=== PATIENT | male | born 1960 | race Caucasian/White ===

== ENCOUNTER → 2016-10-31 | Outpatient (CLI) | payer SELFPAY ==
--- NOTE | 2016-10-31 14:14 | CT ---
EXAM DESCRIPTION: CTA Runoff CLINICAL HISTORY: 56 years, Male, PERIPHERAL VASCULAR DISEASE COMPARISON: None TECHNIQUE: CTA of the abdomen and pelvis with bilateral lower extremity runoff was performed with IV contrast including 3D reformatted images. This exam was performed according to our departmental dose-optimization program, which includes automated exposure control, adjustment of the mA and/or kV according to patient size and/or use of iterative reconstruction technique. FINDINGS: There is no abdominal aortic aneurysm or dissection. Calcified and noncalcified plaque at the origins of the celiac axis and superior mesenteric artery resulting in mild stenosis at both locations. There is some calcification at the origin of the left renal artery without definite renal artery stenosis. There are accessory renal arteries bilaterally. The inferior mesenteric artery is perfused. Calcified and noncalcified plaque results in advanced stenosis of the left common iliac artery. There is mural calcification in the right common iliac artery resulting in only mild stenosis. Calcified and noncalcified plaque in both external iliac and common femoral arteries results in moderate stenosis of the left common femoral artery with only minimal right common femoral artery stenosis. Calcified plaque in the distal right superficial femoral artery results in high-grade short segment stenosis at the level of the adductor canal. Mild atherosclerotic disease is noted in the right lower extremity abdomen below the level of the right knee without additional focal high-grade stenosis. Anterior tibial artery is perfused at the level of the right ankle. The posterior tibial artery is also likely perfused. Calcified plaque in the mid/distal left superficial femoral artery results in short segment advanced stenosis at the level of the adductor canal. There is additional calcified and noncalcified plaque in the left popliteal artery resulting in moderate to moderately advanced stenosis. The left lower extremity trifurcation vessels are unremarkable with two-vessel runoff at the level of the left ankle. Postoperative changes are noted in the left knee.. Evaluation of the colon is limited by lack of oral contrast and suboptimal distention. No colonic wall thickening or pericolonic inflammation is identified. No dilated small bowel loops. This probable diffuse fatty filtration of the liver. There are degenerative changes in the lumbar spine multiple levels. IMPRESSION: Advanced atherosclerotic disease involving the common iliac arteries bilaterally resulting in severe left common iliac artery stenosis and mild right common iliac artery stenosis. Atherosclerotic disease in both lower extremities as detailed above resulting in mild to moderate bilateral common femoral artery stenosis and moderate to moderately advanced bilateral superficial femoral artery stenosis. Electronically signed by: Dom Pride MD 10/31/2016 2:13 PM CDT Workstation: [id number]
== END | disposition home or self-care (01) ==
LOC: CT 08:17
PROVIDERS: ATTEND Family Medicine
DX: I70.201 Unspecified atherosclerosis of native arteries of extremities, right leg (principal)

== ENCOUNTER 2017-06-01 16:19 | Emergency (ER) | payer SELFPAY ==
--- NOTE | 2017-06-01 16:52 | ED.PDOC ---
History of Present Illness - General Chief Complaint: Chest Pain/HI Time Seen by Provider: 06/01/17 16:48 Source: patient Exam Limitations: no limitations Additional Information: 56 year old white with known cad sp stent supported angioplasty 5 years ago at He has not seen his policy loan calculator in several months.. 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 therefore he states he is stressed out and smokes more than he normally does H He is a chronic smoker 1ppd - History of Present Illness Timing/Duration: intermittent Location: substernal Prior Chest Pain/Cardiac Workup: cardiac cath, heart attack Improving Factors: nothing Worsening Factors: nothing Aspirin Treatment Today: provided at home Associated Symptoms: chest pain, other - anxiety Allergies/Adverse Reactions: Allergies NO KNOWN ALLERGY Allergy (Unverified 06/01/17 16:28) Home Medications: Ambulatory Orders Clopidogrel Bisulfate 75 mg PO DAILY 12/03/13 Escitalopram [Lexapro] 20 mg PO DAILY 12/03/13 Metoprolol Succinate [Metoprolol Succinate ER] 100 mg PO DAILY 12/03/13 Atorvastatin Calcium [Lipitor] 80 mg PO BEDTIME 06/01/17 Azilsartan Medoxomil-Chlorthal [Edarbyclor] 1 tab PO DAILY 06/01/17 Buspirone HCl 15 mg PO BID 06/01/17 Cilostazol 100 mg PO DAILY 06/01/17 Review of Systems - Review of Systems Constitutional: States: see HPI EENTM: States: no symptoms reported Respiratory: States: no symptoms reported Cardiology: States: see HPI Gastrointestinal/Abdominal: States: no symptoms reported Genitourinary: States: no symptoms reported Musculoskeletal: States: no symptoms reported Skin: States: no symptoms reported Neurological: States: no symptoms reported Endocrine: States: no symptoms reported Hematologic/Lymphatic: States: no symptoms reported Past Medical History (General) - Patient Medical History Hx Seizures: No Hx Stroke: No Hx Dementia: No Hx Asthma: No Hx of COPD: No Hx Cardiac Disorders: Yes - HI Hx Congestive Heart Failure: No Hx Pacemaker: No Hx Hypertension: Yes Hx Thyroid Disease: No Hx Diabetes: No Hx Gastroesophageal Reflux: No Hx Renal Disease: No Hx Cancer: No Hx of HIV: No Hx Hepatitis C: No Hx MRSA: No - Vaccination History Hx Tetanus, Diphtheria Vaccination: Yes Hx Influenza Vaccination: Yes Hx Pneumococcal Vaccination: No - Social History Hx Tobacco Use: Yes Hx Chewing Tobacco Use: No Hx Alcohol Use: Yes Hx Substance Use: No Hx Substance Use Treatment: No Hx Depression: No Hx Physical Abuse: No Hx Emotional Abuse: No Hx Suspected Abuse: No Family Medical History - Family History Father Living Status: Cause of : aneurysm Physical Exam - Physical Exam General Appearance: Alert Eyes, Ears, Nose, Throat Exam: TMs normal, pharynx normal Neck: non-tender, full range of motion, supple Respiratory: chest non-tender, lungs clear, normal breath sounds Cardiovascular/Chest: normal peripheral pulses, regular rate, rhythm, no edema, no gallop Gastrointestinal/Abdominal: normal bowel sounds, non tender, soft, no organomegaly 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, no motor/sensory deficits, alert, normal mood/affect, oriented x 3 Progress - Results/Orders Results/Orders: PT REQUESTING XANAX HE TAKES FOR ANXIETY HE GIVE ANXIOLYTIC HE REMAINED CHEST PAIN FREE MOST OF HIS STAY COUNSELED ABOUT HIS NICOTINE USE Laboratory Tests 06/01/17 16:30 WBC 7.9 RBC 3.97 L Hgb 11.3 L Hct 33.9 L MCV 85.4 MCH 28.4 MCHC 33.4 RDW 17.7 H Plt Count 331 MPV 7.1 L Absolute Neuts (auto) 5.00 Absolute Lymphs (auto) 2.00 Absolute Monos (auto) 0.50 Absolute Eos (auto) 0.30 Absolute Basos (auto) 0.10 Neutrophils % 63.6 Lymphocytes % 25.9 Monocytes % 6.0 Eosinophils % 3.5 Basophils % 1.0 PT 10.0 INR 0.880 PTT (SP) 30.4 Sodium 132 L Potassium 4.0 Chloride 95 L Carbon Dioxide 25 Anion Gap 16.0 BUN 16 Creatinine 1.60 H BUN/Creatinine Ratio 10.0 Random Glucose 97 Serum Osmolality 265.6 L Calcium 9.1 Magnesium 1.9 Creatine Kinase 68 CK-MB (CK-2) 3.0 CK-MB (CK-2) % Not Reportable Troponin I 0.02 B-Natriuretic Peptide 220.0 H* - Consult/PCP Time Called: 16:55 - NO STEMI NON PROGRESSION OF R WAVE NORMAL AXIS RATE 93 / MIN Departure - Departure Clinical Impression: Chest pain Time of Disposition: 18:52 Disposition: Discharge to Home or Self Care Condition: Good Departure Forms: ED Discharge - Pt. 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
--- NOTE | 2017-06-01 16:52 | RAD ---
EXAM DESCRIPTION: Chest,1 View CLINICAL HISTORY: 56 years Male, CHEST PAIN COMPARISON: November 13, 2015 TECHNIQUE: AP portable chest. FINDINGS: Fair expansion of the lungs is evident without consolidation, layering effusion, or large mass. Heart size and vascularity appear normal for AP technique and degree of inspiration. No gross bony, hilar, or mediastinal abnormalities are noted. Old healed right posterior lateral rib fractures are unchanged from prior study. IMPRESSION: No acute cardiopulmonary disease. Electronically signed by: Farhan Corea MD 06/01/2017 4:51 PM CDT
[2017-06-01 19:41] VITALS: BP 162/74; TEMP 98.8; O2SAT 99
== END 2017-06-01 19:20 | disposition home or self-care (01) ==
LOC: ER 16:19
DX: R07.9 Chest pain, unspecified (principal); I25.2 Old myocardial infarction; I10 Essential (primary) hypertension; F41.9 Anxiety disorder, unspecified; I25.10 Atherosclerotic heart disease of native coronary artery without angina pectoris; Z98.61 Coronary angioplasty status; F17.200 Nicotine dependence, unspecified, uncomplicated; Z79.02 Long term (current) use of antithrombotics/antiplatelets
CPT/HCPCS: 36415; 71045; 80048; 82550; 82553; 83880; 84484; 85025; 85610; 85730; 93005; 94760; J2060

== ENCOUNTER 2018-09-19 19:28 | Emergency (ER) | payer SELFPAY ==
[2018-09-19 20:09] VITALS: TEMP 98.9; O2SAT 98
--- NOTE | 2018-09-19 20:46 | RAD ---
EXAM: XR Chest, 1 View CLINICAL HISTORY: 57 years old and is Male; dyspnea TECHNIQUE: Frontal view of the chest. COMPARISON: 06/22/2018. FINDINGS: Limitations: None. Lungs: Pulmonary edema present probably superimposed on fibrotic change. Chronic obstructive changes are present. Pleural space: Unremarkable. No pneumothorax. Heart: Unremarkable. No cardiomegaly. Mediastinum: Unremarkable. Bones/joints: Old bilateral rib fractures noted. IMPRESSION: Pulmonary edema superimposed on fibrosis. Electronically signed by: Lucina Cramer MD 09/19/2018 8:44 PM CDT
--- NOTE | 2018-09-19 21:17 | ED.PDOC ---
History of Present Illness - General Chief Complaint: Respiratory Problem Stated Complaint: Dyspnea Time Seen by Provider: 09/19/18 19:57 Source: patient, RN notes reviewed, Vital Signs reviewed Exam Limitations: no limitations - History of Present Illness Initial Comments: 57 yo male c/o dyspnea on exertion x 3 days. Feels fatigued. No complaints of pain. Timing/Duration: days Severity: moderate Activities at Onset: activity Possible Cause: no prior episodes Improving Factors: rest Associated Symptoms: cough, other - weight loss Respiratory Risk Factors: no cause identified Allergies/Adverse Reactions: Allergies NO KNOWN ALLERGY Allergy (Unverified 06/01/17 16:28) Home Medications: Ambulatory Orders Clopidogrel Bisulfate 75 mg PO DAILY 12/03/13 Escitalopram [Lexapro] 20 mg PO DAILY 12/03/13 Metoprolol Succinate [Metoprolol Succinate ER] 100 mg PO DAILY 12/03/13 Atorvastatin Calcium [Lipitor] 80 mg PO BEDTIME 06/01/17 Azilsartan Medoxomil-Chlorthal [Edarbyclor] 1 tab PO DAILY 06/01/17 Buspirone HCl 15 mg PO BID 06/01/17 Cilostazol 100 mg PO DAILY 06/01/17 Review of Systems - Review of Systems Constitutional: States: see HPI, malaise EENTM: States: no symptoms reported Respiratory: States: see HPI, cough Cardiology: States: no symptoms reported Gastrointestinal/Abdominal: States: no symptoms reported Genitourinary: States: no symptoms reported Musculoskeletal: States: no symptoms reported Skin: States: no symptoms reported Neurological: States: no symptoms reported Endocrine: States: unexplained weight loss Hematologic/Lymphatic: States: easy bruising Past Medical History (General) - Patient Medical History Hx Seizures: No Hx Stroke: No Hx Dementia: No Hx Asthma: No Hx of COPD: No Hx Cardiac Disorders: No Hx Congestive Heart Failure: No Hx Pacemaker: No Hx Hypertension: Yes Hx Thyroid Disease: No Hx Diabetes: No Hx Gastroesophageal Reflux: No Hx Renal Disease: No Hx Cancer: No Hx of HIV: No Hx Hepatitis C: No Hx MRSA: No - Vaccination History Hx Tetanus, Diphtheria Vaccination: No Hx Influenza Vaccination: No Hx Pneumococcal Vaccination: No Immunizations Up to Date: Yes - Social History Hx Tobacco Use: Yes Hx Chewing Tobacco Use: No Hx Alcohol Use: Yes Hx Substance Use: No Hx Substance Use Treatment: No Hx Depression: No Hx Physical Abuse: No Hx Emotional Abuse: No Hx Suspected Abuse: No Family Medical History - Family History Father Family History: Unknown Living Status: Cause of : aneurysm Physical Exam - Physical Exam General Appearance: Alert, Comfortable, No apparent distress Eyes, Ears, Nose, Throat Exam: pale conjunctivae (R), pale conjunctivae (L) Neck: supple, normal inspection Respiratory: no respiratory distress, rales Cardiovascular/Chest: regular rate, rhythm, no edema, no gallop, no JVD, no murmur Gastrointestinal/Abdominal: non tender, soft, no organomegaly Extremity: normal range of motion, non-tender, normal inspection, no pedal edema, no calf tenderness Neurologic: no motor/sensory deficits, alert, normal mood/affect, oriented x 3 Skin Exam: normal color, warm/dry - bruising to arms Progress - Progress Progress: 09/19/18 21:18 He declines admission or transfer. I explained to him that a life threatening process has not been ruled out. He was educated on all his tests & that the differential includes heart failure, hemorrhage, abnormal clotting (PE), ACS, and cancer. He says he will follow up in [place] in the morning but will return here if any problems develop overnight. He will sign out AMA. I feel he is competent & informed to make his own decisions & have told him I do not agree with his decision. He will be provided with copies of his testing. He left prior to being given potassium. 09/19/18 21:24 - Results/Orders Results/Orders: Hgb 7.2 Plt 240 D-d 1.95 Na 121 K 2.9 CO2 18 Tr 0.04 BNP > 5000 - EKG/XRAY/CT EKG: Sinus - NSR @ 86; nml axis, LAE, nml ST segments & T waves; LVH XRAY: chest - pulmonary edema Departure - Departure Clinical Impression: Hyponatremia, Hypokalemia, Acidosis Pulmonary edema Qualifiers: Chronicity: acute Qualified Code(s): J81.0 - Acute pulmonary edema Anemia Qualifiers: Anemia type: unspecified type Qualified Code(s): D64.9 - Anemia, unspecified Time of Disposition: 21:29 Disposition: Left Against Medical Advice Condition: Serious Departure Forms: ED Discharge - Pt. Copy, Patient Portal Self Enrollment Instructions: Heart Failure, Adult (DC) Home Medications: Ambulatory Orders Clopidogrel Bisulfate 75 mg PO DAILY 12/03/13 Escitalopram [Lexapro] 20 mg PO DAILY 12/03/13 Metoprolol Succinate [Metoprolol Succinate ER] 100 mg PO DAILY 12/03/13 Atorvastatin Calcium [Lipitor] 80 mg PO BEDTIME 06/01/17 Azilsartan Medoxomil-Chlorthal [Edarbyclor] 1 tab PO DAILY 06/01/17 Buspirone HCl 15 mg PO BID 06/01/17 Cilostazol 100 mg PO DAILY 06/01/17 Additional Instructions: you MUST follow up either her or at [facility] in the morning
[2018-09-19 21:30] VITALS: BP 171/106
== END 2018-09-19 21:20 | disposition left against medical advice (07) ==
LOC: ER 19:28
DX: J81.0 Acute pulmonary edema (principal); D64.9 Anemia, unspecified; E87.1 Hypo-osmolality and hyponatremia; E87.6 Hypokalemia; E87.2 Acidosis; I10 Essential (primary) hypertension; Z53.29 Procedure and treatment not carried out because of patient's decision for other reasons; Z87.891 Personal history of nicotine dependence; Z79.899 Other long term (current) drug therapy

== ENCOUNTER 2018-09-20 00:14 | Emergency (ER) | payer SELFPAY ==
[2018-09-20] MEDS ORDERED: SODIUM CHLORIDE 0.9% 1000ML 1,000 ML IVS ONE (00:32)
[2018-09-20] MEDS ORDERED: TETANUS,DIPHTHERIA,PERTUSSIS 1 EA SYG IM ONE (00:32)
--- NOTE | 2018-09-20 01:12 | CT ---
EXAM: CT Head Without Intravenous Contrast CLINICAL HISTORY: The patient is 57 years old and is Male; syncope TECHNIQUE: Axial computed tomography images of the head/brain without intravenous contrast. Sagittal and coronal reformatted images were created and reviewed. This CT exam was performed using one or more of the following dose reduction techniques: automated exposure control, adjustment of the mA and/or kV according to patient size, and/or use of iterative reconstruction technique. COMPARISON: No relevant prior studies available. FINDINGS: BRAIN: There is diffuse cerebral atrophy present, consistent with this patient's age. There is patchy hypoattenuation of the deep white matter which is non-specific, but most likely owing to chronic small vessel ischemic change in a patient of this age group. No intracranial hemorrhage, mass effect, or midline shift is seen. There are no extra-axial fluid collections. VENTRICLES: Unremarkable. No ventriculomegaly. BONES/JOINTS: No acute fracture. SOFT TISSUES: Unremarkable. SINUSES: Unremarkable as visualized. No acute sinusitis. MASTOID AIR CELLS: Unremarkable as visualized. No mastoid effusion. IMPRESSION: Age-related atrophy and chronic white matter ischemic changes, with no evidence of an acute intracranial abnormality. Electronically signed by: Aditi Vides MD 09/20/2018 1:10 AM CDT
--- NOTE | 2018-09-20 01:13 | CT ---
CT cervical spine without contrast on 09/20/2018 CLINICAL INDICATION: Syncope, per protocol for mechanism of injury TECHNIQUE: Multiple axial images are obtained throughout the cervical spine without the administration of contrast. Sagittal and coronal reformatted images are also performed and reviewed. This exam was performed according to our departmental dose-optimization program, which includes automated exposure control, adjustment of the mA and/or kV according to patient size and/or use of iterative reconstruction technique. Total DLP is 499.34 mGy*cm. COMPARISON: None FINDINGS: Diffuse degenerative disc disease is noted throughout the cervical spine. There is mild grade 1 spondylolisthesis at C2-3 and C4-5 secondary to degenerative facet disease. Degenerative facet disease is noted worse on the left in the mid cervical spine. Reformatted images reveal otherwise normal alignment of the cervical spine. There is no prevertebral soft tissue swelling. Bilateral carotid calcifications are noted. There are no acute fracture lines. No definite disc herniation is noted. There are partially imaged right greater than left pleural effusions. Paraseptal emphysema is noted in the lung apices. There is an enlarged paratracheal lymph node on image 95 measuring 2.2 x 1.5 cm. IMPRESSION: 1. Degenerative changes with no acute fracture or acute malalignment of the cervical spine. 2. Bilateral pleural effusions. 3. Paratracheal adenopathy that could be reactive but malignant process is not excluded. Would recommend at least a complete chest CT to better evaluate or consider PET/CT. Electronically signed by: Davi Pizano 09/20/2018 1:11 AM CDT
--- NOTE | 2018-09-20 02:14 | ED.PDOC ---
History of Present Illness - General Chief Complaint: Trauma Stated Complaint: Fall Time Seen by Provider: 09/20/18 00:30 Source: patient, RN notes reviewed, Vital Signs reviewed, family Exam Limitations: no limitations - History of Present Illness Initial Comments: 57 yo male presents via EMS after a reported syncopal episode & fall at home. Says he went to the [facility], had a BM & after starting to walk out he fainted. Reports pain to the left side of his head & neck. Denies chest pain or palpitations. He doesn't know if he had any rectal bleeding. He was seen here earlier tonight for anemia, pulmonary edema & hyponatremia but left AMA. Timing/Prior Episodes: no prior history Precipitating Factors: lightheadedness Loss of Consciousness: brief (seconds) Current Symptoms: injury, loss of bladder control, loss of bowel control Allergies/Adverse Reactions: Allergies NO KNOWN ALLERGY Allergy (Unverified 06/01/17 16:28) Home Medications: Ambulatory Orders Metoprolol Succinate [Metoprolol Succinate ER] 100 mg PO DAILY 12/03/13 Buspirone HCl 15 mg PO BID 06/01/17 Citalopram Hydrobromide [Citalopram] 20 mg PO DAILY 09/20/18 Clopidogrel Bisulfate [Plavix] 75 mg PO QD 09/20/18 Lisinopril 10 mg PO DAILY 09/20/18 Review of Systems - Review of Systems Constitutional: States: weakness EENTM: States: no symptoms reported Respiratory: States: no symptoms reported Cardiology: States: no symptoms reported Gastrointestinal/Abdominal: States: see HPI. Denies: abdominal pain Genitourinary: States: no symptoms reported Musculoskeletal: States: see HPI. Denies: back pain Skin: States: other - skin tears to right forearm Neurological: States: no symptoms reported Endocrine: States: unexplained weight loss Hematologic/Lymphatic: States: easy bruising Past Medical History (General) - Patient Medical History Hx Seizures: No Hx Stroke: No Hx Dementia: No Hx Asthma: No Hx of COPD: No Hx Cardiac Disorders: No Hx Congestive Heart Failure: No Hx Pacemaker: No Hx Hypertension: Yes Hx Thyroid Disease: No Hx Diabetes: No Hx Gastroesophageal Reflux: No Hx Renal Disease: No Hx Cancer: No Hx of HIV: No Hx Hepatitis C: No Hx MRSA: No - Vaccination History Hx Tetanus, Diphtheria Vaccination: No Hx Influenza Vaccination: No Hx Pneumococcal Vaccination: No - Social History Hx Tobacco Use: Yes Cigarettes Packs Per Day: 2 Hx Chewing Tobacco Use: No Hx Alcohol Use: Yes Hx Substance Use: No Hx Substance Use Treatment: No Hx Depression: No Hx Physical Abuse: No Hx Emotional Abuse: No Hx Suspected Abuse: No Physical Exam - Physical Exam General Appearance: Alert, Comfortable, No apparent distress Eyes, Ears, Nose, Throat Exam: PERRL/EOMI, normal ENT inspection, pale conjunctivae (R), pale conjunctivae (L) Neck: limited range of motion, other - c-collar. No midline tenderness. 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 No neck pain other than chronic left lateral neck pain. 111/81. He now agrees to a transfer. His spouse requests Mushtaq No. - Results/Orders Results/Orders: Hgb 7.3 Na 121 K 2.9 Cr 1.4 Osmo 244 Occult blood neg - EKG/XRAY/CT EKG: Siva, Sinus - SB @ 56; nml axis, LAE, prolonged QT, LVH, Twi V1-2 (new) CT Ordered: Yes - head - no acute process; C-spine - pleural effusions & paratracheal LAD - Consult/PCP Time Called: 02:36 Consult/PCP: Dr. Glover Departure - Departure Clinical Impression: Neck pain, Pleural effusion, Hyponatremia, Hypokalemia, Skin tear Syncope Qualifiers: Syncope type: unspecified Qualified Code(s): R55 - Syncope and collapse Head injury Qualifiers: Encounter type: initial encounter Qualified Code(s): S09.90XA - Unspecified injury of head, initial encounter Anemia Qualifiers: Anemia type: unspecified type Qualified Code(s): D64.9 - Anemia, unspecified Disposition: Discharge to Home or Self Care Departure Forms: ED Discharge - Pt. Copy, Patient Portal Self Enrollment Instructions: DI for Trauma Referrals: Michael Conley MD [Primary Care Provider] - 1-2 Weeks Home Medications: Ambulatory Orders Metoprolol Succinate [Metoprolol Succinate ER] 100 mg PO DAILY 12/03/13 Buspirone HCl 15 mg PO BID 06/01/17 Citalopram Hydrobromide [Citalopram] 20 mg PO DAILY 09/20/18 Clopidogrel Bisulfate [Plavix] 75 mg PO QD 09/20/18 Lisinopril 10 mg PO DAILY 09/20/18 Critical Care Note - Critical Care Note Total Time (mins): 30 Transfer to Outside Facility - Transfer Information Accepting Facility: [facility] Reason for Transfer: specialized care not available
[2018-09-20] MEDS ORDERED: NEOMYCIN-BACITRACIN-POLYMYXIN 0.9 GM UD TOP ONE ×2 (02:45)
[2018-09-20] MEDS ORDERED: POTASSIUM CHLORIDE 20 MEQ TAB PO ONE (03:26)
[2018-09-20] MEDS ORDERED: FUROSEMIDE INJ 20 MG/2 ML VIAL IV ONE (03:26)
[2018-09-20] MEDS ORDERED: ACETAMINOPHEN 325 MG TAB PO ONE (03:31)
[2018-09-20] MEDS ORDERED: SODIUM CHLORIDE 0.9% 500ML 500 ML ONE (03:38)
[2018-09-20 04:26] VITALS: BP 114/69; TEMP 98; O2SAT 94
== END 2018-09-20 04:15 | disposition home or self-care (01) ==
LOC: ER 00:14
DX: R55 Syncope and collapse (principal); S09.90XA Unspecified injury of head, initial encounter; D64.9 Anemia, unspecified; J90 Pleural effusion, not elsewhere classified; E87.1 Hypo-osmolality and hyponatremia; E87.6 Hypokalemia; M54.2 Cervicalgia; S51.811A Laceration without foreign body of right forearm, initial encounter; R00.1 Bradycardia, unspecified; I10 Essential (primary) hypertension; Z87.891 Personal history of nicotine dependence; Z79.899 Other long term (current) drug therapy; W18.30XA Fall on same level, unspecified, initial encounter; Y92.009 Unspecified place in unspecified non-institutional (private) residence as the place of occurrence of the external cause
CPT/HCPCS: 70450; 72125; 80048; 82270; 82607; 82728; 82746; 83540; 84484; 85025; 85610; 85730; 86850; 86900; 86901; 86922; 90471; 90715; 93005; J1940; J7040; P9016

== ENCOUNTER 2018-11-13 18:12 | Emergency (ER) | payer SELFPAY ==
[~2018-11-13 18:12] MED LIST: WATER FOR INJ 10 ML VIAL INJ ONE
[2018-11-13] MEDS ORDERED: IPRATROPIUM/ALBUTEROL 3 ML VIAL NEB ONE (18:27)
[2018-11-13] MEDS: IPRATROPIUM/ALBUTEROL 3 ML VIAL NEB ONE ×2 (18:46→23:45)
--- NOTE | 2018-11-13 19:48 | ED.PDOC ---
History of Present Illness - General Chief Complaint: Respiratory Problem Stated Complaint: shortness of breath Time Seen by Provider: 11/13/18 18:34 Source: patient Exam Limitations: no limitations - History of Present Illness Initial Comments: DSYPNEA X 1 DAY. COMPLEX PMH LIFELONG ALCOHOLIC AND SMOKER. H/O PERICARDIAL EFFUSION. Timing/Duration: 7-24 hours Severity: moderate Activities at Onset: none Possible Cause: illness exposure, smoke exposure Improving Factors: immobilization Worsening Factors: movement Associated Symptoms: denies symptoms Respiratory Risk Factors: other - SMOKER Allergies/Adverse Reactions: Allergies NO KNOWN ALLERGY Allergy (Unverified 06/01/17 16:28) Home Medications: Ambulatory Orders Metoprolol Succinate [Metoprolol Succinate ER] 100 mg PO DAILY 12/03/13 Buspirone HCl 15 mg PO BID 06/01/17 Citalopram Hydrobromide [Citalopram] 20 mg PO DAILY 09/20/18 Clopidogrel Bisulfate [Plavix] 75 mg PO QD 09/20/18 Lisinopril 10 mg PO DAILY 09/20/18 Review of Systems - Review of Systems Constitutional: Denies: chills, diaphoresis EENTM: Denies: ear pain, nose congestion Respiratory: States: short of breath. Denies: cough, wheezing Cardiology: Denies: chest pain, palpitations Gastrointestinal/Abdominal: Denies: abdominal pain, nausea Genitourinary: Denies: dysuria, frequency, hematuria Musculoskeletal: Denies: back pain, joint pain Skin: States: no symptoms reported Neurological: Denies: numbness, pre-existing deficit, weakness Endocrine: Denies: flushing, unexplained weight gain, unexplained weight loss Hematologic/Lymphatic: Denies: easy bleeding, easy bruising All other Systems: Reviewed and Negative Past Medical History (General) - Patient Medical History Hx Seizures: No Hx Stroke: No Hx Dementia: No Hx Asthma: No Hx of COPD: No Hx Cardiac Disorders: Yes Hx Congestive Heart Failure: No Hx Pacemaker: No Hx Hypertension: Yes Hx Thyroid Disease: No Hx Diabetes: No Hx Gastroesophageal Reflux: No Hx Renal Disease: No Hx Cancer: No Hx of HIV: No Hx Hepatitis C: No Hx MRSA: No Surgical History: no surgical history - Vaccination History Hx Tetanus, Diphtheria Vaccination: No Hx Influenza Vaccination: No Hx Pneumococcal Vaccination: No - Social History Hx Tobacco Use: Yes Hx Chewing Tobacco Use: No Hx Alcohol Use: Yes Hx Substance Use: No Hx Substance Use Treatment: No Hx Depression: No Hx Physical Abuse: No Hx Emotional Abuse: No Hx Suspected Abuse: No Family Medical History - Family History Father Family History: Unknown Living Status: Cause of : aneurysm Physical Exam - Physical Exam General Appearance: Alert, No apparent distress Eyes, Ears, Nose, Throat Exam: PERRL/EOMI, normal ENT inspection, TMs normal, pharynx normal Neck: non-tender, full range of motion, supple, normal inspection Respiratory: lungs clear, normal breath sounds, no respiratory distress, no accessory muscle use Cardiovascular/Chest: normal peripheral pulses, regular rate, rhythm, no edema, no gallop, no JVD, no murmur Peripheral Pulses: radial,right: 1+, radial,left: 1+ Gastrointestinal/Abdominal: normal bowel sounds, non tender, soft, no organomegaly, no pulsatile mass Extremity: normal range of motion, non-tender, normal inspection, no pedal edema, no calf tenderness Neurologic: no motor/sensory deficits, alert, normal mood/affect, oriented x 3 Skin Exam: normal color, warm/dry Lymphatic: no adenopathy Progress - Progress Progress: 11/13/18 21:01 PT NEEDS A HIGHER LEVEL OF CARE DUE TO: BL PNE (STARTED ZOSYN). CHF (BNP 4000, lasix). HYPOXIA (SATTING 93% ON NRB, DUONEBS). ANEMIA (HGB 6.6. STARTING PRBC'S). ACUTE LIVER FAILURE (AST 2,000. ALT 1,000 - NEEDS GI/HEPATOLOGY CONSULT). ARF. NOTE: THE ABG RESULTED A VENOUS BLOOD GAS, PER R.T. AND THE RESULTS. pH IS NL AT 7.36. I CALLED [facility] FOR TRANSFER. HE IS CONTACTING HOSPITALIST AND CALLING ME BACK. 11/13/18 21:25 [facility] CALLED BACK BUT PT AND FAMILY DECIDED THEY WANT TO GO TO [facility] I SPOKE WITH [facility] TRANSFER LINE AND THE SAID WITH LFT'S THAT HIGH, THE PT NEEDS TO GO TO [facility] OR OTHER [facility]. WE WILL NOW ATTEMPT TO CONTACT [facility]. 11/13/18 22:15 WE CALLED [facility] TRANSFER LINE. THEY ARE CHECKING TO SEE IF THEY HAVE BEDS AND ARE CALLING US BACK. 11/13/18 22:[address] MULLINS FROM [facility]. THEY REFUSED TO TAKE THE PT DUE TO THE TRAVEL DISTANCE. PT IS SATTING 92% ON NRB AND IS BREATHING COMFORTABLY (NO LABORED BREATHING, NO TACHYPNEA) SO IN MY OPINION HE IS VERY SAFE FOR TRANSFER. THEY RECOMMENDED HE GO TO [facility]. NOW WE ARE CALLING [facility] FOR HOPEFUL TRANSFER. 11/13/18 22:24 11/13/18 22:[address] LAWRENCE FROM [facility]. HE REQUESTED WE GIVE 1 UNIT PRBC AND RECHECK HIS HGB TO ENSURE IT IS ABOVE 7.0. IT IS CURRENTLY 6.6 IN ER AND WAS 7.2 ON SEPTEMBER 19, 6 WKS AGO, SO IT IS A SLOW DECLINE. HE IS TOLERATING IT WELL AND HEMODYNAMICALLY STABLE WITH BP 165/87, PULSE 72, NO HYPOTENSION AND NO TACHYCARDIA, COMFORTABLE RESPIRATIONS. SO MY POINT IS THIS PATIENT NEEDS A HIGHER LEVEL OF CARE AND IS SAFE FOR TRANSFER. DELAYING 2 HRS TO TRANSFER IS ONLY DELAYING CARE AND HIS NEED FOR A HIGHER LEVEL OF CARE, WHICH IS NOT IN THE PATIENT'S BEST INTEREST. I AM CALLING THE DR BACK TO [facility] FOR THE PATIENT PER THE ABOVE. 11/13/18 23:[address] LAWRENCE AND EXPLAINED THE ABOVE. HE KINDLY EXPLAINED THE HOSPITAL POLICY THAT THEY ARE NOT ALLOWED TO ADMIT TO THE PCU UNLESS HGB IS 7.0. HE RECOMMENDED TALKING TO THE ER. DR. SACHA DYER FROM [facility] ER SAID TO START THE PRBC'S AND TRANSFER HIM. THANK YOU, DR. DYER AND [facility] FOR ACCEPTING FURTHER CARE FOR THIS PATIENT. IT TOOK 2 1/2 HRS OF CALLING HOSPITALS TO GET ACCEPTANCE FOR TRANSFER, WHICH DELAYED PATIENT CARE, SO I AM EXTRA APPRECIATIVE OF DR. DYER AND [facility] ER. THE PATIENT IS STABLE AND SAFE FOR TRANSFER. WE WILL HAVE THE PRBC ON BOARD. 11/14/18 01:00 PT WAS SATTING WELL (93%) ON NRB ALL EVENING BUT STARTED DROPPING INTO 80'S. THUS CHANGED TO BIPAP AND HOLDING AT 94%. NO LABORED BREATHING; PT IS BREATHING COMFORTABLY. NO TACHYPNEA. 11/14/18 01:02 WE ARE PREPARING TO START THE PRBC'S AND THEN WILL TRANSFER ON BIPAP. PT IS STILL IN HEMODYNAMICALLY STABLE CONDITION; NO HYPOTENSION, NO TACHYCARDIA. 11/14/18 01:10 Departure - Departure Clinical Impression: Alcohol abuse, Tobacco abuse, Hypoxia, Neutrophilic leukocytosis, Elevated LFTs, Anemia requiring transfusions, Elevated brain natriuretic peptide (BNP) level Dyspnea Qualifiers: Dyspnea type: shortness of breath Qualified Code(s): R06.02 - Shortness of breath; R06.00 - Dyspnea, unspecified; R06.01 - Orthopnea ARF (acute renal failure) Qualifiers: Acute renal failure type: unspecified Qualified Code(s): N17.9 - Acute kidney failure, unspecified Pneumonia of both lower lobes Qualifiers: Pneumonia type: due to unspecified organism Qualified Code(s): J18.1 - Lobar pneumonia, unspecified organism CHF (congestive heart failure) Qualifiers: Heart failure type: unspecified Heart failure chronicity: acute on chronic Qualified Code(s): I50.9 - Heart failure, unspecified Liver failure, acute Qualifiers: Hepatic coma status: without hepatic coma Qualified Code(s): K72.00 - Acute and subacute hepatic failure without coma Disposition: Transfer to Hospital Condition: Serious Departure Forms: ED Discharge - Pt. Copy, Patient Portal Self Enrollment Referrals: Michael Conley MD [Primary Care Provider] - 1-2 Weeks Home Medications: Ambulatory Orders Metoprolol Succinate [Metoprolol Succinate ER] 100 mg PO DAILY 12/03/13 Buspirone HCl 15 mg PO BID 06/01/17 Citalopram Hydrobromide [Citalopram] 20 mg PO DAILY 09/20/18 Clopidogrel Bisulfate [Plavix] 75 mg PO QD 09/20/18 Lisinopril 10 mg PO DAILY 09/20/18 Transfer to Outside Facility - Transfer Information Accepting Provider:: DR. SACHA DYER Accepting Facility: [facility] Reason for Transfer: specialized care not available
--- NOTE | 2018-11-13 19:57 | RAD ---
: 1960. Technique: Portable AP chest x-ray. Comparison: September 19, 2018. Clinical history: ACUTE DYSPNEA; LIFELONG SMOKER. Heart size: Enlarged heart. Lungs: Moderate bilateral mixed interstitial and alveolar infiltrates. Consistent with pneumonia or pulmonary edema. Consider CT in light of the clinical history. Pleura: No appreciable pleural effusion. No pneumothorax. Mediastinum and rolo: Unremarkable. Skeletal: There are bilateral rib fracture deformities. An underlying destructive process cannot be excluded. Degenerative changes in the shoulders. Support tubings: None. Impression: 1. Cardiomegaly. 2. Worsening bilateral pneumonia and pulmonary edema. 3. Rib fractures Electronically signed by: Daniel Roth MD 11/13/2018 7:55 PM CDT
[2018-11-13] MEDS: SODIUM CHLORIDE 0.9% (FLUSH) 10 ML SYG IV PRN (20:46)
[2018-11-13] MEDS ORDERED: SODIUM CHLORIDE 0.9% 100ML 100 ML IVPB ONE (21:10)
[2018-11-13] MEDS ORDERED: PIPERACILLIN/TAZOBACTAM 3.375 GM VIAL IVPB ONE (21:10)
[2018-11-13] MEDS: PIPERACILLIN/TAZOBACTAM 3.375 GM in SODIUM CHLORIDE 0.9% 100ML 100 ML IVPB ONE (21:12)
[2018-11-13] MEDS: FUROSEMIDE INJ 40 MG/4 ML VIAL IV ONE (23:51)
[2018-11-14] MEDS ORDERED: SODIUM CHLORIDE 0.9% 1000ML 1,000 ML ONE (00:48)
[2018-11-14 01:17] VITALS: TEMP 98.7
[2018-11-14] MEDS ORDERED: SUCCINYLCHOLINE CHLORIDE 200 MG/10 ML VIAL ONE (02:11)
[2018-11-14] MEDS: ETOMIDATE INJECTION 2 MG/ML 20ML VIAL IV ONE (02:40)
[2018-11-14] MEDS: SUCCINYLCHOLINE CHLORIDE 200 MG/10 ML VIAL IV ONE (02:40)
[2018-11-14] MEDS: MIDAZOLAM INJ 5 MG/5 ML VIAL IV ONE (02:45)
--- NOTE | 2018-11-14 02:49 | RAD ---
EXAM DESCRIPTION: Chest,1 View CLINICAL HISTORY: 58 years Male, ET tube placement COMPARISON: Chest x-ray November 13, 2018 FINDINGS: An endotracheal tube is present with its tip 5.4 cm above the krissy. Hazy opacity in both lungs is again demonstrated appearing increased. Pulmonary vascular congestion noted. Small right pleural effusion appears increased. There is a probable small left pleural effusion. No pneumothorax. Cardiac silhouette appears mildly enlarged. Mild deformity of the right posterior sixth rib again noted suggestive of remote trauma. IMPRESSION: 1. Interval increased hazy opacity throughout both lungs which may reflect pulmonary edema versus pneumonia. 2. Small right pleural effusion appears increased. Probable small left pleural effusion. 3. Pulmonary vascular congestion. Electronically signed by: Devon Oliva MD 11/14/2018 2:48 AM CDT
[2018-11-14] MEDS: VECURONIUM BROMIDE 10 MG VIAL IV ONE (02:50)
[2018-11-14 03:20] VITALS: BP 177/86; O2SAT 94
== END 2018-11-14 03:00 | disposition short-term general hospital (02) ==
LOC: ER 18:12
DX: J18.1 Lobar pneumonia, unspecified organism (principal); K72.00 Acute and subacute hepatic failure without coma; I50.9 Heart failure, unspecified; N17.9 Acute kidney failure, unspecified; F10.20 Alcohol dependence, uncomplicated; F17.200 Nicotine dependence, unspecified, uncomplicated; R79.89 Other specified abnormal findings of blood chemistry; R09.02 Hypoxemia; D72.829 Elevated white blood cell count, unspecified; D64.9 Anemia, unspecified; I51.9 Heart disease, unspecified; I11.0 Hypertensive heart disease with heart failure; Z79.899 Other long term (current) drug therapy
CPT/HCPCS: 31500; 36415; 36600; 71045; 80048; 80076; 82550; 82553; 82728; 82803; 82805; 83540; 83550; 83880; 84484; 85025; 85610; 85730; 86922; 93005; 94640; 94660; 94760; 94770; A4216; J0330; J1940; J2250; J2543; J7030; J7050; J7620

== ENCOUNTER 2019-01-21 11:45 | Inpatient (IN) | payer SELFPAY ==
--- NOTE | 2019-01-21 12:02 | HP ---
SUPERVISING PHYSICIAN: Gregg Mariscal M.D. CHIEF COMPLAINT: Increasing shortness of breath. HISTORY OF PRESENT ILLNESS: Mr. Alaniz is a 58 year-old male patient of Dr. Stoll'maral. He has a history of having some problems with pleural effusions, and some congestive heart failure, alcoholism and chronic obstructive pulmonary disease. He actually was admitted twice this year for similar symptoms, once at [place] and [facility], and then just recently this past November at [facility] where he actually presented in such a decline that he actually coded and had to be intubated. At that point he had a thoracentesis done as well. He sees Dr. Bland, sample worker, and he has had a cardiac stent placed within the last 8 years. He was seen on January [address] Stoll's office for worsening shortness of breath and he was started on some DuoNeb treatments and then sent home. He had minimal improvement and then returned back to the clinic and seen by nurse practitioner on January 19, and again was given DuoNeb treatments. He then presented to Dr. Stoll's office today in significantly worsened condition showing saturations in the 80s on room air and obvious in some mild respiratory distress. He was referred for direct admission for both possible thoracentesis and exacerbation of congestive heart failure and chronic obstructive pulmonary disease. Labs did show that he had an elevated BNP of 3230 and in the clinic was showing saturations in the 80s on room air. He has a history of chronic anemia and H&H initially on presentation was 8.2 and 26.2 respectively without a left shift. Platelet count was 402,000. I did a CT of his chest and per radiology interpretation there was note of congestive heart failure with pulmonary edema and interstitial thickening with bilateral moderate pleural effusions with compressive atelectasis of the lower lobes. The patient is now admitted for surgical evaluation for possible therapeutic thoracentesis as well as initiation of treatment for congestive heart failure exacerbation and chronic obstructive pulmonary disease exacerbation. He was admitted in stable to guarded condition. PAST MEDICAL HISTORY: 1. Hypertension. 2. Chronic obstructive pulmonary disease. 3. Congestive heart failure. Last echocardiogram showing to be in 2011. He had a preserved ejection fraction of approximately 70%. 4. Chronic alcohol abuse. 5. Chronic obstructive pulmonary disease with severe emphysema. 6. Cardiovascular disease. PAST SURGICAL HISTORY: 1. Laminectomy of the lumbar spine. 2. Left iliac arterial stent. CURRENT MEDICATIONS: ALLERGIES: NO KNOWN DRUG ALLERGIES. FAMILY HISTORY: Noncontributory. SOCIAL HISTORY: The patient is retired. Lives in [place]. He is . He has 2 children. He does drink alcohol on a very regular basis to include 2 to 3 beers a day, he says. He is an every day smoker. REVIEW OF SYSTEMS: CONSTITUTIONAL: Positive for general malaise and fatigue. Denies any fevers. HEENT: Negative for headaches, ear aches, sore throat, nasal congestion or vision changes. RESPIRATORY: As noted in History of Present Illness, positive for worsening shortness of breath with a cough. CARDIOVASCULAR: Denies any chest pains, palpitations or syncopal episodes. GASTROINTESTINAL: Denies any nausea, vomiting, diarrhea or abdominal pains. GENITOURINARY: Denies any dysuria, hematuria or polyuria. MUSCULOSKELETAL: Denies any general arthralgias or joint swelling. NEUROLOGIC: Denies any headaches, vision changes, syncopal episodes, seizures, ataxia or other neurological deficits. PHYSICAL EXAMINATION: VITAL SIGNS: On admission, showing 82 saturations on room air. Respirations are 24 to 26 and labored. Initial blood pressure 180/82. He is afebrile at 96.3 with a pulse 52 and showing 82% on nasal cannula at 5 liters, showing 94% on room air with 45% BiPAP. GENERAL: The patient appears overall unwell. He appears to be in mild distress due to respiratory compromise, but he is alert. HEENT: Tympanic membranes are clear bilaterally. Oropharynx was pink and moist without any lesions. NECK: Supple, non-tender. Full range of motion. There was note of mild jugular venous distention. CHEST: Lung sounds were coarse with some crackles throughout, more prominent on the right than the left. Diminished towards the bases. CARDIOVASCULAR: Regular rate and rhythm. Slightly irregular rate and rhythm without appreciable murmurs, gallops, or rubs. ABDOMEN: Obese but soft, non-tender. Positive bowel sounds. EXTREMITIES: He had 1+ edema bilaterally. He does have some scrotal edema. NEUROLOGIC: He is alert and oriented times three. Facial features were symmetrical. Extraocular movements are within normal limits. There is no notable nystagmus. Cranial nerves II-XII are grossly intact. SKIN: Pale but dry. No diaphoresis. LABORATORY STUDIES: CBC on admission showed white count 8,400, hemoglobin 8.2, hematocrit 26.2, platelet count 402,000. Differential showed to be without a left shift. RBC indices indicated a microcytic hypochromic presentation. Blood gases are pending. CMP shows normal electrolytes but carbon dioxide was low at 19 with anion gap of 18 and BUN 25, glucose 111, magnesium normal at 1.9. Liver functions just showed an elevated AST at 54, ALT was normal, and alkaline phosphatase was 151. Cardiac enzymes showed troponin 0.02. Again his BNP was greater than 3,000 on clinical labs. Urinalysis was pending. 12-lead EKG was pending. RADIOLOGY: CT of the chest per radiology interpretation showed congestive heart failure with pulmonary edema and interstitial lung thickening with emphysematous changes more prevalent in the upper lung jeffrey. Also was bilateral peripheral chronic lung process with honeycombing. There is note of bilateral moderate pleural effusions with compressive atelectasis on the lower lobes. There was note of a mediastinal adenopathy and possible hilar adenopathy that could indicate underlying inflammatory and neoplastic process. There was note of minimal anasarca in the chest wall and upper abdominal wall. Previous trauma fractures with deformity of the sternum and bilateral ribs. ASSESSMENT: 1. Acute on chronic exacerbation of congestive heart failure with echocardiogram pending at time of admission with last echocardiogram in 2011 showing an ejection fraction of 70%. 2. Chronic obstructive pulmonary disease exacerbation complicated by #1. 3. Chronic alcohol abuse. 4. Hypertension. 5. Peripheral vascular disease with bilateral iliac artery stenosis and stent placement on the left. 6. Chronic gastroesophageal reflux disease. PLAN: Mr. Alaniz is going to be admitted for initiation of treatment of congestive heart failure exacerbation. I will give him 80 of Lasix initially. Will followup this with 40 every 8 hours as well as daily Spironolactone. He will need to be on BiPAP. He will be on cardiac telemetry. Will have him on DVT prophylaxis per protocol. I have consulted with Dr. Greenwood in regards to the pleural effusion for possible therapeutic thoracentesis. Will need to be careful with his alcoholism and withdrawals, but he swears to me that he does not have a problem not drinking at times but will certainly look at maybe giving him some Librium as needed. He will be on a regular diet as tolerated. I would anticipate his length of stay to be at least 2 to 3 days. Until we can transition to outpatient management will continue to monitor and treat as needed. #[id number] [facility]
[2019-01-21] MEDS ORDERED: MAGNESIUM HYDROXIDE 30 ML UD PO PRN (12:43)
[2019-01-21] MEDS ORDERED: FUROSEMIDE INJ 100 MG/10 ML VIAL IV ONE (12:43)
[2019-01-21] MEDS ORDERED: NITROGLYCERIN 0.4 MG 25 EA TAB SL PRN (12:43)
[2019-01-21] MEDS ORDERED: ONDANSETRON INJ 4 MG/2 ML VIAL IV PRN (12:43)
[2019-01-21] MEDS: IV SET AND CAP CHANGE INJ INJ SCH (13:37)
--- NOTE | 2019-01-21 15:04 | CT ---
EXAM DESCRIPTION: Chest w/o Contrast : Computed Tomography. CLINICAL HISTORY: 58 years Male SOB, CHF exacerbation COMPARISON: Portable chest October 2018. TECHNIQUE: Spiral-axial scans at 5 x 5 mm intervals through the lungs and thorax without IV contrast. 2.5 x 5 mm lung algorithm axial reconstructions. Coronal and sagittal 2.0 Mm reconstructions. Total Exam DLP: 268.43 mGy-cm. This exam was performed according to our departmental dose-optimization program which includes automated exposure control, adjustment of the mA and/or kV according to patient size and/or use of iterative reconstruction technique; to reduce radiation dose to as low as reasonably achievable (ALARA). Nodule measurements under 10 mm are given as mean value of 3 axes diameters. FINDINGS: Lungs and large airways and pleural spaces: Diffuse blebs in the upper lobes with subpleural larger blebs and bulla in the upper lung jeffrey. Also thickened septa. Peripheral subpleural blebs and honeycombing lung upper more than mid lung jeffrey with pleural parenchymal scarring. Scattered peripheral groundglass infiltrates, upper and mid lung jeffrey. Bilateral moderate pleural effusions with compressive atelectasis bilateral lower lobes and fluid, with air bronchograms, and thickening in the bilateral major fissures. Mediastinum and Valentine: Evaluation limited due to lack of IV contrast 2.4 x 2.2 x 2.0 cm enlarged azygous node. 1.6 x 1.1 cm node in the AP window is the largest of several. 2.4 x 1.8 cm pretracheal node above the aortic arch. 2.3 x 2.0 cm subcarinal node. Nodes are also seen in the hilum but difficult to measure. Great vessels and Heart: Evaluation limited due to lack of IV contrast. Heart is enlarged. Pulmonary vascularity in the upper lung jeffrey is increased. Coronary artery calcifications and possible stents as well as atherosclerotic calcifications in the brachiocephalic vessels aortic arch and descending thoracic aorta. Soft tissues of neck base, axillae, and chest wall: Edema in the chest wall and upper soft tissues. Normal size lymph nodes. Upper abdomen: No fluid or free air in the included peritoneal space. Hypertrophic right kidney. Atherosclerotic calcifications aorta and major branch vessels. Osseous structures: Healing upper sternal body fracture with minimal deformity. Arthrosis right glenohumeral joint. Prior bilateral rib trauma with healing fractures. Spondylosis predominantly upper thoracic spine and cervical spine no lytic or blastic lesions. IMPRESSION: 1. Congestive heart failure with pulmonary edema and interstitial thickening. Emphysematous changes are more prevalent in the upper lung jeffrey. Also bilateral peripheral chronic lung process with honeycombing. 2. Bilateral moderate pleural effusions with compressive atelectasis on the lower lobes. 3. Mediastinal adenopathy and possible hilar adenopathy. This can indicate an underlying inflammatory or neoplastic process. 4. Minimal anasarca in the chest wall and upper abdomen wall. 5. Previous trauma and fractures with deformity of the sternum and bilateral ribs. Electronically signed by: Kedar Ceballos MD 01/21/2019 3:[address] [facility]
[2019-01-21] MEDS ORDERED: SPIRONOLACTONE 25 MG TAB PO ONE (16:07)
[2019-01-21] MEDS ORDERED: diphenhydrAMINE HCL 50 MG/ML VIAL IV ONE (16:11)
[2019-01-21] MEDS ORDERED: ACETAMINOPHEN 325 MG TAB PO ONE (16:11)
[2019-01-21] MEDS ORDERED: NITROGLYCERIN 0.4 MG/HR PATCH TOP ONE (16:15)
[2019-01-21] MEDS ORDERED: SODIUM CHLORIDE 0.9% 500ML 500 ML IVS SCH (16:30)
--- NOTE | 2019-01-21 19:29 | RAD ---
EXAM: AP CHEST RADIOGRAPH CLINICAL INDICATION: Postthoracentesis evaluation. COMPARISON: Improving diffuse bilateral pulmonary consolidations. FINDINGS: Acute appearing right lateral third and fifth rib fractures. Acute fifth sixth seventh eighth and ninth rib fractures. No pneumothorax. Cardiac size remains upper limits of normal. IMPRESSION: No pneumothorax postthoracentesis. Electronically signed by: Michael Harris MD 01/21/2019 7:27 PM [facility]
[2019-01-21] MEDS ORDERED: FUROSEMIDE INJ 40 MG/4 ML VIAL ONE (19:36)
[2019-01-21] MEDS ORDERED: ATORVASTATIN 20 MG TAB PO ONE (20:49)
[2019-01-21] MEDS ORDERED: busPIRone HCL 5 MG TAB ONE (20:50)
[2019-01-21] MEDS ORDERED: BUSPIRONE HCL 5 MG PO SCH (21:00)
[2019-01-21] MEDS ORDERED: ATORVASTATIN CALCIUM 80 MG PO SCH (21:00)
[2019-01-21] MEDS: ENOXAPARIN SODIUM 40 MG/0.4 ML SYG SUBCU SCH (21:14)
[2019-01-21] MEDS: FUROSEMIDE INJ 40 MG/4 ML VIAL IV SCH (21:14)
[2019-01-22] MEDS: FUROSEMIDE INJ 40 MG/4 ML VIAL IV SCH ×3 (05:48→21:17)
--- NOTE | 2019-01-22 07:27 | RAD ---
EXAM DESCRIPTION: Chest,2 Views CLINICAL HISTORY: CHF exacerbation, S/p throcentesis COMPARISON: January 21, 2019 FINDINGS: The cardiomediastinal silhouette is unremarkable. Bilateral interstitial opacities with tiny bilateral pleural effusions. Ill-defined airspace consolidation in the left lung base. Multiple bilateral rib fractures, likely remote. No pneumothorax or other thoracentesis-related complication. Old healed right clavicular fracture possible postoperative changes in the right AC joint. IMPRESSION: No pneumothorax or other thoracentesis-related complication. Pulmonary edema, worse in the left lung base, with tiny bilateral pleural effusions. Superimposed left basilar pneumonia should also be considered. Electronically signed by: Dom Pride MD 01/22/2019 7:25 AM [facility]
--- NOTE | 2019-01-22 08:44 | OP ---
PREOPERATIVE DIAGNOSIS: 1. Bilateral pleural effusions, right greater than left, right measuring moderate, left measuring small. POSTOPERATIVE DIAGNOSIS: 1. Bilateral pleural effusions, right greater than left, right measuring moderate, left measuring small. PROCEDURE: 1. Thoracentesis. SURGEON: Gregg Greenwood MD. ANESTHESIA: Local. INDICATION: The patient came in with shortness of breath. He is in congestive heart failure and has had pleural effusion drained before with good results. He is now on a CPAP machine. Vital signs are normal. Saturation in the 90s. Complete and informed consent was obtained understanding the risks, benefits and possible complications. PROCEDURE: The patient was placed on the side of the bed over the Delvalle stand and made comfortable. The area was cleaned. We marked between the ninth and tenth rib. It was viewed on the CAT scan for good access point. The skin was anesthetized. A standard thoracentesis tray was used. A small zeinab was made. We put local anesthesia in the rib and over the rib. We got fluid back at just about 2 cm. This was marked for entry. The thoracentesis catheter needle was then introduced. 30 mL of fluid was aspirated. The catheter was inserted and the needle removed completely. It was then hooked to the bottle and removed in all clear, yellow fluid, 1350 mL with no blood. There was a little bit of bleeding from the skin, but this stopped with some direct pressure during the thoracentesis. Once no more fluid could be had, the catheter was manipulated and no significant residual was identified. The catheter was removed. There was no bleeding from the site. A band-aid was placed. The patient tolerated the procedure well. He had a little bit of pain near the end, but otherwise did fine. The specimen was sent for standard analysis and a post procedure chest x- ray was ordered. #[id number] [facility]
[2019-01-22] MEDS: amLODIPine BESYLATE 5 MG TAB PO SCH (09:15)
[2019-01-22] MEDS: busPIRone HCL 5 MG TAB PO SCH ×2 (09:15→20:19)
[2019-01-22] MEDS: FOLIC ACID 1 MG TAB PO SCH (09:15)
[2019-01-22] MEDS: CITALOPRAM HBR 20 MG TAB PO SCH (09:15)
[2019-01-22] MEDS: CLOPIDOGREL 75 MG TAB PO SCH (09:15)
[2019-01-22] MEDS ORDERED: SODIUM CHLORIDE 0.9% 1000ML 1,000 ML ONE (19:23)
[2019-01-22] MEDS ORDERED: MULTIPLE VITAMIN 10 ML VIAL ONE (19:24)
[2019-01-22] MEDS ORDERED: THIAMINE HCL INJ 100 MG/ML VIAL ONE (19:24)
[2019-01-22] MEDS: MULTIPLE VITAMIN INJ 10 ML, THIAMINE HCL INJ 100 MG in SODIUM CHLORIDE 0.9% 1000ML 1,00... IVS SCH (19:24)
[2019-01-22] MEDS: ACETAMINOPHEN 325 MG TAB PO PRN (19:28)
[2019-01-22] MEDS: ATORVASTATIN 20 MG TAB PO SCH (20:18)
[2019-01-22] MEDS: ENOXAPARIN SODIUM 40 MG/0.4 ML SYG SUBCU SCH (20:19)
[2019-01-23] MEDS: FUROSEMIDE INJ 40 MG/4 ML VIAL IV SCH ×3 (05:30→21:46)
[2019-01-23] MEDS: CLOPIDOGREL 75 MG TAB PO SCH (08:03)
[2019-01-23] MEDS: FOLIC ACID 1 MG TAB PO SCH (08:03)
[2019-01-23] MEDS: amLODIPine BESYLATE 5 MG TAB PO SCH (08:03)
[2019-01-23] MEDS: CITALOPRAM HBR 20 MG TAB PO SCH (08:03)
[2019-01-23] MEDS: busPIRone HCL 5 MG TAB PO SCH ×2 (08:05→20:04)
--- NOTE | 2019-01-23 08:45 | PN ---
DATE: 01/22/19 SUPERVISING PHYSICIAN: Gregg Mariscal MD SUBJECTIVE: The patient is doing much better today. He had a thoracentesis done and we removed approximately 1300 cc. He is getting 2 units of blood today but his breathing is much improved. He is not as anxious. He is still utilizing BiPAP which is helping tremendously. He remains afebrile. OBJECTIVE: VITAL SIGNS: Temperature 98.4, pulse 68, blood pressure 142/77, respirations 20, oxygen saturation 98% on high flow nasal cannula, out 6.5 liters. I&O: negative balance of 2630, weight at 56.2 kg which is down from 56.6 kg on admission. He did have 1300 out from the thoracentesis yesterday and is getting 2 units of blood today. GENERAL: The patient is resting comfortably on initial exam, still on BiPAP. CHEST: Lung sounds are much improved today. He still has a little bit of coarseness and crackles on the right but nowhere near what he had on admission. Breath sounds are heard throughout all lung jeffrey and towards the bases. HEART: Regular rate and rhythm. ABDOMEN: Soft, non-tender, positive bowel sounds. EXTREMITIES: Without edema. NEUROLOGIC: He is alert and oriented x3. LABORATORY: Hemoglobin and hematocrit were down to 7 and 22.3 respectively this morning. White count 8.3. Indices were showing a microcytic/hypochromic presentation. Differential did show to be without a left shift. Chemistries showed normal electrolytes. BUN 29, creatinine 1.27. Iron workup showed iron to be at 14, TIBC at 319, iron saturation 4.3, ferritin 77. Liver functions all showing to be within normal limits. Pleural fluid evaluation is still pending. MICROBIOLOGY: Pleural fluid pending. RADIOLOGY: Repeat chest x-ray this morning per radiology interpretation showed no pneumothorax or other thoracentesis-related complication. Pulmonary edema worse on the left lung base with tiny bilateral pleural effusions. Superimposed left bibasilar pneumonia should also be considered. ASSESSMENT: 1. Acute on chronic exacerbation of congestive heart failure with echocardiogram pending at time of admission with last echocardiogram in 2011 showing an ejection fraction of 70% with patient having a thoracentesis with 1300 cc removed, showing improvement. 2. Chronic obstructive pulmonary disease secondary to #1 with no obvious signs of pneumonia or infectious process at this point. 3. Iron-deficiency anemia as noted with iron studies. Hemoglobin 7 and hematocrit 22 this morning requiring transfusion of 2 units of packed red blood cells with no obvious acute blood loss, requiring further workup as an outpatient. 4. Chronic alcohol abuse. 5. Hypertension. 6 Peripheral vascular disease with bilateral iliac artery stenosis and stent placement on the left. 7. Chronic gastroesophageal reflux disease. PLAN: Will transfuse 2 units of packed red blood cells today. Will continue the Lasix scheduled and then transition him to his regular dosing tomorrow. At this point, I still have not added any antibiotics, his white counts are normal and he has been afebrile and he has made tremendous improvement. Will reassess his labs in the morning. He will need close followup in the outpatient setting with Dr. Greenwood and Dr. Stoll given his risk factors and past medical history and findings that were still pending on the thoracentesis evaluation. Will titrate him off BiPAP from the high flow oxygen, hopefully to nasal cannula and anticipate discharge within the next 2 to 3 days. Will go ahead and order a banana bag every 24 hours with some thiamine. He is still not showing any actual signs of withdrawal symptoms from his alcohol abuse but will continue to monitor closely. Will anticipate if he continues to progress as well as he has today, that he will be discharged in the next 24 to 48 hours. Until the, we will continue to monitor and treat as needed. [id number] MTDD
[2019-01-23] MEDS: IPRATROPIUM/ALBUTEROL 3 ML VIAL NEB SCH ×3 (12:05→20:38)
--- NOTE | 2019-01-23 14:30 | PN ---
SUPERVISING PHYSICIAN: Gregg Mariscal MD DATE: 01/23/19 SUBJECTIVE: The patient states he is breathing a little bit better today. He is stating he wants to go home, however, he is still requiring hospital oxygen at this point. He has not walked in the halls as of yet. OBJECTIVE: VITAL SIGNS: Blood pressure 158/79. Heart rate 74. Respiratory rate 20. Temperature 97.1. Oxygen saturation 93%. GENERAL: Mr. Alaniz is a 58-year-old male patient who is ill in appearance, but in no active distress currently. NEUROLOGIC: Alert and oriented. LUNGS: Diminished, but otherwise clear to auscultation bilaterally. CARDIOVASCULAR: Regular rate and rhythm. Normal S1, S2. ABDOMEN: Soft. Positive bowel sounds. EXTREMITIES: Lower extremities with no edema. LABORATORY: Hemoglobin 9.5, hematocrit 28.8. ASSESSMENT: 1. Acute exacerbation of congestive heart failure, which is diastolic, improving. 2. Right sided pleural effusion status post thoracentesis with 1300 cc removed. 3. Chronic obstructive pulmonary disease exacerbation. 4. Iron-deficiency anemia status post transfusion of 2 units of packed red blood cells. 5. Chronic alcohol abuse. 6. Hypertension. 7. Peripheral vascular disease with history of bilateral iliac stents. 8. Chronic gastroesophageal reflux disease. PLAN: Clinically, the patient is stepwise improving. Today's goal is to reduce his oxygen and see how he does. I want him to ambulate in the hallway and see what kind of oxygen requirements he actually is having. He will potentially need to go home on home oxygen. I am going to start some nebulizers on him because it does not appear that he has any going at the moment. The majority of his issues are heart failure related as well as the anemia and pleural effusion. These are stepwise improving. I will recheck his labs and x-ray tomorrow. #[id number] MTDD
[2019-01-23] MEDS: ACETAMINOPHEN 325 MG TAB PO PRN (14:52)
[2019-01-23] MEDS ORDERED: THIAMINE HCL INJ 100 MG/ML VIAL ONE (19:14)
[2019-01-23] MEDS ORDERED: SODIUM CHLORIDE 0.9% 1000ML 1,000 ML ONE (19:14)
[2019-01-23] MEDS ORDERED: MULTIPLE VITAMIN 10 ML VIAL ONE (19:15)
[2019-01-23] MEDS: MULTIPLE VITAMIN INJ 10 ML, THIAMINE HCL INJ 100 MG in SODIUM CHLORIDE 0.9% 1000ML 1,00... IVS SCH (19:27)
[2019-01-23] MEDS: ENOXAPARIN SODIUM 40 MG/0.4 ML SYG SUBCU SCH (20:04)
[2019-01-23] MEDS: ATORVASTATIN 20 MG TAB PO SCH (20:04)
[2019-01-24] MEDS: FUROSEMIDE INJ 40 MG/4 ML VIAL IV SCH (05:41)
[2019-01-24] MEDS ORDERED: KCL 40 MEQ/WATER FOR INJ 100ML 40 MEQ in PREMIX BAG 1 BAG IVPB ONE (06:37)
[2019-01-24] MEDS ORDERED: POTASSIUM CHLORIDE 20 MEQ TAB PO ONE (06:38)
[2019-01-24] MEDS ORDERED: SODIUM CHLORIDE 0.9% 250ML 250 ML IVS PRN (06:47)
[2019-01-24] MEDS ORDERED: KCL 40 MEQ/WATER FOR INJ 100ML 100 ML IVPB ONE (06:49)
[2019-01-24] MEDS ORDERED: MAGNESIUM SULFATE PREMIX 2GM 2 GM in PREMIX BAG 1 BAG IVPB ONE (07:19)
[2019-01-24] MEDS: IPRATROPIUM/ALBUTEROL 3 ML VIAL NEB SCH ×4 (08:04→19:54)
[2019-01-24] MEDS: CLOPIDOGREL 75 MG TAB PO SCH (09:21)
[2019-01-24] MEDS: CITALOPRAM HBR 20 MG TAB PO SCH (09:21)
[2019-01-24] MEDS: busPIRone HCL 5 MG TAB PO SCH ×2 (09:21→20:20)
[2019-01-24] MEDS: amLODIPine BESYLATE 5 MG TAB PO SCH (09:21)
[2019-01-24] MEDS: FUROSEMIDE INJ 20 MG/2 ML VIAL IV SCH ×2 (09:32→16:54)
[2019-01-24] MEDS ORDERED: MAGNESIUM SULFATE PREMIX 2GM 50 ML IVPB ONE (09:33)
[2019-01-24] MEDS: FOLIC ACID 1 MG TAB PO SCH (09:34)
--- NOTE | 2019-01-24 10:25 | RAD ---
EXAM DESCRIPTION: XR CHEST 1 VIEW CLINICAL HISTORY: 58 years Male, flouro efusion f/u COMPARISON: 01/22/2019 Findings: Cardiomegaly. Pulmonary vascular congestion, increased. No pneumothorax. Similar small left pleural effusion. Increasing patchy multifocal bilateral airspace disease. Atherosclerotic plaque in the thoracic aorta. Chronic rib deformities. No acute osseous abnormality. IMPRESSION: Cardiomegaly with pulmonary vascular congestion. Increasing patchy multifocal bilateral airspace disease, atelectasis, pneumonia or pulmonary edema. Recommend repeat chest radiographs in six weeks. Electronically signed by: Bernard Dillard MD 01/24/2019 8:02 AM [facility]
--- NOTE | 2019-01-24 14:01 | PN ---
SUPERVISING PHYSICIAN: Gregg Mariscal MD DATE: 01/24/19 SUBJECTIVE: The patient states he feels pretty good today and wants to go home. However, to me, he looks a little bit more tachypneic than he did. No other events were reported overnight by nursing. OBJECTIVE: VITAL SIGNS: Blood pressure 167/83. Heart rate 82. Respiratory rate 24. Temperature 98.7. Oxygen saturation 93% on 3 liters via nasal cannula. GENERAL: Mr. Alaniz is a 58-year-old male patient who is ill in appearance and a little bit tachypneic. NEUROLOGIC: Alert and oriented. LUNGS: Diminished bases, but otherwise clear to auscultation bilaterally. CARDIOVASCULAR: Regular rate and rhythm. Normal S1, S2. ABDOMEN: Soft. Positive bowel sounds. EXTREMITIES: Lower extremities with no edema. LABORATORY: Labs and films were reviewed. His chest x-ray states increased pulmonary vascular congestion, however, in comparison with the previous x-ray, I do not see a whole lot of different. Labs show white count 12.6, hemoglobin 9.5, hematocrit 29.0, platelet count 269. Chemistry shows potassium 2.4, sodium 134, chloride 89, CO2 28, BUN 26, creatinine 1.38, glucose 108, calcium 8.4, magnesium 1.4. ASSESSMENT: 1. Acute exacerbation of congestive heart failure, diastolic. 2. Right sided pleural effusion status post thoracentesis with 1300 cc removed. 3. Chronic obstructive pulmonary disease exacerbation. 4. Iron-deficiency anemia status post transfusion of 2 units of packed red blood cells. 5. Chronic alcohol abuse. 6. Hypertension. 7. Peripheral vascular disease with history of bilateral iliac stents. 8. Gastroesophageal reflux disease. 9. Electrolyte imbalance. PLAN: I am going to replete his potassium and magnesium today. We did have a successful reduction in his oxygen from 7 liters to 3 liters, however, this morning he does seem a little bit tachypneic. He was able to walk in the [place] and did desaturate on room air, but then on oxygen, he did fairly well. The plan at this point is to get home oxygen for him. His hemoglobin was stable, however, I am going to replete his electrolytes and recheck those and hopefully he can go home once those are stable. I did reduce his Lasix as well given that he was on 40 mg q.8h. IV. We will monitor his status. [facility][id number] [facility]
[2019-01-24] MEDS: IV SET AND CAP CHANGE INJ INJ SCH (16:55)
[2019-01-24] MEDS: ACETAMINOPHEN 325 MG TAB PO PRN (17:06)
[2019-01-24] MEDS ORDERED: SODIUM CHLORIDE 0.9% 1000ML 1,000 ML ONE (19:58)
[2019-01-24] MEDS ORDERED: MULTIPLE VITAMIN 10 ML VIAL ONE (19:59)
[2019-01-24] MEDS ORDERED: THIAMINE HCL INJ 100 MG/ML VIAL ONE (19:59)
[2019-01-24] MEDS: MULTIPLE VITAMIN INJ 10 ML, THIAMINE HCL INJ 100 MG in SODIUM CHLORIDE 0.9% 1000ML 1,00... IVS SCH (20:02)
[2019-01-24] MEDS: ATORVASTATIN 20 MG TAB PO SCH (20:20)
[2019-01-24] MEDS: ENOXAPARIN SODIUM 40 MG/0.4 ML SYG SUBCU SCH (20:21)
[2019-01-24] MEDS: SODIUM CHLORIDE 0.9% (FLUSH) 10 ML SYG IV PRN (20:21)
[2019-01-25] MEDS ORDERED: BUMETANIDE 0.25 MG/ML VIAL IV ONE (02:12)
[2019-01-25] MEDS ORDERED: IPRATROPIUM/ALBUTEROL 3 ML VIAL NEB PRN (02:13)
[2019-01-25] MEDS ORDERED: FUROSEMIDE INJ 100 MG/10 ML VIAL IV ONE (02:24)
[2019-01-25] MEDS ORDERED: KCL 40 MEQ/WATER FOR INJ 100ML 40 MEQ in PREMIX BAG 1 BAG IVPB ONE (08:26)
[2019-01-25] MEDS ORDERED: SODIUM CHL 0.9% 50ML MIN-BAG+ 50 ML IVPB ONE ×2 (08:33→19:28)
[2019-01-25] MEDS ORDERED: CEFEPIME 2 GM VIAL ONE ×2 (08:34→19:28)
[2019-01-25] MEDS ORDERED: KCL 40 MEQ/WATER FOR INJ 100ML 100 ML IVPB ONE (08:34)
[2019-01-25] MEDS: methylPREDNISolone SODIUM SUC 40 MG/ML VIAL IV SCH ×3 (08:42→22:01)
[2019-01-25] MEDS: CEFEPIME 2 GM in SODIUM CHL 0.9% 50ML MIN-BAG+ 50 ML IVPB SCH ×2 (08:54→20:07)
[2019-01-25] MEDS: IPRATROPIUM/ALBUTEROL 3 ML VIAL NEB SCH ×4 (09:00→20:23)
[2019-01-25] MEDS: amLODIPine BESYLATE 5 MG TAB PO SCH (09:01)
[2019-01-25] MEDS: CITALOPRAM HBR 20 MG TAB PO SCH (09:01)
[2019-01-25] MEDS: busPIRone HCL 5 MG TAB PO SCH ×2 (09:01→20:07)
[2019-01-25] MEDS: FOLIC ACID 1 MG TAB PO SCH (09:02)
[2019-01-25] MEDS: CLOPIDOGREL 75 MG TAB PO SCH (09:02)
[2019-01-25] MEDS: levoFLOXacin 750MG IV 750 MG in PREMIX BAG 1 BAG IVPB SCH (09:35)
[2019-01-25] MEDS: FUROSEMIDE INJ 20 MG/2 ML VIAL IV SCH ×2 (09:47→17:14)
--- NOTE | 2019-01-25 10:45 | PN ---
SUPERVISING PHYSICIAN: Gregg Mariscal MD DATE: 01/25/19 SUBJECTIVE: The patient states he feels okay this morning, however, I was called about 2 o'clock in the morning due to the patient desaturating. His O2 saturations were in the high 70s and low 80s. He was placed on more O2 and given additional nebulizers. I did order some Lasix at that time as well. They actually had to put him on BiPAP for a short amount of time. This morning, that is off. O2 saturations are acceptable at this time. OBJECTIVE: VITAL SIGNS: Blood pressure 174/86. Heart rate 80. Respiratory rate 22. Temperature 98.2. Oxygen saturation 92% on 3 liters. GENERAL: Mr. Alaniz is a 58-year-old male patient who is a little bit tachypneic, but otherwise in no distress currently. NEUROLOGIC: Alert and oriented. LUNGS: Diminished with no active wheezing. CARDIOVASCULAR: Regular rate and rhythm. Normal S1, S2. ABDOMEN: Soft. Positive bowel sounds. EXTREMITIES: Lower extremities with no significant edema. LABORATORY: Labs reviewed this morning show white count 13.1, hemoglobin 10.0, platelet count 286. Chemistry shows low sodium at 3.0 which is improved from yesterday of 2.4. ASSESSMENT: 1. Acute exacerbation of congestive heart failure, diastolic. 2. Right sided pleural effusion status post thoracentesis with 1300 cc removed. 3. Chronic obstructive pulmonary disease exacerbation. 4. Concern for developing pneumonia. 5. Anemia status post transfusion of 2 units of packed red blood cells with a stable hemoglobin. 6. Chronic alcohol abuse. 7. Hypertension. 8. Peripheral vascular disease with history of bilateral iliac stents. 9. Gastroesophageal reflux disease. 10. Electrolyte imbalance. PLAN: Due to his decline last night and elevation of white count, I am going to go ahead and start him on antibiotics due to concern for developing pneumonia. I am also placing him on IV steroids. We will continue the current nebulizer treatments as well. I have him on 20 mg of Lasix twice a day as well. I will replete his potassium today. I will recheck his labs and x-ray tomorrow. The patient really wanted to go home today, but I told him it was really unsafe at this time. Although he is not happy about it, he agrees to stay at this time. [facility][id number] [facility]
[2019-01-25] MEDS ORDERED: SODIUM CHLORIDE 0.9% 500ML 500 ML ONE (11:04)
[2019-01-25] MEDS ORDERED: SODIUM CHLORIDE 0.9% 500ML 500 ML IVS PRN (11:06)
[2019-01-25] MEDS: ACETAMINOPHEN 325 MG TAB PO PRN (11:13)
[2019-01-25] MEDS: SODIUM CHLORIDE 0.9% (FLUSH) 10 ML SYG IV PRN (20:07)
[2019-01-25] MEDS: ENOXAPARIN SODIUM 40 MG/0.4 ML SYG SUBCU SCH (20:07)
[2019-01-25] MEDS: ATORVASTATIN 20 MG TAB PO SCH (20:07)
[2019-01-26] MEDS: methylPREDNISolone SODIUM SUC 40 MG/ML VIAL IV SCH (06:06)
[2019-01-26] MEDS ORDERED: levoFLOXacin 750MG IV 0 ML IVPB ONE (07:49)
[2019-01-26] MEDS ORDERED: CEFEPIME 2 GM VIAL ONE (07:49)
[2019-01-26] MEDS ORDERED: SODIUM CHL 0.9% 50ML MIN-BAG+ 50 ML IVPB ONE (07:49)
--- NOTE | 2019-01-26 08:08 | RAD ---
EXAM DESCRIPTION: Chest x-ray two views: CLINICAL HISTORY: Follow up on infiltrates COMPARISON: January 22, 2019, January 24, 2019 TECHNIQUE: PA and lateral views of the chest were obtained. FINDINGS: The heart is normal in size . The hilar and mediastinal structures are within normal limits. The pulmonary vascular congestion shows interval partial clearing . Generalized evidence of COPD with superimposed extensive bilateral interstitial infiltrates with relative sparing of the upper lung zones is noted. The changes are greater on the left than the right. Left pleural effusion is present. The bony structures are unremarkable. IMPRESSION: COPD. Interstitial infiltrates and left pleural effusion. Partial interval improvement in vascular congestion. Electronically signed by: Rosalba Bess MD 01/26/2019 8:07 AM [facility]
[2019-01-26] MEDS: amLODIPine BESYLATE 5 MG TAB PO SCH (08:09)
[2019-01-26] MEDS: FOLIC ACID 1 MG TAB PO SCH (08:09)
[2019-01-26] MEDS: CLOPIDOGREL 75 MG TAB PO SCH (08:09)
[2019-01-26] MEDS: CITALOPRAM HBR 20 MG TAB PO SCH (08:09)
[2019-01-26] MEDS: FUROSEMIDE INJ 20 MG/2 ML VIAL IV SCH (08:11)
[2019-01-26] MEDS: IPRATROPIUM/ALBUTEROL 3 ML VIAL NEB SCH (08:22)
[2019-01-26 08:23] VITALS: BP 179/87; TEMP 98.1
[2019-01-26] MEDS: CEFEPIME 2 GM in SODIUM CHL 0.9% 50ML MIN-BAG+ 50 ML IVPB SCH (08:26)
[2019-01-26] MEDS ORDERED: DOXYCYCLINE HYCLATE CAP 100 MG CAP PO ONE (08:39)
[2019-01-26] MEDS ORDERED: predniSONE 10 MG TAB PO ONE (08:39)
[2019-01-26 08:48] VITALS: O2SAT 91
[2019-01-26] MEDS: busPIRone HCL 5 MG TAB PO SCH (09:10)
[2019-01-26] MEDS ORDERED: PNEUMOCOCCAL VACCINE 0.5 ML INJ ONE (09:14)
[2019-01-26] MEDS: levoFLOXacin 750MG IV 750 MG in PREMIX BAG 1 BAG IVPB SCH (09:34)
--- NOTE | 2019-01-26 20:27 | DS ---
SUPERVISING PHYSICIAN: Gregg Mariscal M.D. ADMISSION DIAGNOSIS: 1. Acute on chronic exacerbation of congestive heart failure. 2. Chronic obstructive pulmonary disease exacerbation. 3. Chronic alcohol abuse. 4. Hypertension. 5. Peripheral vascular disease with bilateral iliac stents placed in the past. 6. Gastroesophageal reflux disease. DISCHARGE DIAGNOSIS: 1. Acute exacerbation of diastolic heart failure. 2. Right sided pleural effusion status post thoracentesis with 1300 mL removed. 3. Chronic obstructive pulmonary disease exacerbation. 4. Concerns for developing pneumonia. 5. Anemia status post transfusion of 2 units of packed red blood cells with a stable hemoglobin after transfusion. 6. Chronic alcohol abuse. 7. Hypertension. 8. Peripheral vascular disease with history of iliac stents. 9. Gastroesophageal reflux disease. 10. Electrolyte imbalance, resolved. HISTORY OF PRESENT ILLNESS: Mr. Alaniz is a 58 year-old male patient of Dr. Stoll's. He has a history of having some problems with pleural effusions, and some congestive heart failure, alcoholism and chronic obstructive pulmonary disease. He actually was admitted twice this year for similar symptoms, once at [place] and [facility], and then just recently this past November at [facility] where he actually presented in such a decline that he actually coded and had to be intubated. At that point he had a thoracentesis done as well. He sees Dr. Bland, date night sitter, and he has had a cardiac stent placed within the last 8 years. He was seen on January [address] Stoll's office for worsening shortness of breath and he was started on some DuoNeb treatments and then sent home. He had minimal improvement and then returned back to the clinic and seen by nurse practitioner on January 19, and again was given DuoNeb treatments. He then presented to Dr. Stoll's office today in significantly worsened condition showing saturations in the 80s on room air and obvious in some mild respiratory distress. He was referred for direct admission for both possible thoracentesis and exacerbation of congestive heart failure and chronic obstructive pulmonary disease. Labs did show that he had an elevated BNP of 3230 and in the clinic was showing saturations in the 80s on room air. He has a history of chronic anemia and H&H initially on presentation was 8.2 and 26.2 respectively without a left shift. Platelet count was 402,000. I did a CT of his chest and per radiology interpretation there was note of congestive heart failure with pulmonary edema and interstitial thickening with bilateral moderate pleural effusions with compressive atelectasis of the lower lobes. The patient was admitted for surgical evaluation for possible therapeutic thoracentesis as well as initiation of treatment for congestive heart failure exacerbation and chronic obstructive pulmonary disease exacerbation. He was admitted in stable to guarded condition. After the patient was admitted, Dr. Greenwood was consulted and did a thoracentesis and removed 1300 mL of fluid. He was placed on aggressive diuretic therapy and did have some improvement, however on January 24 the patient's white blood cell count went up and he was a little bit more short of breath at night. A chest x-ray showed a little bit of worsening in the x-ray. His white count jumped up as well. At that point I put him on empiric antibiotics and steroids. Basically overnight the patient improved once again and pretty much insisted that he go home. At this point the patient is going to require some oxygen at home and we have set that up with [facility]. The patient will be discharged home today with oxygen. I have continued his home medications which include diuretic therapies. They have also included inhalers and I have added a tapering dose of prednisone as well as doxycycline for antibiotics. I have instructed the patient to please return to the Emergency Room if he has any worsening shortness of breath and he verified that he would. He would actually do well with a pulmonology consultation as an outpatient. I would recheck his labs to ensure that he does not need any additional transfusion at some point. I would like for him to go see Dr. Stoll in the office next week. #[id number] [facility]TDD
== END 2019-01-26 10:24 | disposition home or self-care (01) | DRG 291 ==
LOC: MS 11:45
PROVIDERS: ADMIT Nurse Practitioner Family; ATTEND Nurse Practitioner
PROC: 0W9930Z Drainage of Right Pleural Cavity with Drainage Device, Percutaneous Approach (ICD-10-PCS; 2019-01-21)
PROC: 30233N1 Transfusion of Nonautologous Red Blood Cells into Peripheral Vein, Percutaneous Approach (ICD-10-PCS; principal; 2019-01-22)
DX: I11.0 Hypertensive heart disease with heart failure (principal); J18.9 Pneumonia, unspecified organism; J91.8 Pleural effusion in other conditions classified elsewhere; D50.9 Iron deficiency anemia, unspecified; J43.9 Emphysema, unspecified; I50.33 Acute on chronic diastolic (congestive) heart failure; F10.10 Alcohol abuse, uncomplicated; I73.9 Peripheral vascular disease, unspecified; K21.9 Gastro-esophageal reflux disease without esophagitis; E66.9 Obesity, unspecified; F17.210 Nicotine dependence, cigarettes, uncomplicated; Z95.820 Peripheral vascular angioplasty status with implants and grafts; Z68.20 Body mass index [BMI] 20.0-20.9, adult

== ENCOUNTER 2019-03-07 14:59 | Inpatient (IN) | payer SELFPAY ==
[2019-03-07] MEDS ORDERED: IPRATROPIUM/ALBUTEROL 3 ML VIAL NEB ONE ×3 (15:02→15:37)
[2019-03-07] MEDS ORDERED: predniSONE 20 MG TAB PO ONE (15:02)
--- NOTE | 2019-03-07 15:10 | ED.PDOC ---
History of Present Illness - General Chief Complaint: Respiratory Problem Stated Complaint: shortness of breath at home hx of copd Time Seen by Provider: 03/07/19 15:02 Source: patient, family Exam Limitations: no limitations - History of Present Illness Initial Comments: the patient is a 58-year-old male presenting to the emergency room secondary to severe shortness of breath for the last 4-5 days. He has had a mildly productive cough. He has had a sore throat. He has had significant COPD exacerbations in the past. no chest pain except with cough. No syncope. He was recently admitted for COPD exacerbation. Timing/Duration: other - 5 days Severity: moderate Improving Factors: nothing Worsening Factors: nothing Associated Symptoms: cough, shortness of breath Allergies/Adverse Reactions: Allergies NO KNOWN ALLERGY Allergy (Unverified 06/01/17 16:28) Home Medications: Ambulatory Orders Metoprolol Succinate [Metoprolol Succinate ER] 100 mg PO DAILY 12/03/13 Citalopram Hydrobromide [Citalopram] 40 mg PO DAILY 09/20/18 Albuterol Sulfate Nebs 0.63 mg INH Q4H 01/21/19 Amlodipine Besylate 10 mg PO DAILY 01/21/19 Arnuity Ellipta 50 mcg INH DAILY 01/21/19 Atorvastatin Calcium 80 mg PO BEDTIME 01/21/19 B-1 250 mg PO DAILY 01/21/19 Bumetanide 1 mg PO BID 01/21/19 Buspirone HCl 5 mg PO BID 01/21/19 Folic Acid 800 mcg PO DAILY 01/21/[address] 40 mg PO DAILY 01/21/19 Thiamine HCl 250 mg PO DAILY 01/21/19 Clopidogrel Bisulfate [Plavix] 75 mg PO QD 30 Days #30 tab 01/26/19 Doxycycline (Monohydrate) [Doxycycline Monohydrate] 100 mg PO BID 10 Days #20 cap 01/26/19 Nicotine Patch 21 mg [Habitrol Patch 21mg] 21 mg TOP DAILY 30 Days #30 patch 01/26/19 Prednisone 10 mg PO DAILY 30 Days #45 tab 01/26/19 Review of Systems - Review of Systems Constitutional: States: malaise EENTM: States: nose congestion, throat pain Respiratory: States: cough, short of breath, wheezing Cardiology: States: no symptoms reported Gastrointestinal/Abdominal: States: no symptoms reported Genitourinary: States: no symptoms reported Musculoskeletal: States: no symptoms reported Skin: States: no symptoms reported Neurological: States: no symptoms reported Endocrine: States: no symptoms reported All other Systems: No Change from Baseline Past Medical History (General) - Patient Medical History Hx Seizures: No Hx Stroke: No Hx Dementia: No Hx Asthma: Yes Hx of COPD: Yes Hx Cardiac Disorders: Yes Hx Congestive Heart Failure: Yes Hx Pacemaker: No Hx Hypertension: Yes Hx Thyroid Disease: No Hx Diabetes: No Hx Gastroesophageal Reflux: Yes Hx Renal Disease: No Hx Cancer: No Hx of HIV: No Hx Hepatitis C: Yes Hx MRSA: No - Vaccination History Hx Tetanus, Diphtheria Vaccination: Yes Hx Influenza Vaccination: Yes Hx Pneumococcal Vaccination: Yes Immunizations Up to Date: Yes - Social History Hx Tobacco Use: Yes Hx Chewing Tobacco Use: No Hx Alcohol Use: Yes Hx Substance Use: No Hx Substance Use Treatment: No Hx Depression: Yes Feels Threatened In Home Enviroment: No Feels Threatened In a Relationship: No Hx Physical Abuse: No Hx Emotional Abuse: No Hx Suspected Abuse: No Family Medical History - Family History Father Family History: Unknown Living Status: Cause of : aneurysm Physical Exam - Physical Exam General Appearance: Alert, Obvious distress Eye Exam: bilateral normal Ears, Nose, Throat: hearing grossly normal, nasal congestion, pharyngeal erythema Neck: full range of motion, supple Respiratory: respiratory distress, decreased breath sounds, accessory muscle use, rhonchi, wheezing, other - decreased breath sounds at bilateral bases. Severe respiratory distress. 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 Oxygen saturations on room air dropped as low as the 50s. This appears to be a COPD and CHF exacerbation with possible underlying pneumonia. CT scan confirmed significance of the right-sided effusion. Given the patient's distress, decision was made to perform thoracentesis. 1300 cc were removed during a significant improvement in symptoms and reduction in respi ratory distress. Oxygen requirements were greatly reduced. The patient received several breathing treatments. He also received a dose of IV Lasix. He also had Nitropaste placed secondary to market hypertension noted on making the CHF worse. The patient was also given a dose of lisinopril and an oral dose of potassium to correct her hypokalemia. Blood pressures will need to be followed. I do expect that blood pressures will improve over the next few hours once the lung jeffrey normalized. A blood culture has been done and the patient has been started on Rocephin. I'm uncertain if there is an underlying pneumonia in this patient at this time however given his current state and his history, the antibiotic will be continued until we can say otherwise. Laboratory work is otherwise reassuring for this patient at this time. Repeat chest x-ray showed no evidence of overt pneumothorax. Admit for continued management of COPD exacerbation, CHF exacerbation and uncontrolled hypertension. In the long-term blood pressures and diuretics will need to be carefully adjusted to hopefully prevent another exacerbation like this. procedure note: Risks and benefits were explained to the patient he did agree to proceed. The patient was sat upright and the lung jeffrey were marked on the right. Area was prepped and draped in a sterile fashion. A small skin incision was made after numbing with lidocaine. A pleural catheter was introduced with direct suction. Clear serous fluid was obtained. 1300 cc of fluid were removed. Patient appears to have tolerated this well. He had this procedure done not too long ago. Fluid will be sent for culture. The patient is oxygenating much better in respiratory distress is significantly less. critical care time spent excluding otherwise billable procedure is 40 minutes. - Results/Orders Results/Orders: chest x-ray shows right lower lobe infiltrate and effusion CT of the chest shows a large right-sided pleural effusion and a medium left- sided pleural effusion. Questionable associated infiltrates. Chronic COPD changes. See report for details EKG shows high voltage and anterior leads likely LVH strain pattern. Left atrial dilation. Mild right axis deviation consistent with COPD. Prolonged QT interval. Normal sinus rhythm at [address] segment or T-wave changes indicative of acute ischemia.. Laboratory Tests 03/07/19 03/07/19 03/07/19 14:49 14:49 15:33 WBC 10.9 H RBC 3.66 L Hgb 9.2 L Hct 29.0 L MCV 79.4 L MCH 25.1 L MCHC 31.7 L RDW 19.9 H Plt Count 457 H MPV 7.7 Absolute Neuts (auto) 8.40 H Absolute Lymphs (auto) 1.60 Absolute Monos (auto) 0.70 Absolute Eos (auto) 0.10 Absolute Basos (auto) 0.10 Neutrophils % 77.3 Lymphocytes % 14.6 L Monocytes % 6.5 Eosinophils % 1.1 Basophils % 0.5 Sodium 135 Potassium 3.3 L Chloride 99 L Carbon Dioxide 20 L Anion Gap 19.3 H BUN 16 Creatinine 1.26 BUN/Creatinine Ratio 12.7 Random Glucose 98 Serum Osmolality 271.3 L Lactic Acid 2.2 Calcium 9.5 Magnesium 1.7 L Total Bilirubin 0.8 AST 23 ALT 9 L Alkaline Phosphatase 114 Creatine Kinase 51 CK-MB (CK-2) 5.3 H* CK-MB (CK-2) % 10.39 H Troponin I 0.02 B-Natriuretic Peptide > 5000.0 H* Serum Total Protein 7.6 Albumin 3.5 Globulin 4.1 H Albumin/Globulin Ratio 0.9 L Departure - Departure Clinical Impression: COPD with exacerbation, Hypertensive emergency, Pleural effusion, Respiratory distress CHF exacerbation Qualifiers: Heart failure type: combined systolic and diastolic Qualified Code(s): I50.43 - Acute on chronic combined systolic (congestive) and diastolic (congestive) heart failure Disposition: Admit Patient Departure Forms: ED Discharge - Pt. Copy, Patient Portal Self Enrollment Home Medications: Ambulatory Orders Metoprolol Succinate [Metoprolol Succinate ER] 100 mg PO DAILY 12/03/13 Citalopram Hydrobromide [Citalopram] 40 mg PO DAILY 09/20/18 Albuterol Sulfate Nebs 0.63 mg INH Q4H 01/21/19 Amlodipine Besylate 10 mg PO DAILY 01/21/19 Arnuity Ellipta 50 mcg INH DAILY 01/21/19 Atorvastatin Calcium 80 mg PO BEDTIME 01/21/19 B-1 250 mg PO DAILY 01/21/19 Bumetanide 1 mg PO BID 01/21/19 Buspirone HCl 5 mg PO BID 01/21/19 Folic Acid 800 mcg PO DAILY 01/21/[address] 40 mg PO DAILY 01/21/19 Thiamine HCl 250 mg PO DAILY 01/21/19 Clopidogrel Bisulfate [Plavix] 75 mg PO QD 30 Days #30 tab 01/26/19 Doxycycline (Monohydrate) [Doxycycline Monohydrate] 100 mg PO BID 10 Days #20 cap 01/26/19 Nicotine Patch 21 mg [Habitrol Patch 21mg] 21 mg TOP DAILY 30 Days #30 patch 01/26/19 Prednisone 10 mg PO DAILY 30 Days #45 tab 01/26/19 Decision To Admit - Decistion To Admit Decision to Admit Reason: Medical Nature Decision to Admit Date: 03/07/19 Decision to Admit Time: 17:48
[2019-03-07] MEDS ORDERED: methylPREDNISolone SODIUM SUC 125 MG/2 ML VIAL IV ONE (15:27)
[2019-03-07] MEDS ORDERED: OSELTAMIVIR 75 MG CAP PO ONE (15:31)
[2019-03-07] MEDS ORDERED: cefTRIAXone SODIUM 1 GM in SODIUM CHL 0.9% 50ML MIN-BAG+ 50 ML IVPB ONE (15:31)
[2019-03-07] MEDS ORDERED: ACETYLCYSTEIN 20 % 6,000 MG/30 ML VIAL NEB ONE ×2 (15:32→16:30)
[2019-03-07] MEDS ORDERED: ALBUTEROL SULFATE 2.5 MG/3 ML VIAL NEB ONE (15:35)
--- NOTE | 2019-03-07 15:35 | RAD ---
EXAM DESCRIPTION: Chest,1 View CLINICAL HISTORY: 58 years Male, severe sob COMPARISON: Previous study January 26, 2019 TECHNIQUE: AP portable chest. FINDINGS: Heart size is large with increased pulmonary vascularity. Extensive pulmonary edema consistent with volume overload or congestive failure. Elevated right lung base could be subpulmonic pleural effusion of moderate size. Findings have worsened compared to the previous study. Asymmetric patchy consolidation in the right infrahilar region could be pneumonia or volume loss above and effusion. Lesser patchy infiltrate in the left lung base. No pulmonary mass or worrisome nodule. No pneumothorax. Bones are unremarkable. IMPRESSION: Findings most consistent with volume overload or congestive failure with extensive pulmonary edema. Moderate right pleural effusion. Electronically signed by: Lit Rhoades MD 03/07/2019 3:33 PM SUPERVISOR [employer]
[2019-03-07] MEDS ORDERED: POTASSIUM CHLORIDE ELIXIR 20 MEQ/15 ML UD PO ONE (15:51)
[2019-03-07] MEDS ORDERED: NITROGLYCERIN 2% 1 GM UD TOP ONE (15:51)
[2019-03-07] MEDS ORDERED: ALBUTEROL SULFATE INHALATION 5 MG/ML 20 ML BTTL NEB ONE (15:51)
[2019-03-07] MEDS ORDERED: SODIUM CHL 0.9% 50ML VIAL 9 ML, ALBUTEROL SULFATE NEBS 7.5 MG, IPRATROPIUM BROMIDE NEBS... NEB ONE ×3 (15:56)
[2019-03-07] MEDS ORDERED: SODIUM CHL 0.9% 50ML MIN-BAG+ 50 ML IVPB ONE (16:06)
[2019-03-07] MEDS ORDERED: cefTRIAXone SODIUM 1 GM VIAL ONE (16:06)
[2019-03-07] MEDS ORDERED: IPRATROPIUM BROMIDE NEBS 0.5 MG/2.5 ML VIAL NEB ONE (16:16)
--- NOTE | 2019-03-07 16:22 | CT ---
EXAM DESCRIPTION: Chest w/o Contrast CLINICAL HISTORY: 58 years Male, rt infiltrate vs effusion COMPARISON: CT chest without contrast dated 01/21/2019. TECHNIQUE: Contiguous thin section axial images were obtained from the supraclavicular region to below the diaphragm level without the use of intravenous contrast. Sagittal and coronal reconstructions were reviewed. This exam was performed according to our departmental dose-optimization program, which includes automated exposure control, adjustment of the mA and/or kV according to patient size and/or use of iterative reconstruction technique. FINDINGS: The visualized thyroid gland appears normal. Mediastinal lymph nodes measuring up to 1.7 cm are noted. No abnormally enlarged hilar lymphadenopathy. Bilateral axillary lymph nodes measuring up to 1 cm are noted. Trachea is midline. Severe emphysema. Moderate to large right and moderate left pleural effusion with associated airspace opacities of the bilateral lower lobes, representing atelectasis and/or pneumonia. The heart is normal in size without pericardial effusion. Moderate atherosclerotic disease of the visualized aorta and coronary arteries. The esophagus appears normal throughout its length. The visualized upper abdomen appears normal. Mild to moderate degenerative changes are identified throughout the visualized spine. Old bilateral rib fractures are noted. IMPRESSION: Moderate to large right and moderate left pleural effusion with associated airspace opacities of the bilateral lower lobes, representing atelectasis and/or pneumonia. Electronically signed by: Hilton Plata MD 03/07/2019 4:20 PM GEOPOLITICS TEACHER
[2019-03-07] MEDS ORDERED: FUROSEMIDE INJ 40 MG/4 ML VIAL IV ONE (17:03)
[2019-03-07] MEDS ORDERED: LISINOPRIL 10 MG TAB PO ONE (17:37)
--- NOTE | 2019-03-07 17:53 | RAD ---
EXAM DESCRIPTION: Chest,1 View CLINICAL HISTORY: 58 years Male, s/p thoracentesis on the right COMPARISON: None. TECHNIQUE: AP portable chest. FINDINGS: Heart size is large with increased pulmonary vascularity and extensive pulmonary infiltrates or edema. No consolidating infiltrate. No pulmonary mass or worrisome nodule. No pneumothorax after drainage of right pleural effusion. Bones are unremarkable. IMPRESSION: Interval drainage of right pleural effusion. No complicating pneumothorax. Arteriovascular congestion and diffuse pulmonary infiltrates or edema. Electronically signed by: Lit Rhoades MD 03/07/2019 5:51 PM METAL FINISH INSPECTOR
--- NOTE | 2019-03-07 19:04 | HP ---
SUPERVISING PHYSICIAN: Edu Pierce MD CHIEF COMPLAINT: Shortness of breath and extreme fatigue. HISTORY OF PRESENT ILLNESS: This is a 58-year-old male patient who came to the Emergency Room secondary to severe shortness of breath for the last 4 to 5 days, but he has felt extremely poorly the last 2 days. He has had shortness of breath as well as a mild cough. This morning, he actually could not walk to the door. He was actually headed to Dr. Stoll's office for an appointment and they had to call 911 because he could not walk and was extremely short of breath. He has a significant history of chronic obstructive pulmonary disease with frequent exacerbations as well as pleural effusions with need to be drained and he is a 1 to 2 pack per day smoker as well as he drinks alcoholic from 1 to 2 per day to about 12 per day. He also has had a sore throat. In the Emergency Room, his initial vital signs showed temperature 98.7 with heart rate 114, blood pressure 208/113, respiratory rate 30, O2 saturation 68% on room air. Shortly thereafter, he was put on a non-rebreather and came up to 80%. His lab studies showed WBC 10,900, hemoglobin 9.2, hematocrit 29. Sodium 135, potassium 3.3, chloride 99, carbon dioxide 20, BUN 16, creatinine 1.26. Lactic acid 2.2, magnesium 1.7, calcium 9.5. CK-MB 5.3, troponin 0.02, BNP greater than 5,000. Blood culture was sent down. Influenza A and B per PCR were both negative. Chest x-ray showed findings most consistent with volume overload or congestive failure with extensive pulmonary edema. He was given some Lasix as well as some Nitro-Bid ointment, a dose of Solu-Medrol as well as lisinopril. He was given multiple breathing treatments and a Mucomyst treatment and albuterol treatment. CT of the chest was done and showed a moderate to large right and moderate left pleural effusion with associated airspace opacities of the bilateral lower lobes representing atelectasis and/or pneumonia. Thoracentesis was done by the ER physician and he took approximately 1300 mL off of his right side. Shortly thereafter, his respiratory rate went down and his oxygen saturations were in the upper 80s to low 90s. He was significantly less short of breath. I was called for hospital admission. PAST MEDICAL HISTORY: 1. Hypertension. 2. Chronic obstructive pulmonary disease. 3. Congestive heart failure. His last echocardiogram was in January 2019 and showed an ejection fraction of about 60% with mild diastolic dysfunction. 4. Chronic alcohol abuse. 5. Chronic obstructive pulmonary disease with severe emphysema in a chronic smoker that continues to smoke. 6. Cardiovascular disease. PAST SURGICAL HISTORY: 1. Laminectomy of the lumbar spine. 2. Left iliac arterial stent. CURRENT MEDICATIONS: Per the EMR and awaiting verification. ALLERGIES: NO KNOWN DRUG ALLERGIES. FAMILY HISTORY: Noncontributory. SOCIAL HISTORY: The patient is retired. He lives in [place]. He is . He has 2 children. He drinks alcohol on a regular basis that ranges from 2 to 3 beers a day to 10 to 12 beers per day and he smokes approximately 1 to 2 packs of cigarettes daily. REVIEW OF SYSTEMS: GENERAL: Positive for fatigue. Negative for fever or weight changes. HEENT: Negative for sinus symptoms, ear pain, vision changes or sore throat. RESPIRATORY: As per history of present illness. CARDIAC: Negative for chest pain, palpitations or tachycardia. GASTROINTESTINAL: Negative for nausea, vomiting, diarrhea. GENITOURINARY: Negative for hematuria, dysuria or polyuria. MUSCULOSKELETAL: Negative for arthralgias, myalgias. SKIN: Negative for lesions or rashes. NEUROLOGIC: Negative for headache, dizziness or seizures. PHYSICAL EXAMINATION: VITAL SIGNS: Temperature 99.7. Heart rate 87. Blood pressure 123/65. Respiratory rate 16 to 22 breaths per minute. He is on 2 liters nasal cannula. GENERAL: This is a 58-year-old male patient who is lying in his hospital bed. He is in moderate respiratory distress. HEENT: Normocephalic, atraumatic. Pupils are equal and reactive. Oropharynx is clear. NECK: Supple without mass. RESPIRATORY: Diminished breath sounds throughout. He has accessory muscles in use. There are scattered rhonchi as well as expiratory wheezing throughout. He is in moderate respiratory distress with tachypnea. He speaks in 3 to 4 word phrases due to his shortness of breath. CHEST: There is equal rise and fall of the chest with inspiration and expiration. CARDIOVASCULAR: Regular rate and rhythm. At times, he is slightly tachycardic. GASTROINTESTINAL: Abdomen is soft, nondistended, nontender. Bowel sounds are positive. EXTREMITIES: No cyanosis, clubbing or edema. NEUROLOGIC: Awake, alert and oriented times three. Cranial nerves II-XII are grossly intact as tested. SKIN: Warm and dry. LABORATORY: Labs and films are as per history of present illness. IMPRESSION: 1. Acute on chronic exacerbation of congestive heart failure with a BNP of greater than 5000. His echocardiogram in January of 2019 showed an ejection fraction of 60% with mild diastolic dysfunction. 2. Chronic obstructive pulmonary disease with exacerbation complicated by #1. 3. Concerns for developing pneumonia with an elevated WBC and elevated heart rate as well as an elevated respiratory rate. 4. History of chronic alcohol abuse. 5. Chronic tobacco abuse. 6. Hypertension. 7. Pleural effusion. Right thoracentesis was done in the Emergency Room with 1300 mL drained. 8. Peripheral vascular disease bilateral iliac artery stenosis and stent placement on the left. 9. Gastroesophageal reflux disease. PLAN: The patient has been admitted to the hospital. The congestive heart failure guidelines have been initiated. I have given him some Lasix. We will resume his home medications as soon as they are verified. He will be on oxygen and BiPAP as needed. I have ordered lab for in the morning as well as a chest x-ray. He may need a left sided thoracentesis tomorrow and I have spoken to Dr. Boston about that. We will reevaluate in the morning after we get his testing done. I will continue him on some Solu-Medrol as well as Rocephin and azithromycin. He received some Lovenox in the Emergency Room and I will place him on SCDs for DVT prophylaxis. He is on Plavix and an aspirin and we will need to restart his Lovenox after speaking to Dr. Boston to determine if the patient needs another thoracentesis. I encouraged the patient to stop smoking as well as drinking. I have given him a nicotine patch and Restoril for sleep as well as some Ativan. He has received some potassium and magnesium supplementation. We will continue to monitor the patient closely and follow as needed. #[id number] [facility]
[2019-03-07] MEDS ORDERED: MAGNESIUM SULFATE PREMIX 2GM 2 GM in PREMIX BAG 1 BAG IVPB ONE (22:00)
[2019-03-07] MEDS ORDERED: POTASSIUM CHLORIDE 20 MEQ TAB PO ONE (22:00)
[2019-03-07] MEDS ORDERED: MORPHINE SULFATE INJ 10 MG/ML VIAL IV PRN (22:04)
[2019-03-07] MEDS ORDERED: SODIUM CHLORIDE 0.9% (FLUSH) 10 ML SYG IV PRN (22:04)
[2019-03-07] MEDS ORDERED: ONDANSETRON INJ 4 MG/2 ML VIAL IV PRN (22:04)
[2019-03-07] MEDS ORDERED: ACETAMINOPHEN 325 MG TAB PO PRN (22:04)
[2019-03-07] MEDS ORDERED: IPRATROPIUM/ALBUTEROL 3 ML VIAL INH PRN (22:04)
[2019-03-07] MEDS ORDERED: NITROGLYCERIN 0.4 MG 25 EA TAB SL PRN (22:04)
[2019-03-07] MEDS ORDERED: MAGNESIUM SULFATE PREMIX 2GM 50 ML IVPB ONE (22:26)
[2019-03-07] MEDS ORDERED: SODIUM CHLORIDE 0.9% 250ML 250 ML ONE (22:27)
[2019-03-07] MEDS ORDERED: AZITHROMYCIN IV 500 MG VIAL IVPB ONE (22:28)
[2019-03-07] MEDS ORDERED: IV SET AND CAP CHANGE INJ INJ SCH (22:30)
[2019-03-07] MEDS: NICOTINE PATCH 21 MG TD SCH (22:30)
[2019-03-07] MEDS: TEMAZEPAM 15 MG CAP PO PRN (22:44)
[2019-03-07] MEDS: AZITHROMYCIN IV 500 MG in SODIUM CHLORIDE 0.9% 250ML 250 ML IVPB SCH (23:22)
[2019-03-08] MEDS: methylPREDNISolone SODIUM SUC 40 MG/ML VIAL IV SCH ×5 (00:24→23:41)
--- NOTE | 2019-03-08 06:49 | RAD ---
EXAM: XR Chest, 2 Views CLINICAL HISTORY: The patient is 58 years old and is Male; CHF TECHNIQUE: Frontal and lateral views of the chest. COMPARISON: Chest radiograph March 07, 2019. FINDINGS: LUNGS: Interval improvement in the diffuse interstitial opacities is noted. PLEURAL SPACE: Small right pleural effusion is present. No pneumothorax. HEART: The cardiac silhouette is enlarged. MEDIASTINUM: Unremarkable. BONES/JOINTS: The bones and soft tissues are stable. IMPRESSION: Findings suggest slight interval improvement in the diffuse interstitial infiltrates. Electronically signed by: Aditi Vides MD 03/08/2019 6:47 AM [facility]
[2019-03-08] MEDS ORDERED: ACETAMINOPHEN 325 MG TAB PO ONE (06:50)
[2019-03-08] MEDS ORDERED: diphenhydrAMINE HCL 50 MG/ML VIAL IV ONE (06:50)
[2019-03-08] MEDS ORDERED: FUROSEMIDE INJ 40 MG/4 ML VIAL IV ONE (06:50)
[2019-03-08] MEDS ORDERED: SODIUM CHLORIDE 0.9% 500ML 500 ML IVS SCH (07:00)
[2019-03-08] MEDS ORDERED: diphenhydrAMINE HCL 25 MG CAP ONE (08:42)
[2019-03-08] MEDS ORDERED: ACETAMINOPHEN SUPPOSITORY 325 MG PR ONE (08:43)
[2019-03-08] MEDS ORDERED: ENOXAPARIN SODIUM 40 MG/0.4 ML SYG SUBCU SCH (09:00)
[2019-03-08] MEDS: IPRATROPIUM/ALBUTEROL 3 ML VIAL INH SCH ×4 (09:26→20:00)
[2019-03-08] MEDS ORDERED: SODIUM CHL 0.9% 50ML MIN-BAG+ 50 ML IVPB ONE (09:53)
[2019-03-08] MEDS ORDERED: cefTRIAXone SODIUM 1 GM VIAL ONE (09:55)
[2019-03-08] MEDS: THIAMINE HCL 100 MG TAB PO SCH (10:11)
[2019-03-08] MEDS: CLOPIDOGREL 75 MG TAB PO SCH (10:11)
[2019-03-08] MEDS: PANTOPRAZOLE SODIUM TAB 40 MG PO SCH (10:11)
[2019-03-08] MEDS: FOLIC ACID 1 MG TAB PO SCH (10:11)
[2019-03-08] MEDS: METOPROLOL SUCCINATE XL 50 MG TAB PO SCH (10:11)
[2019-03-08] MEDS: amLODIPine BESYLATE 5 MG TAB PO SCH (10:11)
[2019-03-08] MEDS: CITALOPRAM HBR 20 MG TAB PO SCH (10:11)
[2019-03-08] MEDS: NITROGLYCERIN 2% 1 GM UD TOP SCH ×2 (10:12→16:51)
[2019-03-08] MEDS: FUROSEMIDE INJ 40 MG/4 ML VIAL IV SCH ×2 (10:12→17:50)
[2019-03-08] MEDS: NICOTINE PATCH 21 MG TD SCH (10:12)
[2019-03-08] MEDS: busPIRone HCL 5 MG TAB PO SCH ×2 (10:12→20:46)
[2019-03-08] MEDS: ARNUITY ELLIPTA INH SCH (10:13)
[2019-03-08] MEDS: SODIUM CHLORIDE 0.9% (FLUSH) 10 ML SYG IV SCH ×2 (10:14→20:35)
[2019-03-08] MEDS: REMOVE OLD PATCH TOP SCH (10:14)
[2019-03-08] MEDS: cefTRIAXone SODIUM 1 GM in SODIUM CHL 0.9% 50ML MIN-BAG+ 50 ML IVPB SCH (10:14)
[2019-03-08] MEDS ORDERED: SODIUM CHLORIDE 0.9% 250ML 250 ML ONE ×2 (10:33→19:44)
[2019-03-08] MEDS ORDERED: AZITHROMYCIN IV 500 MG VIAL IVPB ONE (19:45)
[2019-03-08] MEDS: TEMAZEPAM 15 MG CAP PO PRN (20:47)
[2019-03-08] MEDS ORDERED: ATORVASTATIN 20 MG TAB PO SCH (21:00)
[2019-03-08] MEDS: AZITHROMYCIN IV 500 MG in SODIUM CHLORIDE 0.9% 250ML 250 ML IVPB SCH (22:41)
[2019-03-09] MEDS: methylPREDNISolone SODIUM SUC 40 MG/ML VIAL IV SCH ×2 (05:38→12:28)
[2019-03-09] MEDS: PANTOPRAZOLE SODIUM TAB 40 MG PO SCH (06:48)
[2019-03-09] MEDS: IPRATROPIUM/ALBUTEROL 3 ML VIAL INH SCH (08:27)
[2019-03-09] MEDS ORDERED: SODIUM CHL 0.9% 50ML MIN-BAG+ 50 ML IVPB ONE (08:43)
[2019-03-09] MEDS ORDERED: cefTRIAXone SODIUM 1 GM VIAL ONE (08:44)
[2019-03-09] MEDS ORDERED: BUMETANIDE TAB 2 MG TAB PO SCH (09:00)
[2019-03-09] MEDS: THIAMINE HCL 100 MG TAB PO SCH (09:08)
[2019-03-09] MEDS: cefTRIAXone SODIUM 1 GM in SODIUM CHL 0.9% 50ML MIN-BAG+ 50 ML IVPB SCH (09:08)
[2019-03-09] MEDS: METOPROLOL SUCCINATE XL 50 MG TAB PO SCH (09:08)
[2019-03-09] MEDS: NITROGLYCERIN 2% 1 GM UD TOP SCH (09:09)
[2019-03-09] MEDS: CLOPIDOGREL 75 MG TAB PO SCH (09:09)
[2019-03-09] MEDS: CITALOPRAM HBR 20 MG TAB PO SCH (09:09)
[2019-03-09] MEDS: FOLIC ACID 1 MG TAB PO SCH (09:09)
[2019-03-09] MEDS: busPIRone HCL 5 MG TAB PO SCH (09:09)
[2019-03-09] MEDS: ARNUITY ELLIPTA INH SCH (09:09)
[2019-03-09] MEDS: amLODIPine BESYLATE 5 MG TAB PO SCH (09:09)
[2019-03-09] MEDS: NICOTINE PATCH 21 MG TD SCH (09:09)
[2019-03-09] MEDS: SODIUM CHLORIDE 0.9% (FLUSH) 10 ML SYG IV SCH (09:10)
[2019-03-09] MEDS: REMOVE OLD PATCH TOP SCH (09:10)
--- NOTE | 2019-03-09 11:46 | PN ---
DATE: 03/08/19 SUPERVISING PHYSICIAN: Manpreet Pierce MD SUBJECTIVE: The patient is getting blood today. He has not had any chest pains. Notes that he does feel better since the thoracentesis. Breathing is much improved. OBJECTIVE: VITAL SIGNS: He remains afebrile. Temperature 98.1, pulse 70, blood 127/70, respirations 18, oxygen saturation 98% on room air. GENERAL: Patient resting comfortably, appears to be in no acute distress. CHEST: Lungs sounds diminished towards the basis but improved from admission. No obvious rhonchi, rales, or wheezes. HEART: Regular rate and rhythm. ABDOMEN: Soft, non-tender, positive bowel sounds. EXTREMITIES: Without edema. NEUROLOGIC: Alert and oriented x 3. LABORATORY: Hemoglobin 6.9 and hematocrit 21.4. Platelet count 308,000 with white count showing to be at baseline levels at 7,200 with continued left shift. Chemistries showed normal electrolytes today with BUN 21, creatinine 1.39, liver functions all within normal limits. MICROBIOLOGY: Blood cultures remain negative at 24 hours. Thoracic fluid is still pending at 24 hours with no growth. RADIOLOGY: Chest x-ray this morning per radiology interpretation showed findings suggestive of slight interval improvement and diffuse interstitial infiltrate. ASSESSMENT: 1. Acute decompensated heart failure requiring a right-sided thoracentesis with a BNP on admission of greater than 5000. Last echocardiogram in January showed an ejection fraction of 60% with mild diastolic dysfunction. 2. Severe anemia with a microcytic hyperchromic presentation likely due to chronic illness and continued alcohol abuse and contributing to #1 requiring transfusion of 2 units of packed red blood cells. 3. Chronic obstructive pulmonary disease with exacerbation complicated by #1. 4. Concerns for developing pneumonia with an elevated WBC and elevated heart rate as well as an elevated respiratory rate. 5. History of chronic alcohol abuse. 6. Chronic tobacco abuse. 7. Hypertension. 8. Pleural effusion. Right thoracentesis was done in the Emergency Room with 1300 mL drained. 9. Peripheral vascular disease bilateral iliac artery stenosis and stent placement on the left. 10. Gastroesophageal reflux disease. PLAN: Will continue with current plan of care at this point but will transfuse 2 units of packed red blood cells and give Lasix after the units. He will be on Rocephin for continued coverage for concerns of developing pneumonia. I did discuss the case with Dr. Meeks, his primary care physician. He wants to go ahead and increase his diuretics which include Amantadine to 2 mg b.i.d. on discharge and he has written a prescription for that. I would anticipate that he will discharge tomorrow as long as he is without complications overnight from his transfusion and is able to ambulate without any difficulty. Until the, we will continue to monitor and treat as needed. [id number] [facility]
[2019-03-09 12:33] VITALS: BP 109/64; TEMP 98.4; O2SAT 98
--- NOTE | 2019-03-18 13:57 | DS ---
SUPERVISING PHYSICIAN: Edu Pierce MD ADMISSION DIAGNOSIS: 1. Acute on chronic exacerbation of congestive heart failure with a BNP of greater than 5000. His echocardiogram in January of 2019 showed an ejection fraction of 60% with mild diastolic dysfunction. 2. Chronic obstructive pulmonary disease with exacerbation complicated by #1. 3. Concerns for developing pneumonia with an elevated WBC and elevated heart rate as well as an elevated respiratory rate. 4. History of chronic alcohol abuse. 5. Chronic tobacco abuse. 6. Hypertension. 7. Pleural effusion. Right thoracentesis was done in the Emergency Room with 1300 mL drained. 8. Peripheral vascular disease bilateral iliac artery stenosis and stent placement on the left. 9. Gastroesophageal reflux disease. DISCHARGE DIAGNOSIS: 1. Acute decompensated heart failure requiring a right-sided thoracentesis with a BNP on admission of greater than 5000, improved. Last echocardiogram in January showed an ejection fraction of 60% with mild diastolic dysfunction. 2. Severe anemia with a microcytic hyperchromic presentation likely due to chronic illness and continued alcohol abuse and contributing to #1 requiring transfusion of 2 units of packed red blood cells, stable. 3. Chronic obstructive pulmonary disease with exacerbation complicated by #1, improving. 4. History of chronic alcohol abuse. 5. Chronic tobacco abuse. 6. Hypertension. 7. Pleural effusion. Right thoracentesis was done in the Emergency Room with 1300 mL drained. 8. Peripheral vascular disease bilateral iliac artery stenosis and stent placement on the left. 9. Gastroesophageal reflux disease. REASON FOR HOSPITALIZATION: This is a 58-year-old male patient who came to the Emergency Room secondary to severe shortness of breath for the last 4 to 5 days, but he has felt extremely poorly the last 2 days. He has had shortness of breath as well as a mild cough. This morning, he actually could not walk to the door. He was actually headed to Dr. Stoll's office for an appointment and they had to call 911 because he could not walk and was extremely short of breath. He has a significant history of chronic obstructive pulmonary disease with frequent exacerbations as well as pleural effusions with need to be drained and he is a 1 to 2 pack per day smoker as well as he drinks alcoholic from 1 to 2 per day to about 12 per day. He also has had a sore throat. In the Emergency Room, his initial vital signs showed temperature 98.7 with heart rate 114, blood pressure 208/113, respiratory rate 30, O2 saturation 68% on room air. Shortly thereafter, he was put on a non-rebreather and came up to 80%. His lab studies showed WBC 10,900, hemoglobin 9.2, hematocrit 29. Sodium 135, potassium 3.3, chloride 99, carbon dioxide 20, BUN 16, creatinine 1.26. Lactic acid 2.2, magnesium 1.7, calcium 9.5. CK-MB 5.3, troponin 0.02, BNP greater than 5,000. Blood culture was sent down. Influenza A and B per PCR were both negative. Chest x-ray showed findings most consistent with volume overload or congestive failure with extensive pulmonary edema. He was given some Lasix as well as some Nitro-Bid ointment, a dose of Solu-Medrol as well as lisinopril. He was given multiple breathing treatments and a Mucomyst treatment and albuterol treatment. CT of the chest was done and showed a moderate to large right and moderate left pleural effusion with associated airspace opacities of the bilateral lower lobes representing atelectasis and/or pneumonia. Thoracentesis was done by the ER physician and he took approximately 1300 mL off of his right side. Shortly thereafter, his respiratory rate went down and his oxygen saturations were in the upper 80s to low 90s. He was significantly less short of breath. The patient was admitted in stable condition. LABORATORY: Initial hemoglobin on admission in the Emergency Room was 9.2 and hematocrit 29.0 with a white count of 10,900, platelet count 457,000. The morning after admission, his white count had normalized to 7,200, hemoglobin dropped to 6.9 and hematocrit 21.4. After 2 units of packed red blood cells and prior to discharge, his hemoglobin was 9.4 and hematocrit 29.3. Chemistries were normal on discharge. His creatinine had gone up to 1.68 with BUN 32, calcium 8.6. BNP on admission was greater than 5000. Troponin was normal at 0.02. Magnesium was low at 1.7. MICROBIOLOGY: Blood cultures remained negative after 5 days. Influenza by PCR was negative for A and B. Pleural fluid from thoracentesis, final report, showed no growth at 4 days. RADIOLOGY: Chest x-ray initially in the Emergency Room per radiologic interpretation showed findings consistent with volume overload or congestive failure or extensive pulmonary edema with moderate right pleural effusion. CT of the chest was done as well and per radiologic interpretation showed moderate to large right and moderate left pleural effusion with associated airspace opacities of the bilateral lobes representing atelectasis and/or pneumonia. Post thoracentesis prior to admission showed interval drainage of right pleural effusion, no complicating pneumothorax. There was note of arteriovascular congestion, diffuse pulmonary infiltrates or edema. Followup chest x-ray on 03/08/19 with two-view chest showed findings consistent with suggested slight interval improvement in the diffuse interstitial infiltrates. EKG showed normal sinus rhythm. HOSPITAL COURSE: Mr. Alaniz was admitted through the Emergency Room for shortness of breath related to pleural effusion. He had a thoracentesis done by Dr. Ric Eubanks in the Emergency Room. Please see his note for details. He had improvement in his symptoms and then was admitted to the Floor. The day after admission, he did show a drop in his hemoglobin and hematocrit and was then transfused 2 units of packed red blood cells. He was treated with steroids, Tamiflu and antibiotics to include Rocephin for initial concerns for pneumonia as well as given Lasix. He did show good clinical improvement and was felt on day of discharge to have clinically improved well enough to continue with outpatient management. PLAN: Mr. Alaniz was discharged on 03/09/19 with instructions to followup with Dr. Stoll as scheduled. He was again encouraged to stop smoking and drinking. He was told to resume his medications as instructed and to return to the Emergency Room as needed. Diet was to be a low salt diet. Activity to increase as tolerated. Prescriptions on discharge include: 1. Bumetanide 2 mg twice daily, no refills. That was a change from his previous medication dosage of 1 mg twice daily per Dr. Stoll's recommendation. 2. Chantix Starter Pack to assist with smoking cessation. All other medications were resumed as prior to hospitalization. CONDITION ON DISCHARGE: Stable and improved. DISPOSITION: The patient is discharged home. #[id number] [facility]
== END 2019-03-09 12:47 | disposition home or self-care (01) | DRG 291 ==
LOC: ER 14:59 → OBSVTOIN 19:03 → MS 19:03
PROVIDERS: ADMIT Nurse Practitioner Acute Care; ATTEND Nurse Practitioner Acute Care
PROC: 0W993ZZ Drainage of Right Pleural Cavity, Percutaneous Approach (ICD-10-PCS; principal; 2019-03-07)
PROC: 30233N1 Transfusion of Nonautologous Red Blood Cells into Peripheral Vein, Percutaneous Approach (ICD-10-PCS; 2019-03-08)
DX: I11.0 Hypertensive heart disease with heart failure (principal); J18.9 Pneumonia, unspecified organism; J91.8 Pleural effusion in other conditions classified elsewhere; J44.1 Chronic obstructive pulmonary disease with (acute) exacerbation; J44.0 Chronic obstructive pulmonary disease with (acute) lower respiratory infection; I50.33 Acute on chronic diastolic (congestive) heart failure; J43.9 Emphysema, unspecified; F10.10 Alcohol abuse, uncomplicated; F17.210 Nicotine dependence, cigarettes, uncomplicated; I73.9 Peripheral vascular disease, unspecified; Z95.820 Peripheral vascular angioplasty status with implants and grafts; K21.9 Gastro-esophageal reflux disease without esophagitis; D63.8 Anemia in other chronic diseases classified elsewhere; Z79.02 Long term (current) use of antithrombotics/antiplatelets; Z79.52 Long term (current) use of systemic steroids; Z79.899 Other long term (current) drug therapy

== ENCOUNTER → 2019-03-29 | Outpatient (CLI) | payer OTHER ==
--- NOTE | 2019-04-01 08:58 | US ---
EXAM DESCRIPTION: Abdomen,Complete: Ultrasound. CLINICAL HISTORY: 58 years MaleALCOHOL ABUSE UNCOMPLICATED COMPARISON: CTA abdomen and lower extremity runoff October 2014. TECHNIQUE: Transabdominal scanning: grayscale and Doppler modes. FINDINGS: Gallbladder: Slightly contracted. Wall thickness 2.8 mm. No echogenic stones or sludge. No fluid around the wall. Nontender with transducer pressure. Common bile duct: Dilated 8.9 mm. No echogenic stones in the included segments.. Liver: Heterogeneous echogenic liver. Long axis right lobe 13.2 cm. Physiologic flow in the vascular structures with normal caliber of the ducts. Smooth capsule with no ascites. Pancreas: Normal echogenicity of the included segments with no duct dilation.. Abdominal aorta: Proximal aorta caliber 2.7 cm with atherosclerotic calcification. Mid aorta and distal aorta 2.5 cm. IVC: visualized; normal caliber. Spleen normal echogenicity; long axis measurement is 8.9 cm. Left kidney: Mild increase in cortical echogenicity, but less than the liver. Normal cortical thickness but heterogeneous. 11.0 cm long axis. Slightly lobulated capsule. No echogenic stones or hydronephrosis. Right kidney: 7.8 cm Long axis. Increased cortical echogenicity more than the liver. Mid renal cortical thickness 11 cm. Lobulated capsule. No echogenic stones or hydronephrosis.. IMPRESSION: 1. Steatosis of the liver with physiologic vascularity. No enlargement. Smooth capsule with no ascites. Intrahepatic ducts not dilated. 2. Gallbladder unremarkable. Common bile duct dilated. No echogenic stones in the included segments. Pancreas unremarkable and pancreatic duct not visualized. Consider MRCP evaluation of the extrahepatic ductal system. 3. Right kidney atrophy and medical renal disease. No atrophy of the left kidney but minimal disease in the left kidney. 4. 2.7 cm abdominal aortic (proximal) aneurysm suspected. Recommend follow-up every 5 years. Reference: J Am Jazmin Radiol 2013;10:789-794. Electronically signed by: Kedar Ceballos MD 04/01/2019 8:56 AM [facility]
== END ==
LOC: US 08:21
PROVIDERS: ATTEND Family Medicine
DX: F10.10 Alcohol abuse, uncomplicated (principal); K70.0 Alcoholic fatty liver; N26.1 Atrophy of kidney (terminal); N28.9 Disorder of kidney and ureter, unspecified

== ENCOUNTER 2019-05-24 12:11 | Inpatient (IN) | payer SELFPAY ==
[2019-05-24] MEDS ORDERED: FUROSEMIDE INJ 40 MG/4 ML VIAL IV ONE (12:21)
[2019-05-24] MEDS ORDERED: IPRATROPIUM/ALBUTEROL 3 ML VIAL NEB ONE ×2 (12:21→12:22)
[2019-05-24] MEDS ORDERED: methylPREDNISolone SODIUM SUC 125 MG/2 ML VIAL IV ONE (12:23)
--- NOTE | 2019-05-24 12:39 | RAD ---
EXAM DESCRIPTION: Chest,1 View CLINICAL HISTORY: 58 years Male, severe sob COMPARISON: Radiographs the chest dated 03/08/2019. TECHNIQUE: AP radiograph of the chest was obtained. FINDINGS: Trachea is midline.The cardiomediastinal silhouette is moderately enlarged in size. Bilateral pulmonary vascular congestion. Bilateral pleural effusions with associated airspace opacities in the bilateral lower lobes, representing atelectasis and/or pulmonary edema. IMPRESSION: Enlarged cardiac silhouette with pulmonary vascular congestion. Bilateral pleural effusions with associated airspace opacities in the bilateral lower lobes, representing atelectasis and/or pulmonary edema. Electronically signed by: Uzma Carrillo MD 05/24/2019 12:37 PM [employer]
[2019-05-24] MEDS ORDERED: cefTRIAXone SODIUM 1 GM in SODIUM CHL 0.9% 50ML MIN-BAG+ 50 ML IVPB ONE (13:53)
[2019-05-24] MEDS ORDERED: AZITHROMYCIN IV 500 MG in SODIUM CHLORIDE 0.9% 250ML 250 ML IVPB ONE (13:53)
[2019-05-24] MEDS ORDERED: cefTRIAXone SODIUM 1 GM VIAL ONE (14:18)
[2019-05-24] MEDS ORDERED: SODIUM CHL 0.9% 50ML MIN-BAG+ 50 ML IVPB ONE (14:19)
--- NOTE | 2019-05-24 14:36 | RAD ---
EXAM DESCRIPTION: Chest,1 View CLINICAL HISTORY: 58 years Male, s/p thoracentesis COMPARISON: May 24, 2019 at 12:30 PM TECHNIQUE: AP portable chest. FINDINGS: Follow-up portable single view of the chest shows modest improvement in changes of are alveolar pulmonary edema and volume overload in the two hour interval since prior study. Cardiomegaly central vascular congestion with interstitial edema and small right and likely moderate left layering pleural effusion and/or alveolar edematous changes persist. Some clearing of the mid and upper lung jeffrey suggested. By history the patient has undergone thoracentesis but I am uncertain whether this is been performed on the right or left or both sides. There is no evidence of post procedure pneumothorax. The greatest improvement is right-sided in the aeration of the lung field. IMPRESSION: Improved appearance of the chest with better aeration with persistent modest changes of congestive failure or volume overload and interstitial edema likely with minimal right and some layering pleural effusion on the left. No evidence of postthoracentesis pneumothorax. Old right posterior lateral rib fractures noted. Electronically signed by: Farhan Corea MD 05/24/2019 2:35 PM [employer]
[2019-05-24] MEDS ORDERED: amLODIPine BESYLATE 5 MG TAB PO ONE (14:51)
[2019-05-24] MEDS ORDERED: METOPROLOL SUCCINATE XL 50 MG TAB PO ONE (14:51)
[2019-05-24] MEDS ORDERED: SODIUM CHLORIDE 0.9% 250ML 250 ML ONE (14:58)
[2019-05-24] MEDS ORDERED: AZITHROMYCIN IV 500 MG VIAL IVPB ONE (14:58)
[2019-05-24] MEDS ORDERED: NITROGLYCERIN 2% 1 GM UD TOP ONE (15:12)
--- NOTE | 2019-05-24 15:30 | ED.PDOC ---
History of Present Illness - General Chief Complaint: Respiratory Problem Stated Complaint: shortness of breath Time Seen by Provider: 05/24/19 12:21 Source: patient Exam Limitations: no limitations - History of Present Illness Initial Comments: The patient is a 58-year-old male presenting to the emergency room secondary to respiratory distress. The patient has been having increasing shortness of breath over the last 2 days but became severe this morning. No definite fevers. Mildly productive cough. No sore throat. No chest pain. No palpitations. He has had increased swelling of his extremities as well. He does have severe hypertension and EMS did give him a dose of labetalol. He also had a breathing treatment with EMS. Oxygen saturations on room air are around 65%. The patient is using significant accessory muscles and tripoding. He is getting drowsy. He does normally use BiPAP at night. He has had a history of recurrent significant pleural effusions that have had to be drained in the past. Oxygen saturations with a nonrebreather are 88%. Timing/Duration: unsure Severity: severe Improving Factors: medication Worsening Factors: nothing Associated Symptoms: loss of appetite, malaise, shortness of breath, weakness Allergies/Adverse Reactions: Allergies NO KNOWN ALLERGY Allergy (Unverified 06/01/17 16:28) Home Medications: Ambulatory Orders Metoprolol Succinate [Metoprolol Succinate ER] 100 mg PO DAILY 12/03/13 Citalopram Hydrobromide [Citalopram] 20 mg PO DAILY 09/20/18 Amlodipine Besylate 5 mg PO DAILY 01/21/19 Atorvastatin Calcium 80 mg PO BEDTIME 01/21/19 Buspirone HCl 10 mg PO BID 01/21/19 Folic Acid 800 mcg PO DAILY 01/21/[address] 40 mg PO BID 01/21/19 Thiamine HCl 250 mg PO DAILY 01/21/19 Clopidogrel Bisulfate [Plavix] 75 mg PO QD 30 Days #30 tab 01/26/19 Bumetanide 1 mg PO BID 05/24/19 Fluticasone Furoate-Vilanterol [Breo Ellipta] 1 inh IN DAILY 05/24/19 Ketorolac Tromethamine 10 mg PO PRN 05/24/19 Methocarbamol 500 mg PO PRN 05/24/19 Review of Systems - Review of Systems Constitutional: States: malaise, weakness - Generalized EENTM: States: no symptoms reported Respiratory: States: cough, short of breath Cardiology: States: edema Gastrointestinal/Abdominal: States: no symptoms reported Genitourinary: States: no symptoms reported Musculoskeletal: States: no symptoms reported Skin: States: no symptoms reported Neurological: States: anxiety Endocrine: States: no symptoms reported Hematologic/Lymphatic: States: no symptoms reported All other Systems: No Change from Baseline Past Medical History (General) - Patient Medical History Hx Seizures: No Hx Stroke: No Hx Dementia: No Hx Asthma: No Hx of COPD: Yes Hx Cardiac Disorders: Yes Hx Congestive Heart Failure: Yes Hx Pacemaker: No Hx Hypertension: Yes Hx Thyroid Disease: No Hx Diabetes: No Hx Gastroesophageal Reflux: Yes Hx Renal Disease: No Hx Cancer: No Hx of HIV: No Hx Hepatitis C: Yes Hx MRSA: No Surgical History: noncontributory - Vaccination History Hx Tetanus, Diphtheria Vaccination: Yes Hx Influenza Vaccination: Yes Hx Pneumococcal Vaccination: Yes - Social History Hx Tobacco Use: Yes Hx Chewing Tobacco Use: No Hx Alcohol Use: Yes Hx Substance Use: Yes Hx Substance Use Treatment: No Hx Depression: Yes Hx Physical Abuse: No Hx Emotional Abuse: No Hx Suspected Abuse: No Family Medical History - Family History Father Family History: Unknown Living Status: Cause of : aneurysm Physical Exam - Physical Exam General Appearance: Alert, Frail, Obvious distress, Ill Appearing Eye Exam: bilateral normal Ears, Nose, Throat: hearing grossly normal, normal pharynx Neck: full range of motion, supple - Significant JVD Respiratory: respiratory distress, decreased breath sounds - At bases, accessory muscle use, rales, rhonchi, wheezing Cardiovascular/Chest: normal peripheral pulses, regular rate, rhythm Peripheral Pulses: radial,right: 2+, radial,left: 2+ Gastrointestinal/Abdominal: non tender, soft Rectal Exam: deferred Back Exam: no CVA tenderness, no vertebral tenderness Extremity: normal range of motion, non-tender, normal inspection, no pedal edema, normal capillary refill Neurologic: chief engineer research II-XII nml as tested, alert, normal mood/affect - Appropriate but sleepy, oriented x 3 Skin Exam: diaphoresis Comments: Vital Signs - 24 hr 05/24/19 05/24/19 05/24/19 12:24 12:45 12:48 Temperature 96 F L Pulse Rate 74 Pulse Rate [ 73 Right Brachial] Respiratory 28 H 28 H Rate Blood Pressure 182/99 [Right Arm] O2 Sat by Pulse 69 L 68 L 94 L Oximetry 05/24/19 05/24/19 05/24/19 12:53 13:12 14:12 Temperature Pulse Rate Pulse Rate [ 80 78 Right Brachial] Respiratory 28 H 24 24 Rate Blood Pressure 195/97 191/107 [Right Arm] O2 Sat by Pulse 98 98 Oximetry Progress - Progress Progress: 05/24/19 15:32 The patient is a 58-year-old male presented emergency room secondary to respiratory distress and near failure. This appears to be due to a COPD exacerbation likely triggering his CHF exacerbation. The patient received a dose of Rocephin and azithromycin as well as a dose of IV Solu-Medrol. He received a dose of IV Lasix. He has received a dose of IV labetalol with EMS and received his daily dose of metoprolol and Norvasc here. Additionally we have placed an inch of nitroglycerin paste on his chest to help reduce blood pressures in the short-term until his oral medications have kicked in. The patient has received 3 nebulizer treatments of DuoNeb's. Additionally we did remove 900 cc of serous fluid off of his right chest cavity. This more than anything helped his clinical condition. Oxygen saturations have now corrected up to the high 90s and respiratory distress seems to be resolving. No chest pain. Admit for continued care for COPD and CHF exacerbation. At this point in time I am uncertain if there is any significant infectious oil transport driver behind the COPD component. shahzad cano [id number] Critical care time spent for respiratory distress is 40 minutes excluding otherwise billable procedures. Procedure note: Thoracentesis: Risks and benefits of been explained and patient agrees to proceed. The patient is set up right and the right posterior chest wall is prepped and draped in sterile fashion. After auscultation, needle insertion was placed allowing for the withdrawal of 900 cc of serous fluid. Patient tolerated this well. Sponge tape and Vaseline gauze were applied to the site after. Repeat chest x-ray shows a significant improvement to the right hemithorax. No evidence of pneumothorax. - Results/Orders Results/Orders: Laboratory Tests 05/24/19 05/24/19 05/24/19 12:05 12:05 12:05 WBC 10.4 RBC 3.62 L Hgb 9.6 L Hct 30.0 L MCV 82.7 MCH 26.6 L MCHC 32.1 L RDW 21.4 H Plt Count 372 MPV 7.4 Absolute Neuts (auto) 9.00 H Absolute Lymphs (auto) 0.80 L Absolute Monos (auto) 0.40 Absolute Eos (auto) 0.00 Absolute Basos (auto) 0.10 Neutrophils % 86.2 H Lymphocytes % 7.9 L Monocytes % 4.3 Eosinophils % 0.4 L Basophils % 1.2 PT 10.5 INR 1.06 PTT (SP) 27.0 Sodium 134 L Potassium 4.0 Chloride 98 L Carbon Dioxide 20 L Anion Gap 20.0 H BUN 21 H Creatinine 1.16 BUN/Creatinine Ratio 18.1 Random Glucose 109 H Serum Osmolality 271.8 L Calcium 9.6 Magnesium 1.9 Total Bilirubin 1.1 H AST 35 ALT 20 Alkaline Phosphatase 125 H Creatine Kinase 122 CK-MB (CK-2) 10.7 H* CK-MB (CK-2) % 8.77 H Troponin I 0.04 B-Natriuretic Peptide < 5000.0 H* Serum Total Protein 8.1 Albumin 3.6 Globulin 4.5 H Albumin/Globulin Ratio 0.8 L Chest x-ray shows bilateral pleural effusions along with fluid overload and possible infiltrates. EKG shows normal sinus rhythm at 75 bpm. Right axis deviation. Criteria for LVH is present. Left atrial dilation. Borderline prolonged QT interval. No definitive ST segment or T wave changes indicative of acute ischemia. Departure - Departure Clinical Impression: Respiratory distress, acute, Acute exacerbation of COPD with asthma, Pleural effusion Acute exacerbation of CHF (congestive heart failure) Qualifiers: Heart failure type: combined systolic and diastolic Qualified Code(s): I50.43 - Acute on chronic combined systolic (congestive) and diastolic (congestive) heart failure Disposition: Admit Patient Departure Forms: ED Discharge - Pt. Copy, Patient Portal Self Enrollment Referrals: Serge Stoll MD [Primary Care Provider] - 1-2 Weeks Home Medications: Ambulatory Orders Metoprolol Succinate [Metoprolol Succinate ER] 100 mg PO DAILY 12/03/13 Citalopram Hydrobromide [Citalopram] 20 mg PO DAILY 09/20/18 Amlodipine Besylate 5 mg PO DAILY 01/21/19 Atorvastatin Calcium 80 mg PO BEDTIME 01/21/19 Buspirone HCl 10 mg PO BID 01/21/19 Folic Acid 800 mcg PO DAILY 01/21/[address] 40 mg PO BID 01/21/19 Thiamine HCl 250 mg PO DAILY 01/21/19 Clopidogrel Bisulfate [Plavix] 75 mg PO QD 30 Days #30 tab 01/26/19 Bumetanide 1 mg PO BID 05/24/19 Fluticasone Furoate-Vilanterol [Breo Ellipta] 1 inh IN DAILY 05/24/19 Ketorolac Tromethamine 10 mg PO PRN 05/24/19 Methocarbamol 500 mg PO PRN 05/24/19 Decision To Admit - Decistion To Admit Decision to Admit Reason: Medical Nature Decision to Admit Date: 05/24/19 Decision to Admit Time: 15:37
--- NOTE | 2019-05-24 15:51 | HP ---
SUPERVISING PHYSICIAN: Farhan Eubanks MD CHIEF COMPLAINT: Shortness of breath and lower exacerbation swelling. HISTORY OF PRESENT ILLNESS: This is a 58-year-old male who has a significant history of congestive heart failure as well as well poor compliance. He presented to the Emergency Room with one to two days of shortness of breath. He has also had increased swelling of his lower extremities over the last 24 hours. He has no chest pain or palpitations. His blood pressure was elevated in the ambulance and they did give him some labetalol. His initial oxygen saturations on room air when the ambulance was there was in the low 60s. He was very tachypneic, using accessory muscles. His initial vital signs upon arrival to the Emergency Room showed a temperature of 96, heart rate 73, blood pressure 182/99, respiratory rate 28 with oxygen saturation of 69%. Laboratory studies were done and he had a WBC of 10,400 with hemoglobin of 9.6 and hematocrit of 30.0. He did have a left shift on differential. His sodium was 134, potassium 4, chloride 98, carbon dioxide 20, BUN 21, creatinine 1.16. His troponin was normal. His CKMB was 10.7 and BNP was greater than 5,000. His chest x-ray showed enlarged cardiac silhouette with pulmonary vascular congestion, bilateral pleural effusions with associated air-space opacity in the bilateral lower lobes that could represent atelectasis or pulmonary edema. Dr. Eubanks, Emergency Room physician, decided to do a thoracentesis since he has had to have multiple taps in the past. He drained approximately 900 mLs of pleural fluid off of his right lung. After he rudolph the pleural fluid off, his oxygen saturations were in the mid 90s on 3 to 4 liters nasal cannula. He routinely wears oxygen at 3 to 4 liters nasal cannula at home. It is to be noted that, according to his , he fell on his right side several days ago, but told her "it wasn't that bad". He received diuretics and multiple breathing treatments. He also has a history of chronic obstructive pulmonary disease and he was given some azithromycin and Rocephin as well as a dose of Solu-Medrol and I was called for admission for acute exacerbation of congestive heart failure. PAST MEDICAL HISTORY: 1. Hypertension. 2. Chronic obstructive pulmonary disease. 3. Congestive heart failure. His last echocardiogram was in January 2019 and showed an ejection fraction of 60% with mild diastolic dysfunction. 4. Chronic alcohol abuse. 5. Chronic obstructive pulmonary disease with severe emphysema in a chronic smoker that continues to smoke. 6. Cardiovascular disease. PAST SURGICAL HISTORY: 1. Laminectomy of the lumbar spine. 2. Left iliac arterial stent. CURRENT MEDICATIONS: Per the EMR and awaiting verification. ALLERGIES: NO KNOWN DRUG ALLERGIES. FAMILY HISTORY: Noncontributory. SOCIAL HISTORY: The patient is retired. He lives in [place]. He is . He has 2 children. He drinks alcohol on a regular basis that ranges from 6 to 12 beers per day and he smokes 2 packs of cigarettes daily. REVIEW OF SYSTEMS: GENERAL: Positive for fatigue. Negative for fever or weight changes. HEENT: Negative for sinus symptoms, ear pain, vision changes or sore throat. RESPIRATORY: As per history of present illness. CARDIAC: Negative for chest pain, palpitations or tachycardia. GASTROINTESTINAL: Negative for nausea, vomiting, diarrhea or constipation. GENITOURINARY: Negative for hematuria, dysuria or polyuria. MUSCULOSKELETAL: Negative for arthralgias, myalgias. SKIN: Negative for lesions or rashes. NEUROLOGIC: Negative for headache, dizziness or seizures. PHYSICAL EXAMINATION: VITAL SIGNS: Temperature 96.1. Heart rate 69. Blood pressure 170/86. Respiratory rate 16, oxygen saturation 98% on 5 liters nasal cannula. GENERAL: This is a 58-year-old male patient who is very thin. He looks to be in mild respiratory distress. HEENT: Normocephalic, atraumatic. Pupils are equal and reactive. Oropharynx is clear. NECK: Supple without mass. RESPIRATORY: Diminished breath sounds throughout especially at the bases. He does have a few scattered crackles throughout. He does get tachypneic with any exertion and he has to speak in 2 to 3-word phrases due to his shortness of breath. He is oxygen dependent. . CHEST: There is equal rise and fall of the chest with inspiration and expiration. CARDIOVASCULAR: Regular rate and rhythm. GASTROINTESTINAL: Abdomen is soft, nondistended, nontender. Bowel sounds are positive. EXTREMITIES: No cyanosis, clubbing or edema. NEUROLOGIC: Awake, alert and oriented times three. Cranial nerves II-XII are grossly intact as tested. SKIN: Warm and dry. LABORATORY: Labs and films are as per history of present illness. IMPRESSION: 1. Acute on chronic exacerbation of congestive heart failure with a BNP of greater than 5000. His echocardiogram in January of 2019 showed an ejection fraction of 60% with mild diastolic dysfunction. 2. Chronic obstructive pulmonary disease with acute exacerbation complicated by #1. 3. Concerns for developing community acquired pneumonia secondary to #2. 4. History of chronic alcohol abuse. 5. Chronic tobacco abuse. 6. Hypertension. 7. History of pleural effusion requiring multiple pleurocentesis. 8. Peripheral vascular disease. 9. Gastroesophageal reflux disease. PLAN: The patient has been admitted to the hospital. The congestive heart failure guidelines have been initiated. He is on diuretics as well as a beta brandon and an clifford inhibitor and his home medications will be restarted as soon as they are verified. I will also put him on Lovenox for DVT prophylaxis. He will also be on the sliding scale insulin protocol, giving him scheduled IV Lasix and hopefully we can transition him to his routine dose of Lasix. I have also resumed his ceftriaxone and azithromycin. At this point, I will not give him any steroids and I will monitor him closely and watch his clinical response. He may need another dose of steroids, but will hold for now. I have encouraged good pulmonary hygiene. He has very poor compliance and I have discussed his compliance and recommended any kind of assistance to help with that compliance. We have also discussed tobacco and alcohol cessation I've ordered routine labs for in the morning. He will have aggressive pulmonary hygiene. We will continue to monitor the patient closely and follow as needed. #[id number] [facility]ITALAshe[facility]
[2019-05-24] MEDS ORDERED: NITROGLYCERIN 0.4 MG 25 EA TAB SL PRN (16:40)
[2019-05-24] MEDS ORDERED: ACETAMINOPHEN 325 MG TAB PO PRN (16:40)
[2019-05-24] MEDS ORDERED: ONDANSETRON INJ 4 MG/2 ML VIAL IV PRN (16:40)
[2019-05-24] MEDS ORDERED: SODIUM CHLORIDE 0.9% (FLUSH) 10 ML SYG IV PRN (16:40)
[2019-05-24] MEDS ORDERED: IV SET AND CAP CHANGE INJ INJ SCH (17:00)
[2019-05-24] MEDS: CLOPIDOGREL 75 MG TAB PO SCH (17:50)
[2019-05-24] MEDS: FUROSEMIDE INJ 40 MG/4 ML VIAL IV SCH (17:51)
[2019-05-24] MEDS: busPIRone HCL 5 MG TAB PO SCH (20:25)
[2019-05-24] MEDS: SODIUM CHLORIDE 0.9% (FLUSH) 10 ML SYG IV SCH (20:25)
[2019-05-24] MEDS ORDERED: ENOXAPARIN SODIUM 40 MG/0.4 ML SYG SUBCU SCH (21:00)
[2019-05-24] MEDS ORDERED: ATORVASTATIN 20 MG TAB PO SCH (21:00)
[2019-05-25] MEDS ORDERED: ACETAMINOPHEN 325 MG TAB PO ONE (05:52)
[2019-05-25] MEDS ORDERED: diphenhydrAMINE HCL 50 MG/ML VIAL IV ONE ×2 (05:52→08:47)
[2019-05-25] MEDS ORDERED: FUROSEMIDE INJ 40 MG/4 ML VIAL IV ONE ×2 (05:52→12:06)
[2019-05-25] MEDS ORDERED: SODIUM CHLORIDE 0.9% 500ML 500 ML IVS SCH (06:00)
--- NOTE | 2019-05-25 07:13 | RAD ---
CHEST, TWO VIEW, XR CLINICAL HISTORY: CHF COMPARISON: 05/24/2019 TECHNIQUE: Frontal and lateral Chest. FINDINGS: There is a large right pleural effusion. Significant right middle and lower lung consolidation. Heart is enlarged. Interstitial edema persists but has improved. No pneumothorax. There is an old fracture of right rib six. Unremarkable soft tissues. IMPRESSION: 1. Increasing right middle and lower lobe consolidation. Large right pleural effusion has also increased. 2. Persistent but improving pulmonary edema. Electronically signed by: Benita Cooney DO 05/25/2019 7:12 AM [facility]
--- NOTE | 2019-05-25 07:33 | CT ---
EXAM: CT abdomen and pelvis without intravenous contrast CLINICAL DATA: 58-year-old male with GI bleed TECHNICAL DATA: Axial CT imaging of the abdomen and pelvis was performed. Sagittal and coronal reconstructed images were then performed. The CT study is performed according to ALARA (as low as reasonably achievable) or ALARA/IMAGE GENTLY, with automatic adjustment of mA and/or kV according to patient size. Performed on: 05/25/2019 at 6:53 AM Comparison: Prior CT chest performed on 03/07/2019 and CTA runoff performed on 10/31/2016. FINDINGS: Lung bases: There are bilateral pleural effusions. There is increased attenuation within the right pleural effusion concerning for a hemothorax. There is bibasilar airspace consolidation which may be due to atelectasis or pneumonia. The heart is enlarged. There is no pericardial effusion identified. Liver:The liver is normal in size and configuration. No focal hepatic abnormalities are appreciated on this unenhanced scan. Liver attenuation is within normal limits. Spleen:The spleen is normal is size, configuration and attenuation. No focal splenic abnormalities are appreciated on this unenhanced scan. Gallbladder and bile duct: The gallbladder is well distended and unremarkable. There is no biliary ductal dilatation. Pancreas: The pancreas is grossly unremarkable on this unenhanced CT study. Adrenal Glands:The adrenal glands are normal in size and configuration. Kidneys: There is right renal atrophy. The left kidney is normal in size and configuration. There are renal vascular calcifications. There is no evidence of hydronephrosis. There is no evidence of nephrolithiasis. No focal renal abnormalities are identified. Stomach:The stomach is grossly normal. There is no definite hiatal hernia. There is streak artifact on the images which may be related to breathing motion artifact Bowel:The bowel gas pattern is non specific and non obstructive. Appendix: The appendix is not clearly delineated on this examination. Free air:There is no evidence of free air. Free fluid: There is a small amount of ascites. Vasculature: The aorta measures approximately 2.7 cm in diameter. There are atherosclerotic calcifications along the periphery of the abdominal aorta and major branch vessels.. There is a left common iliac artery stent. The inferior vena cava is grossly unremarkable. Lymphadenopathy: No pathologic lymphadenopathy is identified. Bladder: The bladder is well distended and smooth in contour. Reproductive: The prostate gland is grossly within normal limits. Bones: There are remote postsurgical changes of the lumbar spine consistent with prior fusion of L5-S1. No definite hardware failure is identified. There are degenerative changes of the lumbar spine most pronounced from L3 through S1. No definite acute osseous abnormalities are seen. Soft tissues: There is infiltration of the subcutaneous soft tissues which may be due to edema. IMPRESSION: 1. Moderate bilateral pleural effusions and bibasilar airspace consolidation which may be due to atelectasis or pneumonia. There is increased density within the right pleural effusion concerning for a pneumothorax. 2. Cardiomegaly 3. Small volume of ascites within the abdomen and pelvis. 4. 2.7 cm proximal abdominal aortic aneurysm. Recommend follow-up imaging every five years. 5. Right renal atrophy. 6. There is significant streak artifact on the images likely related to breathing motion artifact. This results in degradation of image quality. 7. Remote posterior fusion of L5-S1 and degenerative changes of the lumbar spine most pronounced from L3 through S1. 8. Infiltration of the subcutaneous fat likely due to edema. 9. A GI bleed cannot be assessed on this study due to the absence of intravenous contrast. These critical findings were discussed with nurse practitioner Patience Casas on 05/25/2019 at 7:32 AM central time Electronically signed by: Elle Jones DO 05/25/2019 7:32 AM [facility]
[2019-05-25] MEDS: busPIRone HCL 5 MG TAB PO SCH (08:53)
[2019-05-25] MEDS: SODIUM CHLORIDE 0.9% (FLUSH) 10 ML SYG IV SCH (08:58)
[2019-05-25] MEDS ORDERED: THIAMINE HCL 100 MG TAB PO SCH (09:00)
[2019-05-25] MEDS ORDERED: FOLIC ACID 1 MG TAB PO SCH (09:00)
[2019-05-25] MEDS ORDERED: NON-FORMULARY MEDICATION 1 EA MIS (Fluticasone Furoate-Vilanterol [Breo Ellipta 100-25 Mcg IN SCH (09:00)
[2019-05-25] MEDS ORDERED: CITALOPRAM HBR 20 MG TAB PO SCH (09:00)
[2019-05-25] MEDS ORDERED: amLODIPine BESYLATE 5 MG TAB PO SCH (09:00)
[2019-05-25] MEDS ORDERED: METOPROLOL SUCCINATE XL 50 MG TAB PO SCH (09:00)
[2019-05-25] MEDS: CLOPIDOGREL 75 MG TAB PO SCH (09:42)
[2019-05-25] MEDS: FUROSEMIDE INJ 40 MG/4 ML VIAL IV SCH (09:42)
[2019-05-25] MEDS ORDERED: SODIUM CHLORIDE 0.9% 250ML 250 ML ONE (10:15)
[2019-05-25] MEDS ORDERED: SODIUM CHLORIDE 0.9% 250ML 250 ML IVS ONE (10:18)
[2019-05-25] MEDS ORDERED: IPRATROPIUM/ALBUTEROL 3 ML VIAL NEB ONE (11:36)
[2019-05-25] MEDS ORDERED: IPRATROPIUM/ALBUTEROL 3 ML VIAL NEB SCH (12:00)
[2019-05-25] MEDS ORDERED: LIDOCAINE 1% W/ EPINEPHRINE 20 ML VIAL INJ ONE (12:01)
[2019-05-25] MEDS ORDERED: LIDOCAINE 1% 50 ML VIAL INJ ONE (12:01)
[2019-05-25] MEDS ORDERED: cefTRIAXone SODIUM 1 GM in SODIUM CHL 0.9% 50ML MIN-BAG+ 50 ML IVPB SCH (13:00)
[2019-05-25 13:37] VITALS: BP 158/77; TEMP 97.6; O2SAT 92
--- NOTE | 2019-05-25 13:56 | CONS ---
HISTORY OF PRESENT ILLNESS: The patient is a 58 year-old male with congestive heart failure and chronic obstructive pulmonary disease who was admitted through the Emergency Room with a couple of days of shortness of breath. Apparently, they performed a thoracentesis in the Emergency Room, removing approximately 900 cc of fluid and chest x-ray this morning reveals an increase in his pleural effusion since before. He also has a heavy history of alcohol use and I have been asked to consider repeat thoracentesis for his congestive heart failure with increasing pleural effusion. PAST MEDICAL HISTORY: 1. Hypertension. 2. Chronic obstructive pulmonary disease. 3. Congestive heart failure. He continues to smoke and drink. 4. History of cardiovascular disease.. PAST SURGICAL HISTORY: 1. Left iliac arterial stent. 2. Laminectomy, lumbar spine. CURRENT MEDICATIONS: Listed on the chart. ALLERGIES: No known drug allergies. FAMILY HISTORY: Noncontributory. SOCIAL HISTORY: He lives in [place]. He is . He has probably a 40 to 50- pack history of tobacco abuse and drinks at least 6 beers a day. REVIEW OF SYSTEMS: Noncontributory but there has been no hematochezia, hematemesis or melena. PHYSICAL EXAMINATION: VITAL SIGNS: He is currently afebrile, mildly hypertensive. Respiratory rate is 18 to 20. GENERAL: He is thin, minimal respiratory distress. HEENT: Sclera nonicteric. CHEST: He has decreased breath sounds in the bases bilaterally. HEART: Regular rate and rhythm. ABDOMEN: Soft, non-tender. LABORATORY: White count 8.5000, hemoglobin down from 9.6 to 5.9 and this is without any significant rehydration. Platelet count 250,000, segmented neutrophils are 83% this morning. His chemistries reveal a potassium of 3.3, creatinine elevated at 1.45. BNP last night was greater than 5,000. Troponin was within normal limits. CKMB 10.7. Liver functions were all within normal limits. Chest x-ray as noted revealed a right pleural effusion that is not simple, possibly with some blood. IMPRESSION: 1. Congestive heart failure exacerbation with pleural effusion. 2. History of alcohol abuse. 3. Significant chronic obstructive pulmonary disease. 4. History of arteriosclerotic coronary artery disease. RECOMMENDATION: My recommendations is that we not keep the patient here. I have talked to Dr. Conley, his previous primary care physician, about his history that is long-term. Hs has been hospitalized requiring intubation on several occasions, possibly not to survive and since we do not have ultrasound for paracentesis and no GI to understand the loss of blood or to possibly evaluate the loss of blood, I recommend that this patient be referred probably to [facility] for treatment. This was discussed with the hospital service. #[id number] [facility]
[2019-05-25] MEDS ORDERED: AZITHROMYCIN IV 500 MG in SODIUM CHLORIDE 0.9% 250ML 250 ML IVPB SCH (14:00)
--- NOTE | 2019-05-28 14:43 | DS ---
SUPERVISING PHYSICIAN: Farhan Eubanks MD DISCHARGE DIAGNOSIS: 1. Acute respiratory distress with pneumothorax, possibly hemothorax. 2. Acute blood loss, gastrointestinal loss versus hemothorax. His hemoglobin yesterday was 9.6, hemoglobin today was 5.9. Currently, his second unit of packed red blood cells is infusing. 3. Acute on chronic exacerbation of congestive heart failure with a BNP of greater than 5,000 on admission. His echocardiogram in January of 2019 showed an ejection fraction of 60% with mild diastolic dysfunction. 4. Chronic obstructive pulmonary disease with acute exacerbation complicated by his congestive heart failure. 5. Concerns for developing community acquired pneumonia. 6. History of chronic alcohol abuse. 7. Chronic tobacco abuse. 8. Hypertension. 9. History of pleural effusion requiring multiple pleurocentesis. 10. Peripheral vascular disease. 11. Gastroesophageal reflux disease. HISTORY OF PRESENT ILLNESS: This is a 58-year-old male who has a significant history of congestive heart failure as well as well poor compliance. He came to the Emergency Room with one to two days of shortness of breath. He has also had increased swelling of his lower extremities over the previous 24 hours. He had no chest pain or palpitations. His blood pressure was elevated in the ambulance and they did give him some labetalol. His initial oxygen saturations on room air when the ambulance was there was in the low 60s. He was very tachypneic, using accessory muscles. His initial vital signs upon arrival to the Emergency Room showed a temperature of 96, heart rate 73, blood pressure 182/99, respiratory rate 28 with oxygen saturation of 69%. Laboratory studies were done and he had a WBC of 10,400 with hemoglobin of 9.6 and hematocrit of 30.0. He did have a left shift on differential. His sodium was 134, potassium 4, chloride 96, carbon dioxide 20, BUN 21, creatinine 1.16. His troponin was normal. His CK-MB was 10.7 and BNP was greater than 5,000. His chest x-ray showed enlarged cardiac silhouette with pulmonary vascular congestion, bilateral pleural effusions with associated airspace opacity in the bilateral lower lobes that could represent atelectasis or pulmonary edema. Dr. Eubanks, Emergency Room physician, decided to do a thoracentesis since he has had to have multiple taps in the past. He drained approximately 900 mL of pleural fluid off of his right lung. After the pleurocentesis, his oxygen saturations were in the mid 90s on 3 to 4 liters nasal cannula. He routinely wears oxygen at home at 3 to 4 liters. It is to be noted that according to his , he fell on his right side several days prior to coming to the ER. He received diuretics and multiple breathing treatments in the ER. He also has a history of chronic obstructive pulmonary disease and he was given some azithromycin and Rocephin as well as a dose of Solu-Medrol. He is also a heavy drinker as he drinks 6 to 12 beers per day and an unknown amount of hard liquor. He also smokes 2 to 3 packs of cigarettes daily and has since he was a kid. The patient was admitted to the hospital. HOSPITAL COURSE: Congestive heart failure guidelines were initiated as well as the pneumonia guidelines. He was given IV diuretics and continued on his beta brandon and STEPHANE inhibitor. He had Lovenox for DVT prophylaxis. He was also started on sliding scale insulin protocol. His other home medications were resumed. He was continued on his antibiotics and cultures were monitored. He has a history of very poor compliance. I discussed his condition with his extensively. He had p.r.n. nebulizers as well as scheduled and he had aggressive pulmonary hygiene. His vital signs remained stable except early in the morning, I was called by nursing staff and his hemoglobin had dropped to 5.9 with a hematocrit of 17.9. His chest x-ray showed 1) Increasing right middle and lower lobe consolidation with a large right pleural effusion that has also increased. 2) Persistent but improving pulmonary edema. An abdominopelvic CT was done. I was called by the radiology, Dr. Elle Jones. She gave me the findings of pneumothorax. We discussed his case and the actual results came back and said 1) Moderate bilateral pleural effusions and bibasilar airspace consolidation which may be due to atelectasis or pneumonia. There is an increased density within the right pleural effusion concerning for pneumothorax. 2) Cardiomegaly. 3) Small volume of ascites within the abdomen and pelvis. 2.7 cm proximal abdominal aortic aneurysm, recommend followup within 5 years. 4) Right renal atrophy. 5) There is a significant streak artifact on the images, likely related to breathing motion and artifact that results in degradation of image quality. 6) Remote posterior fusion of L5-S1, degenerative changes of lumbar spine most pronounced on L3 through S1. 7) Infiltration of subcutaneous fat, likely to edema. 8) GI bleed cannot be assessed on this study due to the absence of intravenous contrast. I called Dr. Boston, general surgeon, for possible placement of a chest tube and he was consulted. We discussed this case that morning and while Dr. Boston was there, his vital signs were becoming more unstable. His respiratory rate went up to the mid-20s and his O2 saturation started dropping to the low 90s and actually went to 88. Dr. Boston felt like that he was at high risk for placing a chest tube here in our facility, plus we needed to assess the bleeding. He did have 2 units of packed red blood cells that were infusing. He felt that we should transfer the patient as the patient has had a history of multiple intubations and we do not have an ultrasound for paracentesis and there is no GI to understand the blood loss. I called Dr. Arizmendi, health services information specialist and property worker in [place] at [facility]. He recommended that I call the hospitalist for transfer and that he would take the patient in consultation. I called the hospitalist at [facility] and the patient was accepted in transfer. The patient will be discharged to [facility] in fair condition. LABORATORY: WBCs remained stable at 10.4 and 8.5. Hemoglobin dropped to 5.9 and hematocrit 17.9 this morning. He did have a left shift on differential. His coagulation studies were within normal limits. Sodium slightly low this morning at 134 with potassium 3.3. BUN 26, creatinine 1.45. Serum total protein 5.6. Preliminary blood cultures showed no growth. Body fluid culture was pending. Influenza per PCR for A and B were both negative. RADIOLOGY: Reports are as per history of present illness. DISCHARGE PLAN: The patient will be discharged to [facility] in fair condition. He is to followup with Dr. Stoll when discharged from [facility]. His records, lab studies, radiology report as well as DVD from Radiology were sent with the patient as well as a list of current medications, both his home medications and hospital medications. After discharge from the hospital, he is to return to the hospital or followup with Dr. Stoll for any problems or complications. I talked to his to explain his transfer and we discussed his transfer and she was in agreement. DISCHARGE MEDICATIONS: 1. Metoprolol. 2. Citalopram. 3. BuSpar. 4. Thiamine. 5. Pantoprazole. 6. Folic acid. 7. Atorvastatin. 8. Amlodipine. 9. Plavix. 10. Methocarbamol. 11. Ketoralac. 12. Fluticasone. 13. Bumex. 14. Azithromycin. 15. Ceftriaxone. [id number]
== END 2019-05-25 13:45 | disposition short-term general hospital (02) | DRG 291 ==
LOC: ER 12:11 → OBSVTOIN 15:49 → MS 15:49
PROVIDERS: ADMIT Nurse Practitioner Acute Care; ATTEND Nurse Practitioner Acute Care
PROC: 0W993ZZ Drainage of Right Pleural Cavity, Percutaneous Approach (ICD-10-PCS; principal; 2019-05-24)
PROC: 30233N1 Transfusion of Nonautologous Red Blood Cells into Peripheral Vein, Percutaneous Approach (ICD-10-PCS; 2019-05-25)
DX: I11.0 Hypertensive heart disease with heart failure (principal); J18.9 Pneumonia, unspecified organism; J91.8 Pleural effusion in other conditions classified elsewhere; J95.811 Postprocedural pneumothorax; J43.9 Emphysema, unspecified; I50.33 Acute on chronic diastolic (congestive) heart failure; F17.210 Nicotine dependence, cigarettes, uncomplicated; Z95.820 Peripheral vascular angioplasty status with implants and grafts; I25.10 Atherosclerotic heart disease of native coronary artery without angina pectoris; F10.10 Alcohol abuse, uncomplicated; I73.9 Peripheral vascular disease, unspecified; K21.9 Gastro-esophageal reflux disease without esophagitis; Z91.19 Patient's noncompliance with other medical treatment and regimen; Z99.81 Dependence on supplemental oxygen; Y84.4 Aspiration of fluid as the cause of abnormal reaction of the patient, or of later complication, without mention of misadventure at the time of the procedure; Y92.230 Patient room in hospital as the place of occurrence of the external cause; Z79.02 Long term (current) use of antithrombotics/antiplatelets; Z79.899 Other long term (current) drug therapy

== ENCOUNTER 2019-08-18 07:28 | Emergency (ER) | payer SELFPAY ==
[2019-08-18 07:45] VITALS: TEMP 97.1; O2SAT 92
[2019-08-18] MEDS ORDERED: ONDANSETRON ODT 8 MG TAB SL ONE (07:47)
[2019-08-18] MEDS ORDERED: ACETAMINOPHEN W/COD #3 TAB 1 EA TAB PO ONE (07:47)
[2019-08-18] MEDS ORDERED: LIDOCAINE 1% W/ EPINEPHRINE 20 ML VIAL INJ ONE (08:00)
--- NOTE | 2019-08-18 08:13 | ED.PDOC ---
History of Present Illness - General Time Seen by Provider: 08/18/19 07:42 Source: patient, RN notes reviewed, Vital Signs reviewed Exam Limitations: no limitations Additional Information: 58yo M h/o COPD with reported right elbow and chest wall pain after fall last night. Reports he had fallen at about 11pm last night after tripping on a rock at his mother's front sidewalk and yard. Denies head injury or pain at other location besides right chest wall and right elbow. Noted skin tear/laceration to right elbow. Reports had a chest tube placed 15months ago for "cleaning out the lung" in [facility] and says it "hasn't healed right" and continues to cause pain. Reports plavix use. Denies other chest pain, SOB, syncope, numbness/tingling, inability to move arm/leg, or other complaints at this time. Reports tetanus is UTD. - History of Present Illness Allergies/Adverse Reactions: Allergies NO KNOWN ALLERGY Allergy (Verified 05/24/19 16:18) Home Medications: Ambulatory Orders RX: Metoprolol Succinate [Metoprolol Succinate ER] 100 mg PO DAILY 12/03/13 RX: Citalopram Hydrobromide [Citalopram] 20 mg PO DAILY 09/20/18 Amlodipine Besylate 5 mg PO DAILY 01/21/19 Atorvastatin Calcium 80 mg PO BEDTIME 01/21/19 Buspirone HCl 10 mg PO BID 01/21/19 Folic Acid 800 mcg PO DAILY 01/21/[address] 40 mg PO BID 01/21/19 Thiamine HCl 250 mg PO DAILY 01/21/19 RX: Clopidogrel Bisulfate [Plavix] 75 mg PO QD 30 Days #30 tab 01/26/19 Bumetanide 1 mg PO BID 05/24/19 RX: Fluticasone Furoate-Vilanterol [Breo Ellipta 100-25 Mcg/INH] 1 inh IN DAILY 05/24/19 RX: Ketorolac Tromethamine 10 mg PO PRN 05/24/19 RX: Methocarbamol 500 mg PO PRN 05/24/19 Review of Systems - Review of Systems Constitutional: States: no symptoms reported EENTM: States: no symptoms reported Respiratory: States: no symptoms reported Cardiology: States: other - right chest wall pain over prior chest tube site Gastrointestinal/Abdominal: States: no symptoms reported Musculoskeletal: States: joint pain Skin: States: other - skin tear right elbow Neurological: States: no symptoms reported All other Systems: Reviewed and Negative Past Medical History (General) - Patient Medical History Hx Seizures: No Hx Stroke: No Hx Dementia: No Hx Asthma: No Hx of COPD: Yes Hx Cardiac Disorders: No Hx Congestive Heart Failure: No Hx Pacemaker: No Hx Hypertension: Yes Hx Thyroid Disease: No Hx Diabetes: No Hx Gastroesophageal Reflux: No Hx Renal Disease: No Hx Cancer: No Hx of HIV: No Hx Hepatitis C: No Hx MRSA: No Surgical History: tonsillectomy, other - Vaccination History Hx Tetanus, Diphtheria Vaccination: Yes Hx Influenza Vaccination: Yes Hx Pneumococcal Vaccination: No - Social History Hx Tobacco Use: Yes Hx Chewing Tobacco Use: No Hx Alcohol Use: Yes Hx Substance Use: No Hx Substance Use Treatment: No Hx Depression: No Feels Threatened In Home Enviroment: No Feels Threatened In a Relationship: No Hx Physical Abuse: No Hx Emotional Abuse: No Hx Suspected Abuse: No - Female History Patient is a Female of Child Bearing Age (10 -59 yrs old): No Physical Exam - Physical Exam General Appearance: Alert, No apparent distress, Well Developed Head Injury: no evidence of injury ENT Exam: hearing grossly normal Cardiovascular/Respiratory: regular rate, rhythm, normal peripheral pulses, normal breath sounds, no respiratory distress Gastrointestinal/Abdominal: normal bowel sounds, non tender, soft Back Exam: normal inspection, no vertebral tenderness, other - no midline c/t/l spine pain with palpation Neurologic: veneer drier feeder II-XII nml as tested, no motor/sensory deficits Skin Exam: normal color, warm/dry Comment: RUE: 10cm skin tear right elbow with central focal, punctate appearing laceration with bleeding; FROM all joints, 2+ DP/PT pulses, intact light-touch sensation. Right chest wall: 1.5cm well-healing surgical incision with no surrounding erythema, discharge and no dehiscence noted. Small 1cm ecchymosis just superior to right nipple with no crepitus of chest wall noted. Progress - Progress Progress: 08/18/19 09:05 Patient s/p mechanical fall with pain around right chest wall at site of prior chest tube. Unclear reason for prior chest tube, though no noted pneumothorax or noted signs of acute infection today. Patient not overtly hypoxic (does have COPD), no dypsnea, no tachypnea or increased work of breathing. Reported mechanical fall only with no head injury. No focal/lateralizing deficit, and patient otherwise well appearing. C-spine clinically cleared. Patient refused labs, and denied chest pain, SOB, dizziness, weakness, syncope. 6ft distance maintained except for necessary exam. I was wearing a mask, and triage provides mask and screens for coronavirus following institutional protocol. [id number] sutures placed, and hemostasis noted. No fractures. Patient updated on foreign body arm. IS teaching provided as well. ED warnings given. Wound care instructions provided. 08/18/19 09:19 08/18/19 09:19 Procedures - Laceration/Wound Repair Right Proximal Elbow Wound's Depth, Shape: superficial Wound Explored: clean Anesthesia: Lidocaine w/ Epi Wound Repaired With: sutures Suture Size/Type: 4:0 - vicryl Number of Sutures: 3 Layer Closure?: No Sterile Dressing Applied?: Yes Progress: Tolerated well, hemostasis achieved. No immediate complications noted. Departure - Departure Clinical Impression: Fall, Chest wall pain Time of Disposition: 09:17 Disposition: Discharge to Home or Self Care Condition: Good Departure Forms: ED Discharge - Pt. Copy, Patient Portal Self Enrollment Instructions: DI for Abrasion Referrals: Serge Stoll MD [Primary Care Provider] - 1-2 Weeks Home Medications: Ambulatory Orders RX: Metoprolol Succinate [Metoprolol Succinate ER] 100 mg PO DAILY 12/03/13 RX: Citalopram Hydrobromide [Citalopram] 20 mg PO DAILY 09/20/18 Amlodipine Besylate 5 mg PO DAILY 01/21/19 Atorvastatin Calcium 80 mg PO BEDTIME 01/21/19 Buspirone HCl 10 mg PO BID 01/21/19 Folic Acid 800 mcg PO DAILY 01/21/[address] 40 mg PO BID 01/21/19 Thiamine HCl 250 mg PO DAILY 01/21/19 RX: Clopidogrel Bisulfate [Plavix] 75 mg PO QD 30 Days #30 tab 01/26/19 Bumetanide 1 mg PO BID 05/24/19 RX: Fluticasone Furoate-Vilanterol [Breo Ellipta 100-25 Mcg/INH] 1 inh IN DAILY 05/24/19 RX: Ketorolac Tromethamine 10 mg PO PRN 05/24/19 RX: Methocarbamol 500 mg PO PRN 05/24/19
--- NOTE | 2019-08-18 08:48 | RAD ---
EXAM: XR Right Forearm, 2 Views CLINICAL HISTORY: pain s/p fall TECHNIQUE: Frontal and lateral views of the right forearm. COMPARISON: No relevant prior studies available. FINDINGS: Bones/joints: Unremarkable. No acute fracture. No dislocation. Soft tissues: Metallic foreign body noted in the soft tissues adjacent to the mid shaft ulna. IMPRESSION: 1. Metallic foreign body noted in the soft tissues adjacent to the mid shaft ulna. 2. No fracture. Electronically signed by: Lucina Cramer MD 08/18/2019 8:46 AM CDT
[2019-08-18] MEDS ORDERED: NEOMYCIN-BACITRACIN-POLYMYXIN 0.9 GM UD TOP ONE (08:50)
--- NOTE | 2019-08-18 08:51 | RAD ---
EXAM: XR Chest, 2 Views CLINICAL HISTORY: pain s/p fall TECHNIQUE: Frontal and lateral views of the chest. COMPARISON: 05/25/2019. FINDINGS: Lungs: Bilateral fibrotic changes present. Superimposed acute vascular congestion cannot be excluded. Aeration of the right base is markedly improved with minimal residual linear atelectasis or scarring. Pleural space: Previously seen right pleural effusion nearly resolved. No pneumothorax. Heart: Unremarkable. No cardiomegaly. Mediastinum: Unremarkable. Bones/joints: Chronic bilateral rib deformities. IMPRESSION: 1. Fibrotic changes with possible superimposed vascular congestion. 2. Persistent but significantly improved right basilar pleural and parenchymal changes compared to 05/25/2019. Electronically signed by: Lucina Cramer MD 08/18/2019 8:50 AM CDT
--- NOTE | 2019-08-18 08:53 | RAD ---
EXAM: XR Right Elbow Complete, 3 or More Views CLINICAL HISTORY: pain s/p fall TECHNIQUE: Frontal, lateral and oblique views of the right elbow. COMPARISON: No relevant prior studies available. FINDINGS: Bones/joints: Unremarkable. No acute fracture. No dislocation. Soft tissues: Posterior soft tissue swelling and bandaging noted. IMPRESSION: There is soft tissue swelling without acute bony abnormality. Electronically signed by: Lucina Cramer MD 08/18/2019 8:51 AM CDT
--- NOTE | 2019-08-18 08:54 | RAD ---
EXAM: XR Right Humerus, 2 or More Views CLINICAL HISTORY: pain s/p fall TECHNIQUE: Frontal and lateral views of the right humerus. COMPARISON: No relevant prior studies available. FINDINGS: Bones/joints: Multiple old right rib fractures noted. Probable old fracture of the glenoid which is flattened and irregular inferiorly. No acute fracture. No dislocation. Soft tissues: Unremarkable. Vasculature: Atherosclerotic calcification present lower axilla. IMPRESSION: Chronic changes as above. No acute disease. Electronically signed by: Lucina Cramre MD 08/18/2019 8:53 AM CDT
[2019-08-18 09:14] VITALS: BP 180/94
== END 2019-08-18 09:28 | disposition home or self-care (01) ==
LOC: ER 07:28
DX: S51.011A Laceration without foreign body of right elbow, initial encounter (principal); R07.89 Other chest pain; J44.9 Chronic obstructive pulmonary disease, unspecified; I10 Essential (primary) hypertension; F17.200 Nicotine dependence, unspecified, uncomplicated; Z79.02 Long term (current) use of antithrombotics/antiplatelets; Z79.899 Other long term (current) drug therapy; W01.0XXA Fall on same level from slipping, tripping and stumbling without subsequent striking against object, initial encounter; Y92.009 Unspecified place in unspecified non-institutional (private) residence as the place of occurrence of the external cause

== ENCOUNTER 2019-08-18 17:52 | Inpatient (IN) | payer SELFPAY ==
--- NOTE | 2019-08-18 18:12 | ED.PDOC ---
History of Present Illness - General Chief Complaint: General Stated Complaint: weakness Time Seen by Provider: 08/18/19 17:56 Source: patient, RN notes reviewed, Vital Signs reviewed Additional Information: 58yo M presents for diffuse weakness. Reports was "piddling" around house and become globally weak with associated lightheadedness and SOB. Denies fever, cough, chest pain, syncope, diaphoresis, or other symptoms. Seen previously for bleeding wound to right elbow. No other complaints at this time. - History of Present Illness Allergies/Adverse Reactions: Allergies NO KNOWN ALLERGY Allergy (Verified 05/24/19 16:18) Home Medications: Ambulatory Orders Metoprolol Succinate [Metoprolol Succinate ER] 100 mg PO DAILY 12/03/13 Citalopram Hydrobromide [Citalopram] 20 mg PO DAILY 09/20/18 Amlodipine Besylate 5 mg PO DAILY 01/21/19 Atorvastatin Calcium 80 mg PO BEDTIME 01/21/19 Buspirone HCl 10 mg PO BID 01/21/19 Folic Acid 800 mcg PO DAILY 01/21/[address] 40 mg PO BID 01/21/19 Thiamine HCl 250 mg PO DAILY 01/21/19 Clopidogrel Bisulfate [Plavix] 75 mg PO QD 30 Days #30 tab 01/26/19 Bumetanide 1 mg PO BID 05/24/19 Fluticasone Furoate-Vilanterol [Breo Ellipta 100-25 Mcg/INH] 1 inh IN DAILY 05/24/19 Ketorolac Tromethamine 10 mg PO PRN 05/24/19 Methocarbamol 500 mg PO PRN 05/24/19 Review of Systems - Review of Systems Constitutional: States: weakness. Denies: chills, fever EENTM: States: no symptoms reported Respiratory: States: short of breath Cardiology: Denies: chest pain, palpitations, syncope Gastrointestinal/Abdominal: States: no symptoms reported Genitourinary: States: no symptoms reported Musculoskeletal: States: no symptoms reported Skin: States: no symptoms reported Neurological: States: no symptoms reported Endocrine: States: no symptoms reported Past Medical History (General) - Patient Medical History Hx Seizures: No Hx Stroke: No Hx Dementia: No Hx Asthma: No Hx of COPD: Yes Hx Cardiac Disorders: Yes - AL X 1 Hx Congestive Heart Failure: Yes Hx Pacemaker: No Hx Hypertension: No Hx Thyroid Disease: No Hx Diabetes: No Hx Gastroesophageal Reflux: No Hx Renal Disease: No Hx Cancer: No Hx of HIV: No Hx Hepatitis C: No Hx MRSA: No Surgical History: other - Vaccination History Hx Tetanus, Diphtheria Vaccination: Yes Hx Influenza Vaccination: Yes Hx Pneumococcal Vaccination: No - Social History Hx Tobacco Use: Yes Hx Chewing Tobacco Use: No Hx Alcohol Use: Yes Hx Substance Use: No Hx Substance Use Treatment: No Hx Depression: No Feels Threatened In Home Enviroment: No Feels Threatened In a Relationship: No Hx Physical Abuse: No Hx Emotional Abuse: No Hx Suspected Abuse: No - Female History Patient is a Female of Child Bearing Age (10 -59 yrs old): No Family Medical History - Family History Father Family History: Unknown Living Status: Cause of : aneurysm Physical Exam - Physical Exam General Appearance: Alert, No apparent distress, Well Developed Eye Exam: bilateral normal Ears, Nose, Throat: hearing grossly normal, normal ENT inspection Neck: non-tender, full range of motion, other - no midline c-spine pain with palpation Respiratory: chest non-tender, normal breath sounds, no respiratory distress, no accessory muscle use Cardiovascular/Chest: normal peripheral pulses, no edema, bradycardia Peripheral Pulses: radial,right: 2+, radial,left: 2+, dorsalis pedis,right: 2+, dorsalis pedis,left: 2+ Gastrointestinal/Abdominal: non tender, soft, no pulsatile mass Back Exam: normal inspection, no CVA tenderness Extremity: normal range of motion, other - bandage left elbow, ecchymosis right shoulder, ecchymosis bilateral feet on top of toes; FROM all extremities including feet, toes with no pain with palpation Skin Exam: warm/dry, other - 1.5cm surgical scar right chest wall with no erythema or discharge Progress - Progress Progress: 08/18/19 18:55 Discussed transfusion risks/benefits/alternatives with patient, and he consented for transfusion. Patient and I wore masks for duration of encounter, and I maintained a distance of 6 feet except for those brief times need for physical exam. Institutional screening protocol for coronavirus performed in triage. 08/18/19 19:05 Patient seen in ED prior, refused further workup for labs at that time. Returned with global weakness, suspect anemia. No noted respiratory distress, and no chest pain at time of evaluation. No focal or lateralizing deficits and does not clinically appear CVA, ICH, or sepsis (CXR previously with fibrotic change, and no fever, AMS, hypoxia, or increased work of breathing to note acute development of pneumonia; low suspicion for acute pulmonary contusion as well). Denies any CP or SOB and no other anginal equivalency noted. Low suspicion for ACS, aortic pathology. Denied melena or hematochezia. With frequent falls and new anemia, imaging performed as well. Plan or labs, imaging, and hospital placement. 08/18/19 20:19 Spoke with hudson Seals, who reported no operative intervention. Patient ambulatory, last reported injury to pelvis was 1month ago, per patient. Spoke with Patience Casas, who plans for evaluation for hospital placement. - EKG/XRAY/CT Comments: 1804 sinus bradycardia rate 57, normal axis, normal intervals, no STEMI Departure - Departure Clinical Impression: Symptomatic anemia, Fall Time of Disposition: 20:19 Disposition: Admit Patient Home Medications: Ambulatory Orders Metoprolol Succinate [Metoprolol Succinate ER] 100 mg PO DAILY 12/03/13 Citalopram Hydrobromide [Citalopram] 20 mg PO DAILY 09/20/18 Amlodipine Besylate 5 mg PO DAILY 01/21/19 Atorvastatin Calcium 80 mg PO BEDTIME 01/21/19 Buspirone HCl 10 mg PO BID 01/21/19 Folic Acid 800 mcg PO DAILY 01/21/[address] 40 mg PO BID 01/21/19 Thiamine HCl 250 mg PO DAILY 01/21/19 Clopidogrel Bisulfate [Plavix] 75 mg PO QD 30 Days #30 tab 01/26/19 Bumetanide 1 mg PO BID 05/24/19 Fluticasone Furoate-Vilanterol [Breo Ellipta 100-25 Mcg/INH] 1 inh IN DAILY 05/24/19 Ketorolac Tromethamine 10 mg PO PRN 05/24/19 Methocarbamol 500 mg PO PRN 05/24/19 Decision To Admit - Decistion To Admit Decision to Admit Reason: Admit from ER Decision to Admit Date: 08/18/19 Decision to Admit Time: 20:19
--- NOTE | 2019-08-18 18:29 | RAD ---
EXAM DESCRIPTION: Chest,1 View CLINICAL HISTORY: 58 years Male presyncope COMPARISON: 08/18/2019, 07/25/2019 FINDINGS: Cardiac enlargement. There are patchy areas of infiltrate in the mid and lower lung jeffrey bilaterally. This appears unchanged from the earlier examination. There is been significant interval improvement when compared to examination from July 24. Suspect small effusions. IMPRESSION: Bilateral pulmonary infiltrates and small effusions Cardiac enlargement Electronically signed by: Cristiane Duran MD 08/18/2019 6:28 PM CDT
[2019-08-18] MEDS ORDERED: ACETAMINOPHEN 325 MG TAB PO ONE (18:51)
[2019-08-18] MEDS ORDERED: SODIUM CHLORIDE 0.9% 500ML 500 ML IVS ONE (18:54)
[2019-08-18] MEDS ORDERED: SODIUM CHLORIDE 0.9% 250ML 250 ML IVS ONE (18:57)
[2019-08-18] MEDS ORDERED: SODIUM CHLORIDE 0.9% 500ML 500 ML IVS SCH (19:00)
[2019-08-18] MEDS ORDERED: CEFEPIME 2 GM in SODIUM CHL 0.9% 100ML MINI-BAG 100 ML IVPB ONE (19:22)
--- NOTE | 2019-08-18 19:34 | CT ---
EXAM DESCRIPTION: Head CLINICAL HISTORY: weakness, fall COMPARISON: September 20, 2018 TECHNIQUE: Contiguous axial images of the brain were obtained without the administration of intravenous contrast.This exam was performed according to our departmental dose-optimization program, which includes automated exposure control, adjustment of the mA and/or kV according to patient size and/or use of iterative reconstruction technique. FINDINGS: There is no acute intracranial hemorrhage or mass effect. Areas of low attenuation in the periventricular and subcortical white matter are nonspecific but suggestive of small vessel disease. There is generalized atrophy. Ventricular system is within normal limits. There is adequate aguilar-white matter differentiation. There is no skull fracture. The visualized paranasal sinuses and mastoid air cells are within normal limits. There is atherosclerosis. IMPRESSION: No acute intracranial abnormalities. Electronically signed by: Randolph Bray MD 08/18/2019 7:32 PM CDT
--- NOTE | 2019-08-18 19:39 | CT ---
EXAM DESCRIPTION: Abdomen/Pelvis w/Contrast CLINICAL HISTORY: anemia and pain s/p fall COMPARISON: May 25, 2019 TECHNIQUE: Contiguous axial images of the abdomen and pelvis were obtained followed by reconstruction images. This exam was performed according to our departmental dose-optimization program, which includes automated exposure control, adjustment of the mA and/or kV according to patient size and/or use of iterative reconstruction technique. FINDINGS: Please refer to the CT of the chest dictation There is atherosclerosis. Patient is status post lumbar surgery. Calcifications within the pancreatic head could be related to prior pancreatitis event. The right kidney is atrophic. The liver, spleen, pancreas and kidneys are otherwise within normal limits. There is no hydronephrosis or renal stones. The gallbladder is unremarkable by CT criteria. Adrenal glands are within normal limits. Aorta is of normal caliber and tapering. There is no free fluid in the abdomen or pelvis. There is no bowel obstruction. There is no stranding of the mesenteric fat to suggest an inflammatory response. The appendix is within normal limits. There is no pericecal inflammation. There are subacute fractures of the right pubic rami. IMPRESSION: No acute intra-abdominal abnormality Subacute right pubic rami fractures. Electronically signed by: Randolph Bray MD 08/18/2019 7:37 PM CDT
--- NOTE | 2019-08-18 19:44 | CT ---
EXAM DESCRIPTION: Chest w/Contrast CLINICAL HISTORY: anemia and pain s/p fall COMPARISON: March 07, 2019 TECHNIQUE: Contiguous axial images of the chest were obtained from the thoracic inlet up to the upper abdomen followed by reconstruction images. This exam was performed according to our departmental dose-optimization program, which includes automated exposure control, adjustment of the mA and/or kV according to patient size and/or use of iterative reconstruction technique. FINDINGS: There is atherosclerosis. There is fluid within the superior pericardial recess. There are coronary arterial calcifications. The main pulmonary artery measures 3.6 cm in diameter compatible with pulmonary arterial hypertension. Questionable small right pleural collection versus pleural thickening. There is cardiomegaly. There are scattered emphysematous changes. Linear opacities within the periphery of the lungs could be secondary to underlying interstitial lung disease. There is an old right clavicular, old rib and old sternal fractures. The aorta is of normal contour and tapering. There is no pneumothorax. Please refer to the CT of the abdomen dictation IMPRESSION: No acute intrathoracic abnormality. Electronically signed by: Randolph Bray MD 08/18/2019 7:43 PM CDT
[2019-08-18] MEDS ORDERED: SODIUM CHLORIDE 0.9% (FLUSH) 10 ML SYG IV PRN (21:38)
[2019-08-18] MEDS ORDERED: NITROGLYCERIN 0.4 MG 25 EA TAB SL PRN (21:38)
[2019-08-18] MEDS ORDERED: ONDANSETRON INJ 4 MG/2 ML VIAL IV PRN (21:38)
[2019-08-18] MEDS ORDERED: FUROSEMIDE INJ 40 MG/4 ML VIAL IV ONE (21:45)
[2019-08-18] MEDS ORDERED: SODIUM CHLORIDE 0.9% 500ML 500 ML IVS PRN (21:57)
[2019-08-18] MEDS ORDERED: IV SET AND CAP CHANGE INJ INJ SCH (22:00)
[2019-08-19] MEDS ORDERED: cloNIDine HCL 0.1 MG TAB PO PRN (01:07)
[2019-08-19] MEDS ORDERED: PANTOPRAZOLE SODIUM IV 40 MG VIAL IV SCH (06:30)
[2019-08-19] MEDS ORDERED: NICOTINE PATCH 14 MG TD SCH (09:00)
[2019-08-19] MEDS ORDERED: FUROSEMIDE INJ 40 MG/4 ML VIAL IV SCH (09:00)
[2019-08-19] MEDS ORDERED: SODIUM CHLORIDE 0.9% (FLUSH) 10 ML SYG IV SCH (09:00)
[2019-08-19] MEDS ORDERED: METHOCARBAMOL 750 MG TAB PO PRN (11:35)
[2019-08-19] MEDS ORDERED: THIAMINE HCL 100 MG TAB PO SCH (11:45)
[2019-08-19] MEDS ORDERED: amLODIPine BESYLATE 5 MG TAB PO SCH (11:45)
[2019-08-19] MEDS ORDERED: REVEFENACIN 175 MCG IN SCH (11:45)
[2019-08-19] MEDS ORDERED: PANTOPRAZOLE SODIUM TAB 40 MG PO SCH (11:45)
[2019-08-19] MEDS ORDERED: CITALOPRAM HBR 20 MG TAB PO SCH (12:00)
[2019-08-19] MEDS ORDERED: SPIRONOLACTONE 25 MG TAB PO SCH (12:00)
[2019-08-19] MEDS ORDERED: METOPROLOL SUCCINATE XL 50 MG TAB PO SCH (12:00)
[2019-08-19] MEDS ORDERED: FOLIC ACID 1 MG TAB PO SCH (12:00)
[2019-08-19] MEDS ORDERED: CLOPIDOGREL 75 MG TAB PO SCH (12:00)
[2019-08-19] MEDS ORDERED: chlordiazePOXIDE HCL 5 MG CAP PO SCH (13:00)
--- NOTE | 2019-08-19 13:33 | SSS ---
SUPERVISING PHYSICIAN: Serge Stoll MD DATE OF ADMISSION: 08/18/19 DATE OF DISCHARGE: 08/19/19 CHIEF COMPLAINT: weakness. ADMISSION DIAGNOSIS: 1. Symptomatic anemia with no obvious source of acute loss. 2. Chronic alcoholism with associated likely pernicious anemia resulting in #1. 3. Mild congestive heart failure exacerbation secondary to #1, likely hyperdynamic exacerbation from severe anemia. Last echocardiogram was in May of 2019 showing ejection fraction of approximately 60% with grade 2 diastolic dysfunction. 4. Lactic acidosis secondary to #1, resolved with fluids and packed red blood cells. 5. Mild electrolyte imbalance to include hyponatremia, resolved with treatment. 6. Acute renal insufficiency with prerenal azotemia secondary to #1. 7. Acute alcohol intoxication with elevated ethanol alcohol level on admission. 8. Multiple falls with small laceration to the right upper extremity secondary to acute alcohol intoxication in a chronic alcoholic. 9. Hypertension with grade 2 diastolic dysfunction as noted on echocardiogram in May of 2019 with ejection fraction 60%. 10. Chronic obstructive pulmonary disease without signs of exacerbation. 11. Cardiovascular disease. DISCHARGE DIAGNOSIS: 1. Symptomatic anemia, resolved with transfusion of 2 units of packed red blood cells. 2. Chronic alcohol with associated likely pernicious anemia resulting in #1. 3. Mild congestive heart failure exacerbation secondary to #1, likely hyperdynamic exacerbation from severe anemia. Last echocardiogram was in May of 2019 showing ejection fraction of approximately 60% with grade 2 diastolic dysfunction. 4. Lactic acidosis secondary to #1, resolved with fluids and packed red blood cells. 5. Mild electrolyte imbalance to include hyponatremia, resolving with treatment. 6. Acute renal insufficiency with prerenal azotemia secondary to #1. 7. Acute alcohol intoxication with elevated ethanol alcohol level on admission. 8. Multiple falls with small laceration to the right upper extremity secondary to acute alcohol intoxication in a chronic alcoholic. 9. Hypertension with grade 2 diastolic dysfunction as noted on echocardiogram in May of 2019 with ejection fraction 60%. 10. Chronic obstructive pulmonary disease without signs of exacerbation. 11. Cardiovascular disease. 12. Chronic tobacco abuse and a current smoker. HISTORY OF PRESENT ILLNESS: Mr. Alaniz is a 58-year-old male patient who has a history of chronic alcohol abuse admitted to the Emergency Room last night with some diffuse weakness. He endorsed to the ER physician that he had been piddling around the house and he became weak with some associated lightheadedness, shortness of breath, but denies fever, cough, chest pain or actual syncopal episodes. He did have a small injury to his right elbow which was sutured in the Emergency Room. He had no other complaints of time of admission. His does note that the patient does drink chronically and falls quite often. His actual labs in the Emergency Room showed hemoglobin 6.6 and hematocrit 20.7 with platelet count 296,000. Differential was without a left shift. White count normal at 7,900. Coagulation studies were all within normal limits. Chemistries did show a mild hyponatremia with sodium 130. Liver functions all within normal limits. Troponin 0.02. BNP was greater than 5000. Lactic acid was initially elevated at 2.9. Given that he was hemodynamically stable with no obvious signs of acute loss, it was felt this was chronic anemia and was symptomatic in nature and he also had elevated alcohol level. Therefore, he was placed in observation for fluids and transfusion of 2 units of packed red blood cells and close monitoring. He was placed in observation in stable condition. PAST MEDICAL HISTORY: 1. Hypertension. 2. Chronic obstructive pulmonary disease with severe emphysema in a chronic smoker. 3. Congestive heart failure with last echocardiogram in May of 2019 showing ejection fraction of plantarflexory 60% with grade 2 diastolic dysfunction. 4. Chronic alcohol abuse. 5. Cardiovascular disease. 6. Old fractures of right pubic rami noted as noted on CT. 7. Multiple falls. PAST SURGICAL HISTORY: 1. Laminectomy of the lumbar spine. 2. Left iliac arterial stent. CURRENT MEDICATIONS: Awaiting updated list in electronic medical record for verification. ALLERGIES: NO KNOWN DRUG ALLERGIES. FAMILY HISTORY: Noncontributory. SOCIAL HISTORY: The patient is retired. He lives in [place] and is . He has two children. He drinks alcohol on a regular basis. He reports that he drinks anywhere from 6 to 12 beers a day having been drinking prior to admission. He smokes approximately 2 packs of cigarettes a day and has no intention of quitting either one of those. REVIEW OF SYSTEMS: CONSTITUTIONAL: Positive for fatigue, general malaise. Negative fevers. He notes he has gained a little bit of weight. HEENT: Negative for sinus symptoms sore throats, earaches, nasal congestion, vision changes. RESPIRATORY: Negative for shortness of breath, wheezing, coughing. CARDIOVASCULAR: Negative for chest pain, palpitations, tachycardia, peripheral edema or syncopal episodes. GASTROINTESTINAL: Negative for nausea, vomiting, diarrhea, constipation or abdominal pain, hematochezia or rectal bleeding. GENITOURINARY: Negative for dysuria, hematuria, polyuria. MUSCULOSKELETAL: Negative for arthralgias and myalgias. SKIN: Positive for recent small laceration to his elbow after a fall with sutures in place. Negative for lesions, rashes or unexplained changes. NEUROLOGIC: Negative for headaches, dizziness, seizures, syncopal episodes or other neurologic deficits. HEMATOLOGIC: Positive for chronic bruising, easy bleeding due to alcoholism. Denies an transfusion reactions. PHYSICAL EXAMINATION: VITAL SIGNS: On admission, temperature 98.1, at discharge 97.9. Pulse 63, blood pressure 173/77, respirations 16 to 18, saturation 98% on room air. GENERAL: The patient is resting comfortably and does not appear to be in any acute distress. HEENT: Tympanic membranes clear bilaterally. Oropharynx is pink, moist without any lesions. NECK: Supple, nontender with full range of motion. No jugular venous distention noted. RESPIRATORY: Lung sounds are clear throughout, just diminished towards the bases with no obvious rhonchi, wheezes or rales. CARDIOVASCULAR: Regular rate and rhythm without any appreciable murmurs, gallops, or rubs. ABDOMEN: Soft, nontender. Positive bowel sounds. EXTREMITIES: He does have a small laceration on his right elbow with other ecchymotic areas to bother upper and lower extremities. Ecchymotic areas to his feet and toes. Area of ecchymosis to the right shoulder. Bandages in place on the right arm. NEUROLOGIC: Cranial nerves II-XII are grossly intact. Facial features are symmetrical. Extraocular movements are within normal limits. There is no nystagmus noted. SKIN: Warm, pink and dry. LABORATORY: CBC showed white count 7,300. Initial hemoglobin 6.6, hematocrit 20.7, platelet count 296,000. After 2 units of packed red blood cells, hemoglobin was up to 7.7 and hematocrit 23.4. Coagulation studies showed normal PT, PTT. Chemistries on discharge showed sodium 133, potassium 4.4, BUN 19, creatinine 1.6. He did have elevated lactic acid on admission of 2.9, but this normalized after infusion of packed red blood cells and was 1.1. Calcium 7.8, but corrected for hypoalbuminemia at 2.5 to 8.2. Liver functions all within normal limits. He did have an alcohol level on admission of 84.3. MICROBIOLOGY: Blood cultures pending. RADIOLOGY: CT of the head per radiologic interpretation showed no acute intracranial abnormalities. CT of the abdomen and pelvis without contrast per radiologic interpretation showed no acute intraabdominal abnormalities. There was note of a subactue right pubic rami fracture. CT of the chest without contrast per radiologic interpretation showed no acute intrathoracic abnormalities. There was no of question of small right pleural collection versus pleural thickening. Again, no other abnormalities. Please see the reports for details. HOSPITAL COURSE: Mr. Alaniz was placed admitted for symptomatic anemia with mild hyponatremia, all contributing to recent consumption of alcohol and he is a chronic alcohol abuse patient. He was transfused 2 units of packed red blood cells overnight and did receive Lasix in between units and was showing vital signs to be stable. He showed no complications post transfusion. He was a little bit anxious, but was stable with no signs of any withdrawals. It was felt he was clinically stable enough to be continued in outpatient management. Prior to discharge, I did discuss the case with Dr. Stoll and he agreed with the plan of care at this point. PLAN: Mr. Alaniz is going to be discharged on 08/19/[address] Stoll. He is to call Dr. Stoll's office to schedule an appointment for a week after discharge as well as repeat laboratory studies. He is encouraged to not drink or smoke although he refuses to do either one of those. No new medications prescribed on discharge. He was given warnings to return to the ER for any concerning symptoms and, again, to followup with Dr. Stoll for removal of stitches. Diet was regular diet as tolerated. Activity to increase as tolerated. CONDITION ON DISCHARGE: Stable and improved. DISPOSITION: The patient was discharged to care of family members. #[id number] [facility]
[2019-08-19] MEDS ORDERED: ALBUTEROL SULFATE 2.5 MG/3 ML VIAL NEB SCH (14:00)
[2019-08-19 14:07] VITALS: BP 166/72; TEMP 97.8; O2SAT 97
[2019-08-19] MEDS ORDERED: ATORVASTATIN 20 MG TAB PO SCH (21:00)
[2019-08-19] MEDS ORDERED: SENNOSIDES 8.6 MG TAB PO SCH (21:00)
[2019-08-19] MEDS ORDERED: ENOXAPARIN SODIUM 40 MG/0.4 ML SYG SUBCU SCH (21:00)
[2019-08-20] MEDS ORDERED: NON-FORMULARY MEDICATION 1 EA MIS (Fluticasone Furoate-Vilanterol [Breo Ellipta 100-25 Mcg IN SCH (09:00)
== END 2019-08-19 14:07 | disposition home or self-care (01) | DRG 812 ==
LOC: ER 17:52 → OBSVTOIN 20:32 → MS 20:32
PROVIDERS: ADMIT Nurse Practitioner Acute Care; ATTEND Nurse Practitioner Family
PROC: 30233N1 Transfusion of Nonautologous Red Blood Cells into Peripheral Vein, Percutaneous Approach (ICD-10-PCS; principal; 2019-08-18)
PROC: BW241ZZ Computerized Tomography (CT Scan) of Chest and Abdomen using Low Osmolar Contrast (ICD-10-PCS; 2019-08-18)
PROC: BW211ZZ Computerized Tomography (CT Scan) of Abdomen and Pelvis using Low Osmolar Contrast (ICD-10-PCS; 2019-08-18)
DX: D51.0 Vitamin B12 deficiency anemia due to intrinsic factor deficiency (principal); E87.1 Hypo-osmolality and hyponatremia; I50.32 Chronic diastolic (congestive) heart failure; E87.2 Acidosis; J43.9 Emphysema, unspecified; F10.229 Alcohol dependence with intoxication, unspecified; N28.9 Disorder of kidney and ureter, unspecified; R29.6 Repeated falls; I11.0 Hypertensive heart disease with heart failure; F17.210 Nicotine dependence, cigarettes, uncomplicated; Z95.820 Peripheral vascular angioplasty status with implants and grafts; Z79.02 Long term (current) use of antithrombotics/antiplatelets; Z79.899 Other long term (current) drug therapy; I25.2 Old myocardial infarction

== ENCOUNTER 2019-09-05 21:27 | Emergency (ER) | payer SELFPAY ==
[2019-09-05 21:45] VITALS: BP 143/75; TEMP 98.1; O2SAT 96
[2019-09-05] MEDS ORDERED: SULFA/TRIMETH 800/160 (DS) TAB 1 EA TAB PO ONE (21:48)
--- NOTE | 2019-09-05 21:50 | ED.PDOC ---
History of Present Illness - General Chief Complaint: Laceration Stated Complaint: my arm wont start bleeding Time Seen by Provider: 09/05/19 21:48 Source: patient Exam Limitations: no limitations - History of Present Illness Initial Comments: The patient is a 58-year-old male presenting to the emergency room secondary to wound dehiscence and bleeding from the wound to his right forearm. The patient apparently sustained a laceration around 10 days ago. Sutures were removed.the patient was picking at the scab today when the scab came out and the wound dehisced. The wound started bleeding and he has been unable to stop bleeding. The dehisced area is about three quarters of an inch in length. The wound is irrigated with water. Estimated blood loss prior to arrival was probably 10 cc. The patient does take blood thinners. Timing/Duration: 1-3 hours Severity: mild Improving Factors: nothing Worsening Factors: nothing Associated Symptoms: denies symptoms Allergies/Adverse Reactions: Allergies NO KNOWN ALLERGY Allergy (Verified 08/18/19 21:52) Home Medications: Ambulatory Orders Metoprolol Succinate [Metoprolol Succinate ER] 100 mg PO DAILY 12/03/13 Citalopram Hydrobromide [Citalopram] 20 mg PO DAILY 09/20/18 Amlodipine Besylate 5 mg PO DAILY 01/21/19 Atorvastatin Calcium 80 mg PO BEDTIME 01/21/19 Folic Acid 1 mg PO DAILY 01/21/[address] 40 mg PO BID 01/21/19 Clopidogrel Bisulfate [Plavix] 75 mg PO QD 30 Days #30 tab 01/26/19 Methocarbamol 500 mg PO TID PRN 05/24/19 Acetamin W/Cod #3 Tab [Tylenol w/CODEINE #3] 1 ea PO Q4H PRN 08/19/19 Albuterol Sulfate Nebs [Proventil Nebs] 2.5 mg INH TID 08/19/19 Fluticasone Furoate (Inhalatio [Arnuity Ellipta] 50 mcg IN DAILY 08/19/19 Fluticasone Furoate-Vilanterol [Breo Ellipta 100-25 Mcg/INH] 1 inh IN DAILY 08/19/19 Revefenacin [Yupelri] 175 mcg IN DAILY 08/19/19 Sennosides [Cvs Senna] 8.6 mg PO BEDTIME 08/19/19 Spironolactone 25 mg PO BID 08/19/19 Thiamine HCl [Vitamin B-1] 250 mg PO DAILY 08/19/19 Sulfa/Trimeth 800/160 (Ds) Tab [Bactrim DS Tab] 1 ea PO BID #10 tab 09/05/19 Review of Systems - Review of Systems Constitutional: States: no symptoms reported EENTM: States: no symptoms reported Respiratory: States: no symptoms reported Cardiology: States: no symptoms reported Gastrointestinal/Abdominal: States: no symptoms reported Genitourinary: States: no symptoms reported Musculoskeletal: States: no symptoms reported Skin: States: see HPI Neurological: States: no symptoms reported Endocrine: States: no symptoms reported All other Systems: No Change from Baseline Past Medical History (General) - Patient Medical History Hx Seizures: No Hx Stroke: No Hx Dementia: No Hx Asthma: No Hx of COPD: Yes Hx Cardiac Disorders: Yes - OR X 1 Hx Congestive Heart Failure: Yes Hx Pacemaker: No Hx Hypertension: Yes Hx Thyroid Disease: No Hx Diabetes: No Hx Gastroesophageal Reflux: No Hx Renal Disease: No Hx Cancer: No Hx of HIV: No Hx Hepatitis C: No Hx MRSA: No - Vaccination History Hx Tetanus, Diphtheria Vaccination: Yes Hx Influenza Vaccination: Yes Hx Pneumococcal Vaccination: No - Social History Hx Tobacco Use: Yes Hx Chewing Tobacco Use: No Hx Alcohol Use: Yes Hx Substance Use: No Hx Substance Use Treatment: No Hx Depression: No Hx Physical Abuse: No Hx Emotional Abuse: No Hx Suspected Abuse: No - Female History Patient is a Female of Child Bearing Age (10 -59 yrs old): No Family Medical History - Family History Father Family History: Unknown Living Status: Cause of : aneurysm Physical Exam - Physical Exam General Appearance: Alert, Comfortable Eye Exam: bilateral normal Ears, Nose, Throat: hearing grossly normal - Chronically decreased bilaterally Respiratory: no respiratory distress, no accessory muscle use Cardiovascular/Chest: normal peripheral pulses Peripheral Pulses: radial,right: 2+, radial,left: 2+ Rectal Exam: deferred Extremity: normal range of motion, no calf tenderness, normal capillary refill Neurologic: travel ot II-XII nml as tested, alert, normal mood/affect, oriented x 3 Skin Exam: other - Wound dehiscence as above. Comments: Vital Signs - 24 hr 09/05/19 21:31 Temperature 98.1 F Pulse Rate [ 56 L monitor] Respiratory 16 Rate Blood Pressure 143/75 [Right Arm] O2 Sat by Pulse 96 Oximetry Progress - Progress Progress: 09/05/19 21:51 The patient is a 58-year-old male presented emergency room secondary to wound dehiscence of his right forearm laceration. It has been bleeding uncontrollably for the last several hours apparently. Wound was irrigated with water and 3 simple sutures of 4-0 Ethilon were used to reapproximate the tissue. This did provide for good hemostasis. The patient was given a dose of Bactrim here and will be placed on Bactrim for prophylactic purposes over the next 5 days. ER warnings are given. Sutures need to come out in 10 days. Monitor for any evidence of infection. Procedure note: Risk and benefits were explained and patient agreed to proceed. Wound was irrigated with water. 3 simple sutures of 4-0 Ethilon were used for reapproximation. Estimated blood loss since time of dehiscence is probably 10 c c. Good hemostasis obtained. [email or web address] [id number] Departure - Departure Clinical Impression: Wound dehiscence, traumatic injury repair Qualifiers: Encounter type: initial encounter Qualified Code(s): T81.33XA - Disruption of traumatic injury wound repair, initial encounter Disposition: Discharge to Home or Self Care Condition: Fair Departure Forms: ED Discharge - Pt. Copy, Patient Portal Self Enrollment Instructions: DI for Laceration Repair, DI for Laceration Repair -- Simple Diet: regular diet Activity: increase activity as tolerated Referrals: Serge Stoll MD [Primary Care Provider] - 1-2 Weeks Prescriptions: Sulfa/Trimeth 800/160 (Ds) Tab [Bactrim DS Tab] 1 ea PO BID #10 tab Home Medications: Ambulatory Orders Metoprolol Succinate [Metoprolol Succinate ER] 100 mg PO DAILY 12/03/13 Citalopram Hydrobromide [Citalopram] 20 mg PO DAILY 09/20/18 Amlodipine Besylate 5 mg PO DAILY 01/21/19 Atorvastatin Calcium 80 mg PO BEDTIME 01/21/19 Folic Acid 1 mg PO DAILY 01/21/[address] 40 mg PO BID 01/21/19 Clopidogrel Bisulfate [Plavix] 75 mg PO QD 30 Days #30 tab 01/26/19 Methocarbamol 500 mg PO TID PRN 05/24/19 Acetamin W/Cod #3 Tab [Tylenol w/CODEINE #3] 1 ea PO Q4H PRN 08/19/19 Albuterol Sulfate Nebs [Proventil Nebs] 2.5 mg INH TID 08/19/19 Fluticasone Furoate (Inhalatio [Arnuity Ellipta] 50 mcg IN DAILY 08/19/19 Fluticasone Furoate-Vilanterol [Breo Ellipta 100-25 Mcg/INH] 1 inh IN DAILY 08/19/19 Revefenacin [Yupelri] 175 mcg IN DAILY 08/19/19 Sennosides [Cvs Senna] 8.6 mg PO BEDTIME 08/19/19 Spironolactone 25 mg PO BID 08/19/19 Thiamine HCl [Vitamin B-1] 250 mg PO DAILY 08/19/19 Sulfa/Trimeth 800/160 (Ds) Tab [Bactrim DS Tab] 1 ea PO BID #10 tab 09/05/19 Additional Instructions: The patient is a 58-year-old male presented emergency room secondary to wound dehiscence of his right forearm laceration. It has been bleeding uncontrollably for the last several hours apparently. Wound was irrigated with water and 3 simple sutures of 4-0 Ethilon were used to reapproximate the tissue. This did provide for good hemostasis. The patient was given a dose of Bactrim here and will be placed on Bactrim for prophylactic purposes over the next 5 day s. ER warnings are given. Sutures need to come out in 10 days. Monitor for any evidence of infection.
== END 2019-09-05 22:01 | disposition home or self-care (01) ==
LOC: ER 21:27
DX: T81.33XA Disruption of traumatic injury wound repair, initial encounter (principal); I25.2 Old myocardial infarction; J44.9 Chronic obstructive pulmonary disease, unspecified; I11.0 Hypertensive heart disease with heart failure; I50.9 Heart failure, unspecified; Z79.02 Long term (current) use of antithrombotics/antiplatelets; F17.200 Nicotine dependence, unspecified, uncomplicated; Y92.9 Unspecified place or not applicable

== ENCOUNTER 2019-12-26 20:57 | Emergency (ER) | payer SELFPAY ==
[2019-12-26] MEDS ORDERED: SODIUM CHLORIDE 0.9% 1000ML 1,000 ML IVS ONE (21:09)
[2019-12-26] MEDS ORDERED: SODIUM CHLORIDE 0.9% (FLUSH) 10 ML SYG IV PRN (21:09)
--- NOTE | 2019-12-26 22:01 | CT ---
CT HEAD WITHOUT IV CONTRAST HISTORY: Head trauma. COMPARISON: 08/18/2019 TECHNIQUE: CT scan of the brain was performed without IV contrast. This exam was performed according to our departmental dose-optimization program, which includes automated exposure control, adjustment of the mA and/or kV according to patient size and/or use of iterative reconstruction technique. FINDINGS: There are scattered areas of hypoattenuation within the periventricular white matter, which likely represent chronic microvascular ischemia. No evidence of acute infarction, intracranial hemorrhage, extra-axial fluid collection, or midline shift. There is sinus mucosal disease in the bilateral anterior ethmoid air cells. The mastoids are clear. No depressed skull fracture. Focal soft tissue swelling and laceration overlying the left parietal scalp. IMPRESSION: 1. No acute intracranial findings. 2. Senescent changes with chronic microvascular ischemia. 3. Bilateral ethmoid sinus mucosal inflammatory disease. Electronically signed by: Delroy Castro MD 12/26/2019 9:59 PM CDT
--- NOTE | 2019-12-26 22:04 | CT ---
CT CERVICAL SPINE WITHOUT IV CONTRAST HISTORY: Neck pain. COMPARISON: 09/20/2018 TECHNIQUE: CT scan of the cervical spine was performed without IV contrast. This exam was performed according to our departmental dose-optimization program, which includes automated exposure control, adjustment of the mA and/or kV according to patient size and/or use of iterative reconstruction technique. FINDINGS: No acute cervical fracture or prevertebral soft tissue swelling is seen. There is straightening of the normal cervical lordosis, which may be due to cervical collar, muscle spasm, or patient positioning. There is moderate multilevel degenerative disc disease as well as facet DJD throughout the cervical spine. There are multilevel disc bulges but without advanced canal stenosis identified. IMPRESSION: 1. No acute fracture or subluxation of the cervical spine. 2. Moderate degenerative changes throughout the cervical spine with multilevel disc bulges. Electronically signed by: Delroy Castro MD 12/26/2019 10:02 PM CDT
--- NOTE | 2019-12-26 22:21 | CT ---
EXAM: CT Lumbar Spine Without Intravenous Contrast CLINICAL HISTORY: The patient is 59 years old and is Male; fall with pain TECHNIQUE: Axial computed tomography images of the lumbar spine without intravenous contrast. Sagittal and coronal reformatted images were created and reviewed. This CT exam was performed using one or more of the following dose reduction techniques: automated exposure control, adjustment of the mA and/or kV according to patient size, and/or use of iterative reconstruction technique. COMPARISON: No relevant prior studies available. FINDINGS: VERTEBRAE: The vertebral body heights are maintained. Mild anterolisthesis of L4 on L5 is noted. There is no acute fracture. DISCS/SPINAL CANAL/NEURAL FORAMINA: Postsurgical change of the lower lumbar spine with spinal rods and pedicle screws at L5-S1. Intervertebral disc spacer at L5-S1 is present. Bilateral pars defects at L5-S1 are noted. Intervertebral disc space narrowing and vacuum disc phenomenon at L1-L2, L3-L4, L4-L5 is noted. Osteophyte formation at multiple levels is present. Neural foraminal narrowing is noted at multiple levels secondary to disc osteophyte complexes, most prominent at L3-L4 and L4-L5. SOFT TISSUES: The soft tissues are normal. VASCULATURE: Atherosclerosis of the vasculature is present. Aneurysmal dilatation of the infrarenal aorta measuring up to 2.8 cm is noted. LUNGS: Dependent densities within the lung bases is noted. IMPRESSION: 1. Moderate spondylosis of the lumbar spine without evidence of acute fracture. 2. Scarring and atelectasis within the lung bases. 3. Aneurysmal dilatation of the infrarenal abdominal aorta. Recommend follow-up every 5 years. Electronically signed by: Aditi Vides MD 12/26/2019 10:20 PM CDT
--- NOTE | 2019-12-26 22:24 | ED.PDOC ---
History of Present Illness - General Chief Complaint: Trauma Stated Complaint: fall, ETOH Time Seen by Provider: 12/26/19 21:09 Source: patient, RN notes reviewed, Vital Signs reviewed Exam Limitations: intoxication - History of Present Illness Initial Comments: Patient is a 59-year-old white male who was brought in by EMS after police were called after the patient fell down while walking along the road. On arrival here patient complains of some neck and head pain as well as left shoulder pain. He also has some minimal low back pain. Patient smells of EtOH. Patient tiffani es any other problems. Patient states the pain is aching in nature. It is moderate in intensity. There is no radiation of the pain. It is constant.Patient is a poor historian. It appears that he is inebriated. Occurred: just prior to arrival Severity: moderate Pain Location: head, neck, back Method of Injury: fall Improving Factors: nothing Worsening Factors: nothing Loss of Consciousness: no loss of consciousness Associated Symptoms (Fall): headache, neck pain, slurred speech Allergies/Adverse Reactions: Allergies NO KNOWN ALLERGY Allergy (Verified 08/18/19 21:52) Home Medications: Ambulatory Orders Metoprolol Succinate [Metoprolol Succinate ER] 100 mg PO DAILY 12/03/13 Citalopram Hydrobromide [Citalopram] 20 mg PO DAILY 09/20/18 Amlodipine Besylate 5 mg PO DAILY 01/21/19 Atorvastatin Calcium 80 mg PO BEDTIME 01/21/19 Folic Acid 1 mg PO DAILY 01/21/[address] 40 mg PO BID 01/21/19 Clopidogrel Bisulfate [Plavix] 75 mg PO QD 30 Days #30 tab 01/26/19 Methocarbamol 500 mg PO TID PRN 05/24/19 Acetamin W/Cod #3 Tab [Tylenol w/CODEINE #3] 1 ea PO Q4H PRN 08/19/19 Albuterol Sulfate Nebs [Proventil Nebs] 2.5 mg INH TID 08/19/19 Fluticasone Furoate (Inhalatio [Arnuity Ellipta] 50 mcg IN DAILY 08/19/19 Fluticasone Furoate-Vilanterol [Breo Ellipta 100-25 Mcg/INH] 1 inh IN DAILY 08/19/19 Revefenacin [Yupelri] 175 mcg IN DAILY 08/19/19 Sennosides [Cvs Senna] 8.6 mg PO BEDTIME 08/19/19 Spironolactone 25 mg PO BID 08/19/19 Thiamine HCl [Vitamin B-1] 250 mg PO DAILY 08/19/19 Sulfa/Trimeth 800/160 (Ds) Tab [Bactrim DS Tab] 1 ea PO BID #10 tab 09/05/19 Review of Systems - Review of Systems Constitutional: States: no symptoms reported, see HPI. Denies: fever, malaise, weakness EENTM: States: no symptoms reported. Denies: eye pain, blurred vision, double vision Respiratory: States: no symptoms reported. Denies: cough, short of breath Cardiology: States: no symptoms reported. Denies: chest pain, palpitations, syncope Gastrointestinal/Abdominal: States: no symptoms reported. Denies: abdominal pain, diarrhea, nausea, vomiting Genitourinary: States: no symptoms reported. Denies: dysuria, frequency Musculoskeletal: States: see HPI, back pain, joint pain, neck pain Skin: States: no symptoms reported. Denies: change in color, rash Neurological: States: see HPI, headache. Denies: numbness, paresthesia, tingling, tremors, weakness Endocrine: States: no symptoms reported. Denies: increased hunger, increased thirst, increased urine Hematologic/Lymphatic: States: no symptoms reported All other Systems: No Change from Baseline Past Medical History (General) - Patient Medical History Hx Seizures: No Hx Stroke: No Hx Dementia: No Hx Asthma: No Hx of COPD: Yes Hx Cardiac Disorders: Yes - PA X 1 Hx Congestive Heart Failure: Yes Hx Pacemaker: No Hx Hypertension: Yes Hx Thyroid Disease: No Hx Diabetes: No Hx Gastroesophageal Reflux: No Hx Renal Disease: No Hx Cancer: No Hx of HIV: No Hx Hepatitis C: No Hx MRSA: No - Vaccination History Hx Tetanus, Diphtheria Vaccination: Yes Hx Influenza Vaccination: Yes Hx Pneumococcal Vaccination: No - Social History Hx Tobacco Use: Yes Hx Chewing Tobacco Use: No Hx Alcohol Use: Yes - chronic Hx Substance Use: No Hx Substance Use Treatment: No Hx Depression: No Hx Physical Abuse: No Hx Emotional Abuse: No Hx Suspected Abuse: No Family Medical History - Family History Father Family History: Unknown Living Status: Cause of : aneurysm Physical Exam - Physical Exam General Appearance: Alert, Anxious, Unkempt, Well Developed, Well Hydrated, Well Nourished, Other - Patient smells of EtOH Head Injury: contusions, swelling, tenderness - Posterior occiput on the left. 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 12/26/19 23:25 Radiological studies negative for fracture acutely. Patient's laboratory work shows alcohol intoxication. Plan on discharge home with his son. I discussed this plan of care with the patient and his family and they voiced understanding and agreement. Daniel Layton M.D. #[id number] - Results/Orders Results/Orders: CT HEAD WITHOUT IV CONTRAST HISTORY: Head trauma. COMPARISON: 08/18/2019 TECHNIQUE: CT scan of the brain was performed without IV contrast. This exam was performed according to our departmental dose-optimization program, which includes automated exposure control, adjustment of the mA and/or kV according to patient size and/or use of iterative reconstruction technique. FINDINGS: There are scattered areas of hypoattenuation within the periventricular white matter, which likely represent chronic microvascular ischemia. No evidence of acute infarction, intracranial hemorrhage, extra-axial fluid collection, or midline shift. There is sinus mucosal disease in the bilateral anterior ethmoid air cells. The mastoids are clear. No depressed skull fracture. Focal soft tissue swelling and laceration overlying the left parietal scalp. IMPRESSION: 1. No acute intracranial findings. 2. Senescent changes with chronic microvascular ischemia. 3. Bilateral ethmoid sinus mucosal inflammatory disease. Electronically signed by: Delroy Castro MD 12/26/2019 9:[address] CERVICAL SPINE WITHOUT IV CONTRAST HISTORY: Neck pain. COMPARISON: 09/20/2018 TECHNIQUE: CT scan of the cervical spine was performed without IV contrast. This exam was performed according to our departmental dose-optimization program, which includes automated exposure control, adjustment of the mA and/or kV according to patient size and/or use of iterative reconstruction technique. FINDINGS: No acute cervical fracture or prevertebral soft tissue swelling is seen. There is straightening of the normal cervical lordosis, which may be due to cervical collar, muscle spasm, or patient positioning. There is moderate mul tilevel degenerative disc disease as well as facet DJD throughout the cervical spine. There are multilevel disc bulges but without advanced canal stenosis identified. IMPRESSION: 1. No acute fracture or subluxation of the cervical spine. 2. Moderate degenerative changes throughout the cervical spine with multilevel disc bulges. Electronically signed by: Delroy Castro MD 12/26/2019 10:02 PM CDT EXAM DESCRIPTION: XR Chest, 1 View CLINICAL HISTORY: fall TECHNIQUE: Single frontal view of the chest is submitted. COMPARISON: Chest x-ray and chest CT dated 08/18/2019 FINDINGS: Heart: The cardiothoracic silhouette is enlarged, stable. Lungs: Hyperinflation and peripheral fibrotic changes similar to the prior. No focal consolidation. Mediastinum: Thoracic aortic atherosclerosis. Pleura: No appreciable effusion. No pneumothorax. Bones: Multiple remote bilateral rib fractures and mid right clavicular again demonstrated. No acute fracture identified. Upper abdomen: Unremarkable IMPRESSION: Multiple remote bilateral rib and right mid clavicular fractures redemonstrated. No acute injury identified. Electronically signed by: Blanche Yen MD 12/26/2019 10:22 PM CDT EXAM: CT Lumbar Spine Without Intravenous Contrast CLINICAL HISTORY: The patient is 59 years old and is Male; fall with pain TECHNIQUE: Axial computed tomography images of the lumbar spine without intravenous contrast. Sagittal and coronal reformatted images were created and reviewed. This CT exam was performed using one or more of the following dose reduction techniques: automated exposure control, adjustment of the mA and/or kV according to patient size, and/or use of iterative reconstruction technique. COMPARISON: No relevant prior studies available. FINDINGS: VERTEBRAE: The vertebral body heights are maintained. Mild anterolisthesis of L4 on L5 is noted. There is no acute fracture. DISCS/SPINAL CANAL/NEURAL FORAMINA: Postsurgical change of the lower lumbar spine with spinal rods and pedicle screws at L5-S1. Intervertebral disc spacer at L5-S1 is present. Bilateral pars defects at L5-S1 are noted. Intervertebral disc space narrowing and vacuum disc phenomenon at L1-L2, L3-L4, L4-L5 is noted. Osteophyte formation at multiple levels is present. Neural foraminal narrowing is noted at multiple levels secondary to disc osteophyte complexes, most prominent at L3-L4 and L4-L5. SOFT TISSUES: The soft tissues are normal. VASCULATURE: Atherosclerosis of the vasculature is present. Aneurysmal dilatation of the infrarenal aorta measuring up to 2.8 cm is noted. LUNGS: Dependent densities within the lung bases is noted. IMPRESSION: 1. Moderate spondylosis of the lumbar spine without evidence of acute fracture. 2. Scarring and atelectasis within the lung bases. 3. Aneurysmal dilatation of the infrarenal abdominal aorta. Recommend follow-up every 5 years. Electronically signed by: Aditi Vides MD 12/26/2019 10:20 PM 12/26/19 21:09 IV Care:Saline Lock per Protoc QSHIFT Sodium Chloride 0.9% (Flush) [Saline Flush Syringe] 10 ml IV PRN PRN 12/26/19 21:15 EKG STAT Laboratory Results - last 24 hr 12/26/19 12/26/19 12/26/19 21:46 21:46 21:46 WBC 7.4 RBC 3.16 L Hgb 8.2 L Hct 24.4 L MCV 77.3 L MCH 26.1 L MCHC 33.7 RDW 20.7 H Plt Count 295 MPV 6.2 L Absolute Neuts (auto) 4.50 Absolute Lymphs (auto) 1.80 Absolute Monos (auto) 0.30 Absolute Eos (auto) 0.70 H Absolute Basos (auto) 0.10 Neutrophils % 61.3 Lymphocytes % 23.7 Monocytes % 3.7 Eosinophils % 9.7 H Basophils % 1.6 Normal RBC Morphology Stain quality accept Sodium 132 L Potassium 3.7 Chloride 99 L Carbon Dioxide 19 L Anion Gap 17.7 BUN 21 H Creatinine 2.19 H BUN/Creatinine Ratio 9.6 L Random Glucose 92 Serum Osmolality 267.1 L Calcium 8.2 L Total Bilirubin 0.4 Direct Bilirubin < 0.1 Indirect Bilirubin 0.3 AST 17 ALT < 8 L Alkaline Phosphatase 78 Serum Total Protein 7.0 Albumin 3.0 L Lipase 173 H Ethyl Alcohol 258.50 H* EKG performed 26 December 2019 at 2118 hrs.: Normal sinus rhythm at 62 bpm, left ventricular hypertrophy with repolarization abnormalities, abnormal EKG, no comparison EKG available at this time. Vital Signs 12/26/19 12/26/19 21:09 21:59 Temperature 96.2 F L Pulse Rate [ 117 H 117 H left] Respiratory 22 22 Rate Blood Pressure 174/101 [Left Arm] O2 Sat by Pulse 90 L Oximetry Departure - Departure Clinical Impression: Dehydration, Abrasions of multiple sites Alcohol intoxication Qualifiers: Complication of substance-induced condition: uncomplicated Qualified Code(s): F10.920 - Alcohol use, unspecified with intoxication, uncomplicated Fall Qualifiers: Encounter type: initial encounter Qualified Code(s): W19.XXXA - Unspecified fall, initial encounter Head contusion Qualifiers: Encounter type: initial encounter Contusion of head detail: scalp Qualified Code(s): S00.03XA - Contusion of scalp, initial encounter Time of Disposition: 23:30 Disposition: Discharge to Home or Self Care Condition: Fair Departure Forms: ED Discharge - Pt. Copy, Patient Portal Self Enrollment Instructions: DI for Trauma, Minor Head Injury (DC), Alcohol Abuse and A lcoholism (DC) Diet: resume usual diet Activity: increase activity as tolerated Referrals: Serge Stoll MD [Primary Care Provider] - 1-5 Days Home Medications: Ambulatory Orders Metoprolol Succinate [Metoprolol Succinate ER] 100 mg PO DAILY 12/03/13 Citalopram Hydrobromide [Citalopram] 20 mg PO DAILY 09/20/18 Amlodipine Besylate 5 mg PO DAILY 01/21/19 Atorvastatin Calcium 80 mg PO BEDTIME 01/21/19 Folic Acid 1 mg PO DAILY 01/21/[address] 40 mg PO BID 01/21/19 Clopidogrel Bisulfate [Plavix] 75 mg PO QD 30 Days #30 tab 01/26/19 Methocarbamol 500 mg PO TID PRN 05/24/19 Acetamin W/Cod #3 Tab [Tylenol w/CODEINE #3] 1 ea PO Q4H PRN 08/19/19 Albuterol Sulfate Nebs [Proventil Nebs] 2.5 mg INH TID 08/19/19 Fluticasone Furoate (Inhalatio [Arnuity Ellipta] 50 mcg IN DAILY 08/19/19 Fluticasone Furoate-Vilanterol [Breo Ellipta 100-25 Mcg/INH] 1 inh IN DAILY 08/19/19 Revefenacin [Yupelri] 175 mcg IN DAILY 08/19/19 Sennosides [Cvs Senna] 8.6 mg PO BEDTIME 08/19/19 Spironolactone 25 mg PO BID 08/19/19 Thiamine HCl [Vitamin B-1] 250 mg PO DAILY 08/19/19 Sulfa/Trimeth 800/160 (Ds) Tab [Bactrim DS Tab] 1 ea PO BID #10 tab 09/05/19
[2019-12-26 23:57] VITALS: TEMP 97.1
[2019-12-26 23:59] VITALS: BP 177/106; O2SAT 94
== END 2019-12-26 23:45 | disposition home or self-care (01) ==
LOC: ER 20:57
DX: S00.03XA Contusion of scalp, initial encounter (principal); E86.0 Dehydration; F10.129 Alcohol abuse with intoxication, unspecified; T14.8XXA Other injury of unspecified body region, initial encounter; M54.2 Cervicalgia; M54.5 Low back pain; M25.512 Pain in left shoulder; J44.9 Chronic obstructive pulmonary disease, unspecified; I25.2 Old myocardial infarction; I50.9 Heart failure, unspecified; I11.0 Hypertensive heart disease with heart failure; Z87.891 Personal history of nicotine dependence; W18.30XA Fall on same level, unspecified, initial encounter; Y93.01 Activity, walking, marching and hiking; Y92.410 Unspecified street and highway as the place of occurrence of the external cause; Z79.899 Other long term (current) drug therapy
CPT/HCPCS: 36415; 70450; 71045; 72125; 72131; 80048; 80076; 80320; 83690; 85025; 87635; 93005; A4216; J7030

== ENCOUNTER 2020-02-25 07:55 | Inpatient (IN) | payer SELFPAY ==
--- NOTE | 2020-02-25 09:01 | RAD ---
EXAM DESCRIPTION: Chest,1 View CLINICAL HISTORY: sob COMPARISON: December 26, 2019 FINDINGS: The cardiac silhouette is enlarged but stable. Mediastinal contours are otherwise unremarkable. Extensive bilateral interstitial and bilateral perihilar alveolar opacities with probable small bilateral pleural effusions, all worse from December 26, 2019. The lung volumes are at the upper limits of normal range. There is no pneumothorax or acute fracture. IMPRESSION: Bilateral pulmonary edema, likely cardiogenic. Viral or other atypical infection is a less likely consideration. Electronically signed by: Dom Pride MD 02/25/2020 8:59 AM [facility]
[2020-02-25] MEDS ORDERED: methylPREDNISolone SODIUM SUC 40 MG/ML VIAL IV ONE (10:34)
[2020-02-25] MEDS ORDERED: FUROSEMIDE INJ 40 MG/4 ML VIAL IV ONE (10:46)
--- NOTE | 2020-02-25 11:04 | ED.PDOC ---
History of Present Illness - General Chief Complaint: Respiratory Problem Stated Complaint: shortness of breath1 Time Seen by Provider: 02/25/20 07:57 Source: patient, RN notes reviewed, Vital Signs reviewed, family, old records Exam Limitations: no limitations - History of Present Illness Initial Comments: 59 yo male with hx of copd and CHF comes in with acute shortness of breath x 1 day. gradual in onset. States he hasn't taken his lasix the past 3 days because he is"hard headed". Hx of ETOH abuse, tobacco abuse. Has prn oxygen at home. Denies chest pain. Denies abdominal pain/n/v/d. no black or bloody bm. no fever. Allergies/Adverse Reactions: Allergies NO KNOWN ALLERGY Allergy (Verified 02/25/20 16:01) Review of Systems - Review of Systems Constitutional: Denies: chills, fever, malaise EENTM: Denies: blurred vision, throat pain Respiratory: States: cough, orthopnea, short of breath. Denies: wheezing Cardiology: Denies: chest pain, palpitations, syncope Gastrointestinal/Abdominal: Denies: abdominal pain, diarrhea, nausea, vomiting Genitourinary: Denies: dysuria, frequency, hematuria Musculoskeletal: Denies: back pain, muscle pain Skin: Denies: rash Neurological: Denies: headache, numbness, paresthesia Endocrine: Denies: unexplained weight gain, unexplained weight loss Hematologic/Lymphatic: Denies: easy bleeding, easy bruising Past Medical History (General) - Patient Medical History Hx Seizures: No Hx Stroke: No Hx Dementia: No Hx Asthma: No Hx of COPD: Yes Hx Cardiac Disorders: Yes - OK X 1 Hx Congestive Heart Failure: Yes Hx Pacemaker: No Hx Hypertension: Yes Hx Thyroid Disease: No Hx Diabetes: No Hx Gastroesophageal Reflux: No Hx Renal Disease: No Hx Cancer: No Hx of HIV: No Hx Hepatitis C: No Hx MRSA: No - Vaccination History Hx Tetanus, Diphtheria Vaccination: Yes Hx Influenza Vaccination: Yes Hx Pneumococcal Vaccination: No - Social History Hx Tobacco Use: Yes Hx Chewing Tobacco Use: No Hx Alcohol Use: Yes - chronic Hx Substance Use: No Hx Substance Use Treatment: No Hx Depression: No Hx Physical Abuse: No Hx Emotional Abuse: No Hx Suspected Abuse: No Family Medical History - Family History Father Family History: Unknown Living Status: Cause of : aneurysm Physical Exam - Physical Exam General Appearance: Alert, Comfortable, No apparent distress, Well Developed, Well Groomed, Well Hydrated, Well Nourished Eyes, Ears, Nose, Throat Exam: PERRL/EOMI, normal ENT inspection Neck: non-tender, full range of motion, supple, normal inspection Respiratory: chest non-tender, other - tachypnea, subcostal accessory muscle use. 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 patietn orginally on Nonrebreather, due to pulmonary edema will put on bipap. Hgb low, stool guaiac negative. Due to acute CHF exacerbation will transfuse two units. Also given 80 mg IV lasix. also given solumedrol. The data reviewed when caring for this patient included: nurse notes, prior records, etc. The history and assessments from nurses notes were reviewed and considered, and the patient's home medication list was also reviewed and considered. My assessment and the results of testing completed here in the ED were discussed with the patient/family. All questions were answered, and they express understanding of my assessment and the plan. patient was transferred to the floor in stable condition. delay in dispo, waiting for bed 02/25/20 16:57 Abnormal Lab Results 02/25/20 02/25/20 02/25/20 08:12 08:12 09:50 WBC 19.7 H RBC 3.10 L Hgb 7.4 L* Hct 23.7 L MCV 76.5 L MCH 23.8 L MCHC 31.1 L RDW 20.4 H MPV 7.3 L Absolute Neuts (auto) 17.10 H Absolute Monos (auto) 1.00 H Neutrophils % 86.7 H Neutrophils % (Manual) 89.0 H Lymphocytes % 6.6 L Band Neutrophils 3.0 H Carbon Dioxide 16 L Anion Gap 20.0 H BUN 32 H Creatinine 1.66 H Random Glucose 161 H Total Bilirubin 1.2 H Alkaline Phosphatase 123 H B-Natriuretic Peptide > 5000.0 H* Serum Total Protein 8.4 H Globulin 4.8 H Albumin/Globulin Ratio 0.8 L Crossmatch See Detail - Results/Orders Results/Orders: 02/25/20 08:25 EKG .ONCE 02/25/20 09:40 Transfuse Blood Products .PRN 02/25/20 09:50 PACKED CELLS,LR Urgent TYPE AND SCREEN Urgent 02/25/20 10:34 methylPREDNISolone SODIUM SUC [SOLU-Medrol] 40 mg IV ONCE ONE 02/25/20 11:00 BLOOD CULTURE Stat 02/25/20 12:21 ED Intent to Admit Routine Laboratory Results WBC 19.7 K/mm3 (4.8-10.8) H 02/25/20 08:12 RBC 3.10 M/mm3 (4.70-6.10) L 02/25/20 08:12 Hgb 7.4 gm/dL (14.0-18.0) L* 02/25/20 08:12 Hct 23.7 % (42.0-52.0) L 02/25/20 08:12 MCV 76.5 fl (80.0-94.0) L 02/25/20 08:12 MCH 23.8 pg (27.0-31.0) L 02/25/20 08:12 MCHC 31.1 g/dL (33.0-37.0) L 02/25/20 08:12 RDW 20.4 % (11.5-14.5) H 02/25/20 08:12 Plt Count 337 K/mm3 (130-400) 02/25/20 08:12 MPV 7.3 fl (7.40-10.4) L 02/25/20 08:12 Absolute Neuts (auto) 17.10 K/uL (1.8-6.8) H 02/25/20 08:12 Absolute Lymphs (auto) 1.30 K/uL (1.0-3.4) 02/25/20 08:12 Absolute Monos (auto) 1.00 K/uL (0.2-0.8) H 02/25/20 08:12 Absolute Eos (auto) 0.20 K/uL (0.0-0.4) 02/25/20 08:12 Absolute Basos (auto) 0.10 K/uL (0.0-0.1) 02/25/20 08:12 Neutrophils % 86.7 % (42.0-78.0) H 02/25/20 08:12 Neutrophils % (Manual) 89.0 % (42.0-78.0) H 02/25/20 08:12 Lymphocytes % 6.6 % (20.0-50.0) L 02/25/20 08:12 Lymphocytes % (Manual) 3.0 % 02/25/20 08:12 Monocytes % 5.0 % (2.0-9.0) 02/25/20 08:12 Monocytes % (Manual) 5.0 % 02/25/20 08:12 Eosinophils % 1.1 % (1.0-5.0) 02/25/20 08:12 Basophils % 0.6 % (0.0-2.0) 02/25/20 08:12 Band Neutrophils 3.0 % (0-2) H 02/25/20 08:12 Nucleated RBCs 1.0 % 02/25/20 08:12 Hypochromia 1+ 02/25/20 08:12 Platelet Estimate Normal (NORMAL) 02/25/20 08:12 Polychromasia 1+ 02/25/20 08:12 Poikilocytosis 2+ 02/25/20 08:12 Anisocytosis 3+ 02/25/20 08:12 PT 10.9 SECONDS (9.0-10.9) 02/25/20 08:12 INR 1.10 (0.9-1.15) 02/25/20 08:12 PTT (SP) 25.8 SECONDS (21.8-31.6) 02/25/20 08:12 Sodium 139 mmol/L (135-145) 02/25/20 08:12 Potassium 4.0 mmol/L (3.6-5.0) 02/25/20 08:12 Chloride 107 mmol/L (101-111) 02/25/20 08:12 Carbon Dioxide 16 mmol/L (21-31) L 02/25/20 08:12 Anion Gap 20.0 (12-18) H 02/25/20 08:12 BUN 32 mg/dL (7-18) H 02/25/20 08:12 Creatinine 1.66 mg/dL (0.6-1.3) H 02/25/20 08:12 BUN/Creatinine Ratio 19.3 (10-20) 02/25/20 08:12 Random Glucose 161 mg/dL (70-105) H 02/25/20 08:12 Serum Osmolality 287.9 mOsm/L (275-295) 02/25/20 08:12 Calcium 8.9 mg/dL (8.4-10.2) 02/25/20 08:12 Total Bilirubin 1.2 mg/dL (0.2-1.0) H 02/25/20 08:12 AST 21 IU/L (10-42) 02/25/20 08:12 ALT 38 IU/L (10-60) 02/25/20 08:12 Alkaline Phosphatase 123 IU/L (42-121) H 02/25/20 08:12 Troponin I 0.03 ng/mL (0.01-0.05) 02/25/20 08:12 B-Natriuretic Peptide > 5000.0 pg/ml (0-100) H* 02/25/20 08:12 Serum Total Protein 8.4 gm/dL (6.4-8.2) H 02/25/20 08:12 Albumin 3.6 g/dl (3.2-5.5) 02/25/20 08:12 Globulin 4.8 gm/dL (2.3-3.5) H 02/25/20 08:12 Albumin/Globulin Ratio 0.8 (1.1-1.9) L 02/25/20 08:12 Stool Occult Blood Negative (NEGATIVE) 02/25/20 10:50 Ethyl Alcohol < 5.10 mg/dL (0-79) 02/25/20 11:40 Patient ABO/Rh A POSITIVE 02/25/20 09:50 Antibody Screen Negative 02/25/20 09:50 Crossmatch See Detail 02/25/20 09:50 - EKG/XRAY/CT EKG: Sinus Comments: LAD, nonspecific st changes. motion artificat noted. XRAY: chest - bilateral pulmonary edema Departure - Departure Clinical Impression: Tobacco abuse, Respiratory distress, Hypoxia, Acute exacerbation of COPD with asthma CHF exacerbation Qualifiers: Heart failure type: unspecified Qualified Code(s): I50.9 - Heart failure, unspecified Anemia Qualifiers: Anemia type: other cause Other causes of anemia: other cause, not classified Qualified Code(s): D64.89 - Other specified anemias Time of Disposition: 15:56 Disposition: Admit Patient Decision To Admit - Decistion To Admit Decision to Admit Reason: Medical Nature Decision to Admit Date: 02/25/20 Decision to Admit Time: 10:45
[2020-02-25] MEDS ORDERED: AZITHROMYCIN IV 500 MG in SODIUM CHLORIDE 0.9% 250ML 250 ML IVPB ONE (11:29)
[2020-02-25] MEDS ORDERED: cefTRIAXone SODIUM 1 GM in SODIUM CHL 0.9% 50ML MIN-BAG+ 50 ML IVPB ONE (11:29)
[2020-02-25] MEDS ORDERED: SODIUM CHLORIDE 0.9% 250ML 250 ML ONE (11:41)
--- NOTE | 2020-02-25 14:44 | HP ---
SUPERVISING PHYSICIAN: Farhan Eubanks MD CHIEF COMPLAINT: Shortness of breath, weakness. HISTORY OF PRESENT ILLNESS: This is a 59-year-old male patient who has a longstanding history of chronic obstructive pulmonary disease, ETOH abuse and tobacco abuse with congestive heart failure who came to the Emergency Room today with several days of shortness of breath and weakness, but it it is significantly worsened overnight and he came to the Emergency Room. His initial vital signs were temperature 97, heart rate 92, blood pressure 192/108, respiratory rate 32, O2 saturation 93% on non-rebreather, but he was significantly tachypneic and his oxygen saturations started decreasing. An ABG was drawn. His pCO2 was 22, pO2 56, bicarb 15.8, O2 saturation 86.5% and pH was 7.39. He was placed on non-invasive ventilation. His lab work showed WBC 19,700, hemoglobin 7.4, hematocrit 23.7. He had 3 bands and a left shift on his differential. Electrolytes were basically within normal limits, but BUN was 32, creatinine 1.66. He had an alkaline phosphatase of 123. BNP was greater than 5,000. Troponin was 0.03. Stool for occult blood was negative. Ethyl alcohol was less than 5.1. Blood cultures were drawn. His rapid COVID test was negative. Chest x-ray showed bilateral pulmonary edema, likely cardiogenic or other atypical infection most likely consideration. He was given azithromycin, Rocephin and some Lasix in the ER. He was typed and crossed for 2 units of packed red blood cells. He was started initially on the blood transfusion and admitted to the hospital in stable condition. PAST MEDICAL HISTORY: 1. Hypertension. 2. Chronic obstructive pulmonary disease. 3. Congestive heart failure. Last echocardiogram was in January of 2019 and his ejection fraction was 60% with mild diastolic dysfunction. 4. Chronic alcohol abuse. 5. Tobacco abuse. 6. Cardiovascular disease. PAST SURGICAL HISTORY: 1. Laminectomy of lumbar spine. 2. Left iliac arterial stent. OUTPATIENT MEDICATIONS: Current show only trazodone that he is taking. Most of his medications have not been taken for several months. ALLERGIES: NO KNOWN DRUG ALLERGIES. FAMILY HISTORY: Noncontributory. SOCIAL HISTORY: He is retired. He lives in [place]. He is . He has two children. He has a significant history of alcohol abuse and drank about 12+ years daily, but was in rehab about two months ago and has not had any alcohol since then. He smokes about a pack of cigarettes daily. There is no illegal drug use. REVIEW OF SYSTEMS: GENERAL: Positive for fatigue. Negative for fever or weight changes. HEENT: Negative for sinus symptoms, ear pain, vision changes or sore throat. RESPIRATORY: As per history of present illness. CARDIAC: Negative for chest pain, palpitations or tachycardia. GASTROINTESTINAL: Negative for nausea, vomiting, diarrhea, constipation. GENITOURINARY: Negative for hematuria, dysuria or polyuria. MUSCULOSKELETAL: Negative for arthralgias, myalgias. SKIN: Negative for lesions or rashes. NEUROLOGIC: Negative for headache, dizziness or seizures. PHYSICAL EXAMINATION: VITAL SIGNS: Temperature 97.8, heart rate 79, blood pressure 182/64, respiratory rate 20, O2 saturation 98% on BiPAP. GENERAL: This is a 59-year-old cachectic male lying in his hospital bed. He is in no acute distress on the BiPAP machine. HEENT: Normocephalic, atraumatic. Pupils are equal and reactive. Oropharynx is clear. NECK: Supple without mass. RESPIRATORY: Diminished breath sounds throughout with scattered expiratory wheezes and crackles throughout. GASTROINTESTINAL: Abdomen is soft, nondistended, nontender. Bowel sounds are positive. EXTREMITIES: No cyanosis, clubbing or edema. NEUROLOGIC: Awake, alert and oriented times three. LABORATORY: Labs and films are as per history of present illness. IMPRESSION: 1. Acute exacerbation of congestive heart failure with his last echocardiogram in 2019. He has an ejection fraction of 60% with mild diastolic dysfunction. His BNP on admission was greater than 5,000. 2. Hypoxic respiratory failure with pO2 of 56 and O2 saturation of 86%. 3. Symptomatic microcytic/hypochromic anemia. 4. Chronic obstructive pulmonary disease with acute exacerbation. 5. Acute on chronic renal insufficiency. Baseline creatinine is 1.1. His admitting creatinine was 1.26. 6. Leukocytosis, most likely due to an inflammatory response, but on azithromycin and ceftriaxone. 7. Chronic tobacco abuse. 8. History of ETOH abuse, but has had no ETOH in two months. 9. Poor medical compliance. He has not taken any of his medications including his Lasix and antihypertensive medications for several months. 10. Hypertensive crisis. PLAN: The patient has been admitted to the hospital. He is on the CHF guidelines. He has not been taking his medications, so I started him on an STEPHANE inhibitor and a beta brandon. He will also have some IV Lasix. I have ordered an echocardiogram for in the morning. He has a nicotine patch. I will continue him on scheduled and p.r.n. breathing treatments as well as some Solu-Medrol that I will titrate down. He will be on azithromycin and ceftriaxone with aggressive pulmonary hygiene, Lovenox for DVT prophylaxis and proton pump inhibitor for ulcer prophylaxis. He will complete his 2 unit packed red blood cell infusion and I will repeat his labs for in the morning. #[id number] [facility]
[2020-02-25] MEDS ORDERED: ONDANSETRON INJ 4 MG/2 ML VIAL IV PRN (18:38)
[2020-02-25] MEDS ORDERED: NITROGLYCERIN 0.4 MG 25 EA TAB SL PRN (18:38)
[2020-02-25] MEDS ORDERED: ALBUTEROL SULFATE 2.5 MG/3 ML VIAL NEB PRN (18:38)
[2020-02-25] MEDS ORDERED: SODIUM CHLORIDE 0.9% (FLUSH) 10 ML SYG IV PRN (18:38)
[2020-02-25] MEDS ORDERED: IV SET AND CAP CHANGE INJ INJ SCH (19:00)
[2020-02-25] MEDS: IPRATROPIUM/ALBUTEROL 3 ML VIAL INH SCH (21:30)
[2020-02-25] MEDS: METOPROLOL TARTRATE 25 MG TAB PO SCH (22:05)
[2020-02-25] MEDS: LISINOPRIL 5 MG TAB PO SCH (22:05)
[2020-02-25] MEDS: ENOXAPARIN SODIUM 30 MG/0.3 ML SYG SUBCU SCH (22:05)
[2020-02-25] MEDS: NICOTINE PATCH 14 MG TD SCH (22:05)
[2020-02-25] MEDS ORDERED: traZODone HCL 100 MG TAB PO ONE (22:17)
[2020-02-25] MEDS ORDERED: cefTRIAXone SODIUM 1 GM VIAL ONE (23:52)
[2020-02-25] MEDS ORDERED: SODIUM CHL 0.9% 50ML MIN-BAG+ 50 ML IVPB ONE (23:52)
[2020-02-25] MEDS: cefTRIAXone SODIUM 1 GM in SODIUM CHL 0.9% 50ML MIN-BAG+ 50 ML IVPB SCH (23:53)
[2020-02-25] MEDS: methylPREDNISolone SODIUM SUC 125 MG/2 ML VIAL IV SCH (23:56)
--- NOTE | 2020-02-26 07:38 | RAD ---
EXAM DESCRIPTION: Chest,2 Views CLINICAL HISTORY: CHF COMPARISON: February 25, 2020 TECHNIQUE: PA/lateral FINDINGS: Compared to prior upright portable study significant improved inspiration is present with diffuse interstitial changes persisting throughout both lungs. Central vascular congestion is less prominent with mild cardiomegaly persisting. Significant pleural effusions not apparent with a tiny amount of pleural blunting evident posteriorly and laterally at the right lung base. Resolving changes of volume overload and congestive failure suspected. An underlying interstitial diffuse infiltrate thought less likely particularly with the rapid improvement from previous day's study. Mild central congestion persists. IMPRESSION: 1. Significantly improved chest with improved inspiration and partial clearing of diffuse mixed alveolar and interstitial changes with residual interstitial vascular congestion and/or edema persisting. Some of this appearance is related to the departmental upright film technique. 2. Mild cardiomegaly and mild central congestion persists but significantly resolved from prior study. An interstitial inflammatory or infectious process thought less likely but not completely excluded. Electronically signed by: Farhan Corea MD 02/26/2020 7:36 AM [employer]
[2020-02-26] MEDS: IPRATROPIUM/ALBUTEROL 3 ML VIAL INH SCH ×4 (08:50→21:00)
[2020-02-26] MEDS ORDERED: SODIUM CHLORIDE 0.9% 250ML 250 ML ONE (09:16)
[2020-02-26] MEDS ORDERED: AZITHROMYCIN IV 500 MG VIAL IVPB ONE (09:16)
[2020-02-26] MEDS: AZITHROMYCIN IV 500 MG in SODIUM CHLORIDE 0.9% 250ML 250 ML IVPB SCH (10:37)
[2020-02-26] MEDS: FUROSEMIDE INJ 40 MG/4 ML VIAL IV SCH ×2 (10:38→17:35)
[2020-02-26] MEDS: methylPREDNISolone SODIUM SUC 125 MG/2 ML VIAL IV SCH ×2 (10:39→20:11)
[2020-02-26] MEDS: NICOTINE PATCH 14 MG TD SCH (10:40)
[2020-02-26] MEDS: LISINOPRIL 5 MG TAB PO SCH (10:40)
[2020-02-26] MEDS: METOPROLOL TARTRATE 25 MG TAB PO SCH ×2 (10:40→20:10)
--- NOTE | 2020-02-26 10:42 | CT ---
Study: CT chest, abdomen and pelvis. Indication: anemia, elev lfts, etoh abuse Technique: Venous phase CT imaging of the chest, abdomen and pelvis obtained after intravenous administration of contrast. This exam was performed according to our departmental dose-optimization program, which includes automated exposure control, adjustment of the mA and/or kV according to patient size and/or use of iterative reconstruction technique. Comparison: August 18, 2019 Findings: Pronounced atherosclerosis. Cardiomegaly. Enlarged 19 mm x 19 mm pretracheal lymph node on image 27 but difficult to evaluate due to motion degradation. Multiple remote bilateral rib fractures. Remote right scapular fracture. Moderate emphysema with superimposed mild interstitial edema. In addition there is left lower lobe basilar consolidation. Small left and tiny right pleural effusions. Gallbladder contracted. Chronic pancreatitis with numerous calcifications. Persistent dilatation of the pancreatic duct up to 9 mm. Questionable calcifications within the distal pancreatic duct versus the parenchyma of the pancreatic head. No acute inflammation of the pancreas. Spleen, adrenal glands, and kidneys demonstrate a stable appearance as does the bladder and prostate gland. Colonic diverticulosis. Stomach, small bowel, and appendix unremarkable. Small-volume free pelvic fluid. Mild perihepatic fluid. No pathologically enlarged abdominal or pelvic lymphadenopathy. Remote right obturator ring fractures. Degenerative and post surgical changes of the spine. Severe atherosclerosis. 3.1 cm abdominal aortic aneurysm. Left common iliac artery stent. Impression: Cardiomegaly mild interstitial edema. Moderate emphysema with left basilar consolidation as well as small left and tiny right pleural effusions. Enlarged 19 mm x 19 mm pretracheal lymph node which may be pathologic or reactive. Pulmonology consultation recommended. Contracted gallbladder. Chronic pancreatitis with persistent dilatation of the pancreatic duct. 3.1 cm abdominal aortic aneurysm. Follow-up abdominal aortic sonogram recommended every 3 years. Additional findings as above. Electronically signed by: Zain Sky MD 02/26/2020 10:40 AM [facility]
--- NOTE | 2020-02-26 11:11 | US ---
EXAM DESCRIPTION: Abdomen,Complete CLINICAL HISTORY: anemia, levated lfts; etoh abuse COMPARISON: Previous abdominal sonogram March 29, 2019, previous CT abdomen and pelvis February 26, 2020 TECHNIQUE: Complete abdominal ultrasound FINDINGS: Visualized portions of the pancreas are unremarkable. No peripancreatic fluid. Bowel gas obscures some areas. Ectatic abdominal aorta measuring up to 2.6 cm in diameter. On the previous study, the ectatic abdominal aorta measured 2.5 cm in March 2019. 3.17 m diameter was measured on CT abdomen and pelvis February 26, 2020. Three year imaging follow-up recommended. Normal appearance of the inferior vena cava. Liver parenchyma is homogeneous in texture with normal echogenicity. No liver mass or intrahepatic bile duct dilatation. No liver surface irregularity. Normal appearance of hepatic veins and portal vein. Gallbladder appears small and contracted with no intraluminal stones. No gallbladder wall thickening. Common bile duct is normal in caliber measuring 3.5 mm. The right kidney measures 7.8 cm in length. This is abnormally small for an adult consistent with chronic atrophy or scarring. Correlate with renal function tests. Increased renal cortical echogenicity with relatively sonolucent pyramids. Diffuse renal cortical thinning. No right renal mass, shadowing stone or cyst. There is no hydronephrosis. Spleen is normal in size. No focal splenic lesion. The left kidney measures 9.9 cm in length. Increased renal cortical echogenicity is relatively sonolucent pyramids. Correlate with renal function tests. Mild renal cortical thinning. No left renal mass, shadowing stone or cyst. There is no hydronephrosis. IMPRESSION: Atrophic right kidney with hyperechoic renal cortex bilaterally. Correlate with renal function tests. Ectatic abdominal aorta measuring up to 2.6 cm in diameter on sonography compared to 3 cm in diameter on CT earlier same day. Three year follow-up aortic imaging recommended. For management of fusiform aneurysmal abdominal aortas: <2.6 cm aorta, no follow-up is recommended. 2.6-2.9 cm aorta, recommend follow-up every 5 years for aortas meeting the criteria for AAA (>1.5 x proximal normal segment; no f/u if < 1.5 x proximal normal segment; no f/u for aortas < 2.6 cm). 3.0-3.4 cm AAA, recommend follow-up every 3 years. 3.5-3.9 cm AAA, recommend follow-up every 2 years. 4.0-4.4 cm AAA, recommend follow-up every 12 months and recommend vascular consultation. 4.5-5.4 cm AAA, recommend follow-up every 6 months and recommend vascular consultation. >5.5 cm AAA, recommend referral to vascular specialist. For management of saccular abdominal aortic aneurysms of any size, recommend vascular consultation. Note: for AAA enlargement of >0.5 cm in 6 months or >1 cm in 1 year, recommend vascular consultation. References: J Am Jazmin Radiol 2013; 10(10):789-794; J Vasc Surg. 2018; 67:2-77 Electronically signed by: Lit Rhoades MD 02/26/2020 11:10 AM [facility]
[2020-02-26] MEDS ORDERED: traZODone HCL 100 MG TAB PO ONE (19:13)
[2020-02-26] MEDS: ENOXAPARIN SODIUM 30 MG/0.3 ML SYG SUBCU SCH (20:10)
[2020-02-26] MEDS: traZODone HCL 100 MG TAB PO SCH (20:10)
[2020-02-26] MEDS: cefTRIAXone SODIUM 1 GM in SODIUM CHL 0.9% 50ML MIN-BAG+ 50 ML IVPB SCH (23:59)
--- NOTE | 2020-02-27 08:11 | RAD ---
EXAM: Chest,2 Views CLINICAL HISTORY: chf, copd COMPARISON STUDY: Chest x-ray and chest CT from February 26, 2020 TECHNICAL: Two view chest x-ray FINDINGS: The left lower lobe pulmonary opacity persists behind the heart. There is slight improvement. There are chronic changes of the right lung in a background of emphysematous disease. The heart is enlarged but unchanged. Vascular calcifications are present. IMPRESSION: 1. Slight improvement of left lower lobe consolidation. Stable background of emphysematous disease. Electronically signed by: Sachin Rahman MD 02/27/2020 8:09 AM [facility]
--- NOTE | 2020-02-27 08:13 | PN ---
SUPERVISING PHYSICIAN: Farhan Eubanks MD DATE: 02/26/20 SUBJECTIVE: The patient is sitting up in bed. He is off the BiPAP and feels much better and much less short of breath. He denies any bloody stools or bloody sputum. He has had a significant history of low hemoglobin and hematocrit. OBJECTIVE: VITAL SIGNS: Temperature 97.5, heart rate 72, blood pressure 165/81, respiratory rate 21, O2 saturation 99% on room air. RESPIRATORY: Essentially clear to auscultation bilaterally. He is somewhat diminished at the bases. CARDIAC: Regular rate and rhythm. GASTROINTESTINAL: Abdomen is soft, nondistended, nontender. Bowel sounds are positive. NEUROLOGIC: Awake, alert and oriented times three. LABORATORY: WBCs 7, hemoglobin 7.8, hematocrit 23.3. He has a left shift on differential. Electrolytes are basically within normal limits. BUN 36, creatinine 1.68. Liver function tests are within normal limits. RADIOLOGY: Chest CT shows 1) Cardiomegaly, mild interstitial edema, moderate emphysema with left basilar consolidation as well as a small left and tiny right pleural effusion and large 19 mm by 19 mm pretracheal lymph node which may be pathological reactive. Pulmonary consult is recommended. 2) Contracted gallbladder. 3) Chronic pancreatitis with persistent dilatation of the pancreatic duct. 4) 3.1 cm abdominal aortic aneurysm, followup recommended every 3 years. His abdominal ultrasound shows atrophic left kidney with hyperechoic renal cortex bilaterally. Correlate with renal function tests. Ectatic abdominal aorta measuring up to 2 cm in diameter on sonography compared to 3 cm in diameter on the CT. Three year followup recommended. Chest x-ray shows 1) Significantly improved chest with improved inspiration with partial clearing of diffuse mixed alveolar and interstitial changes with residual interstitial vascular congestion and/or edema persisting. Some of this appearance is related to the departmental upright film technique. 2) Mild cardiomegaly and mild central congestion persists but significantly resolved from prior study. An interstitial inflammatory or infectious process thought less likely but not completely excluded. All other labs and films have been reviewed via the EMR. ASSESSMENT: 1. Acute exacerbation of congestive heart failure with his last echocardiogram in 2019. He has an ejection fraction of 60% with mild diastolic dysfunction. His BNP on admission was greater than 5,000. 2. Hypoxic respiratory failure with pO2 of 56 and O2 saturation of 86%. 3. Symptomatic microcytic/hypochromic anemia. 4. Chronic obstructive pulmonary disease with acute exacerbation. 5. Acute on chronic renal insufficiency. Baseline creatinine is 1.1. His admitting creatinine was 1.26. 6. Leukocytosis, most likely due to an inflammatory response, but on azithromycin and ceftriaxone. 7. Chronic tobacco abuse. 8. History of ETOH abuse, but has had no ETOH in two months. 9. Poor medical compliance. He has not taken any of his medications including his Lasix and antihypertensive medications for several months. 10. Hypertensive crisis. PLAN: We will continue present supportive care. We will continue diuresis with IV Lasix. I will change to oral Lasix tomorrow if he continues to improve clinically. I am not quite sure where his bleeding is occurring other than from chronic disease, but he will need a renal consult at some point as well as a GI consult. He will also need pulmonary consult in regard to his CT. So far, he has had negative stool guaiacs. I will reorder lab and chest x-ray for tomorrow. He may need another 1 to 2 units of blood. #[id number] [facility]
[2020-02-27] MEDS: NICOTINE PATCH 14 MG TD SCH (08:58)
[2020-02-27] MEDS: METOPROLOL TARTRATE 25 MG TAB PO SCH ×2 (08:59→20:16)
[2020-02-27] MEDS: LISINOPRIL 5 MG TAB PO SCH (08:59)
[2020-02-27] MEDS: methylPREDNISolone SODIUM SUC 125 MG/2 ML VIAL IV SCH (08:59)
[2020-02-27] MEDS: FUROSEMIDE INJ 40 MG/4 ML VIAL IV SCH ×2 (09:01→15:49)
[2020-02-27] MEDS: AZITHROMYCIN IV 500 MG in SODIUM CHLORIDE 0.9% 250ML 250 ML IVPB SCH (09:13)
[2020-02-27] MEDS: IPRATROPIUM/ALBUTEROL 3 ML VIAL INH SCH ×4 (09:25→20:09)
[2020-02-27] MEDS ORDERED: PANTOPRAZOLE SODIUM TAB 40 MG PO ONE (18:28)
--- NOTE | 2020-02-27 19:21 | PN ---
SUPERVISING PHYSICIAN: Farhan Eubanks MD DATE: 02/27/20 SUBJECTIVE: The patient is sitting up in bed. He continues to feel much better. We discussed changing his Lasix from IV to p.o. and that he would most likely have to go home on Lasix. OBJECTIVE: VITAL SIGNS: Temperature 98, heart rate 71, blood pressure 139/62, respiratory rate 18, O2 saturation 95% on room air. RESPIRATORY: Essentially clear to auscultation bilaterally. CARDIAC: Regular rate and rhythm. NEUROLOGIC: Awake, alert and oriented times three. LABORATORY: WBCs 11,400, hemoglobin 8.5 and hemoglobin 26, He has a left shift on differential. Electrolytes are basically within normal limits with the exception calcium is slightly low at 8.3. BUN 45, creatinine 1.85. Preliminary blood cultures show no growth after 48 hours. RADIOLOGY: Chest x-ray shows slightly improvement of the left lower lobe consolidation, stable background of emphysematous disease. ASSESSMENT: 1. Acute exacerbation of chronic obstructive pulmonary disease, Echocardiogram done on this admission shows an ejection fraction of 60%. 2. Hypoxic respiratory failure with pO2 of 56 and O2 saturation of 86% requiring an IV on admission. 3. Symptomatic microcytic/hypochromic anemia. 4. Chronic obstructive pulmonary disease with acute exacerbation. 5. Acute on chronic renal insufficiency. Baseline creatinine 1.1. His admitting creatinine was 1.26. 6. Leukocytosis, most likely due to an inflammatory response, but presently on azithromycin and ceftriaxone. It is improving. 7. Chronic tobacco abuse. 8. History of ETOH abuse, but has had no ETOH in two months. 9. Poor medical compliance. He has not taken any of his medications including his Lasix and antihypertensive medications for several months. 10. Hypertensive crisis that has improved.. PLAN: We will continue present supportive care. His Lasix has been converted to p.o. His methylprednisolone has been stopped and changed to 40 mg daily. He will need to be sent home on lisinopril as well as metoprolol. I will also draw lab in the morning and make sure his H&H continue to be stable. On discharge, he will need a pulmonary consultation for recommendations of his CT scan and will also need a nephrology consultation due to his worsening kidney function. #[id number] [facility]
[2020-02-27] MEDS: ENOXAPARIN SODIUM 30 MG/0.3 ML SYG SUBCU SCH (20:16)
[2020-02-27] MEDS: traZODone HCL 100 MG TAB PO SCH (20:16)
[2020-02-27] MEDS: cefTRIAXone SODIUM 1 GM in SODIUM CHL 0.9% 50ML MIN-BAG+ 50 ML IVPB SCH (23:30)
[2020-02-28] MEDS ORDERED: PANTOPRAZOLE SODIUM TAB 40 MG PO SCH ×2 (06:30→16:30)
[2020-02-28] MEDS: METOPROLOL TARTRATE 25 MG TAB PO SCH (08:44)
[2020-02-28] MEDS: LISINOPRIL 5 MG TAB PO SCH (08:44)
[2020-02-28] MEDS: NICOTINE PATCH 14 MG TD SCH (08:44)
[2020-02-28] MEDS ORDERED: FUROSEMIDE 40 MG TAB PO SCH (09:00)
[2020-02-28] MEDS: IPRATROPIUM/ALBUTEROL 3 ML VIAL INH SCH ×2 (09:00→13:22)
[2020-02-28] MEDS ORDERED: predniSONE 20 MG TAB PO SCH (09:00)
[2020-02-28] MEDS: AZITHROMYCIN IV 500 MG in SODIUM CHLORIDE 0.9% 250ML 250 ML IVPB SCH (10:38)
[2020-02-28 13:27] VITALS: BP 136/72; TEMP 98; O2SAT 95
[2020-02-28] MEDS ORDERED: PNEUMOCOCCAL VACCINE 0.5 ML INJ IM ONE (14:56)
[2020-02-28] MEDS ORDERED: CLOPIDOGREL 75 MG TAB PO SCH (15:00)
[2020-02-28] MEDS ORDERED: ATORVASTATIN 20 MG TAB PO SCH (21:00)
[2020-02-28] MEDS ORDERED: traZODone HCL 100 MG TAB PO SCH (21:00)
[2020-02-29] MEDS ORDERED: amLODIPine BESYLATE 5 MG TAB PO SCH (09:00)
[2020-02-29] MEDS ORDERED: METOPROLOL SUCCINATE XL 100 MG TAB PO SCH (09:00)
[2020-02-29] MEDS ORDERED: CITALOPRAM HBR 20 MG TAB PO SCH (09:00)
[2020-02-29] MEDS ORDERED: THIAMINE HCL 100 MG TAB PO SCH (09:00)
[2020-02-29] MEDS ORDERED: NALTREXONE HCL 50 MG PO SCH (09:00)
[2020-02-29] MEDS ORDERED: FOLIC ACID 1 MG TAB PO SCH (09:00)
[2020-02-29] MEDS ORDERED: SPIRONOLACTONE 25 MG TAB PO SCH (09:00)
[2020-02-29] MEDS ORDERED: GABAPENTIN 300 MG CAP PO SCH (09:00)
--- NOTE | 2020-03-02 14:43 | DS ---
SUPERVISING PHYSICIAN: Farhan Eubanks MD ADMISSION DIAGNOSIS: 1. Acute exacerbation of congestive heart failure with his last echocardiogram in 2019. He has an ejection fraction of 60% with mild diastolic dysfunction. His BNP on admission was greater than 5,000. 2. Hypoxic respiratory failure with pO2 of 56 and O2 saturation of 86%. 3. Symptomatic microcytic/hypochromic anemia. 4. Chronic obstructive pulmonary disease with acute exacerbation. 5. Acute on chronic renal insufficiency. Baseline creatinine is 1.1. His admitting creatinine was 1.26. 6. Leukocytosis, most likely due to an inflammatory response, but on azithromycin and ceftriaxone. 7. Chronic tobacco abuse. 8. History of ETOH abuse, but has had no ETOH in two months. 9. Poor medical compliance. He has not taken any of his medications including his Lasix and antihypertensive medications for several months. 10. Hypertensive crisis. DISCHARGE DIAGNOSIS: 1. Acute exacerbation of chronic obstructive pulmonary disease secondary to left lower pneumonia, community acquired. 2. Hypoxic respiratory failure, secondary to #1, improved with treatment. 3. Hypertensive crisis on admission due to poor medical compliance, exacerbated by congestive heart failure in this patient with chronic obstructive pulmonary disease exacerbation with the patient responding well to treatment and blood pressures showing to be stable. 4. Symptomatic microcytic/hypochromic anemia, requiring transfusion of 2 units of packed red blood cells. 5. Acute exacerbation of congestive heart failure with kidney decompensation, likely secondary to #1 with elevated BNP and echocardiogram showing ejection fraction of 60%. 6. Acute on chronic renal insufficiency. 7. Leukocytosis, secondary to #1, resolving with treatment. 8. Chronic tobacco abuse, encouraged to stop smoking. 9. Long history of alcohol abuse, encouraged to continue abstinence from alcohol usage. 10. Poor medical compliance with medications with the patient not taking Lasix and antihypertensive. 11. Enlarged paratracheal lymph nodes on CT, requiring followup with pulmonology. REASON FOR HOSPITALIZATION: This is a 59-year-old male patient who has a longstanding history of chronic obstructive pulmonary disease, ETOH abuse and tobacco abuse with congestive heart failure who came to the Emergency Room today with several days of shortness of breath and weakness, but it it is significantly worsened overnight and he came to the Emergency Room. His initial vital signs were temperature 97, heart rate 92, blood pressure 192/108, respiratory rate 32, O2 saturation 93% on non-rebreather, but he was significantly tachypneic and his oxygen saturations started decreasing. An ABG was drawn. His pCO2 was 22, pO2 56, bicarb 15.8, O2 saturation 86.5% and pH was 7.39. He was placed on non-invasive ventilation. His lab work showed WBC 19,700, hemoglobin 7.4, hematocrit 23.7. He had 3 bands and a left shift on his differential. Electrolytes were basically within normal limits, but BUN was 32, creatinine 1.66. He had an alkaline phosphatase of 123. BNP was greater than 5,000. Troponin was 0.03. Stool for occult blood was negative. Ethyl alcohol was less than 5.1. Blood cultures were drawn. His rapid COVID test was negative. Chest x-ray showed bilateral pulmonary edema, likely cardiogenic or other atypical infection most likely consideration. He was given azithromycin, Rocephin and some Lasix in the ER. He was typed and crossed for 2 units of packed red blood cells. He was started initially on the blood transfusion and admitted to the hospital in stable condition. LABORATORY: White count on discharge 13,300, hemoglobin 9, hematocrit 28.2. H&H initially was 7.4 and 23.7. After 2 units transfusion of packed red blood cells, hemoglobin was 9 and hematocrit 28. Differential did show a left shift. He did have 3% bands on admission, resolved with treatment. Coagulation studies showed normal PT, PTT. Blood gas analysis on admission showed uncompensated respiratory failure with pCO2 22, pO2 56, pH 7.397, saturation 86% on room air I believe. Chemistries on discharge showed potassium 3.2, otherwise electrolytes were within normal limits. Creatinine 2.04, calcium 8.3. Liver functions all within normal limits. BNP on admission was greater than 5000. Troponin 0.03. He had 2 occult bloods on stool that were negative. Alcohol was negative. MICROBIOLOGY: Blood cultures negative after 5 days. COVID swab was negative. RADIOLOGY: Abdominopelvic CT which showed cardiomegaly with interstitial edema. There was some emphysema with left basilar consolidation as well as slight left and tiny right pleural effusion. There was an enlarged 19 mm by 19 mm paratracheal lymph node which may be pathologic or reactive. Recommend pulmonary consultation. Chronic pancreatitis with persistent dilation of pancreatic duct. 3.1 cm abdominal aortic aneurysm. See rest of the results for details. He had a chest CT per radiologic interpretation, again see the report for details. Final chest x-ray on discharge showed slight improvement left lower lobe consolidation. EKG showed sinus rhythm with nonspecific ST changes. Echocardiogram showed ejection fraction of 60% with a normal systolic function. HOSPITAL COURSE: Mr. Alaniz was admitted for exacerbation of congestive heart failure and chronic obstructive pulmonary disease. He was given Lasix, Solu- Medrol, antibiotics including azithromycin and Rocephin. He was put on aggressive pulmonary hygiene. He did require BiPAP for a short period of time, but was improving on his vital signs and on the day of discharge he had improved clinically well enough to continue with outpatient management. Vital signs at time of discharge showed saturation 95% on room air, blood pressure 136/72, heart rate 69, temperature 98. PLAN: Mr. Alaniz was discharged to followup with Dr. Stoll. He was to call his office on 03/02/20, and he was to resume his home medications as instructed and return to the ER as necessary if he had any concerning symptoms. He was to resume his usual diet and increase activity as tolerated. He was again encouraged to stop smoking and continue to not drink. Medications prescribed on discharge included: 1. Solu-Medrol Dosepak 4 mg daily for 6 days. 2. Cefdinir for continued treatment of underlying pneumonia 300 mg daily based on his renal function, #7, no refills. 3. Lisinopril 5 mg daily, #30. All other medications prior to hospitalization were continued. He will need followup with pulmonology to address the CT findings. Please see the CT results as well as abdominal ultrasound. CONDITION ON DISCHARGE: Stable and improved. DISPOSITION: The patient was discharged home. #[id number] MTDD
== END 2020-02-28 15:55 | disposition home or self-care (01) | DRG 291 ==
LOC: ER 07:55 → OBSVTOIN 14:43 → MS 14:43
PROVIDERS: ADMIT Nurse Practitioner Acute Care; ATTEND Nurse Practitioner Family
PROC: 30233N1 Transfusion of Nonautologous Red Blood Cells into Peripheral Vein, Percutaneous Approach (ICD-10-PCS; 2020-02-25)
PROC: BW251ZZ Computerized Tomography (CT Scan) of Chest, Abdomen and Pelvis using Low Osmolar Contrast (ICD-10-PCS; principal; 2020-02-26)
DX: I13.0 Hypertensive heart and chronic kidney disease with heart failure and stage 1 through stage 4 chronic kidney disease, or unspecified chronic kidney disease (principal); I50.33 Acute on chronic diastolic (congestive) heart failure; J18.9 Pneumonia, unspecified organism; J44.1 Chronic obstructive pulmonary disease with (acute) exacerbation; J96.91 Respiratory failure, unspecified with hypoxia; I16.9 Hypertensive crisis, unspecified; J44.0 Chronic obstructive pulmonary disease with (acute) lower respiratory infection; D50.9 Iron deficiency anemia, unspecified; N18.9 Chronic kidney disease, unspecified; F17.210 Nicotine dependence, cigarettes, uncomplicated; F10.10 Alcohol abuse, uncomplicated; Z91.14 Patient's other noncompliance with medication regimen; Z95.820 Peripheral vascular angioplasty status with implants and grafts

== ENCOUNTER 2020-03-14 08:59 | Inpatient (IN) | payer SELFPAY ==
[2020-03-14] MEDS ORDERED: SODIUM CHLORIDE 0.9% (FLUSH) 10 ML SYG IV PRN ×2 (09:09→13:47)
[2020-03-14] MEDS ORDERED: SODIUM CHLORIDE 0.9% 1000ML 1,000 ML IVS ONE (09:09)
[2020-03-14] MEDS ORDERED: ACETAMINOPHEN 325 MG TAB PO ONE (09:16)
[2020-03-14] MEDS ORDERED: cefTRIAXone SODIUM 1 GM in SODIUM CHL 0.9% 50ML MIN-BAG+ 50 ML IVPB ONE (09:26)
[2020-03-14] MEDS ORDERED: AZITHROMYCIN 250 MG TAB PO ONE (09:26)
--- NOTE | 2020-03-14 09:27 | ED.PDOC ---
History of Present Illness - General Chief Complaint: Respiratory Problem Stated Complaint: SOB, cough, N/V, shakiness Time Seen by Provider: 03/14/20 09:01 Source: patient Exam Limitations: no limitations - History of Present Illness Timing/Duration: 1-3 hours, intermittent Severity: moderate Activities at Onset: none Possible Cause: occasional episodes Improving Factors: nothing Worsening Factors: nothing Associated Symptoms: cough, fever Allergies/Adverse Reactions: Allergies NO KNOWN ALLERGY Allergy (Verified 03/14/20 09:24) Home Medications: Ambulatory Orders Albuterol Inhaler [Ventolin Hfa Inhaler] 1 puff INH PRN PRN 02/28/20 Amlodipine Besylate [Norvasc] 10 mg PO DAILY 02/28/20 Atorvastatin Calcium [Lipitor] 80 mg PO BEDTIME 02/28/20 B-1 250 mg PO DAILY 02/28/20 Citalopram Hydrobromide [Citalopram] 40 mg PO DAILY 02/28/20 Clopidogrel Bisulfate [Plavix] 75 mg PO QD 02/28/20 Folic Acid 800 mcg PO DAILY 02/28/20 Gabapentin [Neurontin] 300 mg PO DAILY 02/28/20 Hydroxyzine HCl [Hydroxyzine Hydrochloride] 50 mg PO BID PRN 02/28/20 Lisinopril [Prinivil] 5 mg PO DAILY #30 tab 02/28/20 Metoprolol Succinate [Metoprolol Succinate ER] 100 mg PO DAILY 02/28/20 Naltrexone HCl [Naltrexone Hydrochloride] 50 mg PO DAILY 02/28/20 Pantoprazole Sodium 40 mg PO BID 02/28/20 Spironolactone [Aldactone] 25 mg PO DAILY 02/28/20 Trazodone HCl [Trazodone Hydrochloride] 100 mg PO BEDTIME 02/28/20 Review of Systems - Review of Systems Constitutional: States: chills, fever EENTM: Denies: tearing, nose pain Respiratory: States: cough, short of breath Cardiology: Denies: chest pain, syncope Gastrointestinal/Abdominal: States: nausea, vomiting. Denies: abdominal pain Genitourinary: Denies: discharge, hematuria Musculoskeletal: Denies: gout, muscle pain, muscle stiffness Skin: Denies: change in color, dryness, lesions Neurological: Denies: depressed, emotional problems, pre-existing deficit, seizure Endocrine: Denies: intolerance to cold, intolerance to heat, unexplained weight gain, unexplained weight loss Hematologic/Lymphatic: Denies: anemia, easy bleeding, easy bruising Unable to Obtain Due To: condition Past Medical History (General) - Patient Medical History Hx Seizures: No Hx Stroke: No Hx Dementia: No Hx Asthma: No Hx of COPD: Yes Hx Cardiac Disorders: Yes - CO X 1 Hx Congestive Heart Failure: Yes Hx Pacemaker: No Hx Hypertension: Yes Hx Thyroid Disease: No Hx Diabetes: No Hx Gastroesophageal Reflux: No Hx Renal Disease: No Hx Cancer: No Hx of HIV: No Hx Hepatitis C: No Hx MRSA: No - Vaccination History Hx Tetanus, Diphtheria Vaccination: Yes Hx Influenza Vaccination: Yes Hx Pneumococcal Vaccination: No - Social History Hx Tobacco Use: Yes Hx Chewing Tobacco Use: No Hx Alcohol Use: Yes - chronic Hx Substance Use: No Hx Substance Use Treatment: No Hx Depression: No Hx Physical Abuse: No Hx Emotional Abuse: No Hx Suspected Abuse: No Family Medical History - Family History Father Family History: Unknown Living Status: Cause of : aneurysm Physical Exam - Physical Exam General Appearance: Alert Eyes, Ears, Nose, Throat Exam: normal ENT inspection, TMs normal, pharynx normal Neck: non-tender, full range of motion, supple, normal inspection Respiratory: chest non-tender, lungs clear, no respiratory distress, no accessory muscle use, decreased breath sounds Cardiovascular/Chest: normal peripheral pulses, regular rate, rhythm, no edema, no gallop Gastrointestinal/Abdominal: normal bowel sounds, non tender, soft Rectal Exam: normal exam, normal rectal tone Extremity: normal range of motion, non-tender, normal inspection Neurologic: filling layer up II-XII nml as tested, no motor/sensory deficits, alert, normal mood/affect, oriented x 3, abnormal cerebellar tests, other - tremor Skin Exam: normal color, warm/dry Lymphatic: no adenopathy Progress - EKG/XRAY/CT XRAY: EXAM: Chest,1 View CLINICAL INDICATION: Hypoxia COMPARISON: 02/27/2020 F Departure - Departure Clinical Impression: Sepsis, Pneumonia, Respiratory failure with hypoxia, Acute on chronic renal insufficiency, Alcohol withdrawal Disposition: Admit Patient Home Medications: Ambulatory Orders Albuterol Inhaler [Ventolin Hfa Inhaler] 1 puff INH PRN PRN 02/28/20 Amlodipine Besylate [Norvasc] 10 mg PO DAILY 02/28/20 Atorvastatin Calcium [Lipitor] 80 mg PO BEDTIME 02/28/20 B-1 250 mg PO DAILY 02/28/20 Citalopram Hydrobromide [Citalopram] 40 mg PO DAILY 02/28/20 Clopidogrel Bisulfate [Plavix] 75 mg PO QD 02/28/20 Folic Acid 800 mcg PO DAILY 02/28/20 Gabapentin [Neurontin] 300 mg PO DAILY 02/28/20 Hydroxyzine HCl [Hydroxyzine Hydrochloride] 50 mg PO BID PRN 02/28/20 Lisinopril [Prinivil] 5 mg PO DAILY #30 tab 02/28/20 Metoprolol Succinate [Metoprolol Succinate ER] 100 mg PO DAILY 02/28/20 Naltrexone HCl [Naltrexone Hydrochloride] 50 mg PO DAILY 02/28/20 Pantoprazole Sodium 40 mg PO BID 02/28/20 Spironolactone [Aldactone] 25 mg PO DAILY 02/28/20 Trazodone HCl [Trazodone Hydrochloride] 100 mg PO BEDTIME 02/28/20
--- NOTE | 2020-03-14 09:40 | RAD ---
EXAM: Chest,1 View CLINICAL INDICATION: Hypoxia COMPARISON: 02/27/2020 FINDINGS: A single view of the chest was obtained. The heart size is mildly enlarged. The pulmonary vascularity is unremarkable. There are multifocal infiltrates in the perihilar region bilaterally which appear increased from prior. There is no pneumothorax. A trace right pleural effusion is noted. IMPRESSION: Bilateral pulmonary infiltrates consistent with pneumonia which appear increased from the prior study. Electronically signed by: William Melvin MD 03/14/2020 9:38 AM FIRE EXTINGUISHER REPAIRER INSPECTOR
[2020-03-14] MEDS ORDERED: SOD POLYSTYRENE SULFONATE 15 GM/60 ML BTTL PO ONE (10:45)
[2020-03-14] MEDS ORDERED: MAGNESIUM SULFATE PREMIX 2GM 2 GM in PREMIX BAG 1 BAG IVPB ONE (11:57)
--- NOTE | 2020-03-14 12:15 | HP ---
SUPERVISING PHYSICIAN: Renny Stockton MD CHIEF COMPLAINT: Shortness of breath, cough. HISTORY OF PRESENT ILLNESS: Mr. Alaniz is a 59-year-old male patient who has a history of congestive heart failure, chronic obstructive pulmonary disease, chronic tobacco and alcohol usage. He presented to the Emergency Room this morning complaining of shortness of breath, cough, nausea and vomiting. He denied any chest pain. He was just recently in the hospital for congestive heart failure exacerbation on 02/25/20, discharged on 02/28/20. His vital signs in the Emergency Room did show he was febrile initially with temperature of 101.1, pulse 106, blood pressure 158/76, oxygen saturation 83% on room air, respirations 22, after breathing treatment and oxygen he was showing 95% on 2 liter nasal cannula at rest. Laboratory showed his white count was 18,700 with hemoglobin 9 and hematocrit 28.8. He did receive 2 units of packed red blood cells I believe on his last admission on 02/25/20 and was discharged with a hemoglobin of 9.0, hematocrit 28.7. His platelet count is normal at 358,000, differential does show a left shift with no bands. Coagulation studies shows a D-dimer of 3420, normal PT/PTT. Chemistries on admission showed creatinine 3.17, baseline creatinine around 1.1. His last echocardiogram on review of his chart showed he had an ejection fraction of 60% with a normal systolic function. The rest of his lab showed his magnesium was low at 1.0 with abnormal troponin of 0.02. Urinalysis showed 100 protein, trace of blood, otherwise within normal limits. Radiology showed he had a CT of his chest with scattered infiltrates and ground glass opacities in both lungs consistent with pneumonia, possible Covid 19. A nasal swab today was completed prior to admission and was negative for Covid and influenza as well as all other viral and bacterial targets tested. He is now going to be admitted for treatment of bilateral pneumonia. He is admitted in stable condition. PAST MEDICAL HISTORY: 1. Hypertension. 2. Chronic obstructive pulmonary disease in a current smoker. 3. Congestive heart failure with a diastolic dysfunction on last echocardiogram on admission in February 2020 shows an ejection fraction of 60 to 65%. 4. Chronic alcohol abuse. 5. Chronic tobacco abuse. 6. Cardiovascular disease. PAST SURGICAL HISTORY: 1. Laminectomy of lumbar spine. 2. Left iliac arterial stent. OUTPATIENT MEDICATIONS: 1. Trazodone 100 mg at bedtime. 2. Aldactone 20 mg daily. 3. Pantoprazole 40 mg b.i.d. 4. Naltrexone 50 mg daily. 5. Metoprolol Succinate extended release 100 mg daily. 6. Prinivil 5 mg daily. 7. Hydroxyzine 50 mg b.i.d. as needed. 8. Neurontin 300 mg daily. 9. Folic acid 800 mcg daily. 10. Plavix 75 mg daily. 11. Citalopram 40 mg daily. 12. Vitamin B1 Complex 250 mg daily. 13. Lipitor 80 mg daily. 14. Amlodipine 10 mg daily. 15. Albuterol inhaler as needed. ALLERGIES: NO KNOWN DRUG ALLERGIES. FAMILY HISTORY: Noncontributory to current admission. SOCIAL HISTORY: He is retired and lives in [place]. He is . He has two children. He has a significant history of alcohol abuse and drank 12 years on a daily basis, in rehab for two months previously prior to this admission and supposedly has not had a drink since that time. He smokes about a pack of cigarettes daily. There is no illegal drug use. REVIEW OF SYSTEMS: GENERAL: Positive for general fatigue. Negative for fever or weight changes. HEENT: Negative for ear pain, vision changes or sore throat. RESPIRATORY: As per history of present illness. Increasing shortness of breath, cough. CARDIAC: Negative for chest pain, palpitations or syncopal episodes. GASTROINTESTINAL: Negative for diarrhea, constipation, does have some mild nausea with some associated vomiting. MUSCULOSKELETAL: Negative for arthralgias, myalgias. SKIN: Negative for lesions or rashes, moles or unexplained changes. NEUROLOGIC: Negative for headache, dizziness or seizures, ataxia, paresthesias. HEMATOLOGIC: Denies unexplained bruising, bleeding or transfusion reactions. PHYSICAL EXAMINATION: VITAL SIGNS: Initially in the Emergency Room showed he was febrile with temperature 101.1, pulse 106, blood pressure 158/76, respiratory rate 22, O2 saturation 93% on room air at rest on nasal cannula. After treatment at 2 liters was showing 95% saturation. GENERAL: The patient looks to be resting comfortably and not showing to be in any acute distress. He is a little sleepy but he just got his Ativan prior to admission. HEENT: Tympanic membranes clear bilaterally. Oropharynx is pink and moist without lesions. NECK: Supple, non-tender, full range of motion, no jugular venous distention. RESPIRATORY: Lung sounds diminished throughout with no obvious wheezing or rhonchi. HEART: Regular rate and rhythm without appreciable murmurs, rubs, or gallops. GASTROINTESTINAL: Abdomen is soft, nontender. Bowel sounds are positive. RECTAL: Exam deferred as was done in the Emergency Room by physician and noted to be normal exam and normal rectal tone. EXTREMITIES: No cyanosis, clubbing or edema. NEUROLOGIC: Cranial nerves II through XII grossly intact. There are no obvious motor or sensory deficits. He is alert, a little sleepy from Ativan. Facial features were looking to be symmetrical. Extraocular movements within normal limits. No notable nystagmus. LABORATORY: Initial white count 18,700, hemoglobin 9, hematocrit 28.8, platelet count 368,000, differential shows to be with a left shift. Coagulation studies showed a normal PT/PTT, D-dimer was elevated at 3420. Chemistries showed electrolytes to be abnormal with a potassium of 5.9, calcium normal at 8.5, potassium 5.9, troponin 0.02. Liver functions were showing to be all within normal limits. Coagulation showed elevated D-dimer at 3420. Urinalysis was essentially unremarkable with 100 of protein and trace amount of blood, otherwise no microscopic. He had an alcohol level that was less than 5.1. IMPRESSION: 1. Chronic obstructive pulmonary exacerbation with bilateral pneumonia. 2. Acute renal failure with associated hyperkalemia likely due to some prerenal azotemia from underlying dehydration with osmolality showing to be elevated at 300. 3. Sepsis secondary to #1. 4. Electrolyte imbalance to include hyperkalemia and hypomagnesemia, both acute likely due to medications including Aldactone and probably some associated nausea and vomiting and underlying dehydration. 5. Chronic congestive heart failure , diastolic etiology with last echocardiogram showing 60 to 65% ejection fraction in February 2020 with no signs of current exacerbation. 6. Hypertension. 7. Chronic alcohol and tobacco abuse. PLAN: The patient is going to be admitted for treatment of bilateral pneumonia that was negative for Covid and influenza. He also has some renal failure with elevated potassium. These initiated some treatment in the Emergency Room with Rocephin and fluids along with Kayexalate. After the bolus of saline, we will continue normal saline at 80 an hour and recheck his BNP after admission at 1800. We will adjust his treatment course as dictated by his BNP. He will be on DVT prophylaxis but will utilize heparin given his current renal function and the fact that he is elevated on the D-dimer and is right at 50 kg. In regard to the hypermagnesemia, we will go ahead and replace with IV magnesium and monitor labs. He will also be on azithromycin and Rocephin for underlying treatment of his pneumonia. Will have him on Protonix and Align. He will have aggressive pulmonary hygiene. I anticipate his length of stay to be at least 2 to 3 days. Until we can transition patient to outpatient management, we will continue to monitor and treat as needed. #[id number] [facility]
--- NOTE | 2020-03-14 13:00 | CT ---
EXAM: Chest w/o Contrast CLINICAL INDICATION: Abnormal D-dimer test COMPARISON: 02/26/2020 TECHNIQUE: The CT scan was done using contiguous axial 5 mm noncontrast sections through the chest. This exam was performed according to our departmental dose-optimization program, which includes automated exposure control, adjustment of the mA and/or kV according to patient size and/or use of iterative reconstruction technique. FINDINGS: The visualized portions of the upper abdominal structures are unremarkable. There is redemonstration of an enlarged pretracheal lymph node which measures 1.7 x 2.2 cm. No other enlarged mediastinal or hilar lymph nodes are identified. There are trace bilateral pleural effusions. Extensive infiltrates and groundglass opacities are seen in both lungs most prominent in the bilateral lower lobes. These are worse than the previous study. There is no pneumothorax. Mild diffuse emphysematous changes are noted. IMPRESSION: 1. Scattered infiltrates and groundglass opacities in both lungs consistent with pneumonia including the possibility of COVID-19. Findings are worse than the previous study. 2. Trace bilateral pleural effusions. 3. Stable mildly enlarged pretracheal lymph node. Electronically signed by: William Melvin MD 03/14/2020 12:59 PM RISK COMPLIANCE MANAGER
[2020-03-14] MEDS ORDERED: ACETAMINOPHEN 325 MG TAB PO PRN (13:47)
[2020-03-14] MEDS ORDERED: ONDANSETRON INJ 4 MG/2 ML VIAL IV PRN (13:47)
[2020-03-14] MEDS ORDERED: ALBUTEROL SULFATE 2.5 MG/3 ML VIAL NEB PRN (13:47)
[2020-03-14] MEDS ORDERED: IV SET AND CAP CHANGE INJ INJ SCH (14:00)
[2020-03-14] MEDS ORDERED: MAGNESIUM SULFATE PREMIX 2GM 50 ML IVPB ONE (14:05)
[2020-03-14] MEDS ORDERED: SODIUM CHLORIDE 0.9% 1000ML 1,000 ML ONE (14:05)
[2020-03-14] MEDS: SODIUM CHLORIDE 0.9% 1000ML 1,000 ML IVS PRN (14:35)
[2020-03-14] MEDS: IPRATROPIUM/ALBUTEROL 3 ML VIAL INH SCH ×2 (18:07→20:40)
[2020-03-14] MEDS: HEPARIN SODIUM (PORCINE) 5,000 U/ML VIAL SUBCU SCH (20:52)
[2020-03-15] MEDS ORDERED: SODIUM CHLORIDE 0.9% 1000ML 1,000 ML ONE ×2 (03:17→19:34)
[2020-03-15] MEDS: SODIUM CHLORIDE 0.9% 1000ML 1,000 ML IVS PRN ×2 (03:18→17:28)
[2020-03-15] MEDS ORDERED: PANTOPRAZOLE SODIUM IV 40 MG VIAL IV SCH (06:30)
[2020-03-15] MEDS ORDERED: amLODIPine BESYLATE 5 MG TAB ONE (07:45)
[2020-03-15] MEDS ORDERED: CITALOPRAM HBR 20 MG TAB ONE (07:46)
[2020-03-15] MEDS ORDERED: AZITHROMYCIN IV 500 MG VIAL IVPB ONE (07:46)
[2020-03-15] MEDS ORDERED: FOLIC ACID 1 MG TAB ONE (07:46)
[2020-03-15] MEDS ORDERED: SODIUM CHLORIDE 0.9% 250ML 0 ML ONE (07:47)
[2020-03-15] MEDS ORDERED: cefTRIAXone SODIUM 1 GM VIAL ONE (07:47)
[2020-03-15] MEDS ORDERED: SODIUM CHL 0.9% 50ML MIN-BAG+ 50 ML IVPB ONE (07:47)
[2020-03-15] MEDS: GABAPENTIN 300 MG CAP PO SCH (08:36)
[2020-03-15] MEDS: LISINOPRIL 5 MG TAB PO SCH (08:37)
[2020-03-15] MEDS: BIFIDOBACTERIUM INFANTIS 4 MG CAP PO SCH (08:37)
[2020-03-15] MEDS: NON-FORMULARY MEDICATION 1 EA MIS (Amlodipine Besylate [Norvasc] 10 MG) PO SCH (08:37)
[2020-03-15] MEDS: NON-FORMULARY MEDICATION 1 EA MIS (Citalopram Hydrobromide [Citalopram] 40 MG) PO SCH (08:37)
[2020-03-15] MEDS: PANTOPRAZOLE SODIUM TAB 40 MG PO SCH ×2 (08:38→20:28)
[2020-03-15] MEDS: HEPARIN SODIUM (PORCINE) 5,000 U/ML VIAL SUBCU SCH ×2 (08:38→20:30)
[2020-03-15] MEDS: FOLIC ACID 800 MCG PO SCH (08:38)
[2020-03-15] MEDS: METOPROLOL SUCCINATE XL 100 MG TAB PO SCH (08:38)
[2020-03-15] MEDS: cefTRIAXone SODIUM 1 GM in SODIUM CHL 0.9% 50ML MIN-BAG+ 50 ML IVPB SCH (08:39)
[2020-03-15] MEDS: NALTREXONE HCL 50 MG PO SCH (08:39)
[2020-03-15] MEDS: AZITHROMYCIN 250 MG TAB PO SCH (08:42)
[2020-03-15] MEDS ORDERED: IPRATROPIUM/ALBUTEROL 3 ML VIAL NEB ONE ×2 (08:56→12:01)
[2020-03-15] MEDS: IPRATROPIUM/ALBUTEROL 3 ML VIAL INH SCH ×4 (08:56→20:33)
--- NOTE | 2020-03-15 09:58 | RAD ---
PROCEDURE:XR CHEST 2 VIEWS HISTORY:Pneumonia COMPARISON: March 14, 2020 FINDINGS: The heart appears unremarkable. There are stable patchy infiltrates. There are no new infiltrates. There is no evidence for effusion or pneumothorax. There are no acute bony or soft tissue abnormalities. IMPRESSION: Stable chest x-ray. Electronically signed by: Michael Cabrera MD 03/15/2020 9:56 AM TYPEWRITER MECHANIC
[2020-03-15] MEDS ORDERED: MAGNESIUM SULFATE PREMIX 2GM 2 GM in PREMIX BAG 1 BAG IVPB ONE (10:49)
[2020-03-15] MEDS ORDERED: MAGNESIUM SULFATE PREMIX 2GM 50 ML IVPB ONE (11:35)
--- NOTE | 2020-03-15 16:06 | PN ---
SUPERVISING PHYSICIAN: Renny Stockton MD DATE: 03/15/20 SUBJECTIVE: The patient is much more alert this morning. He does note that he fell yesterday at some point in his house but fell on the carpet. He has no complaints other than he is retroflexed and can be flared up. Notes that his shortness of breath is much less than prior to admission. OBJECTIVE: VITAL SIGNS: Temperature 93, pulse 81, blood pressure 176/81, respirations 18, oxygen saturation 99% on 2.5 liter nasal cannula. GENERAL: Patient looks to be resting comfortably and in no acute distress CHEST: Lung sounds were fairly clear, just a little diminished towards the bases. HEART: Regular rate and rhythm. ABDOMEN: Soft, non-tender, positive bowel sounds. EXTREMITIES: Without edema. NEUROLOGIC: He is alert and oriented x3. LABORATORY: White count down to 15,200, hemoglobin 8.5, hematocrit 26.9. RBC indices indicate a microcytic hyperchromic presentation with platelet count 263,000. Differential does show a left shift. Chemistries show normal electrolytes. Creatinine is now down to 2.58 compared to admission of 3.17, calcium 8.1, magnesium remains low at 1.2 but that has improved from 1.0. MICROBIOLOGY: Blood cultures remain negative at 24 hours. RADIOLOGY: Repeat chest x-ray this morning per radiology interpretation shows stable chest with patch infiltrates. No new infiltrates, no evidence of effusion or pneumothorax. No acute bony or soft tissue abnormalities. ASSESSMENT: 1. Chronic obstructive pulmonary exacerbation with bilateral pneumonia. 2. Acute on chronic renal failure with hyperkalemia now improving with fluids, felt to be likely due to some prerenal azotemia and dehydration. 3. Sepsis secondary to #1 showing some improvement with treatment. 4. Electrolyte imbalance with hypokalemia that is resolved, probably due to dehydration exacerbated by his Spironolactone. 5. Hypomagnesemia improving with parenteral replacement. 6. Chronic congestive heart failure , diastolic etiology with last echocardiogram showing 60 to 65% ejection fraction in February 2020 with no signs of current exacerbation. 7. Hypertension. 8. Chronic alcohol and tobacco abuse. PLAN: I will continue current treatment for bilateral pneumonia and acute renal failure. He remains on IV fluids. Will follow his BNP and monitor his clinical condition closely. He does remain on antibiotic coverage with Rocephin, azithromycin as well as Duoneb treatments. He seems to be doing well without any additional steroid coverage at this point. I resumed his home medications. He is on Heparin for his DVT prophylaxis due to his being less than 50 kg and renal function. We will continue to monitor that and change him to Lovenox as his renal function improves. Hopefully, we will be able to discharge him in the next 24-48 hours, I am anticipating probably more like 48 hours given that this is his second admission within the last 30 days. I anticipate being able to transition hopefully to oral medications at that point. Until then, we will continue to monitor and treat as needed. #[id number] MTDD
[2020-03-15] MEDS ORDERED: SODIUM CHLORIDE 0.9% 1000ML 0 ML ONE (17:26)
[2020-03-15] MEDS ORDERED: HEPARIN SODIUM (PORCINE) 5,000 U/ML VIAL ONE (19:33)
[2020-03-15] MEDS ORDERED: ATORVASTATIN 20 MG TAB PO ONE (19:34)
[2020-03-15] MEDS: traZODone HCL 100 MG TAB PO SCH (20:28)
[2020-03-15] MEDS ORDERED: NON-FORMULARY MEDICATION 1 EA MIS (Atorvastatin Calcium [Lipitor] 80 MG) PO SCH (21:00)
[2020-03-15] MEDS: BENZONATATE PERLES 100 MG CAP PO SCH (21:26)
[2020-03-16] MEDS ORDERED: IPRATROPIUM/ALBUTEROL 3 ML VIAL NEB ONE (07:27)
[2020-03-16] MEDS: IPRATROPIUM/ALBUTEROL 3 ML VIAL INH SCH ×4 (08:51→20:33)
[2020-03-16] MEDS: HEPARIN SODIUM (PORCINE) 5,000 U/ML VIAL SUBCU SCH ×2 (09:39→21:15)
[2020-03-16] MEDS: METOPROLOL SUCCINATE XL 100 MG TAB PO SCH (09:39)
[2020-03-16] MEDS: amLODIPine BESYLATE 5 MG TAB PO SCH (09:39)
[2020-03-16] MEDS: LISINOPRIL 5 MG TAB PO SCH (09:40)
[2020-03-16] MEDS: NALTREXONE HCL 50 MG PO SCH (09:40)
[2020-03-16] MEDS: BENZONATATE PERLES 100 MG CAP PO SCH ×3 (09:40→21:15)
[2020-03-16] MEDS: AZITHROMYCIN 250 MG TAB PO SCH (09:40)
[2020-03-16] MEDS: cefTRIAXone SODIUM 1 GM in SODIUM CHL 0.9% 50ML MIN-BAG+ 50 ML IVPB SCH (09:40)
[2020-03-16] MEDS: BIFIDOBACTERIUM INFANTIS 4 MG CAP PO SCH (09:40)
[2020-03-16] MEDS: GABAPENTIN 300 MG CAP PO SCH (09:40)
[2020-03-16] MEDS: CITALOPRAM HBR 20 MG TAB PO SCH (09:40)
[2020-03-16] MEDS: PANTOPRAZOLE SODIUM TAB 40 MG PO SCH ×3 (09:47→16:37)
[2020-03-16] MEDS: CLOPIDOGREL 75 MG TAB PO SCH (09:47)
[2020-03-16] MEDS: FOLIC ACID 1 MG TAB PO SCH (09:48)
[2020-03-16] MEDS: NON-FORMULARY MEDICATION 1 EA MIS (Citalopram Hydrobromide [Citalopram] 40 MG) PO SCH (13:47)
[2020-03-16] MEDS: NON-FORMULARY MEDICATION 1 EA MIS (Amlodipine Besylate [Norvasc] 10 MG) PO SCH (13:47)
[2020-03-16] MEDS: FOLIC ACID 800 MCG PO SCH (13:48)
--- NOTE | 2020-03-16 15:39 | PN ---
SUPERVISING PHYSICIAN: Edu Pierce MD DATE: 03/16/20 SUBJECTIVE: The patient has not had any major complaints overnight. He does note that he is still quite weak in his lower extremities. He has not had any nausea or vomiting. I did discuss with him that his blood dropped significantly since admission, which is where he was last time, but we will hold off on transfusion at this point until we can recheck his H&H this afternoon. OBJECTIVE: VITAL SIGNS: Stable. Temperature 98.1, pulse 70, blood pressure 146/63, saturation 94% on room air. GENERAL: Patient looks to be resting comfortably and in no acute distress CHEST: Lung sounds were fairly clear, just a little diminished towards the bases. HEART: Regular rate and rhythm. ABDOMEN: Soft, nontender, positive bowel sounds. EXTREMITIES: Without edema. NEUROLOGIC: He is alert and oriented x3. LABORATORY: White count 8,400 today. Hemoglobin 7.6, hematocrit 23.4, platelet count 223,000. Differential is without a left shift. Chemistries show normal electrolytes. Creatinine is down to 2.27, calcium 8, magnesium 1.8. MICROBIOLOGY: Blood cultures remain negative at 48 hours. Urine culture shows no growth at 48 hours. RADIOLOGY: No additional radiographic studies today. ASSESSMENT: 1. Chronic obstructive pulmonary exacerbation with bilateral pneumonia. 2. Acute on chronic renal failure with hyperkalemia now improving with fluids, felt to be likely due to some prerenal azotemia and dehydration. 3. Sepsis secondary to #1 showing some improvement with treatment. 4. Electrolyte imbalance with hypokalemia that is resolved, probably due to dehydration exacerbated by his spironolactone. 5. Microcytic/hyperchromic anemia, likely of chronic illness including acute renal failure, not requiring transfusion currently. We will continue to monitor for stability. 6. Hypomagnesemia improving with parenteral replacement. 7. Chronic congestive heart failure, diastolic etiology with last echocardiogram showing 60 to 65% ejection fraction in February 2020with no signs of current exacerbation. 8. Hypertension. 9. Chronic alcohol and tobacco abuse. PLAN: We will continue with treatment for the underlying pneumonia with Rocephin, azithromycin and DuoNeb treatments. I did saline lock him last night and encouraged fluids stable. We will repeat a BNP at 1700 as well as recheck of his H&H. I did talk to Dr. Stoll in regards to transfusion. We will see if he remains stable and then make a decision based on the next repeat H&H whether or not he will get transfusion of packed red blood cells. He remains on heparin due to his renal function for DVT prophylaxis and the fact that he is still taking less than 50 kg in weight. We will continue to monitor and treat and hopefully be able to discharge within the next 24 to 48 hours. Until then, we will continue to treat as necessary. #[id number] MTDD
[2020-03-16] MEDS ORDERED: ATORVASTATIN 20 MG TAB PO SCH (21:00)
[2020-03-16] MEDS: traZODone HCL 100 MG TAB PO SCH (21:15)
[2020-03-17] MEDS: PANTOPRAZOLE SODIUM TAB 40 MG PO SCH (06:16)
[2020-03-17] MEDS: amLODIPine BESYLATE 5 MG TAB PO SCH (08:12)
[2020-03-17] MEDS: HEPARIN SODIUM (PORCINE) 5,000 U/ML VIAL SUBCU SCH (08:13)
[2020-03-17] MEDS: METOPROLOL SUCCINATE XL 100 MG TAB PO SCH (08:13)
[2020-03-17] MEDS: BIFIDOBACTERIUM INFANTIS 4 MG CAP PO SCH (08:13)
[2020-03-17] MEDS: CITALOPRAM HBR 20 MG TAB PO SCH (08:13)
[2020-03-17] MEDS: GABAPENTIN 300 MG CAP PO SCH (08:13)
[2020-03-17] MEDS: FOLIC ACID 1 MG TAB PO SCH (08:13)
[2020-03-17] MEDS: BENZONATATE PERLES 100 MG CAP PO SCH (08:13)
[2020-03-17] MEDS: AZITHROMYCIN 250 MG TAB PO SCH (08:13)
[2020-03-17] MEDS: CLOPIDOGREL 75 MG TAB PO SCH (08:13)
[2020-03-17] MEDS: cefTRIAXone SODIUM 1 GM in SODIUM CHL 0.9% 50ML MIN-BAG+ 50 ML IVPB SCH (08:13)
[2020-03-17] MEDS: LISINOPRIL 5 MG TAB PO SCH (08:13)
[2020-03-17] MEDS: NALTREXONE HCL 50 MG PO SCH (08:14)
[2020-03-17] MEDS: IPRATROPIUM/ALBUTEROL 3 ML VIAL INH SCH (08:24)
[2020-03-17 09:07] VITALS: BP 128/60; TEMP 98.4; O2SAT 96
[2020-03-17] MEDS ORDERED: levoFLOXacin 500 MG TAB PO ONE (09:12)
--- NOTE | 2020-03-19 13:45 | DS ---
SUPERVISING PHYSICIAN: Edu Pierce MD ADMISSION DIAGNOSIS: 1. Chronic obstructive pulmonary exacerbation with bilateral pneumonia. 2. Acute renal failure with associated hyperkalemia likely due to some prerenal azotemia from underlying dehydration with osmolality showing to be elevated at 300. 3. Sepsis secondary to #1. 4. Electrolyte imbalance to include hyperkalemia and hypomagnesemia, both acute likely due to medications including Aldactone and probably some associated nausea and vomiting and underlying dehydration. 5. Chronic congestive heart failure , diastolic etiology with last echocardiogram showing 60 to 65% ejection fraction in February 2020 with no signs of current exacerbation. 6. Hypertension. 7. Chronic alcohol and tobacco abuse. DISCHARGE DIAGNOSIS: 1. Chronic obstructive pulmonary exacerbation with bilateral pneumonia. 2. Acute on chronic renal failure with hyperkalemia now improving with fluids, felt to be likely due to some prerenal azotemia and dehydration. 3. Sepsis secondary to #1 showing some improvement with treatment. 4. Electrolyte imbalance with hypokalemia that is resolved, probably due to dehydration exacerbated by his spironolactone. 5. Microcytic/hyperchromic anemia, likely of chronic illness including acute renal failure, not requiring transfusion currently. We will continue to monitor for stability. 6. Hypomagnesemia improving with parenteral replacement. 7. Chronic congestive heart failure, diastolic etiology with last echocardiogram showing 60 to 65% ejection fraction in February 2020with no signs of current exacerbation. 8. Hypertension. 9. Chronic alcohol and tobacco abuse. REASON FOR HOSPITALIZATION: Mr. Alaniz is a 59-year-old male patient who has a history of congestive heart failure, chronic obstructive pulmonary disease, chronic tobacco and alcohol usage. He presented to the Emergency Room this morning complaining of shortness of breath, cough, nausea and vomiting. He denied any chest pain. He was just recently in the hospital for congestive heart failure exacerbation on 02/25/20, discharged on 02/28/20. His vital signs in the Emergency Room did show he was febrile initially with temperature of 101.1, pulse 106, blood pressure 158/76, oxygen saturation 83% on room air, respirations 22, after breathing treatment and oxygen he was showing 95% on 2 liter nasal cannula at rest. Laboratory showed his white count was 18,700 with hemoglobin 9 and hematocrit 28.8. He did receive 2 units of packed red blood cells I believe on his last admission on 12/08/20 and was discharged with a hemoglobin of 9.0, hematocrit 28.7. His platelet count is normal at 358,000, differential does show a left shift with no bands. Coagulation studies shows a D-dimer of 3420, normal PT/PTT. Chemistries on admission showed creatinine 3.17, baseline creatinine around 1.1. His last echocardiogram on review of his chart showed he had an ejection fraction of 60% with a normal systolic function. The rest of his lab showed his magnesium was low at 1.0 with abnormal troponin of 0.02. Urinalysis showed 100 protein, trace of blood, otherwise within normal limits. Radiology showed he had a CT of his chest with scattered infiltrates and ground glass opacities in both lungs consistent with pneumonia, possible COVID 19. A nasal swab today was completed prior to admission and was negative for COVID and influenza as well as all other viral and bacterial targets tested. He is now going to be admitted for treatment of bilateral pneumonia. He is admitted in stable condition. LABORATORY: On discharge, hemoglobin was stable at 7.9, hematocrit 24.5. White count was down to 8,400, platelet count 223,000. Differential without a left shift. RBC indices indicated microcytic/hypochromic presentation. Coagulation studies showed D-dimer 3420, PT 9.6, PTT 27.0. Chemistries showed discharge creatinine down to 2.24 and stable. Liver functions within normal limits. Calcium 8.2. Magnesium normal at 1.8. Electrolytes were within normal limits. Potassium 4.5. MICROBIOLOGY: Urine cultures showed no growth at 48 hours. Blood cultures remain negative after 5 days. Respiratory panel was negative for COVID, influenza and all other bacterial and viral targets as tested. RADIOLOGY: Final chest x-ray prior to discharge showed stable patchy infiltrates, no evidence of effusions or pneumothorax. 12-lead EKG showed normal sinus rhythm without any ST or T wave changes to indicate acute ischemia. HOSPITAL COURSE: Mr. Alaniz was admitted for treatment of acute on chronic renal failure with some dehydration and underlying pneumonia. Diuretics were held and he was given fluids. His creatinine did show improvement and still shows elevation, but stable. He did drop his H&H, but stable at 7.9 with no evidence of acute loss. I did discuss the case with Dr. Stoll and he agreed that the patient was stable enough to continue with outpatient management to follow his H&H as well as his renal function. He was to continue with antibiotics for treatment of underlying pneumonia. I discuss with the patient that we will change his diuretics from spironolactone to low dose Lasix with some potassium replacement at discharge. On discharge, vital signs showed temperature 98.4, pulse 90, blood pressure 120/60, respirations 18, saturation 96% on room air. PLAN: Mr. Alaniz was discharged on 03/17/20. He is to call Dr. Stoll's office to followup within 7 days or sooner as needed. He will need followup with renal in regards to his kidney function as well as probably hematology in regards to the low H&H and his microcytic anemia which is more likely related to his chronic drinking and kidney function. He did report that he has had a weight loss in the last month. He is not sure, but this does need to be followed and addressed at discharge. No acute findings were noted on chest exam, but given his past history, he certainly needs to be followed closely. He was to increase his calorie count to prevent weight loss and to encourage fluids to prevent dehydration and take his medications as directed. He is to call Dr. Stoll's office if he has any questions or any concerning symptoms and return to the Emergency Room for examination and reevaluation. Medications prescribed on discharge include: 1. Align 4 mg daily, #30, no refills. 2. DuoNeb inhaler treatments 4 times daily as needed. 3. Potassium chloride 10 mEq daily, #30, no refills. 4. Lasix 20 mg daily, #30, no refills. 5. Levaquin 250 mg daily for 7 days. 6. Tessalon Perles 100 mg 3 times a day as needed, #50, no refills. He needs to stop his spironolactone and needs to be readdressed again at followup. CONDITION ON DISCHARGE: Stable and improving. DISPOSITION: The patient was discharged home. #[id number] MTDD
== END 2020-03-17 11:27 | disposition home or self-care (01) | DRG 871 ==
LOC: ER 08:59 → UNDOADMOB 11:54 → MS 11:54 → OBSVTOIN 12:12
PROVIDERS: ADMIT Nurse Practitioner Family; ATTEND Nurse Practitioner Family
DX: A41.9 Sepsis, unspecified organism (principal); J18.9 Pneumonia, unspecified organism; J96.91 Respiratory failure, unspecified with hypoxia; J44.1 Chronic obstructive pulmonary disease with (acute) exacerbation; N17.9 Acute kidney failure, unspecified; I50.32 Chronic diastolic (congestive) heart failure; I13.0 Hypertensive heart and chronic kidney disease with heart failure and stage 1 through stage 4 chronic kidney disease, or unspecified chronic kidney disease; J44.0 Chronic obstructive pulmonary disease with (acute) lower respiratory infection; E87.5 Hyperkalemia; E86.0 Dehydration; D63.8 Anemia in other chronic diseases classified elsewhere; E83.42 Hypomagnesemia; N18.9 Chronic kidney disease, unspecified; F10.10 Alcohol abuse, uncomplicated; F17.210 Nicotine dependence, cigarettes, uncomplicated; Z95.820 Peripheral vascular angioplasty status with implants and grafts; Z79.02 Long term (current) use of antithrombotics/antiplatelets; Z79.899 Other long term (current) drug therapy

== ENCOUNTER 2020-04-02 14:22 | Inpatient (IN) | payer SELFPAY ==
[2020-04-02] MEDS ORDERED: ONDANSETRON INJ 4 MG/2 ML VIAL IV ONE (15:18)
[2020-04-02] MEDS ORDERED: SODIUM CHLORIDE 0.9% (FLUSH) 10 ML SYG IV PRN ×2 (15:18→20:42)
[2020-04-02] MEDS ORDERED: CALCIUM GLUCONATE INJ 1 GM in SODIUM CHLORIDE 0.9% 50ML 50 ML IVPB ONE (16:11)
[2020-04-02] MEDS ORDERED: INSULIN, REG.(HUMAN) 100 U/ML VIAL IVPB ONE (16:13)
[2020-04-02] MEDS ORDERED: DEXTROSE 50% 25 GM/50 ML SYG IV ONE (16:14)
--- NOTE | 2020-04-02 16:27 | CT ---
EXAM: Abdoment/Pelvis w/o Contrast INDICATION: flank pain . COMPARISON: CT abdomen pelvis with contrast 02/26/2020, CT chest without contrast 03/14/2020 TECHNIQUE: CT of the abdomen and pelvis was performed without IV contrast. Multiple axial images and multiplanar reconstructions were generated. This exam was performed according to our departmental dose-optimization program, which includes automated exposure control, adjustment of the mA and/or kV according to patient size and/or use of iterative reconstruction technique. FINDINGS: Visualized chest: Changes of pulmonary fibrosis visualized in the lung bases. Patchy infiltrates scattered primarily in the visualized right middle lobe and in the right lower lobe, significantly improved when compared to the prior chest CT of 03/14/2020. Pleural effusions seen on the prior CT have resolved. Cardiomegaly. Liver: Unremarkable appearance of the liver. Gallbladder: Distended gallbladder. Pancreas: Sequela of chronic pancreatitis, as seen on the prior CT of 02/26/2020, including diffuse dilatation of the main pancreatic duct, stable at approximately 9 mm when compared to the prior examination. Pancreatic parenchymal calcifications. Spleen: Unremarkable appearance of the spleen. Adrenal glands: Unremarkable appearance of the adrenal glands. Kidneys, ureters, bladder: Multiple calcifications at the renal rolo bilaterally, most of which likely represent vascular calcifications. 8 mm low-density lesion in the lower pole of the right kidney, most likely a cyst (axial series 2 image 56). No hydronephrosis. No obstructing renal stones are identified. Unremarkable appearance of the visualized portions of the ureters. Note is made that evaluation of the portions of the ureters is obscured by multiple areas of streak artifact. Unremarkable appearance of the urinary bladder. Stomach and bowel: Unremarkable appearance of the stomach. Multiple fluid-filled loops of small bowel in the pelvis are prominent, but not frankly dilated. Scattered colonic diverticulosis without evidence for acute diverticulitis. The appendix is identified and appears normal. Prostate: Unremarkable appearance of the prostate gland. Peritoneum: No free fluid. No pneumoperitoneum. Lymph nodes: No lymphadenopathy. Vasculature: Severe atherosclerosis. A left common iliac stent is noted. Infrarenal abdominal aortic aneurysm measuring up to approximately 3 cm in greatest diameter (axial series 2 image 58). Bones: Osteopenia. No acute fracture is identified. Remote appearing bilateral rib fractures. Remote right superior and inferior pubic ramus fractures. Postoperative changes at the lumbosacral junction. No destructive osseous lesion. Degenerative changes in the spine and hips. Body wall: Unremarkable appearance of the body wall and remainder of the visualized soft tissues. IMPRESSION: 1. Multiple mildly prominent loops of fluid-filled small bowel are noted in the pelvis, none of which are frankly dilated. This could represent mild enteritis or localized ileus. No transition point is identified and there is no convincing evidence for high-grade mechanical bowel obstruction at this time. 2. Multiple calcifications at the renal rolo bilaterally, favored to represent vascular calcifications. Some of these could possibly represent nonobstructing renal stones. No obstructing renal or ureteral stones are identified. 3. Probable right renal cyst. 4. Distended gallbladder. If there are symptoms localized to the right upper quadrant, further evaluation can be performed with ultrasound. 5. Sequela of chronic pancreatitis with stable dilatation of the main pancreatic duct measuring up to 9 mm. 6. When compared to the prior chest CT of 03/14/2020, there has been interval resolution of pleural effusions and improvement in bilateral patchy pulmonary infiltrates. Evidence of pulmonary fibrosis is noted. 7. Infrarenal abdominal aortic aneurysm measuring up to approximately 3 cm, stable from the prior CT of 03/14/2020. Recommend follow-up every 3 years. (J Am Jazmin Radiol 2013;10 (10):789-794.) 8. Additional findings as described above. Electronically signed by: Helen Gil MD 04/02/2020 4:26 PM [employer] [employer]
[2020-04-02] MEDS ORDERED: AZITHROMYCIN 250 MG TAB PO ONE (16:42)
[2020-04-02] MEDS ORDERED: cefTRIAXone SODIUM 1 GM in SODIUM CHL 0.9% 50ML MIN-BAG+ 50 ML IVPB ONE (16:42)
[2020-04-02] MEDS ORDERED: DEXAMETHASONE INJ 10 MG/ML VIAL IV ONE (16:43)
--- NOTE | 2020-04-02 16:46 | RAD ---
EXAM DESCRIPTION: Chest,1 View CLINICAL HISTORY: Hypoxia COMPARISON: Chest radiograph dated March 15, 2020 TECHNIQUE: One view radiograph of the chest FINDINGS: Cardiac silhouette shows normal heart size. Pulmonary vascularity is within normal limits. Alveolar opacities in the right mid lung is increased compared to March 15, 2020. Alveolar opacities in the right lower lung zone is improved compared to March 15, 2020. No significant confluent infiltrates in the left lung. Mildly blunted right costophrenic angle compatible with trace right pleural effusion. There is no pneumothorax. Redemonstrated right rib fracture deformities. IMPRESSION: Redemonstrated right pulmonary infiltrates/pneumonia, worse in right mid lung and moderately improved right lower lung zone compared to March 15, 2020. Electronically signed by: Felipe Shannon MD 04/02/2020 4:45 PM [facility]
[2020-04-02] MEDS ORDERED: FUROSEMIDE INJ 20 MG/2 ML VIAL IV ONE (17:13)
--- NOTE | 2020-04-02 18:31 | ED.PDOC ---
History of Present Illness - General Chief Complaint: General Stated Complaint: Weakness Time Seen by Provider: 04/02/20 15:18 Source: patient Exam Limitations: no limitations Additional Information: The patient is a 59-year-old male that presents emergency department complaint of body aches weakness shortness of breath and coughing. States that he had a Covid vaccine 3 days ago . states that he started having symptoms three days ater - History of Present Illness Timing/Duration: other - 3 days Severity: moderate Improving Factors: nothing Worsening Factors: nothing Associated Symptoms: cough, shortness of breath, weakness Allergies/Adverse Reactions: Allergies NO KNOWN ALLERGY Allergy (Verified 04/02/20 17:57) Home Medications: Ambulatory Orders Albuterol Inhaler [Ventolin Hfa Inhaler] 1 puff INH PRN PRN 02/28/20 Amlodipine Besylate [Norvasc] 10 mg PO DAILY 02/28/20 Atorvastatin Calcium [Lipitor] 80 mg PO BEDTIME 02/28/20 B-1 250 mg PO DAILY 02/28/20 Citalopram Hydrobromide [Citalopram] 40 mg PO DAILY 02/28/20 Clopidogrel Bisulfate [Plavix] 75 mg PO QD 02/28/20 Folic Acid 800 mcg PO DAILY 02/28/20 Gabapentin [Neurontin] 300 mg PO DAILY 02/28/20 Hydroxyzine HCl [Hydroxyzine Hydrochloride] 50 mg PO BID PRN 02/28/20 Lisinopril [Prinivil] 5 mg PO DAILY #30 tab 02/28/20 Metoprolol Succinate [Metoprolol Succinate ER] 100 mg PO DAILY 02/28/20 Naltrexone HCl [Naltrexone Hydrochloride] 50 mg PO DAILY 02/28/20 Pantoprazole Sodium 40 mg PO BID 02/28/20 Trazodone HCl [Trazodone Hydrochloride] 100 mg PO BEDTIME 02/28/20 Benzonatate Perles [Tessalon Perles] 100 mg PO TID PRN #15 cap 03/17/20 Bifidobacterium Infantis [Align] 4 mg PO DAILY cap 03/17/20 Furosemide [Lasix] 20 mg PO DAILY #30 tab 03/17/20 Ipratropium/Albuterol [Duoneb] 3 ml INH RTQID vial 03/17/20 Levofloxacin [Levaquin] 250 mg PO DAILY #7 tab 03/17/20 Potassium Chloride [K-Tab] 10 meq PO DAILY #30 tab 03/17/20 Review of Systems - Review of Systems Constitutional: Denies: chills, fever EENTM: States: nose congestion. Denies: tearing, nose pain Respiratory: States: cough, short of breath. Denies: orthopnea, stridor Cardiology: Denies: chest pain, palpitations, syncope Gastrointestinal/Abdominal: Denies: abdominal pain, diarrhea, nausea Genitourinary: Denies: discharge, frequency, hematuria Musculoskeletal: Denies: back pain, gout, joint swelling, muscle pain, muscle stiffness Neurological: Denies: anxiety, depressed Endocrine: Denies: excessive sweating, flushing Hematologic/Lymphatic: Denies: anemia, easy bleeding Past Medical History (General) - Patient Medical History Hx Seizures: No Hx Stroke: No Hx Dementia: No Hx Asthma: No Hx of COPD: Yes Hx Cardiac Disorders: Yes - [place] Hx Congestive Heart Failure: Yes Hx Pacemaker: No Hx Hypertension: Yes Hx Thyroid Disease: No Hx Diabetes: No Hx Gastroesophageal Reflux: No Hx Renal Disease: No Hx Cancer: No Hx of HIV: No Hx Hepatitis C: No Hx MRSA: No Surgical History: other - Vaccination History Hx Tetanus, Diphtheria Vaccination: Yes Hx Influenza Vaccination: Yes Hx Pneumococcal Vaccination: No - Social History Hx Tobacco Use: Yes - Pack a day Hx Chewing Tobacco Use: No Hx Alcohol Use: Yes Hx Substance Use: No Hx Substance Use Treatment: No Hx Depression: No Feels Threatened In Home Enviroment: No Feels Threatened In a Relationship: No Hx Physical Abuse: No Hx Emotional Abuse: No Hx Suspected Abuse: No - Female History Patient is a Female of Child Bearing Age (10 -59 yrs old): No Patient : No - Triage Comment ED Triage Comment: The patient walked from the ER waiting room into ER room 4. He was alert and oriented times 4 and complained of general weakness and pain to his left side and his neck. He denied nausea, vomiting, diarrhea and headache. He denied chest pain and shortness of breath and his neck pain was rated a 6 on the pain scale with no radiation of pain. His left side pain was noted at a 6 on the pain scale and not made worse by taking a deep breath and he denied cough. Family Medical History - Family History Father Family History: Unknown Living Status: Cause of : aneurysm Physical Exam - Physical Exam General Appearance: Alert, Comfortable Eye Exam: bilateral normal Ears, Nose, Throat: hearing grossly normal, normal ENT inspection, normal pharynx Neck: non-tender, full range of motion, supple, normal inspection Respiratory: chest non-tender, lungs clear, normal breath sounds, no respiratory distress, no accessory muscle use, decreased breath sounds Cardiovascular/Chest: normal peripheral pulses, regular rate, rhythm, no edema, no gallop Peripheral Pulses: radial,right: 2+, radial,left: 2+ Gastrointestinal/Abdominal: normal bowel sounds, non tender, soft Back Exam: normal inspection, no CVA tenderness, no vertebral tenderness Extremity: normal range of motion, non-tender, normal inspection 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 He states that he is suppose to be wearing oxygen At home but does not wear it. Chest x-ray shows pneumonia worsened in the right upper lobe compared to chest x-ray obtained during prior admission. Covid Antigen test is negative. Started the patient on Rocephin and azithromycin and dexamethasone.. Patient has an Elevated BNP of 1940. Lasix administered. 04/02/20 18:36 Patient has a potassium of 6.5 , Creatinine is elevated at 3.1 the patient's baseline creatinine seems to run in the 2.3-2.5. nO EKG CHANGES , Treated patient with calcium gluconate, insulin and dextrose. Did not give the patient Kayexalate due to the risk of intestinal necrosis. There were no potassium binding salts in the computer 04/02/20 18:38 Patient states that he is feeling better with the patient. 04/02/20 18:43 - EKG/XRAY/CT EKG: Emma, Sinus Comments: sinus emma , Heart rate of 59 normal PA QRS intervals no ST segment elevat XRAY: chest - EXAM DESCRIPTION: Chest,1 View CLINICAL HISTORY: Hypoxia COMPARISON: Chest radiograph dated March 15, 2020 TECHNIQUE: One view radiograph of the chest FINDINGS: Cardiac silhouette shows normal heart size. Pulmonary vascularity is within normal limits. Alveolar opacities in the right mid lung CT Ordered: Yes Departure - Departure Clinical Impression: Renal failure (ARF), acute on chronic, Hyperkalemia, Pneumonia, CHF (congestive heart failure), Acute exacerbation of COPD with asthma, Respiratory failure with hypoxia Disposition: Discharge to Home or Self Care Departure Forms: ED Discharge - Pt. Copy, Patient Portal Self Enrollment Referrals: Serge Stoll MD [Primary Care Provider] - 1-2 Weeks Home Medications: Ambulatory Orders Albuterol Inhaler [Ventolin Hfa Inhaler] 1 puff INH PRN PRN 02/28/20 Amlodipine Besylate [Norvasc] 10 mg PO DAILY 02/28/20 Atorvastatin Calcium [Lipitor] 80 mg PO BEDTIME 02/28/20 B-1 250 mg PO DAILY 02/28/20 Citalopram Hydrobromide [Citalopram] 40 mg PO DAILY 02/28/20 Clopidogrel Bisulfate [Plavix] 75 mg PO QD 02/28/20 Folic Acid 800 mcg PO DAILY 02/28/20 Gabapentin [Neurontin] 300 mg PO DAILY 02/28/20 Hydroxyzine HCl [Hydroxyzine Hydrochloride] 50 mg PO BID PRN 02/28/20 Lisinopril [Prinivil] 5 mg PO DAILY #30 tab 02/28/20 Metoprolol Succinate [Metoprolol Succinate ER] 100 mg PO DAILY 02/28/20 Naltrexone HCl [Naltrexone Hydrochloride] 50 mg PO DAILY 02/28/20 Pantoprazole Sodium 40 mg PO BID 02/28/20 Trazodone HCl [Trazodone Hydrochloride] 100 mg PO BEDTIME 02/28/20 Benzonatate Perles [Tessalon Perles] 100 mg PO TID PRN #15 cap 03/17/20 Bifidobacterium Infantis [Align] 4 mg PO DAILY cap 03/17/20 Furosemide [Lasix] 20 mg PO DAILY #30 tab 03/17/20 Ipratropium/Albuterol [Duoneb] 3 ml INH RTQID vial 03/17/20 Levofloxacin [Levaquin] 250 mg PO DAILY #7 tab 03/17/20 Potassium Chloride [K-Tab] 10 meq PO DAILY #30 tab 03/17/20
[2020-04-02] MEDS ORDERED: INSULIN, REG.(HUMAN) 100 U/ML VIAL ONE (19:32)
--- NOTE | 2020-04-02 20:21 | HP ---
SUPERVISING PHYSICIAN: Farhan Eubanks MD DATE OF SERVICE: 04/03/20 CHIEF COMPLAINT: Weakness and upper respiratory symptoms. HISTORY OF PRESENT ILLNESS: This is a 59-year-old male patient who presented to the Emergency Room with complaints of body aches, weakness, shortness of breath and coughing. He had COVID vaccine about 3 days prior to coming to the ER. He also has had some weakness in his lower extremities that at times makes it difficult to walk. He does smoke one pack of cigarettes daily and he previously drank alcohol fairly heavily, but quit about 6 months ago. In the Emergency Room, his initial vital signs were temperature 99.3, heart rate 52, blood pressure 126/60, respiratory rate 14, O2 saturation 98%. His lab studies showed WBCs 18,600, hemoglobin 8.3, hematocrit 26.4. He has left shift on differential. D-dimer 2,570. Blood gas showed pCO2 33, pO2 54, bicarb 17.4, pH 7.33, O2 saturation 86.7. Sodium 133, potassium 6.5, chloride 105, carbon dioxide 16, BUN 50, creatinine 3.17. Baseline creatinine is about 1.8 to 2. Magnesium 1.2. BNP 1,940. C-reactive protein 4.2, troponin less than 0.02. He got fluids in the ER as well as azithromycin, Decadron, ceftriaxone. His chest x-ray demonstrated right pulmonary infiltrate pneumonia, worse in the right midlung and moderately improved right lower lung zone compared to February of 2020. His abdomen and pelvis CT showed 1) Multiple mildly prominent loops of fluid-filled small bowel noted in the pelvis, none of which are frankly dilated. This could represent mild enteritis or localized ileus. No transition point is identified and there is no convincing evidence of high-grade mechanical bowel obstruction at this time. 2) Multiple calcifications in the renal hilum bilaterally, favored to represent vascular calcifications. No obstructing renal or ureteral stones identified. 3) Probable right renal cyst. 4) Distended gallbladder. If there are symptoms localized to the left upper quadrant, further evaluation by ultrasound. 5) Sequelae of chronic pancreatitis with stable dilatation of the main pancreatic duct measuring up to 9 mm. 6) When compared to prior chest CT of 03/14/2020, there has been interval resolution of pleural effusion and improvement in bilateral patchy pulmonary infiltrates. Evidence of pulmonary fibrosis is noted. 7) Infrarenal abdominal aortic aneurysm measuring up to 3 cm, stable from prior CT. 8) See CT scan for further information. EKG was done. There were no changes noted. The patient was admitted to the hospital. His vital signs were stable. PAST MEDICAL HISTORY: 1. Hypertension. 2. Chronic obstructive pulmonary disease. 3. Congestive heart failure with his last echocardiogram on 02/25/20 showing ejection fraction about 60%. 4. Chronic alcohol abuse. The patient quit alcohol about 6 months ago. 5. Tobacco abuse. 6. Cardiovascular disease. PAST SURGICAL HISTORY: 1. Laminectomy of the lumbar spine. 2. Left iliac arterial stent. OUTPATIENT MEDICATIONS: Per the EMR and awaiting verification. ALLERGIES: NO KNOWN DRUG ALLERGIES. FAMILY HISTORY: Noncontributory. SOCIAL HISTORY: He is retired and lives in [place]. He is . He has two children. He has a significant history of alcohol abuse and drank for about 12 years in fairly large amounts on a daily basis, but he was in rehab in the fall and has not had any alcohol since. He continues to smoke about one pack of cigarettes daily. There is no history of illegal drug use. REVIEW OF SYSTEMS: GENERAL: The patient for fatigue. Negative for fever or weight changes. HEENT: Negative for sinus symptoms, ear pain, vision changes or sore throat. RESPIRATORY: Positive for coughing with mild shortness of breath. Negative for wheezing. CARDIAC: Negative for chest pain, palpitations or tachycardia. GASTROINTESTINAL: Positive for abdominal pain. Negative for nausea, vomiting or diarrhea. He says his abdominal pain is just diffuse in nature. GENITOURINARY: Negative for hematuria, dysuria or polyuria. MUSCULOSKELETAL: Negative for lower extremity weakness. He has a difficult time walking although he did walk into the ER from the waiting room and he is able to stand without any issues. SKIN: Negative for lesions or rashes. NEUROLOGIC: Positive for weakness, dizziness. Negative for headache or seizures. PHYSICAL EXAMINATION: VITAL SIGNS: Temperature 97.7, heart rate 64, blood pressure 111/65, respiratory rate 18, O2 99% on 2 liters nasal cannula. GENERAL: This is a 59-year-old thin male lying in his hospital bed. He is in no acute distress. HEENT: Normocephalic, atraumatic. Pupils are equal and reactive. Oropharynx is clear. NECK: Supple without mass. RESPIRATORY: Diminished breath sounds throughout with a few scattered rhonchi. CARDIOVASCULAR: Regular rate and rhythm. GASTROINTESTINAL: Abdomen is soft, nondistended. He is mildly and diffusely tender in the upper portions of his abdomen. No rebound tenderness or guarding noted. Bowel sounds are positive. EXTREMITIES: No cyanosis, clubbing or edema. NEUROLOGIC: Awake, alert and oriented times three. Cranial nerves II-XII are grossly intact as tested. SKIN: [place], warm and dry. LABORATORY: Followup labs this morning show WBC improved to 13,600 with stable hemoglobin and hematocrit of 8.3 and 26.3. His 3 AM sodium was 134, potassium improved to 5.7, carbon dioxide 17, BUN 54, creatinine 2.98. Magnesium 2.6. His 7 AM electrolytes were sodium 137, potassium 5.3, chloride 107, carbon dioxide 20, BUN 57, creatinine 3.04. His urinalysis was unremarkable. MICROBIOLOGY: Blood cultures are pending. RADIOLOGY: Chest x-ray shows diffuse interstitial and airspace opacities bilaterally, most prominently within the right midlung. IMPRESSION: 1. Sepsis due to community acquired pneumonia, predominantly in the right lung, but also mildly in the left lung. His heart rate was 94, WBCs 18,600, ABG showed hypoxia with pO2 54 and O2 saturation 86%. 2. Acute on chronic renal failure with admitting creatinine of 3.17, baseline creatinine is 1.8 to 2. 3. Hyperkalemia, most likely secondary to renal failure and has improved. 4. Lower extremity weakness as well as neck pain. 5. Anemia, microcytic/hypochromic in nature, most likely secondary to chronic renal disease. 6. Hypertension. 7. Chronic obstructive pulmonary disease with acute exacerbation. 8. Mild congestive heart failure, diastolic in etiology with no signs or symptoms of exacerbation. 9. History of chronic alcohol abuse. He has now had no alcohol in 5 to 6 months. 10. Tobacco abuse. 11. Cardiovascular disease. PLAN: The patient has been admitted to the hospital. We have initiated the pneumonia guidelines and we will continue on aggressive pulmonary hygiene, azithromycin and Rocephin. He will have aggressive pulmonary hygiene including scheduled and p.r.n. breathing treatments. At this point, I am giving him bicarb in his IV fluids and hopefully his renal function will improve. He received two doses of Kayexalate last night and he may need to receive one additional dose today. I will recheck that tomorrow. I will do a lumbar CT scan and neck CT to rule out anything pathologic due to the weakness in lower extremities and neck. We will monitor his anemia. He will need to see nephrology at discharge. There were also some complaints of abdominal pain although he presently has no complaints. I will get a sonogram of the abdomen. He may have chronic pancreatitis and I will also check his gallbladder as his clinical picture does not match his abdominal CT and we will monitor that closely. The patient has a very poor prognosis and it would probably be beneficial to discuss code status with the patient. We will continue to monitor the patient closely and treat as needed. #[id number] [facility]
[2020-04-02] MEDS ORDERED: MAGNESIUM SULFATE PREMIX 2GM 2 GM in PREMIX BAG 1 BAG IVPB ONE (20:33)
[2020-04-02] MEDS ORDERED: ALBUTEROL SULFATE 2.5 MG/3 ML VIAL NEB PRN (20:42)
[2020-04-02] MEDS ORDERED: ONDANSETRON INJ 4 MG/2 ML VIAL IV PRN (20:42)
[2020-04-02] MEDS ORDERED: SOD POLYSTYRENE SULFONATE 15 GM/60 ML BTTL PO ONE (20:48)
[2020-04-02] MEDS ORDERED: AZITHROMYCIN IV 500 MG in SODIUM CHLORIDE 0.9% 250ML 250 ML IVPB SCH (21:00)
[2020-04-02] MEDS ORDERED: MAGNESIUM SULFATE PREMIX 2GM 50 ML IVPB ONE ×2 (21:31→23:34)
[2020-04-02] MEDS ORDERED: SODIUM BICARBONATE VIAL 50 MEQ/50 ML VIAL ONE (21:31)
[2020-04-02] MEDS ORDERED: DEXTROSE 5% 1000ML 1,000 ML IVS ONE (21:31)
[2020-04-02] MEDS: SODIUM BICARBONATE VIAL 75 MEQ in DEXTROSE 5% 1000ML 1,000 ML IVS PRN (21:45)
[2020-04-02] MEDS: IV SET AND CAP CHANGE INJ INJ SCH (23:25)
[2020-04-03] MEDS ORDERED: MAGNESIUM SULFATE PREMIX 2GM 2 GM in PREMIX BAG 1 BAG IVPB ONE
[2020-04-03] MEDS ORDERED: SOD POLYSTYRENE SULFONATE 15 GM/60 ML BTTL PO ONE
--- NOTE | 2020-04-03 07:29 | RAD ---
EXAM: XR Chest, 2 Views CLINICAL HISTORY: The patient is 59 years old and is Male; Pneumonia TECHNIQUE: Frontal and lateral views of the chest. COMPARISON: Chest x-ray 04/02/2020. FINDINGS: Lungs: Diffuse interstitial and airspace opacities bilaterally, most prominently within the right mid lung. Pleural space: Unremarkable. No pneumothorax. Heart: Unremarkable. Mediastinum: Unremarkable. Bones/joints: Unremarkable. Other findings: Patient is rotated. IMPRESSION: Diffuse interstitial and airspace opacities bilaterally, most prominently within the right mid lung. Electronically signed by: Renny Cardenas MD 04/03/2020 7:27 AM [facility]
[2020-04-03] MEDS: IPRATROPIUM/ALBUTEROL 3 ML VIAL INH SCH ×4 (07:30→21:05)
[2020-04-03] MEDS ORDERED: cefTRIAXone SODIUM 1 GM VIAL ONE (08:19)
[2020-04-03] MEDS ORDERED: SODIUM CHL 0.9% 50ML MIN-BAG+ 50 ML IVPB ONE (08:19)
[2020-04-03] MEDS: HEPARIN SODIUM (PORCINE) 5,000 U/ML VIAL SUBCU SCH ×2 (09:42→20:07)
[2020-04-03] MEDS: cefTRIAXone SODIUM 1 GM in SODIUM CHL 0.9% 50ML MIN-BAG+ 50 ML IVPB SCH (09:43)
[2020-04-03] MEDS: GABAPENTIN 300 MG CAP PO SCH (12:27)
[2020-04-03] MEDS: NICOTINE PATCH 14 MG TD SCH (12:27)
[2020-04-03] MEDS: CLOPIDOGREL 75 MG TAB PO SCH (13:45)
[2020-04-03] MEDS: SODIUM BICARBONATE VIAL 75 MEQ in DEXTROSE 5% 1000ML 1,000 ML IVS PRN (14:09)
[2020-04-03] MEDS: ALPRAZolam 0.5 MG TAB PO PRN (16:04)
[2020-04-03] MEDS: AZITHROMYCIN IV 500 MG in SODIUM CHLORIDE 0.9% 250ML 250 ML IVPB SCH (18:02)
[2020-04-03] MEDS ORDERED: hydrOXYzine HCl 25 MG TAB ONE (19:04)
[2020-04-03] MEDS ORDERED: traZODone HCL 50 MG TAB ONE (19:05)
[2020-04-03] MEDS ORDERED: ATORVASTATIN 20 MG TAB PO ONE (19:05)
[2020-04-03] MEDS: ATORVASTATIN 20 MG TAB PO SCH (20:06)
[2020-04-03] MEDS: traZODone HCL 100 MG TAB PO SCH (20:23)
[2020-04-03] MEDS ORDERED: hydrOXYzine PAMOATE 25 MG CAP PO PRN (20:51)
[2020-04-03] MEDS ORDERED: hydrOXYzine PAMOATE 25 MG CAP PO SCH (21:00)
[2020-04-03] MEDS ORDERED: HYDROXYZINE PAMOATE 50 MG PO PRN (21:37)
[2020-04-04] MEDS: ALPRAZolam 0.5 MG TAB PO PRN ×2 (03:47→21:30)
[2020-04-04] MEDS ORDERED: amLODIPine BESYLATE 5 MG TAB ONE (07:57)
[2020-04-04] MEDS ORDERED: FOLIC ACID 1 MG TAB ONE (07:58)
[2020-04-04] MEDS ORDERED: cefTRIAXone SODIUM 1 GM VIAL ONE (07:58)
[2020-04-04] MEDS ORDERED: FUROSEMIDE 40 MG TAB ONE (07:58)
[2020-04-04] MEDS ORDERED: POTASSIUM CHLORIDE 10 MEQ TAB PO ONE (07:58)
[2020-04-04] MEDS ORDERED: SODIUM CHL 0.9% 50ML MIN-BAG+ 50 ML IVPB ONE (07:58)
[2020-04-04] MEDS ORDERED: CITALOPRAM HBR 20 MG TAB ONE (07:58)
[2020-04-04] MEDS ORDERED: METOPROLOL SUCCINATE XL 100 MG TAB PO ONE (07:58)
[2020-04-04] MEDS: FUROSEMIDE 40 MG TAB PO SCH (08:44)
[2020-04-04] MEDS: amLODIPine BESYLATE 5 MG TAB PO SCH (08:44)
[2020-04-04] MEDS: GABAPENTIN 300 MG CAP PO SCH (08:44)
[2020-04-04] MEDS: POTASSIUM CHLORIDE 10 MEQ TAB PO SCH (08:44)
[2020-04-04] MEDS: CITALOPRAM HBR 20 MG TAB PO SCH (08:44)
[2020-04-04] MEDS: METOPROLOL SUCCINATE XL 100 MG TAB PO SCH (08:45)
[2020-04-04] MEDS: cefTRIAXone SODIUM 1 GM in SODIUM CHL 0.9% 50ML MIN-BAG+ 50 ML IVPB SCH (08:45)
[2020-04-04] MEDS: CLOPIDOGREL 75 MG TAB PO SCH (08:45)
[2020-04-04] MEDS: NICOTINE PATCH 14 MG TD SCH (08:45)
[2020-04-04] MEDS: REMOVE OLD PATCH TOP SCH (08:45)
[2020-04-04] MEDS: HEPARIN SODIUM (PORCINE) 5,000 U/ML VIAL SUBCU SCH ×2 (08:45→21:30)
[2020-04-04] MEDS: FOLIC ACID 1 MG TAB PO SCH (08:45)
[2020-04-04] MEDS: NALTREXONE HCL 50 MG PO SCH (08:45)
--- NOTE | 2020-04-04 09:30 | RAD ---
EXAMINATION: X-ray abdomen two views. INDICATION: Possible ileus COMPARISON: None TECHNIQUE: Upright and supine views of the abdomen were obtained. FINDINGS: Lung bases: Airspace opacities of the lung bases Upright film: No pneumoperitoneum. No pathologic air-fluid levels. Bowel: No dilated small bowel. Gas and stool within the colon. Other: No abnormal calcifications. Bones: Fusion hardware in the lower lumbar spine. Moderate degenerative changes of the bilateral hips. IMPRESSION: 1. Nonobstructive bowel gas pattern. 2. No pneumoperitoneum. Electronically signed by: Bebe Villareal MD 04/04/2020 9:28 AM [facility]
--- NOTE | 2020-04-04 09:39 | CT ---
EXAMINATION: Thoracic and lumbar spine CT. INDICATION: Pain. Extremity weakness. COMPARISON: None. TECHNIQUE: Axial CT scan of the thoracic and lumbar spine was obtained without intravenous contrast. Coronal and sagittal reformats were provided. This CT exam was performed using one or more of the following dose reduction techniques: Automated exposure control, Adjustment of the mA and/or kV according to patient size, Use of iterative reconstruction technique FINDINGS: THORACIC SPINE: Very minimal dextroconvex curvature. Vertebral body heights and alignment are maintained. Mild multilevel intervertebral disc space narrowing. Paraspinal soft tissues are unremarkable. No disc protrusion or spinal stenosis LUMBAR SPINE: Vertebral Bodies: Very minimal levoconvex curvature. Transverse processes are intact. Vertebral body heights and alignment are maintained. Posterior fusion hardware at L5-S1. There are laminectomy changes at the same levels. Intervertebral disc spacer is also noted at this level. There appear to be bilateral pars defects present. Soft Tissues: Paraspinal soft tissues are unremarkable. Disc Spaces/Joints: T12-L1: No stenosis. L1-L2: Diffuse disc bulge causes no significant spinal canal stenosis. L2-L3: Diffuse disc bulge causes no significant spinal canal stenosis. L3-L4: Diffuse disc bulge causes mild spinal canal stenosis. Facet joint and ligamentum flavum hypertrophy contribute to [id number] bilateral neural foraminal narrowing. L4-L5: No stenosis. Facet joint and ligamentum flavum hypertrophy contribute to mild bilateral neural foraminal narrowing. L5-S1: No stenosis. Decompressive laminectomy is present at this level. Facet joint and ligamentum flavum hypertrophy contribute to mild bilateral neural foraminal narrowing. Sacroiliac joints: Symmetric LUNGS: Airspace opacities are present in the dependent lungs bilaterally. These are of uncertain etiology. OTHER: Extensive atheromatous changes are present throughout the aorta which is tortuous. There is a stent within the left common iliac artery. Other findings: None IMPRESSION: Postsurgical and degenerative changes of the spine as above. Electronically signed by: Bebe Villareal MD 04/04/2020 9:38 AM [facility]
--- NOTE | 2020-04-04 09:43 | CT ---
EXAMINATION: Cervical Spine. HISTORY: 59 years Male. neck and extremity weakness. . . TECHNIQUE: CT CERVICAL SPINE WITHOUT IV CONTRAST. One or more of the following dose optimizing techniques was utilized for this exam: Automated exposure control, adjustment of the mA and/or kV according to patient size, and/or use of iterative reconstruction technique. COMPARISON: 12/26/2019 FINDINGS: Prevertebral soft tissues are without swelling. No evidence of cervical fracture or vertebral compression. Multilevel degenerative changes are present at the vertebral endplates, facet joints, and uncinate joints. Anterolisthesis: C2-3 slight, C3-4 slight, C4-5 slight Retrolisthesis: C5-6 trace, C6-7 trace Disc narrowing: C2-3 severe, C3-C4 severe, C4-5 moderate to severe, C5-6 severe, C6-7 severe, C7-T1 severe, T3-4 severe Posterior vertebral endplate bone spurring: C2-3 slight, C3-C4 severe, C4-5 moderate, C5-6 severe, C6-7 moderate, C7-T1 slight, T3-4 slight Vertebral end plate, uncinate, and facet degenerative hypertrophic change is associated with osseous neural foraminal stenosis: Right neural foraminal stenosis: C2-3 slight, C3-4 moderate, C4-5 moderate, C5-6 severe, C6-C7 severe, C7-T1 moderate Left neural foraminal stenosis: C2-3 slight, C3-4 slight, C4-5 severe , C5-6 slight, C6-7 moderate, C7-T1 slight Severe calcified atherosclerotic plaque in the subclavian arteries bilaterally. There may be associated stenosis. There is nonspecific straightening of the cervical spine, with slight diffuse kyphosis once again. IMPRESSION: No acute skeletal pathology in the cervical spine Multilevel degenerative change, spondylolisthesis, disc narrowing, posterior vertebral endplate bone spurring, and bilateral neural foraminal stenosis Severe calcified atherosclerotic plaque in the subclavian arteries bilaterally may be associated stenosis Straightening of cervical lordosis may be secondary to patient posture and/or degenerative change. Differential includes cervical spasm. Electronically signed by: Salomon Florian MD 04/04/2020 9:42 AM [facility]
[2020-04-04] MEDS: IPRATROPIUM/ALBUTEROL 3 ML VIAL INH SCH ×4 (10:32→21:00)
[2020-04-04] MEDS: ACETAMINOPHEN W/COD #3 TAB 1 EA TAB PO PRN (14:58)
[2020-04-04] MEDS: AZITHROMYCIN IV 500 MG in SODIUM CHLORIDE 0.9% 250ML 250 ML IVPB SCH (16:35)
[2020-04-04] MEDS: SODIUM BICARBONATE VIAL 75 MEQ in DEXTROSE 5% 1000ML 1,000 ML IVS PRN (16:35)
--- NOTE | 2020-04-04 19:23 | PN ---
SUPERVISING PHYSICIAN: Farhan Eubanks MD DATE: 04/04/20 SUBJECTIVE: The patient notes that he is still fairly weak, he dd not want to do physical therapy today. He has no further complaints. After talking with him I regard to the complaint he has had of neck pain which there was no actual findings seen on those CTs, he does endorse that he has been taking quite bit of NSAIDs in the form of ibuprofen, anywhere from 6 to 9 tablets a day. We discussed this as partly resulting in his decline in renal followup and he is understanding that this is something he needs to stop doing. I told him we would try some Tylenol #3 for his neck pain and escalate it to his own pain management. He has had no chest pain, nausea or vomiting. OBJECTIVE: VITAL SIGNS: Temperature 97.7, pulse 77, blood pressure 110/66, respirations 20, oxygen saturation 95% on 2 liter nasal cannula. GENERAL: The patient looks to be resting comfortably, in no acute distress. He still complains of neck pain. CHEST: Lung sounds are clear to auscultation. HEART: Regular rate and rhythm. ABDOMEN: Soft, non-tender, positive bowel sounds. EXTREMITIES: Without edema. NEUROLOGICAL: Alert and oriented x 3. LABORATORY: White count is at 18,200, hemoglobin 7.1, hematocrit 22.6. RBC indices indicate a microcytic/hypochromic anemia with platelet count of 316,000. Differential does show a left shift. Coagulation studies show D-dimer is at 2570. Chemistries are showing normal electrolytes. Creatinine is down to 2.72 from admission of 317, BUN 53, calcium 8.3, magnesium normal at 2.1, liver functions all within normal limits. MICROBIOLOGY: Blood cultures negative at 48 hours. Sputum culture pending. RADIOLOGY: He had multiple x-rays this morning including cervical, lumbar and thoracic spine. No acute findings on CT of the thoracic spine. The lumbar spine showed no acute findings other than postsurgical changes and degenerative changes. Cervical spine showed no acute skeletal pathology in the cervical spine, just some multilevel degenerative changes with spondylolisthesis and posterior endplate bone spurring with severe calcified atherosclerotic plaque in the subclavian arteries bilaterally with associated stenosis. There was note of straightening in the cervical lordosis which may be secondary to patient posture and/or degenerative changes. Cannot completely rule out spasms. Abdominal x- ray showed noncontributory bowel gas pattern with no pneumoperitoneum. There was some airspace opacities in the lung bases. IMPRESSION: 1. Sepsis secondary to pneumonia bilaterally. 2. Acute on chronic renal failure exacerbation secondary to chronic NSAID usage. 3. Hyperkalemia secondary to acute renal failure, improving, now normalized. 4. Lower extremity weakness with associated deconditioning. 5. Microcytic/hypochromic anemia likely secondary to chronic renal disease. 6. Hypertension. 7. Chronic obstructive pulmonary disease with moderate exacerbation secondary to pneumonia. 8. Chronic alcohol abuse with no alcohol usage noted within the last 6 months. 10. Chronic tobacco abuse. 11. Cardiovascular disease. PLAN: We will continue with treatment of his pneumonia with aggressive pulmonary hygiene, azithromycin and Rocephin. I did discuss with him the fact that probably his renal function has been declining and due to the fact that he has not told anybody he has been taking NSAIDs for his neck pain. We did discuss probably trying some Tylenol #3 and escalating to higher doses, or [place] as needed for his neck pain. maybe trying some muscle relaxers as needed as well. He remains in bicarbonate infusion due to his renal function. We will still wait on ultrasound which will have to be done on Monday as it is not available this weekend to further evaluate his chronic pancreatitis and his gallbladder. He did discuss with me that he said his weakness, he noted that he had some kind of discoordination or ataxia intermittently last week. We will go ahead and check carotid studies as well on Monday to further rule out any questionable carotid stenosis that might be resulting in some of his weakness. Until then, we will continue to monitor and treat as needed. #[id number] [facility]
[2020-04-04] MEDS ORDERED: ALPRAZolam 0.5 MG TAB ONE (20:54)
[2020-04-04] MEDS: ATORVASTATIN 20 MG TAB PO SCH (21:29)
[2020-04-04] MEDS: traZODone HCL 100 MG TAB PO SCH (21:29)
[2020-04-05] MEDS: IPRATROPIUM/ALBUTEROL 3 ML VIAL INH SCH ×3 (09:00→16:30)
[2020-04-05] MEDS ORDERED: SODIUM CHL 0.9% 50ML MIN-BAG+ 50 ML IVPB ONE (09:19)
[2020-04-05] MEDS ORDERED: cefTRIAXone SODIUM 1 GM VIAL ONE (09:19)
[2020-04-05] MEDS: METOPROLOL SUCCINATE XL 100 MG TAB PO SCH (10:19)
[2020-04-05] MEDS: amLODIPine BESYLATE 5 MG TAB PO SCH (10:19)
[2020-04-05] MEDS: GABAPENTIN 300 MG CAP PO SCH (10:19)
[2020-04-05] MEDS: POTASSIUM CHLORIDE 10 MEQ TAB PO SCH (10:19)
[2020-04-05] MEDS: NICOTINE PATCH 14 MG TD SCH (10:19)
[2020-04-05] MEDS: CLOPIDOGREL 75 MG TAB PO SCH (10:19)
[2020-04-05] MEDS: HEPARIN SODIUM (PORCINE) 5,000 U/ML VIAL SUBCU SCH ×2 (10:19→21:06)
[2020-04-05] MEDS: CITALOPRAM HBR 20 MG TAB PO SCH (10:19)
[2020-04-05] MEDS: FUROSEMIDE 40 MG TAB PO SCH (10:19)
[2020-04-05] MEDS: FOLIC ACID 1 MG TAB PO SCH (10:19)
[2020-04-05] MEDS: cefTRIAXone SODIUM 1 GM in SODIUM CHL 0.9% 50ML MIN-BAG+ 50 ML IVPB SCH (10:20)
[2020-04-05] MEDS: NALTREXONE HCL 50 MG PO SCH (10:20)
[2020-04-05] MEDS: REMOVE OLD PATCH TOP SCH (10:20)
[2020-04-05] MEDS: SODIUM BICARBONATE VIAL 75 MEQ in DEXTROSE 5% 1000ML 1,000 ML IVS PRN (10:22)
--- NOTE | 2020-04-05 11:09 | RAD ---
TECHNIQUE: Chest,1 View Chest radiograph, AP view. HISTORY: MAIN PNA COMPARISON: Chest x-ray April 03, 2020. FINDINGS: Lungs/Pleura: Interstitial and airspace opacities in both lungs appears slightly more prominent in the right lateral perihilar region and left lung base. No pneumothorax. Slightly blunted bilateral costophrenic angle suggests small bilateral pleural effusions. Mediastinum, Valentine: Aortic calcifications. Heart: Cardiac silhouette is stable compared to prior. Bones: No suspicious osseous lesions. Soft Tissues: Unremarkable. Other: None. IMPRESSION: * Mildly worse bilateral pneumonia. * Suspect small bilateral pleural effusions. Electronically signed by: Apolinar Rushing 04/05/2020 11:07 AM [facility]
[2020-04-05] MEDS ORDERED: chlordiazePOXIDE HCL 25 MG CAP PO PRN (14:34)
[2020-04-05] MEDS: AZITHROMYCIN IV 500 MG in SODIUM CHLORIDE 0.9% 250ML 250 ML IVPB SCH (16:34)
[2020-04-05] MEDS ORDERED: chlordiazePOXIDE HCL 25 MG CAP ONE ×2 (18:08→18:15)
--- NOTE | 2020-04-05 18:09 | PN ---
SUPERVISING PHYSICIAN: Farhan Eubanks M.D. DATE: 04/05/20 SUBJECTIVE: I am not too sure he is not trying to go through some acute alcohol withdrawals, even though he denies he has been on any alcohol in the last month or so. He started having a little tremor bilaterally and is restless, nurses reporting that he has become a little bit agitated at times. No obvious signs of any alcohol withdrawals at this time other than just the mood changes and the mild tremor. I discussed will start him on some p.r.n. Librium and see if this will help and monitor closely. Otherwise he is tolerating a diet. He has not had any chest pains, nausea or vomiting. No significant shortness of breath. He just remains weak. OBJECTIVE: VITAL SIGNS: Temperature 98.6, pulse 86, blood pressure 159/70, respirations 16, satting 95% on room air. GENERAL: The patient was resting comfortably. He does have a notable tremor when he is talking to you. He talks in complete sentences. He does not seem to be agitated at time of my exam. He does note he still had some neck pain but it has actually improved with Tylenol #3. CHEST: Remains clear to auscultation. HEART: Regular rate and rhythm. ABDOMEN: Soft, non-tender. Positive bowel sounds. EXTREMITIES: Without any edema. NEUROLOGIC: He is alert and oriented times three. Cranial nerves II-XII appear to be grossly intact. Again, he does have a slight bilateral tremor of the upper extremities. SKIN: Warm, pink and dry. LABORATORY: White count is down to 12,600, hemoglobin staying stable at 7.2 and 22.5 with a microcytic hypochromic presentation. Platelet count 324,000. Differential does show a left shift but no bands. Chemistries are showing normal electrolytes. Creatinine now is down to 2.02 as compared to admission of 3.17, calcium 8.2, magnesium normalized yesterday at 2.1. Liver functions are within normal limits. RADIOLOGY: Chest x-ray this morning per radiology interpretation shows mildly worse bilateral pneumonia with expected bilateral pleural effusions. MICROBIOLOGY: Blood cultures remain negative and sputum culture is still pending. ASSESSMENT: 1. Sepsis secondary to bilateral pneumonia. 2. Chronic obstructive pulmonary disease with acute exacerbation secondary to bilateral pneumonia. 3. Acute on chronic renal failure exacerbation secondary to chronic excessive NSAID usage. 4. Hyperkalemia secondary to acute renal failure, now normalized. 5. Lower extremity weakness with some associated deconditioning and some mild tremors with concerns for possibly early ETOH withdrawal with the patient having an extensive history of alcohol abuse. 6. Microcytic/hypochromic anemia secondary to chronic illness and renal disease. 7. Hypertension showing to be stable. 8. Chronic alcohol abuse with last reported alcohol usage within the last 6 months, although the patient is possibly showing some early signs of alcohol withdrawal, although he still denies he has not been drinking since 6 months previously. 9. Chronic tobacco abuse, still smoking. 10. Cardiovascular disease. PLAN: Will continue with current treatment guidelines for underlying pneumonia bilaterally with azithromycin and Rocephin as he is showing good response to treatment. He has responded well in regards to his renal function to the bicarb infusion. Will finish that today and saline lock him, and repeat labs in the morning. In regards to the NSAID usage and renal function, again he was educated to not take NSAIDs in the near future. We tried some Tylenol #3 for his neck pain. This seems to help somewhat as he has been resting. In regards to his tremor and possible early ETOH withdrawal, will put him on some p.r.n. Librium as needed 25 mg t.i.d. and monitor closely. Will get an ultrasound tomorrow of his carotids as well as his abdomen in regards to the chronic pancreatitis and gallbladder findings on CT. He will need arrangements hopefully for some outpatient management in regards to physical therapy for his deconditioning. Will continue to work on that. Again, will check his carotid artery study tomorrow due to the findings on CT indicating some carotid stenosis. Until we can transition him to outpatient management, which I anticipate will happen tomorrow, will continue to monitor and treat as needed. #[id number] [facility]
[2020-04-05] MEDS ORDERED: ACETAMINOPHEN W/COD #3 TAB 1 EA TAB ONE (20:45)
[2020-04-05] MEDS ORDERED: ALPRAZolam 0.5 MG TAB ONE (20:46)
[2020-04-05] MEDS: traZODone HCL 100 MG TAB PO SCH (21:07)
[2020-04-05] MEDS: ACETAMINOPHEN W/COD #3 TAB 1 EA TAB PO PRN (21:07)
[2020-04-05] MEDS: ALPRAZolam 0.5 MG TAB PO PRN (21:07)
[2020-04-05] MEDS: ATORVASTATIN 20 MG TAB PO SCH (21:07)
[2020-04-05] MEDS: IV SET AND CAP CHANGE INJ INJ SCH (22:31)
[2020-04-06] MEDS ORDERED: chlordiazePOXIDE HCL 25 MG CAP PO ONE (00:07)
[2020-04-06] MEDS ORDERED: SODIUM CHL 0.9% 50ML MIN-BAG+ 50 ML IVPB ONE (07:11)
[2020-04-06] MEDS ORDERED: cefTRIAXone SODIUM 1 GM VIAL ONE (07:11)
--- NOTE | 2020-04-06 07:21 | RAD ---
EXAM: Chest Radiography COMPARISON: Chest radiograph April 05, 2020 INDICATION: MAIN PNA FINDINGS: PA and lateral views of the chest demonstrate(s) a normal cardiomediastinal silhouette. Aortic atherosclerosis is present. No pneumothorax or pleural effusion. Bibasilar groundglass opacities have mildly increased. There is a stable mildly displaced right lateral sixth rib fracture. IMPRESSION: Mild progression of multifocal pneumonia. Electronically signed by: Tarun Gottlieb MD 04/06/2020 7:20 AM [employer]
[2020-04-06] MEDS: cefTRIAXone SODIUM 1 GM in SODIUM CHL 0.9% 50ML MIN-BAG+ 50 ML IVPB SCH (10:11)
[2020-04-06] MEDS: HEPARIN SODIUM (PORCINE) 5,000 U/ML VIAL SUBCU SCH (10:11)
[2020-04-06] MEDS: NICOTINE PATCH 14 MG TD SCH (10:12)
[2020-04-06] MEDS: POTASSIUM CHLORIDE 10 MEQ TAB PO SCH (10:12)
[2020-04-06] MEDS: FUROSEMIDE 40 MG TAB PO SCH (10:12)
[2020-04-06] MEDS: FOLIC ACID 1 MG TAB PO SCH (10:13)
[2020-04-06] MEDS: CITALOPRAM HBR 20 MG TAB PO SCH (10:13)
[2020-04-06] MEDS: GABAPENTIN 300 MG CAP PO SCH (10:13)
[2020-04-06] MEDS: METOPROLOL SUCCINATE XL 100 MG TAB PO SCH (10:13)
[2020-04-06] MEDS: REMOVE OLD PATCH TOP SCH (10:14)
[2020-04-06] MEDS: CLOPIDOGREL 75 MG TAB PO SCH (10:14)
[2020-04-06] MEDS: amLODIPine BESYLATE 5 MG TAB PO SCH (10:14)
[2020-04-06] MEDS: NALTREXONE HCL 50 MG PO SCH (10:15)
[2020-04-06] MEDS: IPRATROPIUM/ALBUTEROL 3 ML VIAL INH SCH ×2 (10:36→12:00)
[2020-04-06 10:46] VITALS: BP 164/85; TEMP 98.5; O2SAT 95
--- NOTE | 2020-04-06 11:30 | US ---
EXAM DESCRIPTION: Carotid Duplex: ULTRASOUND. CLINICAL HISTORY: 59 years Male possible TIA, f/u on CT of C spine imaging COMPARISON: Ultrasound of the abdomen and chest x-ray on the same visit TECHNIQUE: Transcutaneous scanning utilizing aguilar-scale and Doppler modes to evaluate the bilateral carotid systems and vertebral arteries. Percentage of diameter of stenosis or no stenosis recorded will be based upon NASCET criteria. FINDINGS: Peak systolic/end diastolic velocities (CM-Sec) CCA Right 83/19 Left 113/28. ICA Right proximal 108/24, mid routine/16. Left proximal 136/36, mid 107/24. Vertebral Right 57/19 Left 78/17. ECA (PS Only) Right 151 left 199. ICA/CCA peak systolic velocity ratio: Right 1.3 Left 1.2 ICA/CCA end diastolic velocity ratio: Right 0.8 Left 1.3 Vertebral arteries: antegrade flow. Comments: Multiple bilateral atherosclerotic calcifications. Area and diameter stenoses less than 50% in the right CCA. 35% in the proximal left CCA. IMPRESSION: 1. Doppler evaluation of the bilateral carotid systems and vertebral arteries shows no hemodynamically significant stenoses (less than 70%). 2. Moderate amount of plaque in the carotid arteries bilaterally. Bilateral vertebral arteries showed antegrade-cephalad flow. Electronically signed by: Kedar Ceballos MD 04/06/2020 11:29 AM [employer]
--- NOTE | 2020-04-06 11:49 | US ---
EXAM DESCRIPTION: Abdomen,Complete: Ultrasound. CLINICAL HISTORY: 59 years Male abdomen pain (see CT scan) COMPARISON: CT scan of abdomen and pelvis April 02. Ultrasound of the carotid and vertebral arteries on this visit. TECHNIQUE: Transabdominal scanning: grayscale and Doppler modes. FINDINGS: Gallbladder: normal size, shape, echogenicity; no intraluminal stones or sludge. No fluid around the gallbladder. No wall thickening. 2.8 mm. Non-tender with transducer pressure. Common bile duct: caliber 7.1 - 7.4 mm is dilated. Liver: normal echogenicity; contour liver capsule smooth where seen. No fluid around the liver. Intrahepatic biliary ducts normal caliber. Doppler hepatopedal flow and normal caliber portal vein 7.7 mm.. Long axis right lobe 14.6 cm. Pancreas: Multiple echogenic calcifications. Duct dilated 5.6 and 5.7 mm head and tail and 8.3 mm in the body. Complete abdominal aorta: Normal caliber distal bifurcation segment. Proximal and mid segment 2.6 cm.. IVC: visualized and normal caliber. Right kidney: long axis measures 8.1 cm; volume 53.5 mL. Cortical echogenicity increased. Cortical thickness 8.5 mm. No echogenic stones; no hydronephrosis. 8.4 x 8.9 mm cyst lower pole. Left kidney: long axis measures 9.8 cm; volume 139.5 mL. Cortical echogenicity is heterogeneous with prominent renal pyramids, unusual for patient's stated age. Normal cortical thickness. No echogenic stones; no hydronephrosis. Spleen: Normal. No focal lesions.. 0.5 cm long axis. Other: None. IMPRESSION: 1. Atrophy in the right kidney. Heterogeneous cortex and the left kidney with prominent renal pyramids which is more usually related to more geriatric population. Cyst inferior right kidney. No echogenic stones or hydronephrosis bilaterally. 2. Possible atrophy of the pancreas with multiple calcifications and dilated duct. Common bile duct dilated. Gallbladder is unremarkable. Consider MRCP to evaluate dilation of the common bile duct and pancreatic duct. 3. Liver and gallbladder are unremarkable. No ascites. Spleen is unremarkable. 4. Proximal and mid abdominal aorta 2.6 cm. Normal caliber of the distal segment. Radiology partner's Best Practice guidelines: 2.6 cm abdominal aortic aneurysm suspected. Recommend follow-up every 5 years. Reference: J Am Jazmin Radiol 2013;10:789-794. Electronically signed by: Kedar Ceballos MD 04/06/2020 11:47 AM [facility]
[2020-04-06] MEDS ORDERED: AZITHROMYCIN 250 MG TAB PO ONE (12:10)
--- NOTE | 2020-04-15 21:59 | DS ---
SUPERVISING PHYSICIAN: Serge Stoll M.D. ADMISSION DIAGNOSIS: 1. Sepsis due to community acquired pneumonia, predominantly in the right lung, but also mildly in the left lung. His heart rate was 94, WBCs 18,600, ABG showed hypoxia with pO2 54 and O2 saturation 86%. 2. Acute on chronic renal failure with admitting creatinine of 3.17, baseline creatinine is 1.8 to 2. 3. Hyperkalemia, most likely secondary to renal failure and has improved. 4. Lower extremity weakness as well as neck pain. 5. Anemia, microcytic/hypochromic in nature, most likely secondary to chronic renal disease. 6. Hypertension. 7. Chronic obstructive pulmonary disease with acute exacerbation. 8. Mild congestive heart failure, diastolic in etiology with no signs or symptoms of exacerbation. 9. History of chronic alcohol abuse. He has now had no alcohol in 5 to 6 months. 10. Tobacco abuse. 11. Cardiovascular disease. DISCHARGE DIAGNOSIS: 1. Sepsis secondary to bilateral pneumonia. 2. Chronic obstructive pulmonary disease with acute exacerbation secondary to bilateral pneumonia. 3. Acute on chronic renal failure exacerbation secondary to chronic excessive NSAID usage. 4. Hyperkalemia secondary to acute renal failure, now normalized. 5. Lower extremity weakness with some associated deconditioning and some mild tremors with concerns for possibly early ETOH withdrawal with the patient having an extensive history of alcohol abuse. 6. Microcytic/hypochromic anemia secondary to chronic illness and renal disease. 7. Hypertension showing to be stable. 8. Chronic alcohol abuse with last reported alcohol usage within the last 6 months, although the patient is possibly showing some early signs of alcohol withdrawal, although he still denies he has not been drinking since 6 months previously. 9. Chronic tobacco abuse, still smoking. 10. Cardiovascular disease. REASON FOR HOSPITALIZATION: This is a 59-year-old male patient who presented to the Emergency Room with complaints of body aches, weakness, shortness of breath and coughing. He had COVID vaccine about 3 days prior to coming to the ER. He also has had some weakness in his lower extremities that at times makes it difficult to walk. He does smoke one pack of cigarettes daily and he previously drank alcohol fairly heavily, but quit about 6 months ago. In the Emergency Room, his initial vital signs were temperature 99.3, heart rate 52, blood pressure 126/60, respiratory rate 14, O2 saturation 98%. His lab studies showed WBCs 18,600, hemoglobin 8.3, hematocrit 26.4. He has left shift on differential. D-dimer 2,570. Blood gas showed pCO2 33, pO2 54, bicarb 17.4, pH 7.33, O2 saturation 86.7. Sodium 133, potassium 6.5, chloride 105, carbon dioxide 16, BUN 50, creatinine 3.17. Baseline creatinine is about 1.8 to 2. Magnesium 1.2. BNP 1,940. C-reactive protein 4.2, troponin less than 0.02. He got fluids in the ER as well as azithromycin, Decadron, ceftriaxone. His chest x-ray demonstrated right pulmonary infiltrate pneumonia, worse in the right midlung and moderately improved right lower lung zone compared to February of 2020. His abdomen and pelvis CT showed 1) Multiple mildly prominent loops of fluid-filled small bowel noted in the pelvis, none of which are frankly dilated. This could represent mild enteritis or localized ileus. No transition point is identified and there is no convincing evidence of high-grade mechanical bowel obstruction at this time. 2) Multiple calcifications in the renal hilum bilaterally, favored to represent vascular calcifications. No obstructing renal or ureteral stones identified. 3) Probable right renal cyst. 4) Distended gallbladder. If there are symptoms localized to the left upper quadrant, further evaluation by ultrasound. 5) Sequelae of chronic pancreatitis with stable dilatation of the main pancreatic duct measuring up to 9 mm. 6) When compared to prior chest CT of 03/14/2020, there has been interval resolution of pleural effusion and improvement in bilateral patchy pulmonary infiltrates. Evidence of pulmonary fibrosis is noted. 7) Infrarenal abdominal aortic aneurysm measuring up to 3 cm, stable from prior CT. 8) See CT scan for further information. EKG was done. There were no changes noted. The patient was admitted to the hospital. His vital signs were stable. LABORATORY STUDIES: Hemoglobin on discharge was 7.9, hemoglobin 24.4, white count showed to be 10,400. Differential showed to be without a left shift. Coagulation studies showed a D-dimer that was elevated at 2570. PT and PTT were normal. Chemistries on discharge showed normal electrolytes. Creatinine was down to 2.23, calcium 8.9. Liver functions were all within normal limits. Urinalysis did show a trace lysed blood, otherwise within normal limits. MICROBIOLOGY: Final sputum culture showed a few mixed normal respiratory julius. Blood cultures were negative after 5 days. COVID swab was negative. RADIOLOGY: Please see his radiology reports on admission. He had a CT abdomen, chest x-ray as well as cervical, lumbar and thoracic spine along with carotid artery studies and abdominal ultrasound, but no acute findings. Final chest x- ray on discharge showed mild progression of multifocal pneumonia. HOSPITAL COURSE: Mr. Alaniz was admitted for treatment of acute kidney injury as well as treatment for underlying pneumonia. He was treated with sodium bicarb IV infusion. Antibiotics included azithromycin and Rocephin. He was given aggressive pulmonary hygiene with breathing treatments. He did show good clinical improvement and response to treatment, and was felt stable enough to continue with outpatient management. Therefore he was discharged to followup with his primary care physician, Dr. Barger. Vital signs on discharge showed he was afebrile at 98.5, pulse 73, blood pressure 164/85, respirations 16, satting 95% on room air at rest. He also did have a physical therapy evaluation and found to be safe to discharge home. PLAN: Mr. Alaniz was discharged on the to followup with Dr. Barger. He was given strict instructions to not take any Ibuprofen of any form and to continue with antibiotic coverage that included Cefdinir 300 mg daily for 6 days. He again was given instructions to not take Ibuprofen. He was encouraged to stop drinking and stop smoking, and given instructions should he have any worsening symptoms to return to the Emergency Room for further evaluation. He also was given instructions that he needs to followup with Dr. Stoll if possible on the . If not able to followup with Dr. Stoll, he needs to followup with Dr. Barger. Condition on discharge was stable and improved. DISPOSITION: The patient was discharged home. #[id number] [facility]
== END 2020-04-06 14:20 | disposition home or self-care (01) | DRG 871 ==
LOC: ER 14:22 → MS 14:23 → INTOOBSV 20:20 → OBSVTOIN 20:20 → MS 20:20 → UNDOADMOB 20:20 → UNDODISIN 04-06 14:20
PROVIDERS: ADMIT Nurse Practitioner Acute Care; ATTEND Nurse Practitioner Family
DX: A41.9 Sepsis, unspecified organism (principal); J18.9 Pneumonia, unspecified organism; N17.9 Acute kidney failure, unspecified; I13.0 Hypertensive heart and chronic kidney disease with heart failure and stage 1 through stage 4 chronic kidney disease, or unspecified chronic kidney disease; J44.1 Chronic obstructive pulmonary disease with (acute) exacerbation; J44.0 Chronic obstructive pulmonary disease with (acute) lower respiratory infection; I50.32 Chronic diastolic (congestive) heart failure; N18.9 Chronic kidney disease, unspecified; E87.5 Hyperkalemia; D50.9 Iron deficiency anemia, unspecified; D63.8 Anemia in other chronic diseases classified elsewhere; F10.10 Alcohol abuse, uncomplicated; F17.210 Nicotine dependence, cigarettes, uncomplicated; Z95.820 Peripheral vascular angioplasty status with implants and grafts; R09.02 Hypoxemia; T39.395A Adverse effect of other nonsteroidal anti-inflammatory drugs [NSAID], initial encounter; Y92.9 Unspecified place or not applicable; Z79.01 Long term (current) use of anticoagulants

== ENCOUNTER 2020-04-13 18:03 | Inpatient (IN) | payer SELFPAY ==
--- NOTE | 2020-04-13 18:45 | ED.PDOC ---
History of Present Illness - General Time Seen by Provider: 04/13/20 18:40 Source: patient, RN notes reviewed, Vital Signs reviewed Exam Limitations: no limitations Additional Information: 59-year-old male patient, with history of renal disease, history of coronary disease with one previous stent presents to the ER because of generalized weakness, and neck and back pain, patient was seen here about 10 days ago he was diagnosed with pneumonia and kidney injury, patient has difficulty walking, pain started from the back of his neck all the way down history entire spine. Patient denies any major rede flags no decrease sensation in the lower back, urinary retention no incontinence no falls, fever and no change bowel movement Patient was able to transfer from the wheelchair to the bed patient was able to transfer from the wheelchair to the bed Patient is a smoker but denies any alcohol or drug - History of Present Illness Timing/Duration: constant Improving Factors: nothing Worsening Factors: nothing Associated Symptoms: denies symptoms Allergies/Adverse Reactions: Allergies NO KNOWN ALLERGY Allergy (Verified 04/02/20 17:57) Home Medications: Ambulatory Orders Albuterol Inhaler [Ventolin Hfa Inhaler] 1 puff INH PRN PRN 02/28/20 Amlodipine Besylate [Norvasc] 10 mg PO DAILY 02/28/20 Atorvastatin Calcium [Lipitor] 80 mg PO BEDTIME 02/28/20 B-1 250 mg PO DAILY 02/28/20 Citalopram Hydrobromide [Citalopram] 40 mg PO DAILY 02/28/20 Clopidogrel Bisulfate [Plavix] 75 mg PO QD 02/28/20 Gabapentin [Neurontin] 300 mg PO DAILY 02/28/20 Lisinopril [Prinivil] 5 mg PO DAILY #30 tab 02/28/20 Metoprolol Succinate [Metoprolol Succinate ER] 100 mg PO DAILY 02/28/20 Naltrexone HCl [Naltrexone Hydrochloride] 50 mg PO DAILY 02/28/20 Pantoprazole Sodium 40 mg PO BID 02/28/20 Trazodone HCl [Trazodone Hydrochloride] 50 mg PO BEDTIME 02/28/20 Furosemide [Lasix] 20 mg PO DAILY #30 tab 03/17/20 Ipratropium/Albuterol [Duoneb] 3 ml INH RTQID vial 03/17/20 Potassium Chloride [K-Tab] 10 meq PO DAILY #30 tab 03/17/20 Folic Acid 800 mcg PO DAILY 04/03/20 Hydroxyzine Pamoate 50 mg PO BID PRN 04/03/20 Lactobacillus [Acidophilus] 100 mg PO DAILY 04/03/20 Cefdinir [Omnicef] 300 mg PO DAILY #6 cap 04/06/20 Review of Systems - Review of Systems Constitutional: States: other - generalise weakness EENTM: States: no symptoms reported Respiratory: States: no symptoms reported Cardiology: States: no symptoms reported Gastrointestinal/Abdominal: States: no symptoms reported Genitourinary: States: no symptoms reported Musculoskeletal: States: back pain Skin: States: no symptoms reported Neurological: States: no symptoms reported Endocrine: States: no symptoms reported Hematologic/Lymphatic: States: no symptoms reported Past Medical History (General) - Patient Medical History Hx Seizures: No Hx Stroke: No Hx Dementia: No Hx Asthma: No Hx of COPD: Yes Hx Cardiac Disorders: Yes - HI Hx Congestive Heart Failure: Yes Hx Pacemaker: No Hx Hypertension: Yes Hx Thyroid Disease: No Hx Diabetes: No Hx Gastroesophageal Reflux: No Hx Renal Disease: No Hx Cancer: No Hx of HIV: No Hx Hepatitis C: No Hx MRSA: No - Vaccination History Hx Tetanus, Diphtheria Vaccination: Yes Hx Influenza Vaccination: Yes Hx Pneumococcal Vaccination: No - Social History Hx Tobacco Use: Yes - Pack a day Hx Chewing Tobacco Use: No Hx Alcohol Use: Yes Hx Substance Use: No Hx Substance Use Treatment: No Hx Depression: No Hx Physical Abuse: No Hx Emotional Abuse: No Hx Suspected Abuse: No - Female History Patient : No Family Medical History - Family History Father Family History: Unknown Living Status: Cause of : aneurysm Physical Exam - Physical Exam General Appearance: Well Developed, Well Groomed, Well Hydrated, Well Nourished Ears, Nose, Throat: hearing grossly normal, normal ENT inspection, normal pharynx Neck: non-tender, full range of motion, supple, normal inspection, carotid bruit Respiratory: chest non-tender, lungs clear, normal breath sounds, no respiratory distress, no accessory muscle use Cardiovascular/Chest: normal peripheral pulses, regular rate, rhythm, no edema, no gallop, no JVD, no murmur Peripheral Pulses: radial,right: 2+, radial,left: 2+ Gastrointestinal/Abdominal: normal bowel sounds, non tender, soft, no organomegaly, no pulsatile mass Back Exam: normal inspection, other - no decrease sensation in the lower back no step off Extremity: normal range of motion, no calf tenderness Neurologic: no motor/sensory deficits, normal mood/affect, oriented x 3 DTR: 4+: Biceps, left, Biceps, right Skin Exam: normal color Lymphatic: no adenopathy Progress - Progress Progress: Patient presents to the ER because of generalized weakness, difficulty moving around because of weakness, and neck pain and back pain no recent falls, this patient was admitted for pneumonia and was discharged home with antibiotics patient was admitted also for renal failure, patient stated that he stopped drinking when he was admitted, patient EKG showed hyperacute T waves that was concerning for renal failure again hyperkalemia, and indeed patient does have evidence of metabolic acidosis elevated BUN and creatinine elevated potassium, obviously hyperkalemia life-threatening conditions of I ordered hyperkalemia protocol and his hemoglobin was 7.4 which is consistent with patient arrived when he was admitted, and will continue to patient generalized weakness Patient will be consulted with the hospitalist for admission 04/13/20 19:45 Departure - Departure Clinical Impression: Hyperkalemia Renal failure Qualifiers: Renal failure chronicity: acute Acute renal failure type: unspecified Qualified Code(s): N17.9 - Acute kidney failure, unspecified Anemia Qualifiers: Anemia type: due to chronic kidney disease Chronic kidney disease stage: unspecified stage Qualified Code(s): N18.9 - Chronic kidney disease, unspecified; D63.1 - Anemia in chronic kidney disease Disposition: Admit Patient Condition: Fair Referrals: Serge Stoll MD [Primary Care Provider] - 1-2 Weeks Home Medications: Ambulatory Orders Albuterol Inhaler [Ventolin Hfa Inhaler] 1 puff INH PRN PRN 02/28/20 Amlodipine Besylate [Norvasc] 10 mg PO DAILY 02/28/20 Atorvastatin Calcium [Lipitor] 80 mg PO BEDTIME 02/28/20 B-1 250 mg PO DAILY 02/28/20 Citalopram Hydrobromide [Citalopram] 40 mg PO DAILY 02/28/20 Clopidogrel Bisulfate [Plavix] 75 mg PO QD 02/28/20 Gabapentin [Neurontin] 300 mg PO DAILY 02/28/20 Lisinopril [Prinivil] 5 mg PO DAILY #30 tab 02/28/20 Metoprolol Succinate [Metoprolol Succinate ER] 100 mg PO DAILY 02/28/20 Naltrexone HCl [Naltrexone Hydrochloride] 50 mg PO DAILY 02/28/20 Pantoprazole Sodium 40 mg PO BID 02/28/20 Trazodone HCl [Trazodone Hydrochloride] 50 mg PO BEDTIME 02/28/20 Furosemide [Lasix] 20 mg PO DAILY #30 tab 03/17/20 Ipratropium/Albuterol [Duoneb] 3 ml INH RTQID vial 03/17/20 Potassium Chloride [K-Tab] 10 meq PO DAILY #30 tab 03/17/20 Folic Acid 800 mcg PO DAILY 04/03/20 Hydroxyzine Pamoate 50 mg PO BID PRN 04/03/20 Lactobacillus [Acidophilus] 100 mg PO DAILY 04/03/20 Cefdinir [Omnicef] 300 mg PO DAILY #6 cap 04/06/20 Decision To Admit - Decistion To Admit Decision to Admit Reason: Admit from ER Decision to Admit Date: 04/13/20 Decision to Admit Time: 19:51
--- NOTE | 2020-04-13 19:03 | RAD ---
EXAM: Chest,1 View CLINICAL INDICATION: Weakness COMPARISON: 04/06/2020 FINDINGS: A single view of the chest was obtained. The heart size is normal. The pulmonary vascularity is unremarkable. There are mild to moderate infiltrates in the right mid to lower lung and left lung base which appear similar to the previous study. There is no pneumothorax or pleural effusion. IMPRESSION: Bilateral infiltrates consistent with pneumonia with no definite change compared to 04/06/2020. Electronically signed by: William Melvin MD 04/13/2020 7:02 PM [employer] TEAM MEMBER
[2020-04-13] MEDS ORDERED: SOD POLYSTYRENE SULFONATE 15 GM/60 ML BTTL PO ONE (19:41)
[2020-04-13] MEDS ORDERED: DEXTROSE 50% 25 GM/50 ML SYG IV ONE (19:41)
[2020-04-13] MEDS ORDERED: INSULIN, REG.(HUMAN) 100 U/ML VIAL IV ONE (19:41)
[2020-04-13] MEDS ORDERED: SODIUM CHLORIDE 0.9% (FLUSH) 10 ML SYG IV PRN ×2 (19:41→21:25)
[2020-04-13] MEDS ORDERED: CALCIUM GLUCONATE INJ 1 GM/10 ML VIAL IV ONE (19:41)
[2020-04-13] MEDS ORDERED: SODIUM BICARBONATE SYRINGE 100 MEQ in DEXTROSE 5% 1000ML 1,000 ML IV PRN (21:24)
[2020-04-13] MEDS ORDERED: ALPRAZolam 0.5 MG TAB ONE (22:21)
[2020-04-13] MEDS: ALPRAZolam 0.25 MG TAB PO PRN (22:22)
--- NOTE | 2020-04-13 22:31 | HP ---
SUPERVISING PHYSICIAN: Renny Stockton MD CHIEF COMPLAINT: Weakness and back and neck pain. HISTORY OF PRESENT ILLNESS: This is a 59-year-old male the patient with multiple admissions in the past for similar complaints. He came to the Emergency Room with generalized weakness along with some back and neck pain. He was admitted here about 10 days ago with pneumonia and acute kidney injury on chronic disease. The patient also is known to have ETOH abuse, but denies any alcohol intake for the last couple of weeks. He was seen in the Emergency Room and had a noted elevation in his creatinine to 3.95. Previously documented baseline creatinine is 1.8 to 2.0. Additionally, his potassium was up to 6.7. CBC showed leukocytosis as well with a low hemoglobin of 7.4. Chest x-ray was consistent with pneumonia, which was unchanged from previous. Urinalysis unremarkable. He was referred for admission for the above reasons. At the time of examination, the patient is alert. Vital signs stable. He is not having any complaints of shortness of breath, nausea or vomiting right now. He does complain of the back and neck pain. PAST MEDICAL HISTORY: 1. Hypertension. 2. Chronic obstructive pulmonary disease. 3. Congestive heart failure, last echocardiogram showing ejection fraction 60%. 4. Chronic alcohol abuse. 5. Tobacco abuse. 6. Cardiovascular disease. PAST SURGICAL HISTORY: 1. Laminectomy of the lumbar spine. 2. Left iliac arterial stent. MEDICATIONS: Please see medication reconciliation list once verified in the computer. ALLERGIES: NO KNOWN DRUG ALLERGIES. SOCIAL HISTORY: The patient has a history of smoking and smoked about one pack per day. No illegal drug use. He states he quit alcohol several months ago, but unsure exactly if that happened. REVIEW OF SYSTEMS: CONSTITUTIONAL: No fever or chills. Positive for fatigue. HEENT: No headaches, vision changes, ear pain, nasal congestion or throat pain. RESPIRATORY: No cough, hemoptysis or pleuritic chest pain. CARDIOVASCULAR: No chest pain, palpitations or peripheral edema. GASTROINTESTINAL: Positive for nausea. No vomiting, diarrhea, constipation or abdominal pain. GENITOURINARY: No dysuria, frequency or flank pain. ENDOCRINE: No polydipsia, polyuria or polyphagia. No heat or cold intolerance. MUSCULOSKELETAL: Positive for back and neck pain. NEUROLOGIC: No syncope, paresthesias or seizures. PHYSICAL EXAMINATION: VITAL SIGNS: Blood pressure 114/58, heart rate 51, respiratory rate 16, temperature 99.5, oxygen saturation 94%. GENERAL: Mr. Alaniz is a 59-year-old male patient who is in no active distress currently. NEUROLOGIC: The patient is alert. LUNGS: Some scattered rhonchi, but no active wheezing. CARDIOVASCULAR: Regular rate and rhythm. Bradycardia per the case monitor. ABDOMEN: Soft. Positive bowel sounds. EXTREMITIES: Lower extremities with no edema. LABORATORY: Labs and films are as discussed in history of present illness. IMPRESSION: 1. Bilateral pneumonia. Consider healthcare associated as the patient was just admitted here 10 days ago with the infiltrates not changed. 2. Acute on chronic kidney disease. 3. Hyperkalemia secondary to #2. 4. Anemia. 5. Hypertension with current marginal blood pressure. 6. Chronic obstructive pulmonary disease with no acute exacerbation. 7. Nicotine dependency. 8. History of alcohol abuse, he has not had any alcohol for several months. PLAN: The patient will be admitted and placed on empiric antibiotics. I placed him on D5 with bicarb due to his renal function. We will recheck labs in the morning. Likely, he will need blood transfusion as well given his anemia. I will resume his home medications once they are verified in the computer as well. He has already been given medications in the Emergency Room to try to lower his potassium. We will monitor for DTs although he states he has not had anything to drink. We will start him on some alprazolam due to his anxiety as well. #[id number] [facility]
[2020-04-13] MEDS: IV SET AND CAP CHANGE INJ INJ SCH (22:40)
[2020-04-13] MEDS ORDERED: PIPERACILLIN/TAZOBACTAM 3.375 GM VIAL IVPB ONE (23:24)
[2020-04-13] MEDS ORDERED: SODIUM BICARBONATE VIAL 50 MEQ/50 ML VIAL ONE (23:24)
[2020-04-13] MEDS ORDERED: DEXTROSE 5% 1000ML 1,000 ML IVS ONE (23:24)
[2020-04-13] MEDS ORDERED: SODIUM CHLORIDE 0.9% 100ML 100 ML IVPB ONE (23:24)
[2020-04-13] MEDS: PIPERACILLIN/TAZOBACTAM 3.375 GM in SODIUM CHLORIDE 0.9% 100ML 100 ML IVPB SCH (23:30)
[2020-04-14] MEDS: PANTOPRAZOLE SODIUM IV 40 MG VIAL IV SCH (06:49)
[2020-04-14] MEDS ORDERED: PIPERACILLIN/TAZOBACTAM 3.375 GM VIAL IVPB ONE (08:20)
[2020-04-14] MEDS ORDERED: SODIUM CHLORIDE 0.9% 100ML 100 ML IVPB ONE (08:21)
--- NOTE | 2020-04-14 09:40 | PN ---
SUPERVISING PHYSICIAN: Renny Stockton MD DATE: 04/14/20 SUBJECTIVE: The patient states he feels a little bit better today, but still pretty significantly weak. No complaints of pain or nausea at this time. OBJECTIVE: VITAL SIGNS: Blood pressure 117/66, heart rate 62, respiratory rate 14, temperature 97.7, oxygen saturation 98%. GENERAL: Mr. Alaniz is a 59-year-old patient in no active distress. NEUROLOGIC: The patient is alert. LUNGS: Clear to auscultation bilaterally. CARDIOVASCULAR: Regular rate and rhythm. Normal S1, S2. ABDOMEN: Soft. Positive bowel sounds. EXTREMITIES: Lower extremities with no edema. LABORATORY: Improvement in white count to 13.6, hemoglobin 7.7 which is an improvement from 7.4. Platelet count 296. Chemistry with improvement in BUN 79 and creatinine 3.57. ASSESSMENT: 1. Bilateral pneumonia. 2. Acute on chronic kidney disease. 3. Hyperkalemia, resolved. 4. Anemia, improved. 5. Hypertension. 6. Chronic obstructive pulmonary disease with no acute exacerbation. 7. Nicotine dependency. 8. History of alcohol abuse. PLAN: The patient has had subsequent improvement in his blood work. He did not get transfused yet. His hemoglobin has gone up despite getting IV fluids. His potassium level is now in normal range. We will continue D5 with bicarb for another 24 hours and reevaluate his labs tomorrow. Regarding the pneumonia, I will start him on bronchial hygiene in addition to the Zosyn that he is getting. His lungs do not sound bad, but radiographically, the pneumonia still exists in addition to the fact that he does have leukocytosis. We will recheck labs and x-ray tomorrow. [facility][id number] [facility]
[2020-04-14] MEDS: PIPERACILLIN/TAZOBACTAM 3.375 GM in SODIUM CHLORIDE 0.9% 100ML 100 ML IVPB SCH ×2 (10:15→21:59)
[2020-04-14] MEDS ORDERED: DEXTROSE 5% 1000ML 0 ML IVS ONE (10:46)
[2020-04-14] MEDS ORDERED: SODIUM BICARBONATE VIAL 50 MEQ/50 ML VIAL ONE ×2 (10:49→10:54)
[2020-04-14] MEDS ORDERED: DEXTROSE 5% 1000ML 1,000 ML IVS ONE (10:54)
[2020-04-14] MEDS: SODIUM BICARBONATE VIAL 100 MEQ in DEXTROSE 5% 1000ML 1,000 ML IV PRN ×2 (11:03→20:13)
[2020-04-14] MEDS ORDERED: diphenhydrAMINE HCL 50 MG/ML VIAL IV PRN (20:46)
[2020-04-14] MEDS ORDERED: ATORVASTATIN 20 MG TAB PO ONE (20:59)
[2020-04-14] MEDS ORDERED: traZODone HCL 50 MG TAB ONE (20:59)
[2020-04-14] MEDS ORDERED: PANTOPRAZOLE SODIUM TAB 40 MG PO SCH (21:00)
[2020-04-14] MEDS ORDERED: NON-FORMULARY MEDICATION 1 EA MIS (Atorvastatin Calcium [Lipitor] 80 MG) PO SCH (21:00)
[2020-04-14] MEDS: GABAPENTIN 300 MG CAP PO SCH (21:04)
[2020-04-14] MEDS: traZODone HCL 100 MG TAB PO SCH (21:04)
[2020-04-14] MEDS: ALPRAZolam 0.25 MG TAB PO PRN (21:04)
[2020-04-15] MEDS: SODIUM BICARBONATE VIAL 100 MEQ in DEXTROSE 5% 1000ML 1,000 ML IV PRN (04:09)
[2020-04-15] MEDS: PANTOPRAZOLE SODIUM IV 40 MG VIAL IV SCH (06:01)
--- NOTE | 2020-04-15 07:12 | RAD ---
EXAMINATION: Chest x-ray one view. INDICATION: Pneumonia COMPARISON: 04/13/2010 TECHNIQUE: Frontal radiograph chest. FINDINGS: Overlying EKG leads and wires obscure portions of the lungs. The cardiac silhouette is unchanged. Airspace opacities are present throughout the right mid and lower lung zones. There is no pneumothorax. IMPRESSION: Airspace opacities in the right mid and lower lung zones, could represent atelectasis and/or infiltrates. These are similar to slightly worsened from prior Electronically signed by: Bebe Villareal MD 04/15/2020 7:11 AM [facility] RHEUMATOLOG[facility]
[2020-04-15] MEDS ORDERED: MAGNESIUM SULFATE PREMIX 2GM 2 GM in PREMIX BAG 1 BAG IVPB ONE (08:09)
[2020-04-15] MEDS ORDERED: amLODIPine BESYLATE 5 MG TAB ONE (08:21)
[2020-04-15] MEDS ORDERED: FOLIC ACID 1 MG TAB ONE (08:22)
[2020-04-15] MEDS ORDERED: MAGNESIUM SULFATE PREMIX 2GM 50 ML IVPB ONE (08:23)
[2020-04-15] MEDS ORDERED: NON-FORMULARY MEDICATION 1 EA MIS (Amlodipine Besylate [Norvasc] 10 MG) PO SCH (09:00)
[2020-04-15] MEDS ORDERED: NON-FORMULARY MEDICATION 1 EA MIS (Citalopram Hydrobromide [Citalopram] 40 MG) PO SCH (09:00)
[2020-04-15] MEDS: ALPRAZolam 0.25 MG TAB PO PRN ×2 (09:08→20:36)
[2020-04-15] MEDS: LISINOPRIL 5 MG TAB PO SCH (09:08)
[2020-04-15] MEDS: GABAPENTIN 300 MG CAP PO SCH (09:09)
[2020-04-15] MEDS: POTASSIUM CHLORIDE 10 MEQ TAB PO SCH (09:09)
[2020-04-15] MEDS: METOPROLOL SUCCINATE XL 100 MG TAB PO SCH (09:12)
[2020-04-15] MEDS: FOLIC ACID 800 MCG PO SCH (09:15)
[2020-04-15] MEDS ORDERED: ALBUTEROL SULFATE 2.5 MG/3 ML VIAL NEB PRN (09:38)
[2020-04-15] MEDS: CLOPIDOGREL 75 MG TAB PO SCH ×2 (10:05→10:09)
[2020-04-15] MEDS: PIPERACILLIN/TAZOBACTAM 3.375 GM in SODIUM CHLORIDE 0.9% 100ML 100 ML IVPB SCH ×2 (10:05→21:42)
[2020-04-15] MEDS: amLODIPine BESYLATE 5 MG TAB PO SCH (10:08)
--- NOTE | 2020-04-15 10:54 | PN ---
SUPERVISING PHYSICIAN: Renny Stockton MD DATE: 04/15/20 SUBJECTIVE: The patient is lying in bed. He has some shortness of breath, but mostly weakness. OBJECTIVE: VITAL SIGNS: Temperature 97.6, heart rate 68, blood pressure 143/80, respiratory rate 16, O2 saturation 99% on room air. RESPIRATORY: Essentially clear to auscultation bilaterally, somewhat diminished at the bases. CARDIAC: Regular rate and rhythm. GASTROINTESTINAL: Abdomen is soft, nondistended, nontender. Bowel sounds are positive. NEUROLOGIC: Awake, alert and oriented times three. Bilateral electron gun inspector are equal, but somewhat weak. LABORATORY: WBCs 12,400, hemoglobin 8, hematocrit 25. Electrolytes are basically within normal limits with the exception of his magnesium is low at 1.4. BUN 66, creatinine 2.89, CO2 30. RADIOLOGY: Chest x-ray shows airspace opacities in the right mid and lower lung, could represent atelectasis and/or infiltrates. These are similar, slightly worsened from prior. All other labs and films have been reviewed via the EMR. ASSESSMENT: 1. Bilateral pneumonia. 2. Acute on chronic kidney disease. 3. Hyperkalemia, resolved. 4. Anemia, improved. 5. Hypertension. 6. Chronic obstructive pulmonary disease with no acute exacerbation. 7. Nicotine dependency. 8. History of alcohol abuse. PLAN: The patient clinically is somewhat better and his lab is improved, but he continues to complain of weakness. Hopefully, his pneumonia will improve and we can then evaluate if the weakness was due to an infectious process or other issues. I have given him some magnesium replacement. I have discontinued his bicarb drip. I have also started him on aggressive pulmonary hygiene. I will hold on steroids for right now as his lungs are somewhat clearer, but he may need a dose of those at some point. I have ordered lab and chest x-ray for in the morning. We will continue to follow and treat as needed. [facility][id number] [facility]
[2020-04-15] MEDS: IPRATROPIUM/ALBUTEROL 3 ML VIAL INH SCH ×3 (13:15→20:45)
[2020-04-15] MEDS ORDERED: guaiFENesin ER TAB 600 MG TAB ONE (19:40)
[2020-04-15] MEDS ORDERED: BIFIDOBACTERIUM INFANTIS 4 MG CAP ONE (19:40)
[2020-04-15] MEDS ORDERED: ENOXAPARIN SODIUM 30 MG/0.3 ML SYG SUBCU ONE (19:41)
[2020-04-15] MEDS ORDERED: ATORVASTATIN 20 MG TAB PO ONE (19:41)
[2020-04-15] MEDS: traZODone HCL 100 MG TAB PO SCH (20:31)
[2020-04-15] MEDS: ENOXAPARIN SODIUM 30 MG/0.3 ML SYG SUBCU SCH (20:31)
[2020-04-15] MEDS: BIFIDOBACTERIUM INFANTIS 4 MG CAP PO SCH (20:32)
[2020-04-15] MEDS: guaiFENesin ER TAB 600 MG TAB PO SCH (20:32)
[2020-04-15] MEDS: ATORVASTATIN 20 MG TAB PO SCH (20:32)
[2020-04-16] MEDS: PANTOPRAZOLE SODIUM IV 40 MG VIAL IV SCH (05:39)
--- NOTE | 2020-04-16 07:26 | RAD ---
EXAM DESCRIPTION: Chest,2 Views 04/16/2020 7:22 AM [employer]ROLL ACCOUNTING MANAGER CLINICAL HISTORY: 59 years, Male, Pneumonia COMPARISON: 04/15/2020 FINDINGS: 2 x-ray views of the chest (PA and lateral) were obtained, prior films were compared, again there is mild hyperinflation. The cardiomediastinal silhouette demonstrate to be within normal limits. The heart is not enlarged. The thoracic aorta is mildly tortuous with intimal calcification. There is reticulonodular densities throughout the bones. Minimal linear area of the opacity within the right lower lobe possibility of atelectasis and/or minimal infiltrate could be considered findings are somewhat similar to prior study. The rest of the soft tissue and bony structures are unremarkable. IMPRESSION: MILD HYPERINFLATION. CHRONIC LUNG CHANGES. MINIMAL AIRSPACE OPACITY WITHIN THE RIGHT LOWER LOBE PNEUMONIA IN A BACKGROUND OF CHRONIC LUNG CHANGES. Electronically signed by: Felipe Blanc MD 04/16/2020 7:24 AM PAYROLL ACCOUNTING MANAGER
[2020-04-16] MEDS: METOPROLOL SUCCINATE XL 100 MG TAB PO SCH (08:03)
[2020-04-16] MEDS: POTASSIUM CHLORIDE 10 MEQ TAB PO SCH (08:03)
[2020-04-16] MEDS: GABAPENTIN 300 MG CAP PO SCH (08:03)
[2020-04-16] MEDS: CLOPIDOGREL 75 MG TAB PO SCH (08:03)
[2020-04-16] MEDS: amLODIPine BESYLATE 5 MG TAB PO SCH (08:03)
[2020-04-16] MEDS: FOLIC ACID 800 MCG PO SCH (08:04)
[2020-04-16] MEDS: guaiFENesin ER TAB 600 MG TAB PO SCH ×2 (08:04→20:41)
[2020-04-16] MEDS: LISINOPRIL 5 MG TAB PO SCH (08:04)
[2020-04-16] MEDS: BIFIDOBACTERIUM INFANTIS 4 MG CAP PO SCH ×2 (08:04→20:41)
[2020-04-16] MEDS: IPRATROPIUM/ALBUTEROL 3 ML VIAL INH SCH ×4 (08:46→19:48)
[2020-04-16] MEDS: PIPERACILLIN/TAZOBACTAM 3.375 GM in SODIUM CHLORIDE 0.9% 100ML 100 ML IVPB SCH ×2 (09:16→22:07)
[2020-04-16] MEDS: FOLIC ACID 1 MG TAB PO SCH (09:16)
[2020-04-16] MEDS: hydroCHLOROthiazide 25 MG TAB PO SCH (10:13)
--- NOTE | 2020-04-16 14:31 | PN ---
SUPERVISING PHYSICIAN: Renny Stockton MD DATE: 04/16/20 SUBJECTIVE: The patient is lying in bed. We had a lengthy discussion about his discharge plan. Hopefully, he can have home health with physical therapy, but it was recommended that until anything can be done, he will have to complete his michel application. He does understand that if he continues to be as weak as he is, he will most likely have to go to the care home. He denies any chest pain, nausea or vomiting. OBJECTIVE: VITAL SIGNS: Temperature 97.8, heart rate 75, blood pressure 148/75, respiratory rate 15, O2 saturation 97% on room air. RESPIRATORY: Slightly diminished at the bases with a few scattered rhonchi. CARDIAC: Regular rate and rhythm. NEUROLOGIC: Awake, alert and oriented times three. LABORATORY: WBCs 12,700, hemoglobin 8.5, hematocrit 26.6. Electrolytes are basically within normal limits. BUN 53, creatinine 2.98. RADIOLOGY: Chest x-ray shows shows mild hyperinflation with chronic lung changes. Minimal airspace opacity within the right lower lung, pneumonia in a background of chronic lung changes. ASSESSMENT: 1. Bilateral pneumonia. 2. Acute on chronic kidney disease. 3. Hyperkalemia, resolved. 4. Anemia, improved. 5. Hypertension. 6. Chronic obstructive pulmonary disease with no acute exacerbation. 7. Nicotine dependency. 8. History of alcohol abuse. PLAN: We will continue present supportive care including aggressive pulmonary hygiene. Due to his renal failure, I have discontinued his lisinopril and added HCTZ. I have also ordered physical therapy for evaluation and treatment. Hopefully if his michel paperwork is turned in, we can get physical therapy and home health at discharge or the patient may need to be discharged to the care home as he his clinical condition continues with extreme weakness. #[id number] [facility]
[2020-04-16] MEDS: ALPRAZolam 0.25 MG TAB PO PRN (20:41)
[2020-04-16] MEDS: ATORVASTATIN 20 MG TAB PO SCH (20:41)
[2020-04-16] MEDS: ENOXAPARIN SODIUM 30 MG/0.3 ML SYG SUBCU SCH (20:42)
[2020-04-16] MEDS: traZODone HCL 100 MG TAB PO SCH (20:42)
[2020-04-16] MEDS: IV SET AND CAP CHANGE INJ INJ SCH (22:07)
[2020-04-17] MEDS: PANTOPRAZOLE SODIUM IV 40 MG VIAL IV SCH (05:39)
[2020-04-17] MEDS: ALPRAZolam 0.25 MG TAB PO PRN (05:40)
[2020-04-17] MEDS ORDERED: MAGNESIUM SULFATE PREMIX 2GM 2 GM in PREMIX BAG 1 BAG IVPB ONE (07:43)
[2020-04-17] MEDS ORDERED: MAGNESIUM SULFATE PREMIX 2GM 50 ML IVPB ONE (08:00)
[2020-04-17] MEDS: chlordiazePOXIDE HCL 25 MG CAP PO SCH ×4 (08:05→20:03)
[2020-04-17] MEDS: CLOPIDOGREL 75 MG TAB PO SCH (08:10)
[2020-04-17] MEDS: amLODIPine BESYLATE 5 MG TAB PO SCH (08:11)
[2020-04-17] MEDS: GABAPENTIN 300 MG CAP PO SCH (08:11)
[2020-04-17] MEDS: BIFIDOBACTERIUM INFANTIS 4 MG CAP PO SCH ×2 (08:11→20:03)
[2020-04-17] MEDS: METOPROLOL SUCCINATE XL 100 MG TAB PO SCH (08:11)
[2020-04-17] MEDS: guaiFENesin ER TAB 600 MG TAB PO SCH ×2 (08:11→20:04)
[2020-04-17] MEDS: POTASSIUM CHLORIDE 10 MEQ TAB PO SCH (08:11)
[2020-04-17] MEDS: FOLIC ACID 1 MG TAB PO SCH (08:11)
[2020-04-17] MEDS: hydroCHLOROthiazide 25 MG TAB PO SCH (08:12)
[2020-04-17] MEDS: IPRATROPIUM/ALBUTEROL 3 ML VIAL INH SCH ×4 (08:20→20:00)
[2020-04-17] MEDS: PIPERACILLIN/TAZOBACTAM 3.375 GM in SODIUM CHLORIDE 0.9% 100ML 100 ML IVPB SCH ×2 (09:18→22:20)
[2020-04-17] MEDS: ACETAMINOPHEN 325 MG TAB PO PRN ×2 (12:28→20:04)
--- NOTE | 2020-04-17 13:10 | PN ---
SUPERVISING PHYSICIAN: Renny Stockton MD DATE: 04/17/20 SUBJECTIVE: Early this morning the patient appeared to be going through alcohol withdrawal. He was adamant that he had not been drinking but he did tell the charge nurse that he has been drinking whatever he can get at home. He became very confused with shaking. He also urinated in the cup as well as on the floor. He is unable to answer simple questions. He was given Ativan and started on Librium. His will be up here to discuss his case later today. OBJECTIVE: VITAL SIGNS: Temperature 100.4, heart rate 78, blood pressure 146/84, respiratory rate 18, O2 saturation 99% on room air. RESPIRATORY: Essentially clear to auscultation bilaterally but diminished at the bases. CARDIAC: Regular rate and rhythm. NEUROLOGIC: He is lethargic and sedated on Ativan at this time. Earlier, he had been very agitated and confused as well as generalized shaking all over. LABORATORY: WBCs 19,000, hemoglobin 8, hematocrit 24.6. Sodium 139, potassium 5.1. BUN 47, creatinine 2.99. Magnesium 1.6. All other labs and films have been reviewed via the EMR. ASSESSMENT: 1. Bilateral pneumonia. 2. Acute on chronic kidney disease. 3. Alcohol withdrawal in a patient with a significant history of ETOH abuse. 4. Hyperkalemia. 5. Anemia. 6. Hypertension. 7. Chronic obstructive pulmonary disease. 8. Nicotine dependency. 9. Chronic alcohol abuse. PLAN: We will continue present supportive care. I started him on Ativan and Librium. I am going to talk to his this afternoon about a code status, especially given that he is now having alcohol withdrawals and is actually having DTs. I have ordered lab and chest x-ray for in the morning. He will also have magnesium supplementation. I am not sure why his WBCs have elevated other than an inflammatory response but will monitor that and may need to change his antibiotics. [facility][id number] [facility]
[2020-04-17] MEDS: ATORVASTATIN 20 MG TAB PO SCH (20:03)
[2020-04-17] MEDS: traZODone HCL 100 MG TAB PO SCH (20:04)
[2020-04-18] MEDS: PANTOPRAZOLE SODIUM IV 40 MG VIAL IV SCH (05:29)
[2020-04-18] MEDS: ACETAMINOPHEN 325 MG TAB PO PRN ×2 (05:30→20:35)
[2020-04-18] MEDS: ALPRAZolam 0.25 MG TAB PO PRN ×2 (05:31→22:04)
--- NOTE | 2020-04-18 07:33 | RAD ---
EXAM: XR Chest, 1 View CLINICAL HISTORY: The patient is 59 years old and is Male; pna TECHNIQUE: Frontal view of the chest. COMPARISON: Chest x-ray 04/16/2020. FINDINGS: Limitations: Patient rotation limiting evaluation. Lungs: Diffuse interstitial opacities bilaterally, similar to prior. Patchy airspace opacities predominantly within the right mid to lower lung. Pleural space: Unremarkable. No pneumothorax. Heart: Unremarkable. Mediastinum: Unremarkable. Bones/joints: Unremarkable. IMPRESSION: 1. Diffuse interstitial opacities bilaterally, similar to prior. 2. Patchy airspace opacities predominantly within the right mid to lower lung. Electronically signed by: Renny Cardenas MD 04/18/2020 7:32 AM [facility]
[2020-04-18] MEDS ORDERED: SODIUM CHLORIDE 0.9% 1000ML 1,000 ML ONE ×2 (09:10→17:41)
[2020-04-18] MEDS ORDERED: MULTIPLE VITAMIN 10 ML VIAL ONE ×2 (09:10→17:41)
[2020-04-18] MEDS ORDERED: THIAMINE HCL INJ 100 MG/ML VIAL ONE ×2 (09:11→17:41)
[2020-04-18] MEDS: IPRATROPIUM/ALBUTEROL 3 ML VIAL INH SCH ×4 (09:14→20:58)
[2020-04-18] MEDS: MULTIPLE VITAMIN INJ 10 ML, THIAMINE HCL INJ 100 MG in SODIUM CHLORIDE 0.9% 1000ML 1,00... IVS SCH (09:48)
[2020-04-18] MEDS: PIPERACILLIN/TAZOBACTAM 3.375 GM in SODIUM CHLORIDE 0.9% 100ML 100 ML IVPB SCH ×2 (09:49→21:34)
[2020-04-18] MEDS: hydroCHLOROthiazide 25 MG TAB PO SCH (10:07)
[2020-04-18] MEDS: GABAPENTIN 300 MG CAP PO SCH (10:07)
[2020-04-18] MEDS: chlordiazePOXIDE HCL 25 MG CAP PO SCH ×2 (10:07→20:36)
[2020-04-18] MEDS: guaiFENesin ER TAB 600 MG TAB PO SCH ×2 (10:07→20:36)
[2020-04-18] MEDS: BIFIDOBACTERIUM INFANTIS 4 MG CAP PO SCH ×2 (10:07→20:35)
[2020-04-18] MEDS: amLODIPine BESYLATE 5 MG TAB PO SCH (10:07)
[2020-04-18] MEDS: METOPROLOL SUCCINATE XL 100 MG TAB PO SCH (10:07)
[2020-04-18] MEDS: CLOPIDOGREL 75 MG TAB PO SCH (10:07)
[2020-04-18] MEDS: FOLIC ACID 1 MG TAB PO SCH (10:07)
[2020-04-18] MEDS ORDERED: chlordiazePOXIDE HCL 25 MG CAP PO PRN (12:17)
--- NOTE | 2020-04-18 15:27 | PN ---
SUPERVISING PHYSICIAN: Renny Stockton MD DATE: 04/18/20 SUBJECTIVE: The patient is sitting up in bed. He is eating his lunch. It was reported earlier by nursing that he had been fairly lethargic, mostly due to his getting benzodiazepines and on Librium for DTs. He did wake up just a bit ago and saying he was very hungry. He is somewhat forgetful but otherwise, no distress. No obvious DTs. OBJECTIVE: VITAL SIGNS: Temperature 98.2, heart rate 67, blood pressure 142/74, respiratory rate 20, O2 saturation 90% on room air. RESPIRATORY: Diminished at the bases but otherwise clear to auscultation. CARDIAC: Regular rate and rhythm. NEUROLOGIC: He is awake, slightly lethargic. He is oriented to person and place. LABORATORY: WBCs 20,200, hemoglobin 8.1, hematocrit 25.9. He has a left shift on his differential. Electrolytes are basically within normal limits except his potassium is slightly high at 5.3. BUN 43, creatinine 2.81. Preliminary blood cultures show no growth after 24 hours. RADIOLOGY: Chest x-ray shows (1) diffuse interstitial opacities bilateral, similar to prior. (2) Patch airspace opacities predominantly within the right mid to lower lung. ASSESSMENT: 1. Bilateral pneumonia. 2. Acute on chronic kidney disease, improved. 3. Alcohol withdrawal with delirium tremors and a patient with a significant history of ETOH abuse, improved. 4. Hyperkalemia. 5. Anemia. 6. Hypertension. 7. Chronic obstructive pulmonary disease. 8. Nicotine dependency. 9. Chronic alcohol abuse. PLAN: We will continue present supportive care. I have decreased his Librium. We should also have a DNR from his today or tomorrow. I have also decreased his Ativan and will monitor him closely. I have ordered lab for in the morning and will follow and treat as needed. #[id number] [facility]
[2020-04-18] MEDS ORDERED: chlordiazePOXIDE HCL 25 MG CAP ONE (19:13)
[2020-04-18] MEDS: traZODone HCL 100 MG TAB PO SCH (20:36)
[2020-04-18] MEDS: ATORVASTATIN 20 MG TAB PO SCH (20:36)
[2020-04-19] MEDS: PANTOPRAZOLE SODIUM IV 40 MG VIAL IV SCH (05:55)
[2020-04-19] MEDS ORDERED: THIAMINE HCL INJ 100 MG/ML VIAL ONE (07:39)
[2020-04-19] MEDS ORDERED: SODIUM CHLORIDE 0.9% 1000ML 0 ML ONE (07:40)
[2020-04-19] MEDS ORDERED: chlordiazePOXIDE HCL 25 MG CAP ONE (07:40)
[2020-04-19] MEDS ORDERED: MULTIPLE VITAMIN 10 ML VIAL ONE (07:41)
[2020-04-19] MEDS: MULTIPLE VITAMIN INJ 10 ML, THIAMINE HCL INJ 100 MG in SODIUM CHLORIDE 0.9% 1000ML 1,00... IVS SCH (08:08)
[2020-04-19] MEDS: FOLIC ACID 1 MG TAB PO SCH (08:09)
[2020-04-19] MEDS: hydroCHLOROthiazide 25 MG TAB PO SCH (08:09)
[2020-04-19] MEDS: GABAPENTIN 300 MG CAP PO SCH (08:10)
[2020-04-19] MEDS: CLOPIDOGREL 75 MG TAB PO SCH (08:10)
[2020-04-19] MEDS: BIFIDOBACTERIUM INFANTIS 4 MG CAP PO SCH ×2 (08:10→20:03)
[2020-04-19] MEDS: guaiFENesin ER TAB 600 MG TAB PO SCH ×2 (08:10→20:03)
[2020-04-19] MEDS: chlordiazePOXIDE HCL 25 MG CAP PO SCH (08:11)
[2020-04-19] MEDS: amLODIPine BESYLATE 5 MG TAB PO SCH (08:25)
[2020-04-19] MEDS: METOPROLOL SUCCINATE XL 100 MG TAB PO SCH (08:25)
[2020-04-19] MEDS: IPRATROPIUM/ALBUTEROL 3 ML VIAL INH SCH ×4 (09:00→20:20)
[2020-04-19] MEDS: PIPERACILLIN/TAZOBACTAM 3.375 GM in SODIUM CHLORIDE 0.9% 100ML 100 ML IVPB SCH ×2 (10:27→21:47)
--- NOTE | 2020-04-19 16:57 | PN ---
SUPERVISING PHYSICIAN: Renny Stockton M.D. DATE: 04/19/20 SUBJECTIVE: The patient is resting comfortably. Apparently the nurses had to call Patience last night as he became a little bit more confused than normal and she gave him a dose of Ativan. He has been on scheduled Librium. He seems very calm at this point. No obvious tremors. Does not look to be actively going through any DTs. He appears to be a little bit more sedated than I would like at this point. We discussed stopping his Librium. He does not show to be in any distress. He is alert when you wake him up. Very cooperative. He says he has no pain. OBJECTIVE: VITAL SIGNS: Temperature 97.6, pulse 58, blood pressure 117/62, respirations 16, satting 97% on 2 liters nasal cannula. GENERAL: The patient is resting comfortably. He is a little disheveled, but looks to be alert when he is awake, in no acute distress. CHEST: Lung sounds are just diminished. No rhonchi, wheezing or rales are noted bilaterally. HEART: Regular rate and rhythm. ABDOMEN: Soft, non-tender. Positive bowel sounds. EXTREMITIES: Without any edema. NEUROLOGIC: He is alert and oriented times three. SKIN: Warm, pink and dry. LABORATORY: White count is down to 13,900, hemoglobin 7.4, hematocrit 23.9, platelet count 301,000. Chemistries are showing normal electrolytes today with potassium 5.0, creatinine is at 2.87 which appears to be fairly stable, calcium normalized at 9.2, magnesium is normal at 2.2. Liver functions are all showing to be within normal limits. MICROBIOLOGY: Blood cultures are showing negative at 24 hours. RADIOLOGY: No additional radiographic studies today. ASSESSMENT: 1. Bilateral pneumonia. 2. Acute on chronic kidney disease showing to be fairly stable. 3. Alcohol withdrawal with delirium tremors, mild, with the patient showing good response to Librium, with the patient having a history of alcohol abuse. 4. Hyperkalemia back to baseline levels, normalized. 5. Anemia, chronic, due to chronic illness with a microcytic/hypochromic presentation in the presence of alcohol abuse. 6. Hypertension showing to be stable. 7. Chronic obstructive pulmonary disease in a current smoker with no signs of exacerbation. 8. Nicotine dependency in a smoker. 9. Chronic alcohol abuse. PLAN: Will continue with Librium, but will go ahead and just take it to p.r.n. Still have not seen his and discussed his DNR status. Will continue to follow his labs as needed, but they look to be fairly stable at this point. Will encourage oral intake. Certainly will need a physical therapy evaluation tomorrow because he does appear to be significantly weakened from the last time he was here. Treatment course in regards to alcoholism certainly will need to be discussed with the patient and family member. At this point the patient is showing to be stable and not in active DTs. Again, will continue to monitor that status. Hopefully will be able to discharge him home or to an appropriate facility within the next 24 to 48 hours. Until then continue to monitor and treat as needed. #[id number] [facility]
[2020-04-19] MEDS: ATORVASTATIN 20 MG TAB PO SCH (20:04)
[2020-04-19] MEDS: traZODone HCL 100 MG TAB PO SCH (20:04)
[2020-04-19] MEDS: ALPRAZolam 0.25 MG TAB PO PRN (20:13)
[2020-04-19] MEDS: IV SET AND CAP CHANGE INJ INJ SCH (21:48)
[2020-04-20] MEDS: PANTOPRAZOLE SODIUM IV 40 MG VIAL IV SCH (06:00)
--- NOTE | 2020-04-20 06:12 | RAD ---
EXAM: XR Chest, 1 View CLINICAL HISTORY: The patient is 59 years old and is Male; PNA TECHNIQUE: Single view of the chest. COMPARISON: April 18, 2020. FINDINGS: Lungs: Hazy infiltrate in the right lung base again noted. No pulmonary vascular congestion. Pleural space: No pleural effusion or pneumothorax. Heart: The cardiac silhouette is enlarged versus artifact of AP technique. Mediastinum: Unremarkable. Bones/joints: The bones and joints are unchanged as visualized. Upper abdomen: No free air in the visualized upper abdomen. IMPRESSION: Hazy infiltrate in the right lung base again noted. Electronically signed by: Whitney Albright MD 04/20/2020 6:10 AM [facility]
[2020-04-20] MEDS ORDERED: THIAMINE HCL INJ 100 MG/ML VIAL ONE (08:04)
[2020-04-20] MEDS ORDERED: SODIUM CHLORIDE 0.9% 1000ML 1,000 ML ONE (08:05)
[2020-04-20] MEDS ORDERED: MULTIPLE VITAMIN 10 ML VIAL ONE (08:06)
[2020-04-20] MEDS: MULTIPLE VITAMIN INJ 10 ML, THIAMINE HCL INJ 100 MG in SODIUM CHLORIDE 0.9% 1000ML 1,00... IVS SCH (08:15)
[2020-04-20] MEDS: IPRATROPIUM/ALBUTEROL 3 ML VIAL INH SCH ×4 (08:20→20:42)
[2020-04-20] MEDS: PIPERACILLIN/TAZOBACTAM 3.375 GM in SODIUM CHLORIDE 0.9% 100ML 100 ML IVPB SCH ×2 (10:27→21:53)
[2020-04-20] MEDS: BIFIDOBACTERIUM INFANTIS 4 MG CAP PO SCH ×2 (13:46→19:58)
[2020-04-20] MEDS: GABAPENTIN 300 MG CAP PO SCH (13:46)
[2020-04-20] MEDS: hydroCHLOROthiazide 25 MG TAB PO SCH (13:46)
[2020-04-20] MEDS: guaiFENesin ER TAB 600 MG TAB PO SCH ×2 (13:46→19:59)
[2020-04-20] MEDS: FOLIC ACID 1 MG TAB PO SCH (13:46)
[2020-04-20] MEDS: CLOPIDOGREL 75 MG TAB PO SCH (13:47)
[2020-04-20] MEDS: METOPROLOL SUCCINATE XL 100 MG TAB PO SCH ×2 (13:47→19:57)
[2020-04-20] MEDS: amLODIPine BESYLATE 5 MG TAB PO SCH ×2 (13:47→19:56)
--- NOTE | 2020-04-20 14:06 | PN ---
SUPERVISING PHYSICIAN: Edu Pierce MD DATE: 04/20/20 SUBJECTIVE: The patient got a dose of Ativan last night. He is a little sleepy this morning. I did discuss with him that we are going to stop all his benzodiazepines in that they make him drowsy because he needs to get up and work on physical therapy. He has not any complaints of pain, nausea or vomiting. No reported hallucinations. OBJECTIVE: VITAL SIGNS: Temperature 97.8, pulse 71, blood pressure 113/64, respirations 20, saturating 97% on 2 liters nasal cannula. GENERAL: The patient is resting comfortably. He is a little disheveled, but looks to be alert when he is awake, in no acute distress. CHEST: Lung sounds are just diminished. No rhonchi, wheezing or rales are noted bilaterally. HEART: Regular rate and rhythm. ABDOMEN: Soft, nontender. Positive bowel sounds. EXTREMITIES: Without any edema. NEUROLOGIC: He is alert and oriented times three. SKIN: Warm, pink and dry. LABORATORY: White count is down to 12,600, hemoglobin 7.2, hematocrit 22.9, platelet count 292,000. Differential is without a left shift. Chemistries show normal electrolytes. Creatinine is at 2.83, calcium 8.7. MICROBIOLOGY: Blood cultures remain negative after 3 days. RADIOLOGY: Chest x-ray this morning per radiologic interpretation shows hazy infiltrate in the right lung base. No pulmonary vascular congestion noted. Hemothorax and no pleural effusion. ASSESSMENT: 1. Bilateral pneumonia. 2. Acute on chronic kidney disease, fairly stable. 3. Alcohol withdrawal with delirium tremens, mild, with the patient showing good response to Librium, with the patient having a history of alcohol abuse. 4. Hyperkalemia back to baseline levels, normalized. 5. Anemia, chronic, due to chronic illness with a microcytic/hypochromic presentation in the presence of alcohol abuse. 6. Hypertension showing to be stable. 7. Chronic obstructive pulmonary disease in a current smoker with no signs of exacerbation. 8. Nicotine dependency in a smoker. 9. Chronic alcohol abuse. PLAN: I have stopped all his benzodiazepines, just left Librium p.r.n. with instructions for the nurses to call me before they give anything. He needs to work with physical therapy. We will continue with antibiotic coverage with Zosyn. We will monitor closely for any other signs of complications from alcohol withdrawal and at this point seems to be stable. Hopefully, we can get him alert enough to work with physical therapy and strong enough with labs fairly stable, he could discharge tomorrow or the next. Until that point, we will continue to monitor and treat as needed. #[id number] [facility]
[2020-04-20] MEDS: ACETAMINOPHEN 325 MG TAB PO PRN ×2 (16:14→22:23)
[2020-04-20] MEDS: traZODone HCL 100 MG TAB PO SCH (19:58)
[2020-04-20] MEDS: ATORVASTATIN 20 MG TAB PO SCH (19:59)
[2020-04-21] MEDS: ACETAMINOPHEN 325 MG TAB PO PRN ×2 (05:00→10:54)
[2020-04-21] MEDS: PANTOPRAZOLE SODIUM IV 40 MG VIAL IV SCH (05:01)
[2020-04-21] MEDS: IPRATROPIUM/ALBUTEROL 3 ML VIAL INH SCH ×4 (08:43→20:35)
[2020-04-21] MEDS: CLOPIDOGREL 75 MG TAB PO SCH (08:57)
[2020-04-21] MEDS: BIFIDOBACTERIUM INFANTIS 4 MG CAP PO SCH ×2 (08:57→20:33)
[2020-04-21] MEDS: METOPROLOL SUCCINATE XL 100 MG TAB PO SCH (08:57)
[2020-04-21] MEDS: FOLIC ACID 1 MG TAB PO SCH (08:57)
[2020-04-21] MEDS: GABAPENTIN 300 MG CAP PO SCH (08:57)
[2020-04-21] MEDS: guaiFENesin ER TAB 600 MG TAB PO SCH ×2 (08:57→20:33)
[2020-04-21] MEDS: MULTIPLE VITAMIN INJ 10 ML, THIAMINE HCL INJ 100 MG in SODIUM CHLORIDE 0.9% 1000ML 1,00... IVS SCH (08:57)
[2020-04-21] MEDS: amLODIPine BESYLATE 5 MG TAB PO SCH (08:57)
[2020-04-21] MEDS: hydroCHLOROthiazide 25 MG TAB PO SCH (08:58)
[2020-04-21] MEDS: PIPERACILLIN/TAZOBACTAM 3.375 GM in SODIUM CHLORIDE 0.9% 100ML 100 ML IVPB SCH ×2 (09:40→21:37)
--- NOTE | 2020-04-21 10:58 | PN ---
SUPERVISING PHYSICIAN: Edu Pierce MD DATE: 04/21/20 SUBJECTIVE: The patient is much more alert today after he has not been on benzodiazepines for 24 hours. He has no signs of any delirium tremens. He had no complaints overnight. He slept very well and has been cooperating with the nurses today. OBJECTIVE: VITAL SIGNS: Temperature 98.4, pulse 63, blood pressure 150/80, respirations 16, saturating 98% on 2 liters nasal cannula. GENERAL: The patient looks fairly disheveled, but is resting comfortably. He does not appear to be in any distress. He is alert. CHEST: Lung sounds are fairly clear, just a little diminished towards the bases bilaterally. HEART: Regular rate and rhythm. ABDOMEN: Soft, nontender. Positive bowel sounds. EXTREMITIES: No cyanosis, clubbing or edema. NEUROLOGIC: He does have some obvious upper extremity weakness compared to lower extremities and mild tremors noted on his upper extremities with some ataxia. He has no reported other focal deficits, no reported paresthesias. He denies any visual or auditory hallucinations. He is alert and oriented times three. SKIN: Warm, pink and dry. LABORATORY: White count is no normalized to 10,300, hemoglobin stable at 7.4, hematocrit 22.8, platelet count 291,000. RBC indices indicate a microcytic/hypochromic presentation. Differential is without a left shift. Chemistries show liver functions all within normal limits. BUN and creatinine are improving. BUN is down to 29, creatinine 2.21. Sodium and potassium are both normal as well as calcium. MICROBIOLOGY: Blood cultures remain negative after 3 days. RADIOLOGY: No additional radiographic studies today. ASSESSMENT: 1. Bilateral pneumonia, improving with antibiotics. 2. Acute chronic obstructive pulmonary disease exacerbation in a smoker due to #1, showing improvement with treatment. 3. Acute on chronic kidney disease, returning to baseline levels, stable. 4. Alcohol withdrawal on admission with delirium tremens, mild, with the patient showing good response to treatment and not having any additional complications. 5. Hyperkalemia, back to baseline levels and normalized. 6. Chronic anemia due to chronic renal insufficiency in the presence of alcoholism with a microcytic/hypochromic presentation. 7. Hypertension, stable. 8. Significant deconditioning due to chronic illness and multiple hospitalizations. 9. Nicotine dependency in a smoker. 10. Chronic alcohol abuse. PLAN: The patient is showing good response to treatment with his antibiotics with Zosyn as well as now he is awake since we have taken him off benzodiazepines. We will continue to monitor for any problems with alcohol withdrawal, but he appears to be close to his baseline levels. He obviously has some upper extremity strength weakness. It seems like his lower extremities are fairly strong. We need to get physical therapy to work with him. Once he is found to be safe or depending on their assessment, the patient can be discharged. Hopefully, that will occur either today or tomorrow. Until that time, we will continue to monitor and treat as needed. #[id number] [facility]
[2020-04-21] MEDS: chlordiazePOXIDE HCL 25 MG CAP PO PRN ×2 (15:06→20:33)
[2020-04-21] MEDS: traZODone HCL 100 MG TAB PO SCH (20:33)
[2020-04-21] MEDS: ATORVASTATIN 20 MG TAB PO SCH (20:34)
[2020-04-22] MEDS: PANTOPRAZOLE SODIUM IV 40 MG VIAL IV SCH (05:51)
[2020-04-22] MEDS: BIFIDOBACTERIUM INFANTIS 4 MG CAP PO SCH (08:29)
[2020-04-22] MEDS: FOLIC ACID 1 MG TAB PO SCH (08:29)
[2020-04-22] MEDS: CLOPIDOGREL 75 MG TAB PO SCH (08:29)
[2020-04-22] MEDS: MULTIPLE VITAMIN INJ 10 ML, THIAMINE HCL INJ 100 MG in SODIUM CHLORIDE 0.9% 1000ML 1,00... IVS SCH (08:29)
[2020-04-22] MEDS: METOPROLOL SUCCINATE XL 100 MG TAB PO SCH (08:29)
[2020-04-22] MEDS: chlordiazePOXIDE HCL 25 MG CAP PO PRN (08:29)
[2020-04-22] MEDS: GABAPENTIN 300 MG CAP PO SCH (08:29)
[2020-04-22] MEDS: guaiFENesin ER TAB 600 MG TAB PO SCH (08:29)
[2020-04-22] MEDS: amLODIPine BESYLATE 5 MG TAB PO SCH (08:30)
[2020-04-22] MEDS: hydroCHLOROthiazide 25 MG TAB PO SCH (08:30)
[2020-04-22] MEDS: IPRATROPIUM/ALBUTEROL 3 ML VIAL INH SCH ×2 (09:00→12:45)
[2020-04-22] MEDS: PIPERACILLIN/TAZOBACTAM 3.375 GM in SODIUM CHLORIDE 0.9% 100ML 100 ML IVPB SCH (09:59)
[2020-04-22 13:08] VITALS: BP 141/85; TEMP 97.5; O2SAT 95
--- NOTE | 2020-04-22 14:13 | DS ---
SUPERVISING PHYSICIAN: Edu Pierce MD DISCHARGE DIAGNOSIS: 1. Bilateral pneumonia, improving with antibiotics. 2. Acute chronic obstructive pulmonary disease exacerbation in a smoker due to #1, showing improvement with treatment. 3. Acute on chronic kidney disease, stable. 4. Alcohol withdrawal. After several days in the hospital, he had delirium tremens that were mild. He was started on Librium and titrated off and has had no additional complications. 5. Hyperkalemia, normalized. 6. Chronic anemia due to chronic renal insufficiency in the presence of alcoholism with a microcytic/hypochromic presentation. 7. Hypertension. 8. Significant deconditioning due to chronic illness and multiple hospitalizations. 9. Nicotine dependency in a smoker. 10. Chronic alcohol abuse. HISTORY OF PRESENT ILLNESS: This is a 59-year-old male the patient who has had multiple admissions in the past several months for similar complaints. He came to the Emergency Room with generalized weakness along with some back and neck pain. He was admitted previous to this admission approximately 10 days ago. The patient also is known to have ETOH abuse, but he initially denied any alcohol intake for the previous several weeks. His creatinine on admission to the ER was 3.95. Baseline creatinine is about 1.8 to 2. Potassium was also up to 6.7. He had leukocytosis as well with a low hemoglobin of 7.4. Chest x-ray was consistent with pneumonia, but unchanged from previous. Urinalysis unremarkable. Vital signs were stable. He was admitted to the hospital in stable condition. HOSPITAL COURSE: He was admitted to the hospital and placed on empiric antibiotics. He also had D5W with bicarb to correct his renal function. His labs were monitored closely including his hemoglobin and hematocrit as he has chronic anemia problems. Home medications were restarted. He was also monitored closely for delirium tremens. During his stay, he was extremely weak and had a difficult time assisting with any activities of daily living. He needed mostly maximum assist. His hemoglobin and hematocrit stabilized. His potassium level normalized. He was on aggressive pulmonary hygiene as well as Zosyn. He clinically improved, but continued with extreme weakness. He was given magnesium replacement. His bicarb drip was discontinued, but continue on aggressive pulmonary hygiene. After he had been here several days, he went into delirium tremens. He was given some Ativan as well as Librium. He did admit that he had been drinking, but had not let anyone know. His actually did not know and thought he had quit drinking for many months. He had his lisinopril discontinued due to his elevated creatinine and HCTZ was started. For about 2 to 3 days, he was confused. He urinated in cups and his mental status was much worse than normal. His Librium was titrated off and he continues to be very weak. There has been no further evidence of delirium tremens for 48 hours. His lab work has stabilized. His vital signs have stabilized. His did fill out his application for [employer], so hopefully he can get some help with his payment source although at this time he has been turned down for physical therapy. We have had a long discussion with his about the need for him to continue movement as he will come back in the hospital if he does not. He will most likely need full assist. She was also told he may need fci if she is unable to take care of him. Supposedly he gets Medicare on May 18. Although the patient is very weak, he can use a walker with assistance. He will be discharged home in stable but fair condition. He has been encouraged to use his walker and take his medications as prescribed as well as doing his pulmonary hygiene including nebulizer treatments once he is at home. He was also cautioned to stop drinking alcoholic beverages. LABORATORY: WBCs on admission were 17,200 and went up as high as 20,200 and are no 10,300. Hemoglobin was as low as 7.2 and is now 7.4. Hematocrit was as low as 22.8. Sodium was stable at 137, potassium high at 6.7 and is now 4.6. Chloride 109, carbon dioxide was as low as 19 and is now 20. BUN was 84 and is now 29. Creatinine was 3.95 and is now down to 2.21. Magnesium was as low as 1.4 and after replacement it is now 2.2. Urinalysis is unremarkable. MICROBIOLOGY: Preliminary blood cultures showed no growth after 4 days. COVID swab was negative. RADIOLOGY: His final chest x-ray shows hazy infiltrate in the right lung base again noted. DISCHARGE PLAN: The patient will be discharged home in stable condition. He is to resume his previous diet and increase his activity as tolerated. He will need to use his walker and to continue his pulmonary hygiene as previously ordered. He is to discontinue his lisinopril and start hydrochlorothiazide. In addition to his routine home medications, he will be on Augmentin for 7 days. He is to followup with Dr. Stoll within the next 1 to 2 weeks. He is to return to the hospital or followup with Dr. Stoll for any problems or complications. DISCHARGE MEDICATIONS: 1. B1. 2. Naltrexone. 3. Plavix. 4. Citalopram. 5. Trazodone. 6. Pantoprazole. 7. Amlodipine. 8. Atorvastatin. 9. Metoprolol. 10. Gabapentin. 11. DuoNeb. 12. Furosemide. 13. Lactobacillus. 14. Folic acid. 15. Hydroxyzine. 16. Hydrochlorothiazide. 17. Guaifenesin. 18. Amoxicillin. It is to be noted that his potassium has been discontinued. #[id number] [facility]
== END 2020-04-22 16:40 | disposition home or self-care (01) | DRG 194 ==
LOC: ER 18:03 → OBSVTOIN 22:30 → MS 22:30
PROVIDERS: ADMIT Nurse Practitioner; ATTEND Nurse Practitioner Acute Care
DX: J18.9 Pneumonia, unspecified organism (principal); J44.0 Chronic obstructive pulmonary disease with (acute) lower respiratory infection; J44.1 Chronic obstructive pulmonary disease with (acute) exacerbation; F10.131 Alcohol abuse with withdrawal delirium; I13.0 Hypertensive heart and chronic kidney disease with heart failure and stage 1 through stage 4 chronic kidney disease, or unspecified chronic kidney disease; N18.9 Chronic kidney disease, unspecified; E87.5 Hyperkalemia; D63.1 Anemia in chronic kidney disease; F17.210 Nicotine dependence, cigarettes, uncomplicated; Z95.820 Peripheral vascular angioplasty status with implants and grafts; I50.9 Heart failure, unspecified